=== PATIENT | male | born 1955 | race African-American/Black ===

== ENCOUNTER 2018-01-06 11:35 | Inpatient (IN) ==
[2018-01-06] MEDS ORDERED: LIDOCAINE 1% 20 ML VIAL ONE (11:56)
[2018-01-06] MEDS ORDERED: ASPIRIN 325 MG TABLET PO STA (11:56)
[2018-01-06] MEDS ORDERED: ENOXAPARIN 100 MG/ML SYRINGE SUBCUT STA ×2 (11:56→12:02)
[2018-01-06] MEDS ORDERED: NITROGLYCERIN DRIP 50 MG/250 ML BOTTLE IV ONE ×2 (12:02→18:38)
[2018-01-06] MEDS ORDERED: ENOXAPARIN 30 MG/0.3 ML SYRINGE ONE (12:02)
[2018-01-06] MEDS ORDERED: NITROGLYCERIN DRIP 50 MG/250 ML BOTTLE IV PRN (12:05)
[2018-01-06] MEDS ORDERED: SODIUM CHLORIDE 0.9% 1,000 ML IV STA (12:05)
[2018-01-06] MEDS ORDERED: fentaNYL 100 MCG/2 ML VIAL ONE ×2 (12:06→12:43)
[2018-01-06] MEDS ORDERED: MIDAZOLAM 2 MG/2 ML VIAL ONE ×3 (12:06→17:06)
[2018-01-06] MEDS ORDERED: METOPROLOL TARTRATE 5 MG/5 ML VIAL IV ONE ×2 (12:22→12:28)
[2018-01-06 12:33] LABS: Basophils % 0.2 % (0.0-0.8); Hemoglobin 17.9 GM/DL (14.0-18.0); Immature Granulocytes % 0.9 %; Immature Granulocytes Absolute 0.17 #; Lymphocytes # 1.7 10*3/uL (1.4-4.0); Lymphocytes % 9.3 % (21.2-54.2); Mean Corpuscular HGB Conc 33.8 GM/DL (32-36); Mean Corpuscular Hemoglobin 32 PG (27-34); Mean Corpuscular Volume 93.6 FL (87-102); Mean Platelet Volume 10.8 FL (9.6-12.0); Monocytes # 1.3 10*3/uL (0.11-0.8); Neutrophils # 14.9 10*3/uL (1.4-7.4); Neutrophils % 82.6 % (38.7-73.9); Platelet Count 225 T/CUMM (130-400); Red Blood Count 5.66 MC/CUMM (3.8-5.5); Red Cell Distribution Width 12.6 % (9.3-17.3); White Blood Count 18.1 T/CUMM (4-12)
[2018-01-06] MEDS ORDERED: hydrALAZINE 20 MG/1 ML VIAL ONE (12:34)
[2018-01-06 12:37] LABS: INR 1.1; PT Patient Result 11.4 SECS
[2018-01-06 12:40] LABS: Albumin 3.7 G/DL (3.4-5.0); Bilirubin,Total 1.8 MG/DL (0.2-1.0); Osmolality,Calculated 285.7 MOS/KG (273-304); Total Protein 7.6 G/DL (6.4-8.3)
[2018-01-06] MEDS ORDERED: SODIUM CHLORIDE 0.9% 1,000 ML IV PRN ×3 (13:08→13:37)
[2018-01-06 13:09] LABS: ABG Base Excess -2.2 MMOL/L (-2.5-2.5); ABG HCO3 22.5 MMOL/L (20-26); ABG Oxygen Saturation 95.7 % (95-100); ABG PCO2 25.1 MM HG (35-48); ABG PH 7.488 (7.35-7.45); ABG PO2 76.3 MM HG (80-95); ABG TCO2 15.7 MMOL/L (23-27)
[2018-01-06] MEDS ORDERED: PAPAVERINE 60 MG/2 ML VIAL ONE (13:22)
[2018-01-06] MEDS ORDERED: HEPARIN/NACL 0.9% 2 UNITS/ML 500 ML IV ONE ×2 (13:22→18:37)
[2018-01-06] MEDS ORDERED: VANCOMYCIN 1,000 MG VIAL ONE (13:22)
[2018-01-06] MEDS ORDERED: SUFentanil 250 MCG/5 ML AMP ONE (13:33)
[2018-01-06] MEDS ORDERED: CEFUROXIME 1,500 MG VIAL ONE (14:36)
[2018-01-06 15:01] LABS: ABG Base Excess -4.9 MMOL/L (-2.5-2.5); ABG HCO3 20.5 MMOL/L (20-26); ABG Oxygen Saturation 98.5 % (95-100); ABG PH 7.308 (7.35-7.45); ABG TCO2 18.2 MMOL/L (23-27); Glucose Heart Surgery 311 MG/DL (74-106); Hematocrit Heart Surgery 51.3 PERCENT (42-52); Hemoglobin Heart Surgery 16.8 G/DL (14.0-18.0); Ionized Calcium Arterial 1.08 MMOL/L (1.21-1.46); PH Patient Temp Arterial 7.308; Patient Temperature 37 CELCIUS; Potassium Heart/CVR 4.5 MMOL/L (3.5-5.1); Sodium Heart/CVR 137 MMOL/L (135-145)
[2018-01-06] MEDS ORDERED: NITROPRUSSIDE 50 MG/2 ML VIAL ONE (15:01)
[2018-01-06] MEDS ORDERED: PHENYLEPHRINE DRIP 40 MG/250 ML PREMIX IV ONE (15:02)
[2018-01-06] MEDS ORDERED: POTASSIUM CHLORIDE RIDER 100 ML IV ONE (15:02)
[2018-01-06] MEDS ORDERED: CALCIUM CHLORIDE 1,000 MG/10 ML SYRINGE IV ONE (15:02)
[2018-01-06] MEDS ORDERED: ALBUMIN 5% 12.5 GM/250 ML VIAL IV ONE ×2 (15:03)
[2018-01-06 15:21] LABS: Hematocrit Heart Surgery 36.2 PERCENT (42-52); Hemoglobin Heart Surgery 11.7 G/DL (14.0-18.0); PCO2 Patient Temp Venous 40.9 MM HG; PH Patient Temp Venous 7.362; PO2 Patient Temp Venous 43.6 MM HG; Potassium Heart/CVR 4.5 MMOL/L (3.5-5.1); VBG HCO3 22.2 MEQ/L (24-28); VBG Oxygen Saturation 73.3 %; VBG PCO2 40.9 MMHG (41-51); VBG PH 7.362; VBG PO2 43.6 MMHG (17-40)
[2018-01-06 15:51] LABS: Hematocrit Heart Surgery 38.6 PERCENT (42-52); Hemoglobin Heart Surgery 12.5 G/DL (14.0-18.0); PCO2 Patient Temp Venous 37.5 MM HG; PH Patient Temp Venous 7.387; PO2 Patient Temp Venous 48.4 MM HG; Potassium Heart/CVR 5.6 MMOL/L (3.5-5.1); VBG Base Excess -2.1 MEQ/L (0-4); VBG HCO3 22.4 MEQ/L (24-28); VBG Oxygen Saturation 80.6 %; VBG PCO2 37.5 MMHG (41-51); VBG PH 7.387; VBG PO2 48.4 MMHG (17-40)
[2018-01-06 16:11] LABS: Mucus,Urine Occasional /LPF (Occasional); RBC,Urine 4 /HPF (0-4); Squamous Epithelial Cell,Urine Occasional /HPF (0-10); WBC,Urine 141 /HPF (0-6)
[2018-01-06 16:12] LABS: Apearance,Urine Slightly Hazy (Clear); Urine Color Yellow (Yellow)
[2018-01-06 16:13] LABS: Bilirubin,Urine Negative (Negative); Blood, Urine Negative (Negative); Glucose,Urine (UA) >=500 mg/dL (Negative); Ketones,Urine 20 mg/dL (Negative); Nitrite,Urine Negative (Negative); Protein,Urine Negative; Urine Specific Gravity > 1.060 (1.001-1.035); Urine Urobilinogen < 2.0 EU/DL (0.2-1.0)
[2018-01-06 16:22] LABS: Hematocrit Heart Surgery 34.3 PERCENT (42-52); Hemoglobin Heart Surgery 11.1 G/DL (14.0-18.0); PCO2 Patient Temp Venous 37.7 MM HG; PH Patient Temp Venous 7.363; PO2 Patient Temp Venous 55.8 MM HG; VBG Base Excess -3.5 MEQ/L (0-4); VBG HCO3 21.3 MEQ/L (24-28); VBG Oxygen Saturation 85.4 %; VBG PCO2 37.7 MMHG (41-51); VBG PH 7.363; VBG PO2 55.8 MMHG (17-40)
[2018-01-06 16:28] LABS: Potassium Heart/CVR 6.6 MMOL/L (3.5-5.1)
[2018-01-06] MEDS ORDERED: BACITRACIN 50,000 UNIT VIAL ONE (16:34)
[2018-01-06] MEDS ORDERED: SUFentanil 50 MCG/ML AMP ONE (17:06)
[2018-01-06] MEDS ORDERED: MIDAZOLAM 10 MG/2 ML VIAL ONE ×2 (17:07→18:37)
[2018-01-06 17:39] LABS: ABG Base Excess -8.6 MMOL/L (-2.5-2.5); ABG HCO3 17.5 MMOL/L (20-26); ABG Oxygen Saturation 96.8 % (95-100); ABG PH 7.236 (7.35-7.45); ABG TCO2 17.2 MMOL/L (23-27); Glucose Heart Surgery 328 MG/DL (74-106); PH Patient Temp Arterial 7.236; Patient Temperature 37 CELCIUS; Potassium Heart/CVR 3.6 MMOL/L (3.5-5.1); Sodium Heart/CVR 135 MMOL/L (135-145)
[2018-01-06] MEDS ORDERED: SEVOFLURANE 1 UNIT/15 MINUTE INH ONE (18:37)
[2018-01-06] MEDS ORDERED: CALCIUM CHLORIDE 1,000 MG/10 ML VIAL IV ONE (18:37)
[2018-01-06] MEDS ORDERED: ESMOLOL 100 MG/10 ML VIAL IV ONE (18:38)
[2018-01-06] MEDS ORDERED: SODIUM CHLORIDE 0.9% 250 ML IV ONE (18:38)
[2018-01-06] MEDS ORDERED: VECURONIUM 10 MG VIAL IV ONE (18:38)
[2018-01-06] MEDS ORDERED: LACTATED RINGERS 1,000 ML IV ONE (18:38)
[2018-01-06] MEDS ORDERED: ETOMIDATE 40 MG/20 ML VIAL IV ONE (18:38)
[2018-01-06] MEDS ORDERED: SODIUM CHLORIDE 0.9% 1,000 ML IV ONE (18:38)
[2018-01-06] MEDS ORDERED: DEXTROSE 50% 25 GM/50 ML VIAL IV PRN ×2 (18:40)
[2018-01-06] MEDS ORDERED: MAGNESIUM SULF RIDER 2 GM in PREMIX 1 EACH IV PRN (18:40)
[2018-01-06] MEDS ORDERED: INSULIN REGULAR 100 UNIT/ML IV PRN (18:40)
[2018-01-06] MEDS ORDERED: CALCIUM CHLORIDE 1,000 MG/10 ML SYRINGE IV PRN (18:40)
[2018-01-06] MEDS ORDERED: ONDANSETRON 4 MG/2 ML VIAL IV PRN (18:40)
[2018-01-06] MEDS ORDERED: VECURONIUM 10 MG VIAL IV PRN ×2 (18:40)
[2018-01-06] MEDS ORDERED: ACETAMINOPHEN 650 MG SUPP RECTAL PRN (18:40)
[2018-01-06] MEDS ORDERED: MIDAZOLAM 10 MG/2 ML VIAL IV PRN (18:40)
[2018-01-06] MEDS ORDERED: INSULIN REGULAR 100 UNIT/ML IV ONE (18:40)
[2018-01-06] MEDS ORDERED: NITROPRUSSIDE 100 MG in DEXTROSE 5% 250 ML IV PRN (18:40)
[2018-01-06] MEDS ORDERED: MAGNESIUM SULF RIDER 4 GM in PREMIX 1 EACH IV PRN (18:40)
[2018-01-06] MEDS ORDERED: INSULIN REGULAR DRIP 100 ML IV SCH (18:40)
[2018-01-06] MEDS ORDERED: MORPHINE 10 MG/1 ML VIAL IV PRN (18:40)
[2018-01-06 18:57] LABS: ABG Base Excess -4.7 MMOL/L (-2.5-2.5); ABG HCO3 20.5 MMOL/L (20-26); ABG Oxygen Saturation 95.9 % (95-100); ABG PCO2 45.3 MM HG (35-48); ABG PH 7.294 (7.35-7.45); ABG PO2 95.9 MM HG (80-95); ABG TCO2 19.6 MMOL/L (23-27); Glucose Heart Surgery 276 MG/DL (74-106); Hemoglobin Heart Surgery 12.7 G/DL (14.0-18.0); Potassium Heart/CVR 4.2 MMOL/L (3.5-5.1)
[2018-01-06] MEDS: PHENYLEPHRINE DRIP 40 MG/250 ML PREMIX IV PRN (19:00)
[2018-01-06] MEDS: SODIUM CHLORIDE 0.45% 1,000 ML IV SCH ×2 (19:00)
[2018-01-06 19:07] LABS: Basophils % 0.1 % (0.0-0.8); Hemoglobin 11.6 GM/DL (14.0-18.0); Immature Granulocytes % 0.5 %; Immature Granulocytes Absolute 0.09 #; Lymphocytes % 11.9 % (21.2-54.2); Mean Corpuscular HGB Conc 33.1 GM/DL (32-36); Mean Corpuscular Hemoglobin 33 PG (27-34); Mean Platelet Volume 10.7 FL (9.6-12.0); Monocytes # 1.9 10*3/uL (0.11-0.8); Monocytes % 10.8 % (1.7-12.7); Neutrophils # 13.1 10*3/uL (1.4-7.4); Neutrophils % 76.7 % (38.7-73.9); Platelet Count 126 T/CUMM (130-400); Red Blood Count 3.57 MC/CUMM (3.8-5.5); Red Cell Distribution Width 12.8 % (9.3-17.3); White Blood Count 17.1 T/CUMM (4-12)
[2018-01-06] MEDS: LACTATED RINGERS 250 ML IV PRN ×2 (19:15→21:07)
[2018-01-06 19:16] LABS: INR 1.3; PT Patient Result 13.7 SECS; Partial Thromboplastin Time 29.3 SECS (0-40)
[2018-01-06 19:40] LABS: Albumin 2.6 G/DL (3.4-5.0); Calcium 8.2 MG/DL (8.5-10.1); Osmolality,Calculated 292.1 MOS/KG (273-304); Potassium 4.5 MMOL/L (3.5-5.1); Total Protein 5.2 G/DL (6.4-8.3)
[2018-01-06 20:33] LABS: CKMB % 4.6 %
[2018-01-06 20:37] LABS: Troponin I > 200.000 NG/ML (0.00-0.045)
[2018-01-06] MEDS: KETOROLAC 30 MG/1 ML VIAL IV SCH (20:42)
[2018-01-06] MEDS: CHLORHEXIDINE 0.12% ORAL RINSE 60 ML BOTTLE SWISH/SPIT SCH (20:42)
[2018-01-06] MEDS ORDERED: FUROSEMIDE 40 MG/4 ML VIAL IV ONE (21:00)
[2018-01-06] MEDS: ALBUMIN 5% 12.5 GM in PREMIX 1 EACH IV PRN (21:31)
[2018-01-06 21:59] LABS: ABG Oxygen Saturation 99.1 % (95-100); ABG PCO2 35.2 MM HG (35-48); ABG PH 7.392 (7.35-7.45); ABG TCO2 19.4 MMOL/L (23-27); Glucose Heart Surgery 211 MG/DL (74-106); Hematocrit Heart Surgery 32.1 PERCENT (42-52); Hemoglobin Heart Surgery 10.4 G/DL (14.0-18.0); Potassium Heart/CVR 3.9 MMOL/L (3.5-5.1)
[2018-01-06] MEDS: POTASSIUM CHLORIDE RIDER 20 MEQ in PREMIX 1 EACH IV PRN (22:13)
[2018-01-07] MEDS: KETOROLAC 30 MG/1 ML VIAL IV SCH ×2 (00:37→06:19)
[2018-01-07] MEDS ORDERED: FUROSEMIDE 40 MG/4 ML VIAL IV ONE ×2 (01:00→06:03)
[2018-01-07] MEDS: MIDAZOLAM 2 MG/2 ML VIAL IV PRN ×4 (01:42→14:48)
[2018-01-07 02:59] LABS: ABG Base Excess -0.4 MMOL/L (-2.5-2.5); ABG PCO2 33.9 MM HG (35-48); ABG PH 7.442 (7.35-7.45); ABG PO2 88.4 MM HG (80-95); ABG TCO2 20.8 MMOL/L (23-27); Glucose Heart Surgery 120 MG/DL (74-106); Hematocrit Heart Surgery 33.3 PERCENT (42-52); Hemoglobin Heart Surgery 10.8 G/DL (14.0-18.0); Potassium Heart/CVR 3.8 MMOL/L (3.5-5.1)
[2018-01-07] MEDS: CEFUROXIME INJ 1,500 MG in SYRINGE 1 EACH IV SCH ×2 (03:03→14:47)
[2018-01-07] MEDS: PHENYLEPHRINE DRIP 40 MG/250 ML PREMIX IV PRN (03:06)
[2018-01-07] MEDS: PROPOFOL 1,000 MG/100 ML BOTTLE IV SCH ×2 (03:22→15:18)
[2018-01-07 04:28] LABS: Basophils % 0.2 % (0.0-0.8); Hematocrit 29.7 VOL% (42.0-52.0); Hemoglobin 10.1 GM/DL (14.0-18.0); Immature Granulocytes % 0.5 %; Immature Granulocytes Absolute 0.06 #; Lymphocytes # 1.5 10*3/uL (1.4-4.0); Lymphocytes % 12.6 % (21.2-54.2); Mean Corpuscular Hemoglobin 33 PG (27-34); Mean Corpuscular Volume 96.4 FL (87-102); Mean Platelet Volume 10.8 FL (9.6-12.0); Monocytes # 0.7 10*3/uL (0.11-0.8); Neutrophils # 9.7 10*3/uL (1.4-7.4); Neutrophils % 80.7 % (38.7-73.9); Platelet Count 101 T/CUMM (130-400); Red Blood Count 3.08 MC/CUMM (3.8-5.5); Red Cell Distribution Width 12.9 % (9.3-17.3); White Blood Count 12.1 T/CUMM (4-12)
[2018-01-07] MEDS: ALBUMIN 5% 12.5 GM in PREMIX 1 EACH IV PRN ×4 (04:28→17:13)
[2018-01-07 04:35] LABS: VBG Base Excess 2.2 MEQ/L (0-4); VBG HCO3 25.8 MEQ/L (24-28); VBG Oxygen Saturation 67.1 %; VBG PCO2 35.7 MMHG (41-51); VBG PH 7.466; VBG PO2 36.1 MMHG (17-40)
[2018-01-07 04:42] LABS: CKMB % 3.2 %
[2018-01-07 04:45] LABS: Troponin I > 200.000 NG/ML (0.00-0.045)
[2018-01-07 04:48] LABS: Bilirubin,Direct 1.21 MG/DL (0.0-0.20); Bilirubin,Total 2.3 MG/DL (0.2-1.0); Calcium 8.2 MG/DL (8.5-10.1); Osmolality,Calculated 291.6 MOS/KG (273-304); Potassium 3.9 MMOL/L (3.5-5.1)
[2018-01-07] MEDS: POTASSIUM CHLORIDE RIDER 20 MEQ in PREMIX 1 EACH IV PRN ×3 (05:31→20:48)
[2018-01-07] MEDS: POTASSIUM CHLORIDE RIDER 10 MEQ in PREMIX 1 EACH IV PRN (06:25)
[2018-01-07] MEDS: INSULIN REGULAR 100 UNIT/ML SUBCUT SCH ×4 (07:50→20:50)
[2018-01-07] MEDS: CHLORHEXIDINE 0.12% ORAL RINSE 60 ML BOTTLE SWISH/SPIT SCH ×2 (08:29→20:51)
[2018-01-07 11:07] LABS: ABG Base Excess 0.1 MMOL/L (-2.5-2.5); ABG HCO3 22.3 MMOL/L (20-26); ABG Oxygen Saturation 97.5 % (95-100); ABG PCO2 28.6 MM HG (35-48); ABG PH 7.509 (7.35-7.45); ABG PO2 103.6 MM HG (80-95); ABG TCO2 23.1 MMOL/L (23-27); Glucose Heart Surgery 139 MG/DL (74-106); Hemoglobin Heart Surgery 11.4 G/DL (14.0-18.0)
[2018-01-07] MEDS: LACTATED RINGERS 250 ML IV PRN ×2 (13:32→15:41)
[2018-01-07 13:45] LABS: CKMB % 2.5 %
[2018-01-07] MEDS: PANTOPRAZOLE 40 MG VIAL IV SCH (14:47)
[2018-01-07] MEDS: MORPHINE 4 MG/1 ML VIAL IV PRN (19:44)
[2018-01-07 20:07] LABS: CKMB % 2.1 %
[2018-01-07] MEDS: SODIUM CHLORIDE 0.45% 1,000 ML IV SCH ×2 (20:54)
[2018-01-08] MEDS: INSULIN REGULAR 100 UNIT/ML SUBCUT SCH ×6 (00:04→21:23)
[2018-01-08] MEDS: PROPOFOL 1,000 MG/100 ML BOTTLE IV SCH ×3 (00:12→08:56)
[2018-01-08] MEDS: MORPHINE 4 MG/1 ML VIAL IV PRN ×4 (00:26→23:06)
[2018-01-08] MEDS: CEFUROXIME INJ 1,500 MG in SYRINGE 1 EACH IV SCH (02:49)
[2018-01-08 03:36] LABS: ABG Base Excess -0.1 MMOL/L (-2.5-2.5); ABG HCO3 24.3 MMOL/L (20-26); ABG Oxygen Saturation 98.3 % (95-100); ABG PCO2 30.2 MM HG (35-48); ABG PH 7.476 (7.35-7.45); ABG TCO2 18.9 MMOL/L (23-27)
[2018-01-08 03:44] LABS: Hemoglobin 9.4 GM/DL (14.0-18.0); Immature Granulocytes % 0.4 %; Immature Granulocytes Absolute 0.03 #; Lymphocytes % 11.7 % (21.2-54.2); Mean Corpuscular HGB Conc 33.6 GM/DL (32-36); Mean Corpuscular Hemoglobin 32 PG (27-34); Mean Corpuscular Volume 95.2 FL (87-102); Mean Platelet Volume 11.8 FL (9.6-12.0); Monocytes # 0.5 10*3/uL (0.11-0.8); Monocytes % 6.6 % (1.7-12.7); Neutrophils # 6.7 10*3/uL (1.4-7.4); Neutrophils % 81.3 % (38.7-73.9); Red Blood Count 2.94 MC/CUMM (3.8-5.5); Red Cell Distribution Width 15.7 % (9.3-17.3); White Blood Count 8.2 T/CUMM (4-12)
[2018-01-08 03:45] LABS: Platelet Count 71 T/CUMM (130-400)
[2018-01-08 03:59] LABS: Albumin 2.9 G/DL (3.4-5.0); Bilirubin,Direct 0.86 MG/DL (0.0-0.20); Bilirubin,Total 1.3 MG/DL (0.2-1.0); Calcium 7.7 MG/DL (8.5-10.1); Osmolality,Calculated 303.7 MOS/KG (273-304); Potassium 4.3 MMOL/L (3.5-5.1); Total Protein 5.7 G/DL (6.4-8.3)
[2018-01-08] MEDS: DOBUTamine 500 MG/250 ML PREMIX IV SCH (04:30)
[2018-01-08 05:03] LABS: Hypochromasia 1+; Platelet Estimate Decreased
[2018-01-08] MEDS: POTASSIUM CHLORIDE RIDER 20 MEQ in PREMIX 1 EACH IV PRN ×2 (05:18→09:26)
[2018-01-08] MEDS: CHLORHEXIDINE 0.12% ORAL RINSE 60 ML BOTTLE SWISH/SPIT SCH ×2 (08:02→21:23)
[2018-01-08] MEDS: PANTOPRAZOLE 40 MG VIAL IV SCH (08:35)
[2018-01-08 09:20] LABS: ABG Base Excess 0.4 MMOL/L (-2.5-2.5); ABG HCO3 22.7 MMOL/L (20-26); ABG Oxygen Saturation 97.7 % (95-100); ABG PCO2 29.5 MM HG (35-48); ABG PH 7.504 (7.35-7.45); ABG PO2 109.8 MM HG (80-95); ABG TCO2 23.6 MMOL/L (23-27); Glucose Heart Surgery 163 MG/DL (74-106); Hemoglobin Heart Surgery 11.6 G/DL (14.0-18.0); Potassium Heart/CVR 4.1 MMOL/L (3.5-5.1)
[2018-01-08] MEDS: SODIUM CHLORIDE 0.45% 1,000 ML IV SCH ×3 (15:25→18:32)
[2018-01-08 15:55] LABS: ABG Base Excess -1.5 MMOL/L (-2.5-2.5); ABG HCO3 23.1 MMOL/L (20-26); ABG Oxygen Saturation 97.4 % (95-100); ABG PCO2 31.1 MM HG (35-48); ABG TCO2 19.2 MMOL/L (23-27); Glucose Heart Surgery 145 MG/DL (74-106); Hematocrit Heart Surgery 35.6 PERCENT (42-52); Hemoglobin Heart Surgery 11.5 G/DL (14.0-18.0); Potassium Heart/CVR 3.9 MMOL/L (3.5-5.1)
[2018-01-08 16:46] LABS: ABG Base Excess -2.2 MMOL/L (-2.5-2.5); ABG HCO3 20.6 MMOL/L (20-26); ABG Oxygen Saturation 94.5 % (95-100); ABG PCO2 29.5 MM HG (35-48); ABG PH 7.462 (7.35-7.45); ABG PO2 79.2 MM HG (80-95); ABG TCO2 21.5 MMOL/L (23-27)
[2018-01-08] MEDS ORDERED: FUROSEMIDE 40 MG/4 ML VIAL IV ONE ×2 (18:26)
[2018-01-09] MEDS ORDERED: FUROSEMIDE 40 MG/4 ML VIAL IV ONE
[2018-01-09] MEDS: INSULIN REGULAR 100 UNIT/ML SUBCUT SCH ×6 (00:18→20:32)
[2018-01-09 03:30] LABS: Hematocrit 35.1 VOL% (42.0-52.0); Hemoglobin 11.5 GM/DL (14.0-18.0); Immature Granulocytes % 0.4 %; Immature Granulocytes Absolute 0.05 #; Lymphocytes # 1.2 10*3/uL (1.4-4.0); Lymphocytes % 10.2 % (21.2-54.2); Mean Corpuscular HGB Conc 32.8 GM/DL (32-36); Mean Corpuscular Hemoglobin 31 PG (27-34); Mean Corpuscular Volume 95.4 FL (87-102); Mean Platelet Volume 11.8 FL (9.6-12.0); Monocytes # 0.8 10*3/uL (0.11-0.8); Monocytes % 6.8 % (1.7-12.7); NRBC # 0.09 10*3/uL; Neutrophils # 9.3 10*3/uL (1.4-7.4); Neutrophils % 82.6 % (38.7-73.9); Platelet Count 93 T/CUMM (130-400); Red Blood Count 3.68 MC/CUMM (3.8-5.5); Red Cell Distribution Width 15.9 % (9.3-17.3); White Blood Count 11.2 T/CUMM (4-12)
[2018-01-09 04:00] LABS: Albumin 2.9 G/DL (3.4-5.0); Bilirubin,Direct 0.59 MG/DL (0.0-0.20); Bilirubin,Total 1.1 MG/DL (0.2-1.0); Calcium 7.4 MG/DL (8.5-10.1); Potassium 3.9 MMOL/L (3.5-5.1); Total Protein 6.3 G/DL (6.4-8.3)
[2018-01-09] MEDS: PROPOFOL 1,000 MG/100 ML BOTTLE IV SCH (04:13)
[2018-01-09 04:41] LABS: ABG Base Excess -0.8 MMOL/L (-2.5-2.5); ABG HCO3 23.7 MMOL/L (20-26); ABG Oxygen Saturation 95.1 % (95-100); ABG PCO2 31.5 MM HG (35-48); ABG PH 7.457 (7.35-7.45); ABG PO2 79.4 MM HG (80-95); ABG TCO2 19.7 MMOL/L (23-27); Allen Test Positive
[2018-01-09] MEDS: DOBUTamine 500 MG/250 ML PREMIX IV SCH (04:58)
[2018-01-09] MEDS: MORPHINE 4 MG/1 ML VIAL IV PRN ×3 (06:28→21:15)
[2018-01-09] MEDS: PANTOPRAZOLE 40 MG VIAL IV SCH (09:00)
[2018-01-09] MEDS: CHLORHEXIDINE 0.12% ORAL RINSE 60 ML BOTTLE SWISH/SPIT SCH ×2 (09:00→20:32)
[2018-01-09] MEDS: SODIUM CHLORIDE 0.45% 1,000 ML IV SCH ×2 (16:59→18:40)
[2018-01-09] MEDS ORDERED: METOPROLOL TARTRATE 25 MG TABLET PO SCH (21:00)
[2018-01-10] MEDS: INSULIN REGULAR 100 UNIT/ML SUBCUT SCH ×4 (00:53→11:50)
[2018-01-10 03:42] LABS: Basophils % 0.1 % (0.0-0.8); Hematocrit 35.9 VOL% (42.0-52.0); Immature Granulocytes % 0.6 %; Immature Granulocytes Absolute 0.07 #; Lymphocytes # 1.9 10*3/uL (1.4-4.0); Lymphocytes % 17.2 % (21.2-54.2); Mean Corpuscular HGB Conc 33.4 GM/DL (32-36); Mean Corpuscular Hemoglobin 32 PG (27-34); Mean Platelet Volume 11.6 FL (9.6-12.0); Monocytes # 1.2 10*3/uL (0.11-0.8); Monocytes % 10.3 % (1.7-12.7); NRBC # 0.14 10*3/uL; Neutrophils # 8.1 10*3/uL (1.4-7.4); Neutrophils % 71.8 % (38.7-73.9); Platelet Count 102 T/CUMM (130-400); Red Blood Count 3.78 MC/CUMM (3.8-5.5); Red Cell Distribution Width 14.7 % (9.3-17.3); White Blood Count 11.2 T/CUMM (4-12)
[2018-01-10 04:08] LABS: Calcium 7.7 MG/DL (8.5-10.1); Potassium 3.7 MMOL/L (3.5-5.1)
[2018-01-10] MEDS: MORPHINE 4 MG/1 ML VIAL IV PRN ×3 (04:27→09:05)
[2018-01-10] MEDS: DOBUTamine 500 MG/250 ML PREMIX IV SCH (04:39)
[2018-01-10] MEDS: POTASSIUM CHLORIDE RIDER 20 MEQ in PREMIX 1 EACH IV PRN (05:20)
[2018-01-10 07:10] LABS: Platelet Estimate Decreased; Polychromasia Few
[2018-01-10] MEDS: POTASSIUM CHLORIDE RIDER 10 MEQ in PREMIX 1 EACH IV PRN (08:00)
[2018-01-10] MEDS: METOPROLOL TARTRATE 50 MG TABLET PO SCH ×2 (09:05→21:56)
[2018-01-10] MEDS: LOSARTAN 25 MG TABLET PO SCH ×2 (09:05→21:55)
[2018-01-10] MEDS: CHLORHEXIDINE 0.12% ORAL RINSE 60 ML BOTTLE SWISH/SPIT SCH ×2 (09:05→21:56)
[2018-01-10] MEDS: PANTOPRAZOLE 40 MG VIAL IV SCH (09:10)
[2018-01-10] MEDS ORDERED: DEXTROSE 50% 25 GM/50 ML SYRINGE IV PRN (12:25)
[2018-01-10] MEDS ORDERED: SODIUM CHLOR 0.45% KCL 20 MEQ 20 MEQ/1,000 ML BAG IV SCH (12:25)
[2018-01-10] MEDS ORDERED: GLUCAGON 1 MG VIAL IM PRN ×2 (12:25)
[2018-01-10] MEDS ORDERED: MAGNESIUM SULF RIDER 2 GM in PREMIX 1 EACH IV PRN (12:25)
[2018-01-10] MEDS ORDERED: MAGNESIUM SULF RIDER 4 GM in PREMIX 1 EACH IV PRN (12:25)
[2018-01-10] MEDS ORDERED: MAGNESIUM HYDROXIDE SUSP 30 ML UDCUP PO PRN (12:25)
[2018-01-10] MEDS ORDERED: DEXTROSE 50% 25 GM/50 ML VIAL IV PRN (12:25)
[2018-01-10] MEDS ORDERED: MORPHINE 4 MG/1 ML VIAL IV PRN (12:25)
[2018-01-10] MEDS ORDERED: ONDANSETRON 4 MG/2 ML VIAL IV PRN (12:25)
[2018-01-10] MEDS ORDERED: ALUMINUM/MAGNES/SIMETH MAX STR 30 ML UDCUP PO PRN (12:25)
[2018-01-10] MEDS ORDERED: ACETAMINOPHEN 325 MG TABLET PO PRN (12:25)
[2018-01-10] MEDS ORDERED: ZALEPLON 5 MG CAPSULE PO PRN (12:25)
[2018-01-10] MEDS: KETOROLAC 30 MG/1 ML VIAL IV PRN ×2 (13:07→21:59)
[2018-01-10] MEDS: oxyCODONE/ACETAMINOPHEN 5-325 MG TABLET PO PRN (16:28)
[2018-01-10] MEDS: METOPROLOL TARTRATE 100 MG TABLET PO SCH (21:55)
[2018-01-10] MEDS: glipiZIDE 10 MG TABLET PO SCH (21:55)
[2018-01-10] MEDS: SULINDAC 150 MG TABLET PO SCH (21:56)
[2018-01-11 05:09] LABS: Basophils % 0.1 % (0.0-0.8); Eosinophils % 0.3 % (0.00-10.9); Hematocrit 38.9 VOL% (42.0-52.0); Hemoglobin 13.1 GM/DL (14.0-18.0); Immature Granulocytes % 1.2 %; Immature Granulocytes Absolute 0.13 #; Lymphocytes # 2.1 10*3/uL (1.4-4.0); Lymphocytes % 18.9 % (21.2-54.2); Mean Corpuscular HGB Conc 33.7 GM/DL (32-36); Mean Corpuscular Hemoglobin 32 PG (27-34); Mean Platelet Volume 11.7 FL (9.6-12.0); Monocytes # 1.2 10*3/uL (0.11-0.8); NRBC # 0.05 10*3/uL; Neutrophils # 7.5 10*3/uL (1.4-7.4); Neutrophils % 68.5 % (38.7-73.9); Platelet Count 121 T/CUMM (130-400); Red Blood Count 4.14 MC/CUMM (3.8-5.5); Red Cell Distribution Width 14.1 % (9.3-17.3); White Blood Count 10.9 T/CUMM (4-12)
[2018-01-11] MEDS ORDERED: FUROSEMIDE 40 MG/4 ML VIAL IV ONE (06:00)
[2018-01-11 07:12] LABS: Alanine Aminotransferase 152 U/L (16-61); Albumin 2.6 G/DL (3.4-5.0); Alkaline Phosphatase 93 U/L (45-117); Aspartate Amino Transferase 93 U/L (0-37); Bilirubin,Indirect 0.7 MG/DL (0.0-1.0); Blood Urea Nitrogen 28 MG/DL (7-18); Calcium 7.7 MG/DL (8.5-10.1); Glucose 186 MG/DL (74-106); Osmolality,Calculated 289.4 MOS/KG (273-304); Potassium 3.8 MMOL/L (3.5-5.1); Sodium 140 MMOL/L (136-145); Total Protein 6.1 G/DL (6.4-8.3)
[2018-01-11] MEDS: KETOROLAC 30 MG/1 ML VIAL IV PRN ×2 (09:39→17:30)
[2018-01-11] MEDS: METOPROLOL TARTRATE 100 MG TABLET PO SCH ×2 (09:56→20:35)
[2018-01-11] MEDS: PANTOPRAZOLE 40 MG TABLET PO SCH (09:58)
[2018-01-11] MEDS: glipiZIDE 10 MG TABLET PO SCH ×2 (09:59→20:35)
[2018-01-11] MEDS: FERROUS SULFATE 325 MG TABLET PO SCH (09:59)
[2018-01-11] MEDS: amLODIPine 5 MG TABLET PO SCH (09:59)
[2018-01-11] MEDS: DOCUSATE SODIUM 100 MG CAPSULE PO SCH (09:59)
[2018-01-11] MEDS: SULINDAC 150 MG TABLET PO SCH (09:59)
[2018-01-11] MEDS: CHLORTHALIDONE 25 MG TABLET PO SCH (10:00)
[2018-01-11] MEDS: ASPIRIN EC 325 MG TABLET PO SCH (10:00)
[2018-01-11] MEDS: LOSARTAN 25 MG TABLET PO SCH ×2 (10:01→20:35)
[2018-01-11] MEDS: CHLORHEXIDINE 0.12% ORAL RINSE 60 ML BOTTLE SWISH/SPIT SCH ×2 (13:20→20:36)
[2018-01-11] MEDS: ATORVASTATIN 20 MG TABLET PO SCH (20:34)
[2018-01-12 05:02] LABS: Basophils % 0.1 % (0.0-0.8); Eosinophils # 0.1 10*3/uL (0.0-0.87); Eosinophils % 0.6 % (0.00-10.9); Hematocrit 37.2 VOL% (42.0-52.0); Hemoglobin 12.5 GM/DL (14.0-18.0); Immature Granulocytes Absolute 0.12 #; Lymphocytes # 1.8 10*3/uL (1.4-4.0); Mean Corpuscular HGB Conc 33.6 GM/DL (32-36); Mean Corpuscular Hemoglobin 31 PG (27-34); Mean Corpuscular Volume 93.5 FL (87-102); Mean Platelet Volume 11.4 FL (9.6-12.0); Monocytes # 1.4 10*3/uL (0.11-0.8); Monocytes % 11.4 % (1.7-12.7); Neutrophils # 9.2 10*3/uL (1.4-7.4); Neutrophils % 72.9 % (38.7-73.9); Platelet Count 144 T/CUMM (130-400); Red Blood Count 3.98 MC/CUMM (3.8-5.5); Red Cell Distribution Width 14.4 % (9.3-17.3); White Blood Count 12.6 T/CUMM (4-12)
[2018-01-12 05:18] LABS: Alanine Aminotransferase 102 U/L (16-61); Albumin 2.6 G/DL (3.4-5.0); Alkaline Phosphatase 81 U/L (45-117); Aspartate Amino Transferase 66 U/L (0-37); Bilirubin,Indirect 1.2 MG/DL (0.0-1.0); Blood Urea Nitrogen 21 MG/DL (7-18); Calcium 7.9 MG/DL (8.5-10.1); Glucose 165 MG/DL (74-106); Osmolality,Calculated 292.8 MOS/KG (273-304); Potassium 3.5 MMOL/L (3.5-5.1); Risk Ratio 3.58; Sodium 144 MMOL/L (136-145); Total Protein 5.8 G/DL (6.4-8.3); VLDL CHOLESTEROL 29.6 MG/DL
[2018-01-12] MEDS ORDERED: FUROSEMIDE 40 MG/4 ML VIAL IV ONE (07:08)
[2018-01-12] MEDS: CHLORHEXIDINE 0.12% ORAL RINSE 60 ML BOTTLE SWISH/SPIT SCH ×2 (09:51→21:10)
[2018-01-12] MEDS: LOSARTAN 25 MG TABLET PO SCH ×2 (09:52→21:10)
[2018-01-12] MEDS: PANTOPRAZOLE 40 MG TABLET PO SCH (09:52)
[2018-01-12] MEDS: METOPROLOL TARTRATE 100 MG TABLET PO SCH ×2 (09:52→21:10)
[2018-01-12] MEDS: DOCUSATE SODIUM 100 MG CAPSULE PO SCH (09:52)
[2018-01-12] MEDS: CHLORTHALIDONE 25 MG TABLET PO SCH (09:52)
[2018-01-12] MEDS: amLODIPine 5 MG TABLET PO SCH (09:52)
[2018-01-12] MEDS: FERROUS SULFATE 325 MG TABLET PO SCH (09:53)
[2018-01-12] MEDS: glipiZIDE 10 MG TABLET PO SCH ×2 (09:53→21:10)
[2018-01-12] MEDS: ASPIRIN EC 325 MG TABLET PO SCH (09:53)
[2018-01-12] MEDS: FUROSEMIDE 40 MG TABLET PO SCH (09:54)
[2018-01-12] MEDS: DILTIAZEM 30 MG TABLET PO SCH ×3 (11:26→21:09)
[2018-01-12] MEDS: oxyCODONE/ACETAMINOPHEN 5-325 MG TABLET PO PRN (14:55)
[2018-01-12] MEDS: ATORVASTATIN 20 MG TABLET PO SCH (21:09)
[2018-01-13 03:28] LABS: Basophils % 0.1 % (0.0-0.8); Eosinophils # 0.1 10*3/uL (0.0-0.87); Eosinophils % 1.3 % (0.00-10.9); Hematocrit 34.6 VOL% (42.0-52.0); Hemoglobin 11.7 GM/DL (14.0-18.0); Immature Granulocytes % 1.1 %; Immature Granulocytes Absolute 0.12 #; Lymphocytes # 2.1 10*3/uL (1.4-4.0); Lymphocytes % 18.6 % (21.2-54.2); Mean Corpuscular HGB Conc 33.8 GM/DL (32-36); Mean Corpuscular Hemoglobin 32 PG (27-34); Mean Corpuscular Volume 93.3 FL (87-102); Monocytes # 1.2 10*3/uL (0.11-0.8); Monocytes % 10.4 % (1.7-12.7); Neutrophils # 7.7 10*3/uL (1.4-7.4); Neutrophils % 68.5 % (38.7-73.9); Platelet Count 153 T/CUMM (130-400); Red Blood Count 3.71 MC/CUMM (3.8-5.5); Red Cell Distribution Width 14.5 % (9.3-17.3); White Blood Count 11.2 T/CUMM (4-12)
[2018-01-13 03:52] LABS: Calcium 8.4 MG/DL (8.5-10.1); Osmolality,Calculated 289.1 MOS/KG (273-304); Potassium 3.4 MMOL/L (3.5-5.1)
[2018-01-13] MEDS: POTASSIUM CHLORIDE 20 MEQ TABLET PO PRN ×2 (06:17→14:55)
[2018-01-13] MEDS: oxyCODONE/ACETAMINOPHEN 5-325 MG TABLET PO PRN ×2 (08:54→14:22)
[2018-01-13] MEDS: FUROSEMIDE 40 MG TABLET PO SCH (08:55)
[2018-01-13] MEDS: DOCUSATE SODIUM 100 MG CAPSULE PO SCH (08:55)
[2018-01-13] MEDS: CHLORTHALIDONE 25 MG TABLET PO SCH (08:55)
[2018-01-13] MEDS: ASPIRIN EC 325 MG TABLET PO SCH (08:55)
[2018-01-13] MEDS: glipiZIDE 10 MG TABLET PO SCH ×2 (08:55→21:24)
[2018-01-13] MEDS: PANTOPRAZOLE 40 MG TABLET PO SCH (08:55)
[2018-01-13] MEDS: DILTIAZEM CD 120 MG CAPSULE PO SCH (08:56)
[2018-01-13] MEDS: LOSARTAN 25 MG TABLET PO SCH ×2 (08:56→21:24)
[2018-01-13] MEDS: POTASSIUM CHLORIDE 20 MEQ TABLET PO SCH (08:56)
[2018-01-13] MEDS: METOPROLOL TARTRATE 100 MG TABLET PO SCH ×2 (09:42→21:24)
[2018-01-13] MEDS: FERROUS SULFATE 325 MG TABLET PO SCH (09:42)
[2018-01-13] MEDS: CHLORHEXIDINE 0.12% ORAL RINSE 60 ML BOTTLE SWISH/SPIT SCH ×2 (11:08→21:24)
[2018-01-13] MEDS: ATORVASTATIN 20 MG TABLET PO SCH (21:24)
[2018-01-14 03:39] LABS: Basophils % 0.2 % (0.0-0.8); Eosinophils # 0.1 10*3/uL (0.0-0.87); Eosinophils % 1.1 % (0.00-10.9); Hemoglobin 11.6 GM/DL (14.0-18.0); Immature Granulocytes % 0.7 %; Immature Granulocytes Absolute 0.08 #; Lymphocytes # 2.2 10*3/uL (1.4-4.0); Lymphocytes % 19.3 % (21.2-54.2); Mean Corpuscular HGB Conc 32.2 GM/DL (32-36); Mean Corpuscular Hemoglobin 31 PG (27-34); Mean Platelet Volume 11.5 FL (9.6-12.0); Monocytes # 1.1 10*3/uL (0.11-0.8); Monocytes % 9.5 % (1.7-12.7); Neutrophils % 69.2 % (38.7-73.9); Platelet Count 200 T/CUMM (130-400); Red Blood Count 3.79 MC/CUMM (3.8-5.5); Red Cell Distribution Width 14.6 % (9.3-17.3); White Blood Count 11.5 T/CUMM (4-12)
[2018-01-14 04:13] LABS: Alanine Aminotransferase 65 U/L (16-61); Albumin 2.8 G/DL (3.4-5.0); Alkaline Phosphatase 69 U/L (45-117); Aspartate Amino Transferase 35 U/L (0-37); Bilirubin,Indirect 0.8 MG/DL (0.0-1.0); Blood Urea Nitrogen 22 MG/DL (7-18); Calcium 8.4 MG/DL (8.5-10.1); Glucose 136 MG/DL (74-106); Osmolality,Calculated 285.3 MOS/KG (273-304); Potassium 3.7 MMOL/L (3.5-5.1); Sodium 141 MMOL/L (136-145); Total Protein 6.4 G/DL (6.4-8.3)
[2018-01-14 04:45] LABS: Eosinophils 3 % (0-10); Lymphocytes 14 % (20-55); Platelet Estimate Normal; Polychromasia Few; Segmented Neutrophils 77 % (50-85); Total Cells Counted 100
[2018-01-14] MEDS: FERROUS SULFATE 325 MG TABLET PO SCH (09:10)
[2018-01-14] MEDS: oxyCODONE/ACETAMINOPHEN 5-325 MG TABLET PO PRN ×2 (09:10→16:36)
[2018-01-14] MEDS: FUROSEMIDE 40 MG TABLET PO SCH (09:11)
[2018-01-14] MEDS: POTASSIUM CHLORIDE 20 MEQ TABLET PO SCH (09:11)
[2018-01-14] MEDS: METOPROLOL TARTRATE 100 MG TABLET PO SCH ×2 (09:12→21:43)
[2018-01-14] MEDS: DOCUSATE SODIUM 100 MG CAPSULE PO SCH (09:12)
[2018-01-14] MEDS: glipiZIDE 10 MG TABLET PO SCH ×2 (09:12→21:43)
[2018-01-14] MEDS: DILTIAZEM CD 120 MG CAPSULE PO SCH (09:12)
[2018-01-14] MEDS: LOSARTAN 25 MG TABLET PO SCH ×2 (09:12→21:43)
[2018-01-14] MEDS: PANTOPRAZOLE 40 MG TABLET PO SCH (09:12)
[2018-01-14] MEDS: ASPIRIN EC 325 MG TABLET PO SCH (09:12)
[2018-01-14] MEDS: CHLORTHALIDONE 25 MG TABLET PO SCH (09:13)
[2018-01-14] MEDS: CHLORHEXIDINE 0.12% ORAL RINSE 60 ML BOTTLE SWISH/SPIT SCH ×2 (14:00→21:43)
[2018-01-14] MEDS: ATORVASTATIN 20 MG TABLET PO SCH (21:42)
[2018-01-15] MEDS: oxyCODONE/ACETAMINOPHEN 5-325 MG TABLET PO PRN (02:19)
[2018-01-15 03:42] LABS: Basophils % 0.1 % (0.0-0.8); Eosinophils # 0.1 10*3/uL (0.0-0.87); Eosinophils % 0.5 % (0.00-10.9); Hematocrit 35.1 VOL% (42.0-52.0); Hemoglobin 11.5 GM/DL (14.0-18.0); Immature Granulocytes % 0.4 %; Immature Granulocytes Absolute 0.06 #; Lymphocytes # 2.1 10*3/uL (1.4-4.0); Lymphocytes % 15.6 % (21.2-54.2); Mean Corpuscular HGB Conc 32.8 GM/DL (32-36); Mean Corpuscular Hemoglobin 31 PG (27-34); Mean Corpuscular Volume 94.6 FL (87-102); Mean Platelet Volume 11.7 FL (9.6-12.0); Monocytes # 1.2 10*3/uL (0.11-0.8); Monocytes % 8.9 % (1.7-12.7); Neutrophils # 10.2 10*3/uL (1.4-7.4); Neutrophils % 74.5 % (38.7-73.9); Platelet Count 213 T/CUMM (130-400); Red Blood Count 3.71 MC/CUMM (3.8-5.5); Red Cell Distribution Width 14.3 % (9.3-17.3); White Blood Count 13.6 T/CUMM (4-12)
[2018-01-15 04:01] LABS: Alanine Aminotransferase 53 U/L (16-61); Albumin 2.6 G/DL (3.4-5.0); Alkaline Phosphatase 69 U/L (45-117); Aspartate Amino Transferase 34 U/L (0-37); Bilirubin,Indirect 0.9 MG/DL (0.0-1.0); Blood Urea Nitrogen 19 MG/DL (7-18); Calcium 8.6 MG/DL (8.5-10.1); Glucose 101 MG/DL (74-106); Osmolality,Calculated 280.4 MOS/KG (273-304); Potassium 3.9 MMOL/L (3.5-5.1); Sodium 140 MMOL/L (136-145); Total Protein 6.7 G/DL (6.4-8.3)
[2018-01-15] MEDS: FUROSEMIDE 40 MG TABLET PO SCH (10:29)
[2018-01-15] MEDS: glipiZIDE 10 MG TABLET PO SCH ×2 (10:29→21:45)
[2018-01-15] MEDS: DOCUSATE SODIUM 100 MG CAPSULE PO SCH (10:29)
[2018-01-15] MEDS: ASPIRIN EC 325 MG TABLET PO SCH (10:29)
[2018-01-15] MEDS: DILTIAZEM CD 120 MG CAPSULE PO SCH (10:30)
[2018-01-15] MEDS: FERROUS SULFATE 325 MG TABLET PO SCH (10:30)
[2018-01-15] MEDS: METOPROLOL TARTRATE 100 MG TABLET PO SCH ×2 (10:31→21:44)
[2018-01-15] MEDS: PANTOPRAZOLE 40 MG TABLET PO SCH (10:31)
[2018-01-15] MEDS: CHLORTHALIDONE 25 MG TABLET PO SCH (10:31)
[2018-01-15] MEDS: POTASSIUM CHLORIDE 20 MEQ TABLET PO SCH (10:31)
[2018-01-15] MEDS: LOSARTAN 25 MG TABLET PO SCH ×2 (10:32→21:44)
[2018-01-15] MEDS: CHLORHEXIDINE 0.12% ORAL RINSE 60 ML BOTTLE SWISH/SPIT SCH ×2 (13:00→21:44)
[2018-01-15] MEDS: ATORVASTATIN 20 MG TABLET PO SCH (21:44)
[2018-01-16] MEDS: ASPIRIN EC 325 MG TABLET PO SCH (08:37)
[2018-01-16] MEDS: glipiZIDE 10 MG TABLET PO SCH ×2 (08:37→21:14)
[2018-01-16] MEDS: LOSARTAN 25 MG TABLET PO SCH ×2 (08:37→21:11)
[2018-01-16] MEDS: FERROUS SULFATE 325 MG TABLET PO SCH (08:37)
[2018-01-16] MEDS: METOPROLOL TARTRATE 100 MG TABLET PO SCH ×2 (08:37→21:12)
[2018-01-16] MEDS: DOCUSATE SODIUM 100 MG CAPSULE PO SCH (08:37)
[2018-01-16] MEDS: DILTIAZEM CD 120 MG CAPSULE PO SCH (08:37)
[2018-01-16] MEDS: POTASSIUM CHLORIDE 20 MEQ TABLET PO SCH (08:37)
[2018-01-16] MEDS: FUROSEMIDE 40 MG TABLET PO SCH (08:38)
[2018-01-16] MEDS: PANTOPRAZOLE 40 MG TABLET PO SCH (08:38)
[2018-01-16] MEDS: CHLORTHALIDONE 25 MG TABLET PO SCH (08:38)
[2018-01-16] MEDS: CHLORHEXIDINE 0.12% ORAL RINSE 60 ML BOTTLE SWISH/SPIT SCH ×2 (08:50→21:15)
[2018-01-16] MEDS: ATORVASTATIN 20 MG TABLET PO SCH (21:11)
[2018-01-17 05:18] LABS: Basophils % 0.1 % (0.0-0.8); Eosinophils # 0.1 10*3/uL (0.0-0.87); Eosinophils % 0.7 % (0.00-10.9); Hematocrit 34.5 VOL% (42.0-52.0); Hemoglobin 11.6 GM/DL (14.0-18.0); Immature Granulocytes % 0.3 %; Immature Granulocytes Absolute 0.03 #; Lymphocytes % 16.6 % (21.2-54.2); Mean Corpuscular HGB Conc 33.6 GM/DL (32-36); Mean Corpuscular Hemoglobin 31 PG (27-34); Mean Platelet Volume 11.4 FL (9.6-12.0); Monocytes % 8.6 % (1.7-12.7); Neutrophils # 8.8 10*3/uL (1.4-7.4); Neutrophils % 73.7 % (38.7-73.9); Platelet Count 259 T/CUMM (130-400); Red Blood Count 3.71 MC/CUMM (3.8-5.5); Red Cell Distribution Width 14.1 % (9.3-17.3); White Blood Count 11.9 T/CUMM (4-12)
[2018-01-17 05:33] LABS: Calcium 8.8 MG/DL (8.5-10.1); Osmolality,Calculated 281.4 MOS/KG (273-304); Potassium 3.6 MMOL/L (3.5-5.1)
[2018-01-17 08:15] VITALS: BP 99/72
[2018-01-17] MEDS: FUROSEMIDE 40 MG TABLET PO SCH (08:18)
[2018-01-17] MEDS: POTASSIUM CHLORIDE 20 MEQ TABLET PO SCH (08:19)
[2018-01-17] MEDS: DOCUSATE SODIUM 100 MG CAPSULE PO SCH (08:19)
[2018-01-17] MEDS: glipiZIDE 10 MG TABLET PO SCH (08:19)
[2018-01-17] MEDS: FERROUS SULFATE 325 MG TABLET PO SCH (08:19)
[2018-01-17] MEDS: DILTIAZEM CD 120 MG CAPSULE PO SCH (08:19)
[2018-01-17] MEDS: METOPROLOL TARTRATE 100 MG TABLET PO SCH (08:19)
[2018-01-17] MEDS: LOSARTAN 25 MG TABLET PO SCH (08:19)
[2018-01-17] MEDS: PANTOPRAZOLE 40 MG TABLET PO SCH (08:20)
[2018-01-17] MEDS: CHLORHEXIDINE 0.12% ORAL RINSE 60 ML BOTTLE SWISH/SPIT SCH (08:20)
[2018-01-17] MEDS: CHLORTHALIDONE 25 MG TABLET PO SCH (08:20)
[2018-01-17] MEDS: ASPIRIN EC 325 MG TABLET PO SCH (08:23)
== END 2018-01-17 10:03 | disposition home health service (06) | DRG 233 ==
LOC: N.ED 11:35 → N.CVR 12:09 → N.CL 12:09 → N.CVR 15:06 → N.ICU 01-08 18:18 → N.TELES 01-10 12:05
PROVIDERS: ADMIT Internal Medicine Cardiovascular Disease; ATTEND Internal Medicine Cardiovascular Disease

== ENCOUNTER 2018-02-01 05:20 | Inpatient (IN) ==
[2018-02-01] MEDS ORDERED: VANCOMYCIN INJ 1,000 MG in SODIUM CHLORIDE 0.9% 250 ML IV STA (06:12)
[2018-02-01] MEDS ORDERED: CEFEPIME 2,000 MG in SODIUM CHLORIDE 0.9% 100 ML IV STA (06:12)
[2018-02-01] MEDS ORDERED: SODIUM CHLORIDE 0.9% 100 ML IV ONE (06:45)
[2018-02-01] MEDS ORDERED: CEFEPIME 2,000 MG VIAL ONE (06:45)
[2018-02-01 06:52] LABS: Basophils % 0.3 % (0.0-0.8); Eosinophils # 0.1 10*3/uL (0.0-0.87); Eosinophils % 0.5 % (0.00-10.9); Hematocrit 33.9 VOL% (42.0-52.0); Hemoglobin 10.8 GM/DL (14.0-18.0); Immature Granulocytes % 0.5 %; Immature Granulocytes Absolute 0.06 #; Lymphocytes # 2.3 10*3/uL (1.4-4.0); Lymphocytes % 19.1 % (21.2-54.2); Mean Corpuscular HGB Conc 31.9 GM/DL (32-36); Mean Corpuscular Hemoglobin 31 PG (27-34); Mean Corpuscular Volume 95.8 FL (87-102); Mean Platelet Volume 10.2 FL (9.6-12.0); Monocytes # 0.9 10*3/uL (0.11-0.8); Monocytes % 6.9 % (1.7-12.7); Neutrophils # 8.9 10*3/uL (1.4-7.4); Neutrophils % 72.7 % (38.7-73.9); Platelet Count 358 T/CUMM (130-400); Red Blood Count 3.54 MC/CUMM (3.8-5.5); Red Cell Distribution Width 13.8 % (9.3-17.3); White Blood Count 12.2 T/CUMM (4-12)
[2018-02-01 06:56] LABS: VBG Base Excess -10.7 MEQ/L (0-4); VBG HCO3 15.8 MEQ/L (24-28); VBG Oxygen Saturation 84.8 %; VBG PCO2 35.6 MMHG (41-51); VBG PH 7.254; VBG PO2 59.1 MMHG (17-40)
[2018-02-01 07:10] LABS: Bilirubin,Total 0.5 MG/DL (0.2-1.0); Calcium 8.7 MG/DL (8.5-10.1); Osmolality,Calculated 283.1 MOS/KG (273-304); Total Protein 7.1 G/DL (6.4-8.3)
[2018-02-01 07:14] LABS: Anisocytosis 1+; Platelet Estimate Normal
[2018-02-01 07:15] LABS: Giant Platelets Few; Polychromasia Slight
[2018-02-01] MEDS: DEXTROSE 5% NACL 0.9% 1,000 ML IV SCH ×2 (07:16→20:45)
[2018-02-01 07:23] LABS: INR 1.2; PT Patient Result 12.7 SECS; Partial Thromboplastin Time 25.2 SECS (0-40)
[2018-02-01] MEDS ORDERED: FUROSEMIDE 40 MG/4 ML VIAL ONE (08:25)
[2018-02-01] MEDS ORDERED: FUROSEMIDE 40 MG/4 ML VIAL IV ONE ×2 (08:28→09:35)
[2018-02-01] MEDS ORDERED: LOSARTAN 25 MG TABLET PO SCH (09:00)
[2018-02-01] MEDS ORDERED: DILTIAZEM CD 120 MG CAPSULE PO SCH (09:00)
[2018-02-01] MEDS ORDERED: METOPROLOL TARTRATE 100 MG TABLET PO SCH (09:00)
[2018-02-01] MEDS ORDERED: SUCCINYLCHOLINE 200 MG/10 ML VIAL ONE (10:12)
[2018-02-01] MEDS ORDERED: PROPOFOL 1,000 MG/100 ML BOTTLE IV ONE (10:12)
[2018-02-01] MEDS ORDERED: ETOMIDATE 20 MG/10 ML VIAL IV ONE (10:12)
[2018-02-01] MEDS: PROPOFOL 1,000 MG/100 ML BOTTLE IV SCH ×3 (10:22→18:54)
[2018-02-01] MEDS ORDERED: MAGNESIUM SULF RIDER 4 GM in PREMIX 1 EACH IV PRN (10:42)
[2018-02-01] MEDS ORDERED: MAGNESIUM SULF RIDER 2 GM in PREMIX 1 EACH IV PRN (10:42)
[2018-02-01 11:01] LABS: Pt O2 Delivery Device Ventilator
[2018-02-01 11:02] LABS: ABG Base Excess -8.1 MMOL/L (-2.5-2.5); ABG HCO3 17.9 MMOL/L (20-26); ABG Oxygen Saturation 99.6 % (95-100); ABG PH 7.307 (7.35-7.45)
[2018-02-01] MEDS ORDERED: ALBUMIN 25% 25 GM in PREMIX 1 EACH IV ONE (11:04)
[2018-02-01] MEDS ORDERED: ALBUMIN 5% 12.5 GM/250 ML VIAL IV ONE (11:06)
[2018-02-01] MEDS ORDERED: PHENYLEPHRINE DRIP 40 MG/250 ML PREMIX IV ONE (11:07)
[2018-02-01] MEDS ORDERED: ALBUMIN 5% 25 GM in PREMIX 1 EACH IV ONE ×2 (11:14→20:17)
[2018-02-01] MEDS: PHENYLEPHRINE DRIP 40 MG/250 ML PREMIX IV PRN ×3 (11:27→21:37)
[2018-02-01] MEDS ORDERED: MIDAZOLAM 10 MG/2 ML VIAL IV ONE (12:25)
[2018-02-01] MEDS: PANTOPRAZOLE 40 MG TABLET PO SCH (13:15)
[2018-02-01] MEDS: ASPIRIN EC 325 MG TABLET PO SCH (13:15)
[2018-02-01] MEDS: NITROGLYCERIN 2% OINT 1 INCH/GM PACK TOP SCH ×2 (13:15→18:06)
[2018-02-01] MEDS ORDERED: DOBUTamine 500 MG/250 ML PREMIX IV ONE (13:17)
[2018-02-01] MEDS ORDERED: SODIUM BICARBONATE 50 MEQ/50 ML SYRINGE IV ONE ×2 (13:34→13:35)
[2018-02-01] MEDS: DOBUTamine 500 MG/250 ML PREMIX IV SCH (13:38)
[2018-02-01] MEDS: ENOXAPARIN 40 MG/0.4 ML SYRINGE SUBCUT SCH (14:37)
[2018-02-01] MEDS: LINEZOLID INJ 600 MG in PREMIX 1 EACH IV SCH (14:37)
[2018-02-01] MEDS: fentaNYL INJ 1,250 MCG in SODIUM CHLORIDE 0.9% 225 ML IV PRN (15:35)
[2018-02-01] MEDS: CEFEPIME 2,000 MG in SYRINGE 1 EACH IV SCH ×2 (16:46→23:42)
[2018-02-01] MEDS ORDERED: DEXTROSE 50% 25 GM/50 ML SYRINGE IV ONE (17:07)
[2018-02-01 17:13] LABS: ABG HCO3 24.5 MMOL/L (20-26); ABG PCO2 21.8 MM HG (35-48); ABG PH 7.586 (7.35-7.45); ABG TCO2 18.8 MMOL/L (23-27)
[2018-02-01] MEDS: DEXTROSE 50% 25 GM/50 ML SYRINGE IV PRN (17:13)
[2018-02-01] MEDS ORDERED: FUROSEMIDE 40 MG/4 ML VIAL IV PRN (20:39)
[2018-02-01] MEDS ORDERED: glipiZIDE 10 MG TABLET PO SCH (21:00)
[2018-02-01] MEDS: FUROSEMIDE 40 MG/4 ML VIAL IV SCH (22:24)
[2018-02-01] MEDS: ATORVASTATIN 20 MG TABLET PO SCH (22:30)
[2018-02-02] MEDS: NITROGLYCERIN 2% OINT 1 INCH/GM PACK TOP SCH ×4 (01:12→17:44)
[2018-02-02] MEDS: LINEZOLID INJ 600 MG in PREMIX 1 EACH IV SCH ×2 (01:53→13:44)
[2018-02-02 03:45] LABS: Allen Test Positive; Pt O2 Delivery Device Ventilator
[2018-02-02 03:46] LABS: ABG Base Excess -0.5 MMOL/L (-2.5-2.5); ABG Oxygen Saturation 97.8 % (95-100); ABG PCO2 28.6 MM HG (35-48); ABG PH 7.494 (7.35-7.45); ABG PO2 98.7 MM HG (80-95)
[2018-02-02 05:26] LABS: Basophils % 0.4 % (0.0-0.8); Eosinophils # 0.1 10*3/uL (0.0-0.87); Eosinophils % 0.6 % (0.00-10.9); Hematocrit 26.9 VOL% (42.0-52.0); Hemoglobin 8.8 GM/DL (14.0-18.0); Immature Granulocytes % 0.5 %; Immature Granulocytes Absolute 0.05 #; Lymphocytes # 2.2 10*3/uL (1.4-4.0); Lymphocytes % 19.7 % (21.2-54.2); Mean Corpuscular HGB Conc 32.7 GM/DL (32-36); Mean Corpuscular Hemoglobin 30 PG (27-34); Mean Corpuscular Volume 93.1 FL (87-102); Mean Platelet Volume 10.8 FL (9.6-12.0); Monocytes # 0.9 10*3/uL (0.11-0.8); Monocytes % 8.6 % (1.7-12.7); NRBC # 0.03 10*3/uL; Neutrophils # 7.7 10*3/uL (1.4-7.4); Neutrophils % 70.2 % (38.7-73.9); Platelet Count 241 T/CUMM (130-400); Red Blood Count 2.89 MC/CUMM (3.8-5.5); Red Cell Distribution Width 14.2 % (9.3-17.3)
[2018-02-02 05:46] LABS: Alanine Aminotransferase 71 U/L (16-61); Albumin 3.1 G/DL (3.4-5.0); Alkaline Phosphatase 100 U/L (45-117); Aspartate Amino Transferase 57 U/L (0-37); Blood Urea Nitrogen 23 MG/DL (7-18); Calcium 8.4 MG/DL (8.5-10.1); Glucose 45 MG/DL (74-106); Osmolality,Calculated 286.8 MOS/KG (273-304); Potassium 3.2 MMOL/L (3.5-5.1); Sodium 144 MMOL/L (136-145)
[2018-02-02] MEDS: PROPOFOL 1,000 MG/100 ML BOTTLE IV SCH ×3 (05:46→14:34)
[2018-02-02 05:47] LABS: Troponin I 0.275 NG/ML (0.00-0.045)
[2018-02-02] MEDS: POTASSIUM CHLORIDE RIDER 10 MEQ in PREMIX 1 EACH IV PRN ×3 (05:57→08:39)
[2018-02-02] MEDS: fentaNYL INJ 1,250 MCG in SODIUM CHLORIDE 0.9% 225 ML IV PRN (06:41)
[2018-02-02] MEDS: DEXTROSE 50% 25 GM/50 ML SYRINGE IV PRN ×3 (06:41→11:30)
[2018-02-02] MEDS: CEFEPIME 2,000 MG in SYRINGE 1 EACH IV SCH ×2 (08:03→15:51)
[2018-02-02] MEDS: FUROSEMIDE 40 MG/4 ML VIAL IV SCH ×2 (08:05→22:27)
[2018-02-02] MEDS: POTASSIUM CHLORIDE 20 MEQ TABLET PO SCH (08:05)
[2018-02-02] MEDS: PANTOPRAZOLE 40 MG TABLET PO SCH (08:06)
[2018-02-02] MEDS: ASPIRIN EC 325 MG TABLET PO SCH (08:06)
[2018-02-02] MEDS ORDERED: FUROSEMIDE 40 MG/4 ML VIAL IV SCH (09:00)
[2018-02-02 09:12] LABS: Eosinophils 1 % (0-10); Lymphocytes 14 % (20-55); Polychromasia Few; Segmented Neutrophils 84 % (50-85); Total Cells Counted 100
[2018-02-02 09:13] LABS: Hypochromasia 1+; Microcytosis 1+; Ovalocytes Few; Pappenheimer Bodies Few; Platelet Estimate Normal; Stomatocytes Slight; Tear Drop Cells Few
[2018-02-02] MEDS ORDERED: NITROGLYCERIN DRIP 50 MG/250 ML BOTTLE IV PRN (11:10)
[2018-02-02] MEDS ORDERED: GLUCAGON 1 MG VIAL IM PRN (11:14)
[2018-02-02] MEDS ORDERED: DEXTROSE 50% 25 GM/50 ML SYRINGE IV PRN (11:14)
[2018-02-02] MEDS: ENOXAPARIN 40 MG/0.4 ML SYRINGE SUBCUT SCH (11:53)
[2018-02-02] MEDS: DOBUTamine 500 MG/250 ML PREMIX IV SCH (13:43)
[2018-02-02 14:12] LABS: VBG Base Excess -0.6 MEQ/L (0-4); VBG HCO3 23.8 MEQ/L (24-28); VBG Oxygen Saturation 90.5 %; VBG PCO2 32.8 MMHG (41-51); VBG PH 7.452; VBG PO2 63.7 MMHG (17-40)
[2018-02-02] MEDS ORDERED: ALBUMIN 25% 50 GM in PREMIX 1 EACH IV ONE (18:34)
[2018-02-02] MEDS ORDERED: ALBUMIN 5% 25 GM in PREMIX 1 EACH IV ONE (18:44)
[2018-02-02] MEDS: DEXTROSE 5% NACL 0.9% 1,000 ML IV SCH (19:52)
[2018-02-02] MEDS: ATORVASTATIN 20 MG TABLET PO SCH (22:50)
[2018-02-03] MEDS: PROPOFOL 1,000 MG/100 ML BOTTLE IV SCH ×4 (00:34→21:51)
[2018-02-03] MEDS: NITROGLYCERIN 2% OINT 1 INCH/GM PACK TOP SCH ×4 (02:00→18:04)
[2018-02-03] MEDS: CEFEPIME 2,000 MG in SYRINGE 1 EACH IV SCH ×4 (02:04→23:46)
[2018-02-03] MEDS: fentaNYL INJ 1,250 MCG in SODIUM CHLORIDE 0.9% 225 ML IV PRN ×2 (02:25→13:53)
[2018-02-03] MEDS: LINEZOLID INJ 600 MG in PREMIX 1 EACH IV SCH ×2 (02:27→15:46)
[2018-02-03 04:52] LABS: ABG HCO3 24.5 MMOL/L (20-26); ABG Oxygen Saturation 99.4 % (95-100); ABG PCO2 32.8 MM HG (35-48); ABG PH 7.461 (7.35-7.45); ABG TCO2 21.5 MMOL/L (23-27); Allen Test Positive; Pt O2 Delivery Device Ventilator
[2018-02-03 05:23] LABS: Basophils % 0.3 % (0.0-0.8); Eosinophils # 0.2 10*3/uL (0.0-0.87); Eosinophils % 2.1 % (0.00-10.9); Hemoglobin 8.6 GM/DL (14.0-18.0); Immature Granulocytes % 0.7 %; Immature Granulocytes Absolute 0.07 #; Lymphocytes # 1.8 10*3/uL (1.4-4.0); Lymphocytes % 17.3 % (21.2-54.2); Mean Corpuscular HGB Conc 31.9 GM/DL (32-36); Mean Corpuscular Hemoglobin 30 PG (27-34); Mean Corpuscular Volume 94.4 FL (87-102); Mean Platelet Volume 10.2 FL (9.6-12.0); Monocytes # 0.9 10*3/uL (0.11-0.8); Monocytes % 8.4 % (1.7-12.7); NRBC # 0.02 10*3/uL; Neutrophils # 7.3 10*3/uL (1.4-7.4); Neutrophils % 71.2 % (38.7-73.9); Platelet Count 210 T/CUMM (130-400); Red Blood Count 2.86 MC/CUMM (3.8-5.5); Red Cell Distribution Width 14.4 % (9.3-17.3); White Blood Count 10.2 T/CUMM (4-12)
[2018-02-03 05:55] LABS: Calcium 8.3 MG/DL (8.5-10.1); Osmolality,Calculated 284.3 MOS/KG (273-304); Potassium 3.3 MMOL/L (3.5-5.1)
[2018-02-03 05:56] LABS: Eosinophils 1 % (0-10); Lymphocytes 18 % (20-55); Platelet Estimate Adequate; Polychromasia Few; Segmented Neutrophils 76 % (50-85); Total Cells Counted 100
[2018-02-03] MEDS: POTASSIUM CHLORIDE RIDER 10 MEQ in PREMIX 1 EACH IV PRN ×3 (06:30→10:10)
[2018-02-03] MEDS: DEXTROSE 5% NACL 0.9% 1,000 ML IV SCH ×2 (07:33→15:45)
[2018-02-03] MEDS: ENOXAPARIN 40 MG/0.4 ML SYRINGE SUBCUT SCH (12:04)
[2018-02-03] MEDS: PANTOPRAZOLE 40 MG VIAL IV SCH (12:05)
[2018-02-03] MEDS: POTASSIUM CHLORIDE 20 MEQ/15 ML UDCUP PER TUBE SCH (12:05)
[2018-02-03] MEDS: ASPIRIN CHEW 81 MG TABLET PO SCH (12:05)
[2018-02-03] MEDS: DOBUTamine 500 MG/250 ML PREMIX IV SCH (15:47)
[2018-02-03] MEDS: FUROSEMIDE 40 MG/4 ML VIAL IV SCH ×3 (16:38→21:41)
[2018-02-03] MEDS: PANTOPRAZOLE 40 MG TABLET PO SCH (16:38)
[2018-02-03] MEDS: ASPIRIN EC 325 MG TABLET PO SCH (16:39)
[2018-02-03] MEDS: POTASSIUM CHLORIDE 20 MEQ TABLET PO SCH (18:06)
[2018-02-03] MEDS ORDERED: ALBUMIN 5% 25 GM in PREMIX 1 EACH IV ONE (20:53)
[2018-02-03] MEDS: ATORVASTATIN 20 MG TABLET PO SCH (21:40)
[2018-02-04] MEDS: NITROGLYCERIN 2% OINT 1 INCH/GM PACK TOP SCH ×4 (00:07→18:30)
[2018-02-04] MEDS: LINEZOLID INJ 600 MG in PREMIX 1 EACH IV SCH ×2 (01:39→13:31)
[2018-02-04 03:20] LABS: ABG Base Excess 2.4 MMOL/L (-2.5-2.5); ABG HCO3 26.6 MMOL/L (20-26); ABG Oxygen Saturation 99.4 % (95-100); ABG PCO2 31.7 MM HG (35-48); ABG PH 7.509 (7.35-7.45); ABG TCO2 23.3 MMOL/L (23-27); Allen Test Positive; Pt O2 Delivery Device Ventilator
[2018-02-04] MEDS: fentaNYL INJ 1,250 MCG in SODIUM CHLORIDE 0.9% 225 ML IV PRN ×2 (03:21→17:43)
[2018-02-04 05:21] LABS: Basophils % 0.2 % (0.0-0.8); Eosinophils # 0.2 10*3/uL (0.0-0.87); Eosinophils % 1.9 % (0.00-10.9); Hematocrit 25.3 VOL% (42.0-52.0); Hemoglobin 8.2 GM/DL (14.0-18.0); Immature Granulocytes % 0.8 %; Immature Granulocytes Absolute 0.07 #; Lymphocytes # 1.7 10*3/uL (1.4-4.0); Lymphocytes % 18.7 % (21.2-54.2); Mean Corpuscular HGB Conc 32.4 GM/DL (32-36); Mean Corpuscular Hemoglobin 30 PG (27-34); Mean Corpuscular Volume 93.4 FL (87-102); Mean Platelet Volume 10.2 FL (9.6-12.0); Monocytes # 0.7 10*3/uL (0.11-0.8); Monocytes % 7.7 % (1.7-12.7); Neutrophils # 6.4 10*3/uL (1.4-7.4); Neutrophils % 70.7 % (38.7-73.9); Platelet Count 192 T/CUMM (130-400); Red Blood Count 2.71 MC/CUMM (3.8-5.5); Red Cell Distribution Width 14.5 % (9.3-17.3)
[2018-02-04] MEDS: PROPOFOL 1,000 MG/100 ML BOTTLE IV SCH ×3 (05:25→14:08)
[2018-02-04 05:51] LABS: Calcium 8.7 MG/DL (8.5-10.1); Osmolality,Calculated 281.4 MOS/KG (273-304); Potassium 3.3 MMOL/L (3.5-5.1)
[2018-02-04 05:57] LABS: Prealbumin 12.3 MG/DL (20-40)
[2018-02-04 05:58] LABS: Anisocytosis 1+; Hypochromasia Slight
[2018-02-04 05:59] LABS: Platelet Estimate Adequate
[2018-02-04] MEDS: POTASSIUM CHLORIDE RIDER 10 MEQ in PREMIX 1 EACH IV PRN ×2 (06:03→06:33)
[2018-02-04] MEDS: CEFEPIME 2,000 MG in SYRINGE 1 EACH IV SCH ×3 (07:10→23:16)
[2018-02-04] MEDS: DOBUTamine 500 MG/250 ML PREMIX IV SCH (08:46)
[2018-02-04] MEDS: FUROSEMIDE 40 MG/4 ML VIAL IV SCH ×2 (09:49→20:36)
[2018-02-04] MEDS: POTASSIUM CHLORIDE 20 MEQ/15 ML UDCUP PER TUBE SCH (09:49)
[2018-02-04] MEDS: PANTOPRAZOLE 40 MG VIAL IV SCH (09:49)
[2018-02-04] MEDS: ASPIRIN CHEW 81 MG TABLET PO SCH (09:50)
[2018-02-04] MEDS: ENOXAPARIN 40 MG/0.4 ML SYRINGE SUBCUT SCH (10:07)
[2018-02-04] MEDS: DEXTROSE 5% NACL 0.9% 1,000 ML IV SCH (17:06)
[2018-02-04] MEDS ORDERED: ALBUMIN 5% 25 GM in PREMIX 1 EACH IV ONE (20:24)
[2018-02-04] MEDS: ATORVASTATIN 20 MG TABLET PO SCH (20:36)
[2018-02-04] MEDS: ACETAMINOPHEN 325 MG TABLET PO PRN (20:36)
[2018-02-05] MEDS: PROPOFOL 1,000 MG/100 ML BOTTLE IV SCH ×2 (00:50→11:00)
[2018-02-05] MEDS: LINEZOLID INJ 600 MG in PREMIX 1 EACH IV SCH ×2 (01:12→13:14)
[2018-02-05] MEDS: DEXTROSE 5% NACL 0.9% 1,000 ML IV SCH ×2 (04:30→16:58)
[2018-02-05 05:26] LABS: ABG Base Excess 2.6 MMOL/L (-2.5-2.5); ABG HCO3 26.8 MMOL/L (20-26); ABG Oxygen Saturation 99.8 % (95-100); ABG PCO2 32.8 MM HG (35-48); ABG PH 7.499 (7.35-7.45); ABG TCO2 23.2 MMOL/L (23-27); Allen Test Positive; Pt O2 Delivery Device Ventilator
[2018-02-05 05:33] LABS: Basophils % 0.3 % (0.0-0.8); Eosinophils # 0.2 10*3/uL (0.0-0.87); Eosinophils % 2.8 % (0.00-10.9); Hematocrit 25.2 VOL% (42.0-52.0); Immature Granulocytes % 0.9 %; Immature Granulocytes Absolute 0.07 #; Lymphocytes # 1.4 10*3/uL (1.4-4.0); Lymphocytes % 18.1 % (21.2-54.2); Mean Corpuscular HGB Conc 31.7 GM/DL (32-36); Mean Corpuscular Hemoglobin 30 PG (27-34); Mean Corpuscular Volume 94.7 FL (87-102); Mean Platelet Volume 10.8 FL (9.6-12.0); Monocytes # 0.6 10*3/uL (0.11-0.8); Monocytes % 7.6 % (1.7-12.7); Neutrophils # 5.5 10*3/uL (1.4-7.4); Neutrophils % 70.3 % (38.7-73.9); Platelet Count 169 T/CUMM (130-400); Red Blood Count 2.66 MC/CUMM (3.8-5.5); Red Cell Distribution Width 14.2 % (9.3-17.3); White Blood Count 7.9 T/CUMM (4-12)
[2018-02-05 05:38] LABS: Calcium 8.8 MG/DL (8.5-10.1); Osmolality,Calculated 281.7 MOS/KG (273-304); Potassium 3.6 MMOL/L (3.5-5.1)
[2018-02-05] MEDS: CEFEPIME 2,000 MG in SYRINGE 1 EACH IV SCH ×3 (06:17→23:40)
[2018-02-05] MEDS: fentaNYL INJ 1,250 MCG in SODIUM CHLORIDE 0.9% 225 ML IV PRN ×2 (06:18→21:52)
[2018-02-05 06:32] LABS: Eosinophils 4 % (0-10); Lymphocytes 18 % (20-55); Platelet Estimate Normal; Segmented Neutrophils 65 % (50-85); Total Cells Counted 100
[2018-02-05 06:33] LABS: Atypical Lymphocytes Few
[2018-02-05] MEDS: POTASSIUM CHLORIDE RIDER 10 MEQ in PREMIX 1 EACH IV PRN ×2 (06:35→07:36)
[2018-02-05] MEDS: ASPIRIN CHEW 81 MG TABLET PO SCH (09:53)
[2018-02-05] MEDS: FUROSEMIDE 40 MG/4 ML VIAL IV SCH ×2 (09:54→20:27)
[2018-02-05] MEDS: PANTOPRAZOLE 40 MG VIAL IV SCH (09:54)
[2018-02-05] MEDS: POTASSIUM CHLORIDE 20 MEQ/15 ML UDCUP PER TUBE SCH (09:54)
[2018-02-05] MEDS: ENOXAPARIN 40 MG/0.4 ML SYRINGE SUBCUT SCH (12:02)
[2018-02-05] MEDS: DOBUTamine 500 MG/250 ML PREMIX IV SCH (16:59)
[2018-02-05] MEDS: ATORVASTATIN 20 MG TABLET PO SCH (20:27)
[2018-02-06] MEDS: LINEZOLID INJ 600 MG in PREMIX 1 EACH IV SCH ×2 (01:58→12:49)
[2018-02-06 04:18] LABS: Basophils % 0.3 % (0.0-0.8); Eosinophils # 0.3 10*3/uL (0.0-0.87); Eosinophils % 3.5 % (0.00-10.9); Hematocrit 28.6 VOL% (42.0-52.0); Hemoglobin 9.4 GM/DL (14.0-18.0); Immature Granulocytes % 0.4 %; Immature Granulocytes Absolute 0.04 #; Lymphocytes # 1.3 10*3/uL (1.4-4.0); Lymphocytes % 14.7 % (21.2-54.2); Mean Corpuscular HGB Conc 32.9 GM/DL (32-36); Mean Corpuscular Hemoglobin 31 PG (27-34); Mean Corpuscular Volume 94.1 FL (87-102); Mean Platelet Volume 10.3 FL (9.6-12.0); Monocytes # 0.6 10*3/uL (0.11-0.8); Monocytes % 6.8 % (1.7-12.7); Neutrophils # 6.7 10*3/uL (1.4-7.4); Neutrophils % 74.3 % (38.7-73.9); Platelet Count 168 T/CUMM (130-400); Red Blood Count 3.04 MC/CUMM (3.8-5.5)
[2018-02-06] MEDS: PROPOFOL 1,000 MG/100 ML BOTTLE IV SCH ×3 (04:25→15:03)
[2018-02-06 04:36] LABS: Calcium 8.8 MG/DL (8.5-10.1); Osmolality,Calculated 287.5 MOS/KG (273-304); Potassium 4.1 MMOL/L (3.5-5.1)
[2018-02-06 04:39] LABS: ABG Base Excess 2.2 MMOL/L (-2.5-2.5); ABG HCO3 26.4 MMOL/L (20-26); ABG Oxygen Saturation 99.7 % (95-100); ABG PCO2 30.4 MM HG (35-48); ABG PH 7.518 (7.35-7.45); ABG TCO2 22.6 MMOL/L (23-27); Allen Test Positive; Pt O2 Delivery Device Ventilator
[2018-02-06 04:41] LABS: Platelet Estimate Adequate
[2018-02-06] MEDS: CEFEPIME 2,000 MG in SYRINGE 1 EACH IV SCH ×3 (06:44→22:55)
[2018-02-06] MEDS: ASPIRIN CHEW 81 MG TABLET PO SCH (09:27)
[2018-02-06] MEDS: POTASSIUM CHLORIDE 20 MEQ/15 ML UDCUP PER TUBE SCH (09:31)
[2018-02-06] MEDS: PANTOPRAZOLE 40 MG VIAL IV SCH (09:36)
[2018-02-06] MEDS: FUROSEMIDE 40 MG/4 ML VIAL IV SCH ×2 (09:39→20:13)
[2018-02-06] MEDS: ENOXAPARIN 40 MG/0.4 ML SYRINGE SUBCUT SCH (12:48)
[2018-02-06] MEDS: fentaNYL INJ 1,250 MCG in SODIUM CHLORIDE 0.9% 225 ML IV PRN (13:55)
[2018-02-06] MEDS: DEXTROSE 5% NACL 0.9% 1,000 ML IV SCH (18:24)
[2018-02-06] MEDS: ATORVASTATIN 20 MG TABLET PO SCH (20:13)
[2018-02-07] MEDS: LINEZOLID INJ 600 MG in PREMIX 1 EACH IV SCH ×2 (01:05→12:29)
[2018-02-07 02:30] LABS: Basophils % 0.4 % (0.0-0.8); Eosinophils # 0.2 10*3/uL (0.0-0.87); Eosinophils % 2.9 % (0.00-10.9); Hematocrit 27.7 VOL% (42.0-52.0); Hemoglobin 8.7 GM/DL (14.0-18.0); Immature Granulocytes % 0.4 %; Immature Granulocytes Absolute 0.03 #; Lymphocytes # 1.4 10*3/uL (1.4-4.0); Lymphocytes % 17.5 % (21.2-54.2); Mean Corpuscular HGB Conc 31.4 GM/DL (32-36); Mean Corpuscular Hemoglobin 30 PG (27-34); Mean Corpuscular Volume 94.5 FL (87-102); Mean Platelet Volume 10.8 FL (9.6-12.0); Monocytes # 0.5 10*3/uL (0.11-0.8); Monocytes % 6.6 % (1.7-12.7); Neutrophils # 5.7 10*3/uL (1.4-7.4); Neutrophils % 72.2 % (38.7-73.9); Platelet Count 121 T/CUMM (130-400); Red Blood Count 2.93 MC/CUMM (3.8-5.5); Red Cell Distribution Width 14.2 % (9.3-17.3); White Blood Count 7.9 T/CUMM (4-12)
[2018-02-07 02:46] LABS: Calcium 8.7 MG/DL (8.5-10.1); Osmolality,Calculated 286.7 MOS/KG (273-304); Potassium 4.1 MMOL/L (3.5-5.1)
[2018-02-07 03:45] LABS: Allen Test Positive; Pt O2 Delivery Device Ventilator
[2018-02-07 03:47] LABS: ABG Base Excess 2.6 MMOL/L (-2.5-2.5); ABG HCO3 26.8 MMOL/L (20-26); ABG Oxygen Saturation 99.6 % (95-100); ABG PCO2 28.7 MM HG (35-48); ABG PH 7.542 (7.35-7.45); ABG TCO2 22.7 MMOL/L (23-27)
[2018-02-07] MEDS: CEFEPIME 2,000 MG in SYRINGE 1 EACH IV SCH ×2 (06:27→16:07)
[2018-02-07] MEDS: fentaNYL INJ 1,250 MCG in SODIUM CHLORIDE 0.9% 225 ML IV PRN ×2 (06:31→22:00)
[2018-02-07] MEDS: POTASSIUM CHLORIDE 20 MEQ/15 ML UDCUP PER TUBE SCH (08:40)
[2018-02-07] MEDS: ASPIRIN CHEW 81 MG TABLET PO SCH (08:40)
[2018-02-07] MEDS: FUROSEMIDE 40 MG/4 ML VIAL IV SCH ×3 (08:45→21:55)
[2018-02-07] MEDS: PANTOPRAZOLE 40 MG VIAL IV SCH (08:49)
[2018-02-07] MEDS: PROPOFOL 1,000 MG/100 ML BOTTLE IV SCH ×4 (08:53→17:12)
[2018-02-07] MEDS: ENOXAPARIN 40 MG/0.4 ML SYRINGE SUBCUT SCH (12:02)
[2018-02-07] MEDS: INSULIN REGULAR 100 UNIT/ML SUBCUT SCH ×2 (12:26→17:47)
[2018-02-07] MEDS: DEXTROSE 5% NACL 0.9% 1,000 ML IV SCH (17:50)
[2018-02-07] MEDS: ATORVASTATIN 20 MG TABLET PO SCH (21:56)
[2018-02-08] MEDS: CEFEPIME 2,000 MG in SYRINGE 1 EACH IV SCH ×3 (00:21→14:57)
[2018-02-08] MEDS: INSULIN REGULAR 100 UNIT/ML SUBCUT SCH ×4 (01:00→18:04)
[2018-02-08] MEDS: LINEZOLID INJ 600 MG in PREMIX 1 EACH IV SCH ×2 (01:00→14:42)
[2018-02-08 03:37] LABS: ABG Base Excess 3.7 MMOL/L (-2.5-2.5); ABG HCO3 27.7 MMOL/L (20-26); ABG Oxygen Saturation 99.3 % (95-100); ABG PCO2 38.8 MM HG (35-48); ABG TCO2 25.3 MMOL/L (23-27); Allen Test Positive; Pt O2 Delivery Device Ventilator
[2018-02-08 04:00] LABS: Basophils % 0.3 % (0.0-0.8); Eosinophils # 0.3 10*3/uL (0.0-0.87); Eosinophils % 3.1 % (0.00-10.9); Hemoglobin 8.8 GM/DL (14.0-18.0); Immature Granulocytes % 0.3 %; Immature Granulocytes Absolute 0.03 #; Lymphocytes # 1.4 10*3/uL (1.4-4.0); Lymphocytes % 14.2 % (21.2-54.2); Mean Corpuscular HGB Conc 31.4 GM/DL (32-36); Mean Corpuscular Hemoglobin 30 PG (27-34); Mean Corpuscular Volume 94.3 FL (87-102); Mean Platelet Volume 10.9 FL (9.6-12.0); Monocytes # 0.6 10*3/uL (0.11-0.8); Neutrophils # 7.3 10*3/uL (1.4-7.4); Neutrophils % 76.1 % (38.7-73.9); Platelet Count 148 T/CUMM (130-400); Red Blood Count 2.97 MC/CUMM (3.8-5.5); Red Cell Distribution Width 14.1 % (9.3-17.3); White Blood Count 9.6 T/CUMM (4-12)
[2018-02-08 04:18] LABS: Calcium 8.9 MG/DL (8.5-10.1); Osmolality,Calculated 284.8 MOS/KG (273-304); Potassium 4.1 MMOL/L (3.5-5.1)
[2018-02-08 06:46] LABS: Amorphous Crystals,Urine Occasional /HPF (Few); Apearance,Urine Slightly Hazy (Clear); Bacteria,Urine Occasional /HPF (Few); Bilirubin,Urine Negative (Negative); Blood, Urine Small mg/dL (Negative); Glucose,Urine (UA) Negative (Negative); Hyaline Casts,Urine 7 /LPF (0-3); Ketones,Urine 5 mg/dL (Negative); Mucus,Urine Occasional /LPF (Occasional); Nitrite,Urine Negative (Negative); Protein,Urine 100 MG/DL; RBC,Urine 53 /HPF (0-4); Squamous Epithelial Cell,Urine Occasional /HPF (0-10); Urine Color Yellow (Yellow); Urine Specific Gravity 1.023 (1.001-1.035); Urine Urobilinogen < 2.0 EU/DL (0.2-1.0); WBC,Urine 6 /HPF (0-6)
[2018-02-08] MEDS ORDERED: DEXMEDETOMIDINE 200 MCG in SODIUM CHLORIDE 0.9% 48 ML IV PRN (07:03)
[2018-02-08] MEDS ORDERED: MORPHINE 4 MG/1 ML VIAL IV PRN (07:03)
[2018-02-08] MEDS: PROPOFOL 1,000 MG/100 ML BOTTLE IV SCH ×4 (07:13→21:33)
[2018-02-08] MEDS ORDERED: FUROSEMIDE 20 MG/2 ML VIAL ONE (08:30)
[2018-02-08] MEDS: FUROSEMIDE 40 MG/4 ML VIAL IV SCH ×2 (08:39→21:32)
[2018-02-08] MEDS: metOLazone 2.5 MG TABLET PO SCH (08:40)
[2018-02-08] MEDS: ASPIRIN CHEW 81 MG TABLET PO SCH (08:40)
[2018-02-08] MEDS: POTASSIUM CHLORIDE 20 MEQ/15 ML UDCUP PER TUBE SCH (08:40)
[2018-02-08] MEDS: PANTOPRAZOLE 40 MG VIAL IV SCH (08:40)
[2018-02-08] MEDS: ENOXAPARIN 40 MG/0.4 ML SYRINGE SUBCUT SCH (11:20)
[2018-02-08] MEDS: MORPHINE 4 MG/1 ML VIAL IV PRN (21:01)
[2018-02-08] MEDS: ATORVASTATIN 20 MG TABLET PO SCH (21:33)
[2018-02-09] MEDS: CEFEPIME 2,000 MG in SYRINGE 1 EACH IV SCH ×3 (00:44→14:42)
[2018-02-09] MEDS: INSULIN REGULAR 100 UNIT/ML SUBCUT SCH ×4 (00:45→18:02)
[2018-02-09] MEDS: LINEZOLID INJ 600 MG in PREMIX 1 EACH IV SCH ×2 (02:47→12:52)
[2018-02-09] MEDS: PROPOFOL 1,000 MG/100 ML BOTTLE IV SCH ×5 (02:48→20:02)
[2018-02-09] MEDS: MORPHINE 4 MG/1 ML VIAL IV PRN (02:56)
[2018-02-09 03:36] LABS: ABG Base Excess 6.9 MMOL/L (-2.5-2.5); ABG HCO3 30.7 MMOL/L (20-26); ABG Oxygen Saturation 98.8 % (95-100); ABG PCO2 47.4 MM HG (35-48); ABG PH 7.437 (7.35-7.45); ABG TCO2 29.7 MMOL/L (23-27); Allen Test Positive; Pt O2 Delivery Device Ventilator
[2018-02-09 04:14] LABS: Basophils % 0.3 % (0.0-0.8); Eosinophils # 0.2 10*3/uL (0.0-0.87); Eosinophils % 1.9 % (0.00-10.9); Hematocrit 31.4 VOL% (42.0-52.0); Hemoglobin 10.1 GM/DL (14.0-18.0); Immature Granulocytes % 0.3 %; Immature Granulocytes Absolute 0.03 #; Lymphocytes # 1.2 10*3/uL (1.4-4.0); Mean Corpuscular HGB Conc 32.2 GM/DL (32-36); Mean Corpuscular Hemoglobin 30 PG (27-34); Mean Platelet Volume 11.1 FL (9.6-12.0); Monocytes # 0.6 10*3/uL (0.11-0.8); Monocytes % 6.1 % (1.7-12.7); Neutrophils # 7.2 10*3/uL (1.4-7.4); Neutrophils % 78.4 % (38.7-73.9); Red Blood Count 3.34 MC/CUMM (3.8-5.5); Red Cell Distribution Width 13.9 % (9.3-17.3); White Blood Count 9.2 T/CUMM (4-12)
[2018-02-09 04:17] LABS: Platelet Count 95 T/CUMM (130-400)
[2018-02-09 04:40] LABS: Bilirubin,Total 0.9 MG/DL (0.2-1.0); Calcium 9.2 MG/DL (8.5-10.1); Osmolality,Calculated 289.8 MOS/KG (273-304); Potassium 3.9 MMOL/L (3.5-5.1); Total Protein 8.3 G/DL (6.4-8.3)
[2018-02-09 05:11] LABS: Hypochromasia 1+; Microcytosis 1+; Platelet Estimate Decreased; Polychromasia Few
[2018-02-09] MEDS: POTASSIUM CHLORIDE 20 MEQ/15 ML UDCUP PER TUBE SCH (08:16)
[2018-02-09] MEDS: FUROSEMIDE 40 MG/4 ML VIAL IV SCH ×2 (08:16→20:36)
[2018-02-09] MEDS: metOLazone 2.5 MG TABLET PO SCH (08:16)
[2018-02-09] MEDS: ASPIRIN CHEW 81 MG TABLET PO SCH (08:16)
[2018-02-09] MEDS: PANTOPRAZOLE 40 MG VIAL IV SCH (08:16)
[2018-02-09] MEDS: ENOXAPARIN 40 MG/0.4 ML SYRINGE SUBCUT SCH (11:43)
[2018-02-09] MEDS: ATORVASTATIN 20 MG TABLET PO SCH (20:32)
[2018-02-10] MEDS: CEFEPIME 2,000 MG in SYRINGE 1 EACH IV SCH ×4 (00:32→23:30)
[2018-02-10] MEDS: INSULIN REGULAR 100 UNIT/ML SUBCUT SCH ×4 (00:32→18:26)
[2018-02-10] MEDS: LINEZOLID INJ 600 MG in PREMIX 1 EACH IV SCH ×2 (01:22→13:42)
[2018-02-10] MEDS: PROPOFOL 1,000 MG/100 ML BOTTLE IV SCH ×6 (02:19→23:02)
[2018-02-10 04:12] LABS: ABG Base Excess 11.2 MMOL/L (-2.5-2.5); ABG HCO3 34.7 MMOL/L (20-26); ABG Oxygen Saturation 98.9 % (95-100); ABG PCO2 41.1 MM HG (35-48); ABG PH 7.544 (7.35-7.45); ABG PO2 188.8 MM HG (80-95); ABG TCO2 35.9 MMOL/L (23-27); Allen Test Positive; Pt O2 Delivery Device Ventilator
[2018-02-10] MEDS ORDERED: ETOMIDATE 20 MG/10 ML VIAL IV ONE ×2 (04:32→04:36)
[2018-02-10] MEDS ORDERED: VECURONIUM 10 MG VIAL IV ONE (04:32)
[2018-02-10] MEDS: POTASSIUM CHLORIDE 20 MEQ/15 ML UDCUP PER TUBE SCH (08:45)
[2018-02-10] MEDS: metOLazone 2.5 MG TABLET PO SCH (08:45)
[2018-02-10] MEDS: ASPIRIN CHEW 81 MG TABLET PO SCH (08:45)
[2018-02-10] MEDS: PANTOPRAZOLE 40 MG VIAL IV SCH (08:46)
[2018-02-10] MEDS: FUROSEMIDE 40 MG/4 ML VIAL IV SCH ×2 (08:47→20:38)
[2018-02-10] MEDS: ENOXAPARIN 40 MG/0.4 ML SYRINGE SUBCUT SCH (12:20)
[2018-02-10] MEDS: ATORVASTATIN 20 MG TABLET PO SCH (20:38)
[2018-02-11] MEDS: INSULIN REGULAR 100 UNIT/ML SUBCUT SCH ×4 (00:48→17:48)
[2018-02-11] MEDS: LINEZOLID INJ 600 MG in PREMIX 1 EACH IV SCH ×2 (02:44→12:38)
[2018-02-11] MEDS: PROPOFOL 1,000 MG/100 ML BOTTLE IV SCH ×4 (02:45→21:42)
[2018-02-11 04:33] LABS: Basophils % 0.5 % (0.0-0.8); Eosinophils # 0.1 10*3/uL (0.0-0.87); Eosinophils % 1.7 % (0.00-10.9); Hematocrit 30.7 VOL% (42.0-52.0); Immature Granulocytes % 0.4 %; Immature Granulocytes Absolute 0.03 #; Lymphocytes # 1.5 10*3/uL (1.4-4.0); Lymphocytes % 17.4 % (21.2-54.2); Mean Corpuscular HGB Conc 32.6 GM/DL (32-36); Mean Corpuscular Hemoglobin 30 PG (27-34); Mean Corpuscular Volume 92.2 FL (87-102); Mean Platelet Volume 11.6 FL (9.6-12.0); Monocytes # 0.8 10*3/uL (0.11-0.8); Monocytes % 9.1 % (1.7-12.7); Neutrophils # 5.9 10*3/uL (1.4-7.4); Neutrophils % 70.9 % (38.7-73.9); Platelet Count 185 T/CUMM (130-400); Red Blood Count 3.33 MC/CUMM (3.8-5.5); Red Cell Distribution Width 13.9 % (9.3-17.3); White Blood Count 8.4 T/CUMM (4-12)
[2018-02-11 04:46] LABS: Albumin 3.2 G/DL (3.4-5.0); Calcium 9.6 MG/DL (8.5-10.1); Osmolality,Calculated 303.8 MOS/KG (273-304); Potassium 3.7 MMOL/L (3.5-5.1)
[2018-02-11] MEDS: POTASSIUM CHLORIDE RIDER 10 MEQ in PREMIX 1 EACH IV PRN ×3 (05:17→07:56)
[2018-02-11] MEDS: CEFEPIME 2,000 MG in SYRINGE 1 EACH IV SCH ×3 (06:45→22:26)
[2018-02-11] MEDS: ASPIRIN CHEW 81 MG TABLET PO SCH (08:04)
[2018-02-11] MEDS: FUROSEMIDE 40 MG/4 ML VIAL IV SCH ×2 (08:04→10:31)
[2018-02-11] MEDS: metOLazone 2.5 MG TABLET PO SCH (08:04)
[2018-02-11] MEDS: PANTOPRAZOLE 40 MG VIAL IV SCH (08:05)
[2018-02-11] MEDS: POTASSIUM CHLORIDE 20 MEQ/15 ML UDCUP PER TUBE SCH (08:05)
[2018-02-11] MEDS ORDERED: LIDOCAINE 4% TOP SOLN 50 ML BOTTLE RESP TX ONE (09:19)
[2018-02-11] MEDS: MORPHINE 4 MG/1 ML VIAL IV PRN ×2 (10:05→13:45)
[2018-02-11] MEDS: ENOXAPARIN 40 MG/0.4 ML SYRINGE SUBCUT SCH (11:16)
[2018-02-11] MEDS: CARVEDILOL 3.125 MG TABLET PO SCH ×2 (11:16→20:23)
[2018-02-11] MEDS: ATORVASTATIN 20 MG TABLET PO SCH (20:23)
[2018-02-12] MEDS: INSULIN REGULAR 100 UNIT/ML SUBCUT SCH ×4 (00:02→17:52)
[2018-02-12] MEDS: LINEZOLID INJ 600 MG in PREMIX 1 EACH IV SCH ×2 (01:22→13:39)
[2018-02-12 04:01] LABS: Osmolality,Calculated 305.8 MOS/KG (273-304); Potassium 3.1 MMOL/L (3.5-5.1)
[2018-02-12 04:04] LABS: Prealbumin 25.6 MG/DL (20-40)
[2018-02-12] MEDS: PROPOFOL 1,000 MG/100 ML BOTTLE IV SCH ×3 (04:19→13:53)
[2018-02-12 04:21] LABS: ABG Base Excess 10.5 MMOL/L (-2.5-2.5); ABG HCO3 34.3 MMOL/L (20-26); ABG Oxygen Saturation 99.5 % (95-100); ABG PCO2 40.8 MM HG (35-48); ABG PH 7.532 (7.35-7.45); ABG TCO2 30.9 MMOL/L (23-27); Allen Test Positive; Pt O2 Delivery Device Ventilator
[2018-02-12 04:22] LABS: Albumin 3.2 G/DL (3.4-5.0); Calcium 9.8 MG/DL (8.5-10.1); Osmolality,Calculated 306.7 MOS/KG (273-304); Potassium 3.3 MMOL/L (3.5-5.1)
[2018-02-12 05:12] LABS: Albumin 3.1 G/DL (3.4-5.0); Bilirubin,Direct 0.22 MG/DL (0.0-0.20); Bilirubin,Indirect 0.2 MG/DL (0.0-1.0); Bilirubin,Total 0.4 MG/DL (0.2-1.0); Total Protein 8.1 G/DL (6.4-8.3)
[2018-02-12] MEDS: POTASSIUM CHLORIDE RIDER 10 MEQ in PREMIX 1 EACH IV PRN ×4 (05:33→10:51)
[2018-02-12] MEDS: CEFEPIME 2,000 MG in SYRINGE 1 EACH IV SCH ×2 (06:06→14:59)
[2018-02-12] MEDS: PANTOPRAZOLE 40 MG VIAL IV SCH (08:49)
[2018-02-12] MEDS: CARVEDILOL 3.125 MG TABLET PO SCH ×2 (08:50→22:45)
[2018-02-12] MEDS: ASPIRIN CHEW 81 MG TABLET PO SCH (08:50)
[2018-02-12] MEDS: POTASSIUM CHLORIDE 20 MEQ/15 ML UDCUP PER TUBE SCH (08:50)
[2018-02-12] MEDS: ENOXAPARIN 40 MG/0.4 ML SYRINGE SUBCUT SCH (10:15)
[2018-02-12] MEDS: BENZONATATE 100 MG CAPSULE PO SCH ×3 (11:34→22:45)
[2018-02-12] MEDS: ATORVASTATIN 20 MG TABLET PO SCH (22:45)
[2018-02-12] MEDS: FUROSEMIDE 40 MG/4 ML VIAL IV SCH (22:45)
[2018-02-13] MEDS: CEFEPIME 2,000 MG in SYRINGE 1 EACH IV SCH ×4 (00:39→23:30)
[2018-02-13] MEDS: INSULIN REGULAR 100 UNIT/ML SUBCUT SCH ×4 (00:39→18:35)
[2018-02-13] MEDS: PROPOFOL 1,000 MG/100 ML BOTTLE IV SCH ×3 (01:45→18:31)
[2018-02-13] MEDS: LINEZOLID INJ 600 MG in PREMIX 1 EACH IV SCH ×2 (03:20→13:09)
[2018-02-13 03:58] LABS: ABG Base Excess 9.9 MMOL/L (-2.5-2.5); ABG HCO3 33.6 MMOL/L (20-26); ABG Oxygen Saturation 99.6 % (95-100); ABG PCO2 41.6 MM HG (35-48); ABG PH 7.518 (7.35-7.45); ABG TCO2 30.4 MMOL/L (23-27); Allen Test Positive; Pt O2 Delivery Device Ventilator
[2018-02-13 06:26] LABS: Calcium 9.6 MG/DL (8.5-10.1); Osmolality,Calculated 304.7 MOS/KG (273-304); Potassium 3.4 MMOL/L (3.5-5.1)
[2018-02-13 06:27] LABS: Albumin 3.2 G/DL (3.4-5.0); Calcium 9.4 MG/DL (8.5-10.1); Osmolality,Calculated 304.7 MOS/KG (273-304); Potassium 3.6 MMOL/L (3.5-5.1)
[2018-02-13] MEDS: BENZONATATE 100 MG CAPSULE PO SCH ×3 (06:48→21:50)
[2018-02-13] MEDS: FUROSEMIDE 40 MG/4 ML VIAL IV SCH (08:18)
[2018-02-13] MEDS: PANTOPRAZOLE 40 MG VIAL IV SCH (08:18)
[2018-02-13] MEDS: POTASSIUM CHLORIDE 20 MEQ/15 ML UDCUP PER TUBE SCH (08:19)
[2018-02-13] MEDS: ASPIRIN CHEW 81 MG TABLET PO SCH (08:19)
[2018-02-13] MEDS: CARVEDILOL 3.125 MG TABLET PO SCH ×2 (08:19→21:49)
[2018-02-13] MEDS: POTASSIUM CHLORIDE RIDER 10 MEQ in PREMIX 1 EACH IV PRN ×2 (08:20→09:21)
[2018-02-13] MEDS: ENOXAPARIN 40 MG/0.4 ML SYRINGE SUBCUT SCH (10:05)
[2018-02-13] MEDS: ATORVASTATIN 20 MG TABLET PO SCH (21:50)
[2018-02-14] MEDS: INSULIN REGULAR 100 UNIT/ML SUBCUT SCH ×5 (01:33→22:11)
[2018-02-14] MEDS: LINEZOLID INJ 600 MG in PREMIX 1 EACH IV SCH ×2 (01:56→13:41)
[2018-02-14] MEDS: PROPOFOL 1,000 MG/100 ML BOTTLE IV SCH (02:25)
[2018-02-14 05:33] LABS: ABG Base Excess 9.1 MMOL/L (-2.5-2.5); ABG HCO3 32.9 MMOL/L (20-26); ABG Oxygen Saturation 99.8 % (95-100); ABG PCO2 43.4 MM HG (35-48); ABG PH 7.495 (7.35-7.45); ABG TCO2 30.1 MMOL/L (23-27); Allen Test Positive; Pt O2 Delivery Device Ventilator
[2018-02-14 05:58] LABS: Albumin 3.2 G/DL (3.4-5.0); Calcium 9.4 MG/DL (8.5-10.1); Osmolality,Calculated 303.7 MOS/KG (273-304); Potassium 3.6 MMOL/L (3.5-5.1)
[2018-02-14 05:59] LABS: Calcium 10.1 MG/DL (8.5-10.1); Osmolality,Calculated 301.8 MOS/KG (273-304); Potassium 3.4 MMOL/L (3.5-5.1)
[2018-02-14] MEDS: CEFEPIME 2,000 MG in SYRINGE 1 EACH IV SCH ×2 (06:55→15:10)
[2018-02-14] MEDS: BENZONATATE 100 MG CAPSULE PO SCH ×3 (06:59→22:10)
[2018-02-14] MEDS: PANTOPRAZOLE 40 MG VIAL IV SCH (08:49)
[2018-02-14] MEDS: POTASSIUM CHLORIDE RIDER 10 MEQ in PREMIX 1 EACH IV PRN ×2 (08:49→09:50)
[2018-02-14] MEDS: ASPIRIN CHEW 81 MG TABLET PO SCH (08:49)
[2018-02-14] MEDS: POTASSIUM CHLORIDE 20 MEQ/15 ML UDCUP PER TUBE SCH (08:49)
[2018-02-14] MEDS: CARVEDILOL 3.125 MG TABLET PO SCH ×2 (08:50→22:10)
[2018-02-14] MEDS: ENOXAPARIN 40 MG/0.4 ML SYRINGE SUBCUT SCH (10:10)
[2018-02-14] MEDS: glipiZIDE 10 MG TABLET PO SCH (16:21)
[2018-02-14] MEDS: ATORVASTATIN 20 MG TABLET PO SCH (22:10)
[2018-02-15] MEDS: CEFEPIME 2,000 MG in SYRINGE 1 EACH IV SCH ×2 (00:35→07:05)
[2018-02-15] MEDS: LINEZOLID INJ 600 MG in PREMIX 1 EACH IV SCH (01:35)
[2018-02-15 04:49] LABS: Allen Test Positive
[2018-02-15 04:50] LABS: ABG Base Excess 9.1 MMOL/L (-2.5-2.5); ABG HCO3 32.7 MMOL/L (20-26); ABG Oxygen Saturation 90.2 % (95-100); ABG PCO2 44.6 MM HG (35-48); ABG PH 7.486 (7.35-7.45); ABG TCO2 30.3 MMOL/L (23-27)
[2018-02-15] MEDS: BENZONATATE 100 MG CAPSULE PO SCH ×3 (06:45→21:08)
[2018-02-15 07:59] LABS: Basophils # 0.1 10*3/uL (0.0-0.2); Basophils % 0.6 % (0.0-0.8); Eosinophils # 0.3 10*3/uL (0.0-0.87); Eosinophils % 3.4 % (0.00-10.9); Hemoglobin 11.1 GM/DL (14.0-18.0); Immature Granulocytes % 0.3 %; Immature Granulocytes Absolute 0.03 #; Lymphocytes # 2.2 10*3/uL (1.4-4.0); Lymphocytes % 24.7 % (21.2-54.2); Mean Corpuscular HGB Conc 31.7 GM/DL (32-36); Mean Corpuscular Hemoglobin 29 PG (27-34); Mean Corpuscular Volume 92.6 FL (87-102); Mean Platelet Volume 10.6 FL (9.6-12.0); Monocytes % 11.9 % (1.7-12.7); Neutrophils # 5.2 10*3/uL (1.4-7.4); Neutrophils % 59.1 % (38.7-73.9); Platelet Count 224 T/CUMM (130-400); Red Blood Count 3.78 MC/CUMM (3.8-5.5); White Blood Count 8.7 T/CUMM (4-12)
[2018-02-15] MEDS: INSULIN REGULAR 100 UNIT/ML SUBCUT SCH ×4 (08:18→21:08)
[2018-02-15 08:25] LABS: Calcium 9.3 MG/DL (8.5-10.1); Potassium 3.6 MMOL/L (3.5-5.1)
[2018-02-15] MEDS: POTASSIUM CHLORIDE 20 MEQ/15 ML UDCUP PER TUBE SCH (08:54)
[2018-02-15] MEDS: glipiZIDE 10 MG TABLET PO SCH ×2 (08:54→16:30)
[2018-02-15] MEDS: PANTOPRAZOLE 40 MG VIAL IV SCH (08:54)
[2018-02-15] MEDS: ASPIRIN CHEW 81 MG TABLET PO SCH (08:54)
[2018-02-15] MEDS: CARVEDILOL 3.125 MG TABLET PO SCH ×2 (08:55→21:08)
[2018-02-15] MEDS: FUROSEMIDE 40 MG/4 ML VIAL IV SCH (10:09)
[2018-02-15] MEDS: ENOXAPARIN 40 MG/0.4 ML SYRINGE SUBCUT SCH (10:09)
[2018-02-15] MEDS: FUROSEMIDE 40 MG TABLET PO SCH (16:30)
[2018-02-15] MEDS: ATORVASTATIN 20 MG TABLET PO SCH (21:08)
[2018-02-16 04:26] LABS: ABG Base Excess 7.7 MMOL/L (-2.5-2.5); ABG HCO3 31.5 MMOL/L (20-26); ABG Oxygen Saturation 96.9 % (95-100); ABG PH 7.496 (7.35-7.45); ABG PO2 84.9 MM HG (80-95); ABG TCO2 28.2 MMOL/L (23-27); Allen Test Positive
[2018-02-16 06:07] LABS: Prealbumin 32.5 MG/DL (20-40)
[2018-02-16] MEDS: BENZONATATE 100 MG CAPSULE PO SCH ×3 (06:42→21:07)
[2018-02-16] MEDS: POTASSIUM CHLORIDE RIDER 10 MEQ in PREMIX 1 EACH IV PRN ×3 (06:43→09:51)
[2018-02-16] MEDS: INSULIN REGULAR 100 UNIT/ML SUBCUT SCH ×4 (07:55→21:06)
[2018-02-16] MEDS: FUROSEMIDE 40 MG TABLET PO SCH ×2 (08:49→17:02)
[2018-02-16] MEDS: POTASSIUM CHLORIDE 20 MEQ/15 ML UDCUP PER TUBE SCH (08:49)
[2018-02-16] MEDS: glipiZIDE 10 MG TABLET PO SCH ×2 (08:50→17:03)
[2018-02-16] MEDS: CARVEDILOL 3.125 MG TABLET PO SCH ×3 (08:50→21:06)
[2018-02-16] MEDS: ASPIRIN CHEW 81 MG TABLET PO SCH (08:50)
[2018-02-16] MEDS: PANTOPRAZOLE 40 MG VIAL IV SCH (08:51)
[2018-02-16 09:49] LABS: Calcium 9.4 MG/DL (8.5-10.1); Osmolality,Calculated 277.1 MOS/KG (273-304); Potassium 3.7 MMOL/L (3.5-5.1)
[2018-02-16 10:55] LABS: Apearance,Urine Slightly Hazy (Clear); Bilirubin,Urine Negative (Negative); Blood, Urine Small mg/dL (Negative); Glucose,Urine (UA) Negative (Negative); Hyaline Casts,Urine 3 /LPF (0-3); Ketones,Urine Negative (Negative); Mucus,Urine Occasional /LPF (Occasional); Nitrite,Urine Negative (Negative); Protein,Urine 30 MG/DL; RBC,Urine 4 /HPF (0-4); Urine Color Yellow (Yellow); Urine Specific Gravity 1.013 (1.001-1.035); WBC,Urine 9 /HPF (0-6)
[2018-02-16] MEDS: ENOXAPARIN 40 MG/0.4 ML SYRINGE SUBCUT SCH (11:14)
[2018-02-16] MEDS: ATORVASTATIN 20 MG TABLET PO SCH (21:06)
[2018-02-17 06:03] LABS: Calcium 9.3 MG/DL (8.5-10.1); Osmolality,Calculated 272.2 MOS/KG (273-304); Potassium 3.4 MMOL/L (3.5-5.1)
[2018-02-17] MEDS: BENZONATATE 100 MG CAPSULE PO SCH ×3 (06:15→21:46)
[2018-02-17] MEDS: DEXTROSE 50% 25 GM/50 ML SYRINGE IV PRN (06:22)
[2018-02-17] MEDS: POTASSIUM CHLORIDE RIDER 10 MEQ in PREMIX 1 EACH IV PRN ×3 (06:22→08:25)
[2018-02-17] MEDS: INSULIN REGULAR 100 UNIT/ML SUBCUT SCH ×4 (07:09→21:47)
[2018-02-17] MEDS: glipiZIDE 10 MG TABLET PO SCH (08:13)
[2018-02-17] MEDS ORDERED: POTASSIUM CHLORIDE 20 MEQ TABLET PO SCH (09:00)
[2018-02-17] MEDS: FUROSEMIDE 40 MG TABLET PO SCH ×2 (09:58→17:00)
[2018-02-17] MEDS: POTASSIUM CHLORIDE 20 MEQ TABLET PO SCH (09:59)
[2018-02-17] MEDS: ASPIRIN CHEW 81 MG TABLET PO SCH (09:59)
[2018-02-17] MEDS: CARVEDILOL 3.125 MG TABLET PO SCH ×2 (10:01→21:46)
[2018-02-17] MEDS: PANTOPRAZOLE 40 MG VIAL IV SCH (10:01)
[2018-02-17] MEDS: ENOXAPARIN 40 MG/0.4 ML SYRINGE SUBCUT SCH (11:27)
[2018-02-17] MEDS: glipiZIDE 5 MG TABLET PO SCH (17:00)
[2018-02-17] MEDS: ATORVASTATIN 20 MG TABLET PO SCH (21:46)
[2018-02-18 05:09] LABS: Osmolality,Calculated 282.8 MOS/KG (273-304); Potassium 3.8 MMOL/L (3.5-5.1)
[2018-02-18] MEDS: BENZONATATE 100 MG CAPSULE PO SCH ×3 (06:26→22:11)
[2018-02-18] MEDS: FUROSEMIDE 40 MG TABLET PO SCH ×2 (09:24→16:55)
[2018-02-18] MEDS: CARVEDILOL 3.125 MG TABLET PO SCH ×2 (09:24→22:11)
[2018-02-18] MEDS: ASPIRIN CHEW 81 MG TABLET PO SCH (09:25)
[2018-02-18] MEDS: INSULIN REGULAR 100 UNIT/ML SUBCUT SCH ×4 (09:25→22:11)
[2018-02-18] MEDS: glipiZIDE 5 MG TABLET PO SCH ×2 (09:25→17:23)
[2018-02-18] MEDS: POTASSIUM CHLORIDE 20 MEQ TABLET PO SCH (09:25)
[2018-02-18] MEDS: PANTOPRAZOLE 40 MG VIAL IV SCH (09:26)
[2018-02-18] MEDS: ENOXAPARIN 40 MG/0.4 ML SYRINGE SUBCUT SCH (11:20)
[2018-02-18] MEDS: ATORVASTATIN 20 MG TABLET PO SCH (22:11)
[2018-02-19 04:35] LABS: Basophils % 0.6 % (0.0-0.8); Eosinophils # 0.3 10*3/uL (0.0-0.87); Eosinophils % 3.6 % (0.00-10.9); Hematocrit 29.4 VOL% (42.0-52.0); Hemoglobin 9.5 GM/DL (14.0-18.0); Immature Granulocytes % 0.4 %; Immature Granulocytes Absolute 0.03 #; Lymphocytes # 2.5 10*3/uL (1.4-4.0); Lymphocytes % 36.2 % (21.2-54.2); Mean Corpuscular HGB Conc 32.3 GM/DL (32-36); Mean Corpuscular Hemoglobin 30 PG (27-34); Mean Corpuscular Volume 91.9 FL (87-102); Mean Platelet Volume 10.8 FL (9.6-12.0); Monocytes # 0.9 10*3/uL (0.11-0.8); Monocytes % 12.5 % (1.7-12.7); Neutrophils # 3.2 10*3/uL (1.4-7.4); Neutrophils % 46.7 % (38.7-73.9); Platelet Count 239 T/CUMM (130-400); White Blood Count 6.9 T/CUMM (4-12)
[2018-02-19 04:51] LABS: Calcium 8.9 MG/DL (8.5-10.1); Osmolality,Calculated 285.4 MOS/KG (273-304); Potassium 3.6 MMOL/L (3.5-5.1)
[2018-02-19] MEDS: POTASSIUM CHLORIDE RIDER 10 MEQ in PREMIX 1 EACH IV PRN (06:42)
[2018-02-19] MEDS: BENZONATATE 100 MG CAPSULE PO SCH ×3 (06:42→21:54)
[2018-02-19] MEDS: FUROSEMIDE 40 MG TABLET PO SCH ×2 (08:36→16:39)
[2018-02-19] MEDS: INSULIN REGULAR 100 UNIT/ML SUBCUT SCH ×4 (08:36→20:36)
[2018-02-19] MEDS: glipiZIDE 5 MG TABLET PO SCH ×2 (08:37→16:39)
[2018-02-19] MEDS: ASPIRIN CHEW 81 MG TABLET PO SCH (08:37)
[2018-02-19] MEDS: CARVEDILOL 12.5 MG TABLET PO SCH ×2 (08:40→21:53)
[2018-02-19] MEDS: ASCORBIC ACID 500 MG TABLET PO SCH ×2 (08:40→21:54)
[2018-02-19] MEDS: PANTOPRAZOLE 40 MG VIAL IV SCH (08:41)
[2018-02-19] MEDS ORDERED: BUPIVACAINE 0.5% 50 ML VIAL ONE (08:49)
[2018-02-19] MEDS ORDERED: LIDOCAINE 1%/EPI INJ 20 ML VIAL ONE (08:49)
[2018-02-19] MEDS ORDERED: POTASSIUM CHLORIDE 20 MEQ TABLET PO ONE (09:04)
[2018-02-19] MEDS: ENOXAPARIN 40 MG/0.4 ML SYRINGE SUBCUT SCH (12:06)
[2018-02-19] MEDS: ATORVASTATIN 20 MG TABLET PO SCH (21:54)
[2018-02-19] MEDS: POTASSIUM CHLORIDE 20 MEQ TABLET PO SCH (21:54)
[2018-02-20] MEDS: BENZONATATE 100 MG CAPSULE PO SCH ×3 (06:35→21:08)
[2018-02-20] MEDS: INSULIN REGULAR 100 UNIT/ML SUBCUT SCH ×4 (08:41→21:10)
[2018-02-20] MEDS: PANTOPRAZOLE 40 MG VIAL IV SCH (08:41)
[2018-02-20] MEDS: ASCORBIC ACID 500 MG TABLET PO SCH ×2 (08:42→21:08)
[2018-02-20] MEDS: ASPIRIN CHEW 81 MG TABLET PO SCH (08:42)
[2018-02-20] MEDS: CARVEDILOL 12.5 MG TABLET PO SCH ×2 (08:42→21:09)
[2018-02-20] MEDS: POTASSIUM CHLORIDE 20 MEQ TABLET PO SCH ×2 (08:43→21:09)
[2018-02-20] MEDS: glipiZIDE 5 MG TABLET PO SCH ×2 (08:43→16:41)
[2018-02-20] MEDS: FUROSEMIDE 40 MG TABLET PO SCH ×2 (08:43→16:41)
[2018-02-20] MEDS: ENOXAPARIN 40 MG/0.4 ML SYRINGE SUBCUT SCH (12:31)
[2018-02-20] MEDS: ATORVASTATIN 20 MG TABLET PO SCH (21:09)
[2018-02-20] MEDS: ACETAMINOPHEN 325 MG TABLET PO PRN (21:13)
[2018-02-21] MEDS: BENZONATATE 100 MG CAPSULE PO SCH ×3 (06:18→21:39)
[2018-02-21] MEDS: CARVEDILOL 12.5 MG TABLET PO SCH ×2 (09:04→21:39)
[2018-02-21] MEDS: ASCORBIC ACID 500 MG TABLET PO SCH ×2 (09:04→21:39)
[2018-02-21] MEDS: ASPIRIN CHEW 81 MG TABLET PO SCH (09:04)
[2018-02-21] MEDS: POTASSIUM CHLORIDE 20 MEQ TABLET PO SCH ×2 (09:05→21:39)
[2018-02-21] MEDS: FUROSEMIDE 40 MG TABLET PO SCH ×2 (09:05→17:00)
[2018-02-21] MEDS: PANTOPRAZOLE 40 MG VIAL IV SCH (09:05)
[2018-02-21] MEDS: glipiZIDE 5 MG TABLET PO SCH ×2 (09:08→17:01)
[2018-02-21] MEDS: INSULIN REGULAR 100 UNIT/ML SUBCUT SCH ×4 (09:08→21:40)
[2018-02-21] MEDS: ENOXAPARIN 40 MG/0.4 ML SYRINGE SUBCUT SCH (10:59)
[2018-02-21] MEDS: LOSARTAN 25 MG TABLET PO SCH (21:39)
[2018-02-21] MEDS: ATORVASTATIN 40 MG TABLET PO SCH (21:40)
[2018-02-21] MEDS: ACETAMINOPHEN 325 MG TABLET PO PRN (21:41)
[2018-02-22] MEDS: BENZONATATE 100 MG CAPSULE PO SCH ×3 (06:40→23:09)
[2018-02-22] MEDS: ASPIRIN CHEW 81 MG TABLET PO SCH (08:53)
[2018-02-22] MEDS: ASCORBIC ACID 500 MG TABLET PO SCH ×2 (08:53→20:52)
[2018-02-22] MEDS: INSULIN REGULAR 100 UNIT/ML SUBCUT SCH ×4 (08:54→20:54)
[2018-02-22] MEDS: glipiZIDE 5 MG TABLET PO SCH ×2 (08:54→16:50)
[2018-02-22] MEDS: POTASSIUM CHLORIDE 20 MEQ TABLET PO SCH ×2 (08:54→20:52)
[2018-02-22] MEDS: CARVEDILOL 12.5 MG TABLET PO SCH ×2 (08:54→20:54)
[2018-02-22] MEDS: LOSARTAN 25 MG TABLET PO SCH ×2 (08:54→20:57)
[2018-02-22] MEDS: PANTOPRAZOLE 40 MG VIAL IV SCH (08:54)
[2018-02-22] MEDS: FUROSEMIDE 40 MG TABLET PO SCH ×2 (08:54→16:46)
[2018-02-22] MEDS: ENOXAPARIN 40 MG/0.4 ML SYRINGE SUBCUT SCH (12:08)
[2018-02-22] MEDS: ACETAMINOPHEN 325 MG TABLET PO PRN (20:53)
[2018-02-22] MEDS: ATORVASTATIN 40 MG TABLET PO SCH (20:54)
[2018-02-23] MEDS: BENZONATATE 100 MG CAPSULE PO SCH ×3 (06:46→21:05)
[2018-02-23] MEDS: INSULIN REGULAR 100 UNIT/ML SUBCUT SCH ×4 (08:36→22:08)
[2018-02-23] MEDS: ASPIRIN CHEW 81 MG TABLET PO SCH (08:53)
[2018-02-23] MEDS: LOSARTAN 25 MG TABLET PO SCH ×2 (08:53→20:49)
[2018-02-23] MEDS: ASCORBIC ACID 500 MG TABLET PO SCH ×2 (08:53→20:47)
[2018-02-23] MEDS: POTASSIUM CHLORIDE 20 MEQ TABLET PO SCH ×2 (08:53→20:49)
[2018-02-23] MEDS: glipiZIDE 5 MG TABLET PO SCH ×2 (08:53→16:17)
[2018-02-23] MEDS: FUROSEMIDE 40 MG TABLET PO SCH ×2 (08:53→16:16)
[2018-02-23] MEDS: CARVEDILOL 12.5 MG TABLET PO SCH ×2 (08:54→20:48)
[2018-02-23] MEDS: PANTOPRAZOLE 40 MG VIAL IV SCH (08:54)
[2018-02-23] MEDS: ENOXAPARIN 40 MG/0.4 ML SYRINGE SUBCUT SCH (10:52)
[2018-02-23] MEDS ORDERED: TUBERCULIN SKIN TEST 0.1 ML SYRINGE INTRADERM ONE (13:28)
[2018-02-23] MEDS: ATORVASTATIN 40 MG TABLET PO SCH (20:48)
[2018-02-24 04:28] LABS: Basophils % 0.6 % (0.0-0.8); Eosinophils # 0.2 10*3/uL (0.0-0.87); Eosinophils % 2.9 % (0.00-10.9); Hematocrit 30.8 VOL% (42.0-52.0); Immature Granulocytes % 0.4 %; Immature Granulocytes Absolute 0.03 #; Lymphocytes # 2.9 10*3/uL (1.4-4.0); Lymphocytes % 39.8 % (21.2-54.2); Mean Corpuscular HGB Conc 32.5 GM/DL (32-36); Mean Corpuscular Hemoglobin 30 PG (27-34); Mean Corpuscular Volume 93.1 FL (87-102); Mean Platelet Volume 10.8 FL (9.6-12.0); Monocytes # 0.7 10*3/uL (0.11-0.8); Neutrophils # 3.4 10*3/uL (1.4-7.4); Neutrophils % 47.3 % (38.7-73.9); Platelet Count 263 T/CUMM (130-400); Red Blood Count 3.31 MC/CUMM (3.8-5.5); Red Cell Distribution Width 16.1 % (9.3-17.3); White Blood Count 7.2 T/CUMM (4-12)
[2018-02-24 04:48] LABS: Calcium 8.9 MG/DL (8.5-10.1); Potassium 3.9 MMOL/L (3.5-5.1)
[2018-02-24] MEDS: BENZONATATE 100 MG CAPSULE PO SCH (05:41)
[2018-02-24] MEDS: INSULIN REGULAR 100 UNIT/ML SUBCUT SCH ×2 (08:36→11:40)
[2018-02-24] MEDS: POTASSIUM CHLORIDE 20 MEQ TABLET PO SCH (08:44)
[2018-02-24] MEDS: FUROSEMIDE 40 MG TABLET PO SCH (08:44)
[2018-02-24] MEDS: ASCORBIC ACID 500 MG TABLET PO SCH (08:44)
[2018-02-24] MEDS: PANTOPRAZOLE 40 MG VIAL IV SCH (08:45)
[2018-02-24] MEDS: glipiZIDE 5 MG TABLET PO SCH (08:45)
[2018-02-24] MEDS: LOSARTAN 25 MG TABLET PO SCH (08:45)
[2018-02-24] MEDS: ASPIRIN CHEW 81 MG TABLET PO SCH (08:45)
[2018-02-24] MEDS: CARVEDILOL 12.5 MG TABLET PO SCH (08:45)
[2018-02-24] MEDS: ENOXAPARIN 40 MG/0.4 ML SYRINGE SUBCUT SCH (11:40)
[2018-02-24 12:05] VITALS: BP 92/71
== END 2018-02-24 11:35 | disposition home or self-care (01) | DRG 207 ==
LOC: EDBD 05:20 → EDUNIT# 05:20 → N.EDINP 05:20 → N.ED 05:20 → N.ICU 07:59 → N.CC 02-09 13:46 → N.TELEN 02-17 15:29

== ENCOUNTER 2018-02-27 09:42 | Inpatient (IN) ==
[2018-02-27] MEDS ORDERED: SODIUM CHLORIDE 0.9% 1,000 ML IV STA (10:31)
[2018-02-27 10:47] LABS: Basophils % 0.4 % (0.0-0.8); Eosinophils # 0.3 10*3/uL (0.0-0.87); Eosinophils % 3.1 % (0.00-10.9); Hematocrit 32.4 VOL% (42.0-52.0); Hemoglobin 10.3 GM/DL (14.0-18.0); Immature Granulocytes % 0.3 %; Immature Granulocytes Absolute 0.03 #; Lymphocytes # 2.6 10*3/uL (1.4-4.0); Lymphocytes % 25.9 % (21.2-54.2); Mean Corpuscular HGB Conc 31.8 GM/DL (32-36); Mean Corpuscular Hemoglobin 30 PG (27-34); Mean Corpuscular Volume 94.7 FL (87-102); Mean Platelet Volume 11.3 FL (9.6-12.0); Monocytes # 0.7 10*3/uL (0.11-0.8); Monocytes % 6.7 % (1.7-12.7); Neutrophils # 6.4 10*3/uL (1.4-7.4); Neutrophils % 63.6 % (38.7-73.9); Platelet Count 263 T/CUMM (130-400); Red Blood Count 3.42 MC/CUMM (3.8-5.5); Red Cell Distribution Width 16.6 % (9.3-17.3); White Blood Count 10.1 T/CUMM (4-12)
[2018-02-27 10:55] LABS: Albumin 3.3 G/DL (3.4-5.0); Bilirubin,Total 0.5 MG/DL (0.2-1.0); Calcium 9.3 MG/DL (8.5-10.1); Osmolality,Calculated 286.8 MOS/KG (273-304); Potassium 5.3 MMOL/L (3.5-5.1)
[2018-02-27 11:00] LABS: PT Patient Result 11.2 SECS
[2018-02-27] MEDS ORDERED: DOBUTamine 500 MG/250 ML PREMIX IV SCH (13:00)
[2018-02-27] MEDS ORDERED: DOCUSATE SODIUM 100 MG CAPSULE PO PRN (13:10)
[2018-02-27] MEDS ORDERED: MAGNESIUM SULF RIDER 4 GM in PREMIX 1 EACH IV PRN (13:10)
[2018-02-27] MEDS ORDERED: BISACODYL 5 MG TABLET PO PRN (13:10)
[2018-02-27] MEDS ORDERED: guaiFENesin/DM ER 600-30 MG TABLET PO PRN (13:10)
[2018-02-27] MEDS ORDERED: ONDANSETRON 4 MG/2 ML VIAL IV PRN (13:10)
[2018-02-27] MEDS ORDERED: POTASSIUM CHLORIDE 20 MEQ TABLET PO PRN (13:10)
[2018-02-27] MEDS ORDERED: MAGNESIUM SULF RIDER 2 GM in PREMIX 1 EACH IV PRN (13:10)
[2018-02-27] MEDS ORDERED: PHENYLEPHRINE DRIP 40 MG/250 ML PREMIX IV PRN (13:14)
[2018-02-27] MEDS ORDERED: SODIUM CHLORIDE 0.9% 1,000 ML IV SCH (13:30)
[2018-02-27] MEDS: DOBUTamine 500 MG/250 ML PREMIX IV SCH (15:12)
[2018-02-27] MEDS: INSULIN REGULAR 100 UNIT/ML SUBCUT SCH ×2 (16:08→21:15)
[2018-02-27 16:53] LABS: Apearance,Urine Slightly Hazy (Clear); Bilirubin,Urine Negative (Negative); Blood, Urine Negative (Negative); Glucose,Urine (UA) Negative (Negative); Hyaline Casts,Urine 16 /LPF (0-3); Ketones,Urine Negative (Negative); Mucus,Urine Occasional /LPF (Occasional); Nitrite,Urine Negative (Negative); Protein,Urine 30 MG/DL; RBC,Urine 1 /HPF (0-4); Squamous Epithelial Cell,Urine Occasional /HPF (0-10); Urine Color Amber (Yellow); Urine Specific Gravity 1.021 (1.001-1.035); WBC,Urine 5 /HPF (0-6)
[2018-02-27] MEDS: ATORVASTATIN 20 MG TABLET PO SCH (20:43)
[2018-02-27] MEDS ORDERED: POTASSIUM CHLORIDE 20 MEQ TABLET PO SCH (21:00)
[2018-02-28 05:26] LABS: Basophils % 0.3 % (0.0-0.8); Eosinophils # 0.1 10*3/uL (0.0-0.87); Eosinophils % 0.6 % (0.00-10.9); Hematocrit 29.8 VOL% (42.0-52.0); Hemoglobin 9.3 GM/DL (14.0-18.0); Immature Granulocytes % 0.4 %; Immature Granulocytes Absolute 0.04 #; Lymphocytes # 1.5 10*3/uL (1.4-4.0); Lymphocytes % 14.6 % (21.2-54.2); Mean Corpuscular HGB Conc 31.2 GM/DL (32-36); Mean Corpuscular Hemoglobin 29 PG (27-34); Mean Platelet Volume 11.2 FL (9.6-12.0); Monocytes # 0.8 10*3/uL (0.11-0.8); Monocytes % 7.4 % (1.7-12.7); Neutrophils # 8.1 10*3/uL (1.4-7.4); Neutrophils % 76.7 % (38.7-73.9); Platelet Count 248 T/CUMM (130-400); Red Blood Count 3.17 MC/CUMM (3.8-5.5); Red Cell Distribution Width 16.8 % (9.3-17.3); White Blood Count 10.6 T/CUMM (4-12)
[2018-02-28 05:54] LABS: Alanine Aminotransferase 32 U/L (16-61); Albumin 2.9 G/DL (3.4-5.0); Alkaline Phosphatase 73 U/L (45-117); Aspartate Amino Transferase 14 U/L (0-37); Blood Urea Nitrogen 17 MG/DL (7-18); Calcium 8.8 MG/DL (8.5-10.1); Glucose 43 MG/DL (74-106); Osmolality,Calculated 281.1 MOS/KG (273-304); Potassium 3.9 MMOL/L (3.5-5.1); Sodium 142 MMOL/L (136-145); Total Protein 6.9 G/DL (6.4-8.3); Troponin I 0.067 NG/ML (0.00-0.045)
[2018-02-28] MEDS: INSULIN REGULAR 100 UNIT/ML SUBCUT SCH ×4 (07:47→20:24)
[2018-02-28] MEDS: ASPIRIN EC 325 MG TABLET PO SCH (07:52)
[2018-02-28] MEDS: DOBUTamine 500 MG/250 ML PREMIX IV SCH (10:31)
[2018-02-28] MEDS: SPIRONOLACTONE 25 MG TABLET PO SCH (12:53)
[2018-02-28] MEDS: CARVEDILOL 3.125 MG TABLET PO SCH (16:57)
[2018-02-28] MEDS: FUROSEMIDE 40 MG TABLET PO SCH (16:57)
[2018-02-28] MEDS ORDERED: DEXTROSE 50% 25 GM/50 ML SYRINGE IV ONE (19:43)
[2018-02-28] MEDS ORDERED: DEXTROSE 50% 25 GM/50 ML SYRINGE IV PRN (20:07)
[2018-02-28] MEDS: ATORVASTATIN 20 MG TABLET PO SCH (22:30)
[2018-03-01 05:46] LABS: Calcium 8.7 MG/DL (8.5-10.1); Osmolality,Calculated 278.1 MOS/KG (273-304); Potassium 3.8 MMOL/L (3.5-5.1)
[2018-03-01] MEDS: INSULIN REGULAR 100 UNIT/ML SUBCUT SCH ×4 (08:52→22:28)
[2018-03-01] MEDS: SPIRONOLACTONE 25 MG TABLET PO SCH (08:53)
[2018-03-01] MEDS: FUROSEMIDE 40 MG TABLET PO SCH ×2 (08:53→17:08)
[2018-03-01] MEDS: CARVEDILOL 3.125 MG TABLET PO SCH (08:53)
[2018-03-01] MEDS: ASPIRIN EC 325 MG TABLET PO SCH (08:53)
[2018-03-01] MEDS ORDERED: CARVEDILOL 3.125 MG TABLET PO ONE (09:49)
[2018-03-01] MEDS: CARVEDILOL 6.25 MG TABLET PO SCH ×2 (17:07→17:08)
[2018-03-01] MEDS: LOSARTAN 25 MG TABLET PO SCH (22:28)
[2018-03-01] MEDS: ATORVASTATIN 20 MG TABLET PO SCH (22:28)
[2018-03-02] MEDS: CARVEDILOL 6.25 MG TABLET PO SCH ×4 (08:50→19:51)
[2018-03-02] MEDS: FUROSEMIDE 40 MG TABLET PO SCH ×2 (08:50→15:49)
[2018-03-02] MEDS: SPIRONOLACTONE 25 MG TABLET PO SCH (08:51)
[2018-03-02] MEDS: LOSARTAN 25 MG TABLET PO SCH ×2 (08:51→23:15)
[2018-03-02] MEDS: ASPIRIN EC 325 MG TABLET PO SCH (08:51)
[2018-03-02] MEDS: INSULIN REGULAR 100 UNIT/ML SUBCUT SCH ×4 (09:00→23:15)
[2018-03-02] MEDS ORDERED: diphenhydrAMINE CAP 25 MG CAPSULE PO PRN (10:56)
[2018-03-02 11:45] LABS: Calcium 8.7 MG/DL (8.5-10.1); Osmolality,Calculated 283.5 MOS/KG (273-304); Potassium 4.7 MMOL/L (3.5-5.1)
[2018-03-02] MEDS: ATORVASTATIN 20 MG TABLET PO SCH (22:32)
[2018-03-03 04:30] LABS: Basophils % 0.5 % (0.0-0.8); Eosinophils # 0.3 10*3/uL (0.0-0.87); Eosinophils % 3.9 % (0.00-10.9); Hematocrit 30.6 VOL% (42.0-52.0); Hemoglobin 9.8 GM/DL (14.0-18.0); Immature Granulocytes % 0.4 %; Immature Granulocytes Absolute 0.03 #; Lymphocytes # 2.9 10*3/uL (1.4-4.0); Lymphocytes % 34.5 % (21.2-54.2); Mean Corpuscular Hemoglobin 30 PG (27-34); Mean Corpuscular Volume 93.6 FL (87-102); Mean Platelet Volume 10.2 FL (9.6-12.0); Monocytes # 0.5 10*3/uL (0.11-0.8); Monocytes % 6.4 % (1.7-12.7); Neutrophils # 4.5 10*3/uL (1.4-7.4); Neutrophils % 54.3 % (38.7-73.9); Platelet Count 214 T/CUMM (130-400); Red Blood Count 3.27 MC/CUMM (3.8-5.5); Red Cell Distribution Width 16.3 % (9.3-17.3); White Blood Count 8.3 T/CUMM (4-12)
[2018-03-03 04:53] LABS: Calcium 9.2 MG/DL (8.5-10.1); Osmolality,Calculated 279.3 MOS/KG (273-304); Potassium 3.8 MMOL/L (3.5-5.1)
[2018-03-03] MEDS ORDERED: MAGNESIUM SULF RIDER 2 GM in PREMIX 1 EACH IV ONE (08:51)
[2018-03-03] MEDS: CARVEDILOL 6.25 MG TABLET PO SCH (09:53)
[2018-03-03] MEDS: SPIRONOLACTONE 25 MG TABLET PO SCH (09:53)
[2018-03-03] MEDS: ASPIRIN EC 325 MG TABLET PO SCH (09:53)
[2018-03-03] MEDS: LOSARTAN 25 MG TABLET PO SCH (09:53)
[2018-03-03] MEDS: FUROSEMIDE 40 MG TABLET PO SCH (09:54)
[2018-03-03] MEDS: INSULIN REGULAR 100 UNIT/ML SUBCUT SCH ×2 (09:57→12:21)
[2018-03-03 11:52] VITALS: BP 91/52
== END 2018-03-03 12:13 | disposition home or self-care (01) | DRG 312 ==
LOC: N.ED 09:42 → N.EDINP 13:10 → N.ICU 14:20 → N.TELEN 02-28 15:12
PROVIDERS: ADMIT Internal Medicine Cardiovascular Disease; ATTEND Internal Medicine Cardiovascular Disease

== ENCOUNTER 2018-06-29 09:13 | Observation (INO) ==
[2018-06-29] MEDS ORDERED: KETOROLAC 30 MG/1 ML VIAL IV STA (09:31)
[2018-06-29] MEDS ORDERED: ASPIRIN 325 MG TABLET PO STA (09:31)
[2018-06-29 09:43] LABS: Basophils % 0.4 % (0.0-0.8); Eosinophils # 0.1 10*3/uL (0.0-0.87); Eosinophils % 1.3 % (0.00-10.9); Hematocrit 38.3 VOL% (42.0-52.0); Hemoglobin 12.3 GM/DL (14.0-18.0); Immature Granulocytes % 0.3 %; Immature Granulocytes Absolute 0.03 #; Lymphocytes # 2.8 10*3/uL (1.4-4.0); Lymphocytes % 29.1 % (21.2-54.2); Mean Corpuscular HGB Conc 32.1 GM/DL (32-36); Mean Corpuscular Volume 94.3 FL (87-102); Mean Platelet Volume 10.7 FL (9.6-12.0); Monocytes % 6.2 % (1.7-12.7); Neutrophils % 62.7 % (38.7-73.9); Platelet Count 213 T/CUMM (130-400); Red Blood Count 4.06 MC/CUMM (3.8-5.5); Red Cell Distribution Width 13.8 % (9.3-17.3); White Blood Count 9.7 T/CUMM (4-12)
[2018-06-29 10:07] LABS: Albumin 4.1 G/DL (3.4-5.0); Bilirubin,Total 1.1 MG/DL (0.2-1.0); Calcium 9.4 MG/DL (8.5-10.1); Total Protein 6.9 G/DL (6.4-8.3)
[2018-06-29] MEDS ORDERED: ONDANSETRON 4 MG/2 ML VIAL IV PRN (13:18)
[2018-06-29] MEDS ORDERED: DEXTROSE 50% 25 GM/50 ML SYRINGE IV PRN (13:18)
[2018-06-29] MEDS ORDERED: DOCUSATE SODIUM 100 MG CAPSULE PO PRN (13:18)
[2018-06-29] MEDS ORDERED: ACETAMINOPHEN 325 MG TABLET PO PRN (13:18)
[2018-06-29] MEDS ORDERED: GLUCAGON 1 MG VIAL IM PRN (13:18)
[2018-06-29 14:30] LABS: Risk Ratio 1.91; Thyroid Stimulating Hormone 3.99 uIU/ml (0.358-3.74); VLDL CHOLESTEROL 17.8 MG/DL
[2018-06-29] MEDS: ENOXAPARIN 40 MG/0.4 ML SYRINGE SUBCUT SCH (14:55)
[2018-06-29] MEDS ORDERED: FUROSEMIDE 40 MG/4 ML VIAL IM SCH (16:00)
[2018-06-29] MEDS: INSULIN LISPRO 100 UNIT/ML SUBCUT SCH ×2 (16:50→20:15)
[2018-06-29] MEDS: CARVEDILOL 6.25 MG TABLET PO SCH (18:49)
[2018-06-29] MEDS: NITROGLYCERIN 2% OINT 1 INCH/GM PACK TOP SCH (18:50)
[2018-06-29] MEDS: LOSARTAN 25 MG TABLET PO SCH (20:58)
[2018-06-29] MEDS: ATORVASTATIN 20 MG TABLET PO SCH (20:58)
[2018-06-30 05:33] LABS: Basophils % 0.2 % (0.0-0.8); Eosinophils # 0.1 10*3/uL (0.0-0.87); Eosinophils % 1.2 % (0.00-10.9); Hematocrit 37.2 VOL% (42.0-52.0); Hemoglobin 11.8 GM/DL (14.0-18.0); Immature Granulocytes % 0.3 %; Immature Granulocytes Absolute 0.03 #; Lymphocytes # 2.8 10*3/uL (1.4-4.0); Lymphocytes % 29.5 % (21.2-54.2); Mean Corpuscular HGB Conc 31.7 GM/DL (32-36); Mean Corpuscular Volume 94.4 FL (87-102); Mean Platelet Volume 11.7 FL (9.6-12.0); Monocytes % 5.8 % (1.7-12.7); Platelet Count 198 T/CUMM (130-400); Red Blood Count 3.94 MC/CUMM (3.8-5.5); Red Cell Distribution Width 13.9 % (9.3-17.3); White Blood Count 9.5 T/CUMM (4-12)
[2018-06-30] MEDS: NITROGLYCERIN 2% OINT 1 INCH/GM PACK TOP SCH ×4 (05:48→17:39)
[2018-06-30 05:54] LABS: Albumin 3.7 G/DL (3.4-5.0); Bilirubin,Total 1.3 MG/DL (0.2-1.0); Calcium 8.6 MG/DL (8.5-10.1); Osmolality,Calculated 292.8 MOS/KG (273-304)
[2018-06-30 07:23] LABS: Free T4 (Free Thyroxine) 1.2 NG/DL (0.76-1.46)
[2018-06-30] MEDS: SPIRONOLACTONE 25 MG TABLET PO SCH (09:10)
[2018-06-30] MEDS: FUROSEMIDE 40 MG/4 ML VIAL IV SCH ×2 (09:10→16:25)
[2018-06-30] MEDS: ASPIRIN EC 325 MG TABLET PO SCH (09:11)
[2018-06-30] MEDS: CARVEDILOL 6.25 MG TABLET PO SCH ×2 (09:11→17:34)
[2018-06-30] MEDS: PANTOPRAZOLE 40 MG TABLET PO SCH (09:11)
[2018-06-30] MEDS: LOSARTAN 25 MG TABLET PO SCH ×2 (09:11→20:39)
[2018-06-30] MEDS: INSULIN LISPRO 100 UNIT/ML SUBCUT SCH ×4 (09:12→20:36)
[2018-06-30] MEDS ORDERED: metOLazone 2.5 MG TABLET PO PRN (12:05)
[2018-06-30] MEDS: ENOXAPARIN 40 MG/0.4 ML SYRINGE SUBCUT SCH (15:33)
[2018-06-30] MEDS: ATORVASTATIN 20 MG TABLET PO SCH (20:39)
[2018-07-01] MEDS: NITROGLYCERIN 2% OINT 1 INCH/GM PACK TOP SCH ×2 (00:30→05:12)
[2018-07-01 05:59] LABS: Basophils % 0.3 % (0.0-0.8); Eosinophils # 0.1 10*3/uL (0.0-0.87); Hematocrit 37.8 VOL% (42.0-52.0); Hemoglobin 12.3 GM/DL (14.0-18.0); Immature Granulocytes % 0.5 %; Immature Granulocytes Absolute 0.05 #; Lymphocytes # 2.8 10*3/uL (1.4-4.0); Lymphocytes % 27.9 % (21.2-54.2); Mean Corpuscular HGB Conc 32.5 GM/DL (32-36); Mean Corpuscular Volume 92.9 FL (87-102); Mean Platelet Volume 11.1 FL (9.6-12.0); Monocytes % 6.4 % (1.7-12.7); Neutrophils % 63.9 % (38.7-73.9); Platelet Count 203 T/CUMM (130-400); Red Blood Count 4.07 MC/CUMM (3.8-5.5); Red Cell Distribution Width 13.8 % (9.3-17.3); White Blood Count 9.9 T/CUMM (4-12)
[2018-07-01 06:05] LABS: Calcium 9.1 MG/DL (8.5-10.1)
[2018-07-01] MEDS: CARVEDILOL 6.25 MG TABLET PO SCH (08:23)
[2018-07-01] MEDS: SPIRONOLACTONE 25 MG TABLET PO SCH (08:23)
[2018-07-01] MEDS: FUROSEMIDE 40 MG/4 ML VIAL IV SCH (08:23)
[2018-07-01] MEDS: ASPIRIN EC 325 MG TABLET PO SCH (08:23)
[2018-07-01] MEDS: PANTOPRAZOLE 40 MG TABLET PO SCH (08:23)
[2018-07-01] MEDS: LOSARTAN 25 MG TABLET PO SCH (08:23)
[2018-07-01] MEDS: INSULIN LISPRO 100 UNIT/ML SUBCUT SCH (08:24)
[2018-07-01 08:32] VITALS: BP 111/92
== END 2018-07-01 09:20 | disposition home or self-care (01) ==
LOC: N.ED 09:13 → N.EDINP 09:13 → N.TELEN 14:25
PROVIDERS: ADMIT Internal Medicine; ATTEND Internal Medicine

== ENCOUNTER 2018-10-08 09:11 | Observation (INO) ==
[2018-10-08] MEDS ORDERED: SODIUM CHLORIDE 0.9% 1,000 ML IV STA (09:45)
[2018-10-08 09:56] LABS: Basophils % 0.3 % (0.0-0.8); Eosinophils # 0.1 10*3/uL (0.0-0.87); Eosinophils % 0.8 % (0.00-10.9); Hematocrit 39.5 VOL% (42.0-52.0); Immature Granulocytes % 0.3 %; Immature Granulocytes Absolute 0.03 #; Lymphocytes # 1.8 10*3/uL (1.4-4.0); Mean Corpuscular HGB Conc 35.4 GM/DL (32-36); Mean Corpuscular Volume 88.6 FL (87-102); Mean Platelet Volume 11.4 FL (9.6-12.0); Monocytes % 6.6 % (1.7-12.7); Platelet Count 197 T/CUMM (130-400); Red Blood Count 4.46 MC/CUMM (3.8-5.5); Red Cell Distribution Width 13.4 % (9.3-17.3); White Blood Count 9.6 T/CUMM (4-12)
[2018-10-08 10:14] LABS: Alanine Aminotransferase 14 U/L (16-61); Albumin 3.9 G/DL (3.4-5.0); Alkaline Phosphatase 100 U/L (45-117); Aspartate Amino Transferase 11 U/L (0-37); Blood Urea Nitrogen 45 MG/DL (7-18); Calcium 9.5 MG/DL (8.5-10.1); Glucose 468 MG/DL (74-106); Osmolality,Calculated 296.5 MOS/KG (273-304); Total Protein 7.8 G/DL (6.4-8.3)
[2018-10-08 10:35] LABS: Apearance,Urine CLEAR (Clear); Bacteria,Urine Occasional /HPF (Few); Bilirubin,Urine Negative (Negative); Blood, Urine Negative (Negative); Glucose,Urine (UA) >=500 mg/dL (Negative); Hyaline Casts,Urine 11 /LPF (0-3); Ketones,Urine Negative (Negative); Mucus,Urine Occasional /LPF (Occasional); Nitrite,Urine Negative (Negative); Protein,Urine Negative; RBC,Urine <1 /HPF (0-4); Squamous Epithelial Cell,Urine Occasional /HPF (0-10); Urine Color Yellow (Yellow); Urine Specific Gravity 1.006 (1.001-1.035); Urine Urobilinogen < 2.0 EU/DL (0.2-1.0); WBC,Urine 5 /HPF (0-6)
[2018-10-08 10:45] LABS: Barbiturates Screen,Urine Negative (Negative); Benzodiazepines Screen,Urine Negative (Negative); Cannabinoid Screen,Urine Positive (Negative); Opiate Screen,Urine Negative (Negative); Phencyclidine Screen,Urine Negative (Negative)
[2018-10-08] MEDS ORDERED: ACETAMINOPHEN 325 MG TABLET PO PRN (13:39)
[2018-10-08] MEDS ORDERED: POTASSIUM CHLORIDE RIDER 10 MEQ in PREMIX 1 EACH IV PRN (13:44)
[2018-10-08] MEDS ORDERED: GLUCAGON 1 MG VIAL IM PRN (13:45)
[2018-10-08] MEDS ORDERED: DEXTROSE 10% 25 GM/250 ML BAG IV PRN (13:45)
[2018-10-08] MEDS: SODIUM CHLORIDE 0.9% 1,000 ML IV SCH ×2 (14:45→21:46)
[2018-10-08 15:42] LABS: Risk Ratio 5.47; Thyroid Stimulating Hormone 3.25 uIU/ml (0.358-3.74); VLDL CHOLESTEROL 71.8 MG/DL
[2018-10-08] MEDS: ENOXAPARIN 30 MG/0.3 ML SYRINGE SUBCUT SCH (16:00)
[2018-10-08] MEDS: INSULIN REGULAR 100 UNIT/ML SUBCUT SCH ×2 (18:50→21:44)
[2018-10-08 21:04] LABS: Troponin I 0.028 NG/ML (0.00-0.045)
[2018-10-09 04:42] LABS: Basophils % 0.3 % (0.0-0.8); Eosinophils # 0.1 10*3/uL (0.0-0.87); Eosinophils % 1.1 % (0.00-10.9); Hematocrit 36.2 VOL% (42.0-52.0); Hemoglobin 12.7 GM/DL (14.0-18.0); Immature Granulocytes % 0.3 %; Immature Granulocytes Absolute 0.03 #; Lymphocytes # 2.4 10*3/uL (1.4-4.0); Lymphocytes % 25.9 % (21.2-54.2); Mean Corpuscular HGB Conc 35.1 GM/DL (32-36); Mean Corpuscular Volume 89.6 FL (87-102); Mean Platelet Volume 11.5 FL (9.6-12.0); Monocytes % 8.1 % (1.7-12.7); Neutrophils % 64.3 % (38.7-73.9); Platelet Count 187 T/CUMM (130-400); Red Blood Count 4.04 MC/CUMM (3.8-5.5); Red Cell Distribution Width 13.7 % (9.3-17.3); White Blood Count 9.1 T/CUMM (4-12)
[2018-10-09 05:20] LABS: Calcium 8.8 MG/DL (8.5-10.1); Osmolality,Calculated 293.4 MOS/KG (273-304)
[2018-10-09] MEDS ORDERED: SODIUM CHLOR 0.9% KCL 20 MEQ 20 MEQ/1,000 ML BAG IV SCH (08:30)
[2018-10-09] MEDS: INSULIN REGULAR 100 UNIT/ML SUBCUT SCH (08:38)
[2018-10-09] MEDS: MULTIVITAMIN (CENTRUM) TABLET PO SCH (08:39)
[2018-10-09] MEDS: PANTOPRAZOLE 40 MG TABLET PO SCH (08:39)
[2018-10-09] MEDS: FENOFIBRATE 145 MG TABLET PO SCH (08:39)
[2018-10-09] MEDS ORDERED: GLUCAGON 1 MG VIAL IM PRN (09:10)
[2018-10-09] MEDS ORDERED: DEXTROSE 50% 25 GM/50 ML VIAL IV PRN (09:10)
[2018-10-09] MEDS: POTASSIUM CHLORIDE 20 MEQ TABLET PO PRN ×3 (09:30→17:34)
[2018-10-09] MEDS: INSULIN LISPRO 100 UNIT/ML SUBCUT SCH ×3 (12:17→20:50)
[2018-10-09] MEDS: ENOXAPARIN 30 MG/0.3 ML SYRINGE SUBCUT SCH (16:12)
[2018-10-09] MEDS: SODIUM CHLORIDE 0.9% 1,000 ML IV SCH (17:35)
[2018-10-10 05:49] LABS: Basophils % 0.4 % (0.0-0.8); Eosinophils # 0.2 10*3/uL (0.0-0.87); Eosinophils % 2.1 % (0.00-10.9); Hematocrit 36.7 VOL% (42.0-52.0); Hemoglobin 12.8 GM/DL (14.0-18.0); Immature Granulocytes % 0.4 %; Immature Granulocytes Absolute 0.03 #; Lymphocytes # 2.8 10*3/uL (1.4-4.0); Mean Corpuscular HGB Conc 34.9 GM/DL (32-36); Mean Corpuscular Volume 89.7 FL (87-102); Mean Platelet Volume 11.2 FL (9.6-12.0); Monocytes % 8.3 % (1.7-12.7); Neutrophils % 52.8 % (38.7-73.9); Platelet Count 181 T/CUMM (130-400); Red Blood Count 4.09 MC/CUMM (3.8-5.5); Red Cell Distribution Width 13.6 % (9.3-17.3); White Blood Count 7.7 T/CUMM (4-12)
[2018-10-10 06:06] LABS: Calcium 9.3 MG/DL (8.5-10.1); Osmolality,Calculated 290.3 MOS/KG (273-304)
[2018-10-10] MEDS ORDERED: POTASSIUM CHLORIDE 20 MEQ TABLET PO ONE ×2 (07:20→11:00)
[2018-10-10] MEDS: MULTIVITAMIN (CENTRUM) TABLET PO SCH (08:28)
[2018-10-10] MEDS: PANTOPRAZOLE 40 MG TABLET PO SCH (08:29)
[2018-10-10] MEDS: FENOFIBRATE 145 MG TABLET PO SCH (08:29)
[2018-10-10] MEDS: INSULIN LISPRO 100 UNIT/ML SUBCUT SCH ×3 (08:29→17:19)
[2018-10-10] MEDS ORDERED: SODIUM CHLORIDE 0.9% 500 ML IV ONE (13:42)
[2018-10-10 16:42] VITALS: BP 105/87
[2018-10-10] MEDS: ENOXAPARIN 30 MG/0.3 ML SYRINGE SUBCUT SCH (16:51)
[2018-10-10 19:46] LABS: Cyclic Citrull Peptide Ab Mayo < 15.6 U
== END 2018-10-10 18:16 | disposition home or self-care (01) ==
LOC: N.ED 09:11 → N.EDINP 09:11 → SUATTDRO 13:39 → N.5E 14:47
PROVIDERS: ADMIT Internal Medicine; ATTEND Internal Medicine

== ENCOUNTER 2018-11-28 08:13 | Observation (INO) ==
[2018-11-28] MEDS ORDERED: KETOROLAC 30 MG/1 ML VIAL IM STA (10:44)
[2018-11-28 11:11] LABS: Basophils % 0.2 % (0.0-0.8); Eosinophils # 0.1 10*3/uL (0.0-0.87); Eosinophils % 0.7 % (0.00-10.9); Hematocrit 35.5 VOL% (42.0-52.0); Hemoglobin 11.7 GM/DL (14.0-18.0); Immature Granulocytes % 0.3 %; Immature Granulocytes Absolute 0.04 #; Lymphocytes # 1.6 10*3/uL (1.4-4.0); Lymphocytes % 12.8 % (21.2-54.2); Mean Platelet Volume 10.9 FL (9.6-12.0); Monocytes % 10.4 % (1.7-12.7); Neutrophils % 75.6 % (38.7-73.9); Platelet Count 315 T/CUMM (130-400); Red Blood Count 3.86 MC/CUMM (3.8-5.5); Red Cell Distribution Width 12.5 % (9.3-17.3); White Blood Count 12.1 T/CUMM (4-12)
[2018-11-28 11:42] LABS: Alanine Aminotransferase < 9 U/L (16-61); Albumin 2.5 G/DL (3.4-5.0); Alkaline Phosphatase 71 U/L (45-117); Aspartate Amino Transferase 10 U/L (0-37); Blood Urea Nitrogen 9 MG/DL (7-18); Estimated Glom Filtration Rate 111 ML/MIN; Glucose 277 MG/DL (74-106); Total Protein 7.1 G/DL (6.4-8.3)
[2018-11-28 11:49] LABS: Apearance,Urine Slightly Hazy (Clear); Bacteria,Urine Occasional /HPF (Few); Bilirubin,Urine Negative (Negative); Blood, Urine Negative (Negative); Glucose,Urine (UA) >=500 mg/dL (Negative); Ketones,Urine 20 mg/dL (Negative); Mucus,Urine Occasional /LPF (Occasional); Nitrite,Urine Negative (Negative); Protein,Urine Negative; RBC,Urine 2 /HPF (0-4); Squamous Epithelial Cell,Urine Occasional /HPF (0-10); Urine Color Yellow (Yellow); Urine Specific Gravity 1.033 (1.001-1.035); WBC,Urine 3 /HPF (0-6)
[2018-11-28 12:16] LABS: Barbiturates Screen,Urine Negative (Negative); Benzodiazepines Screen,Urine Negative (Negative); Cannabinoid Screen,Urine Negative (Negative); Opiate Screen,Urine Negative (Negative); Phencyclidine Screen,Urine Negative (Negative)
[2018-11-28] MEDS ORDERED: GLUCAGON 1 MG VIAL IM PRN (14:56)
[2018-11-28] MEDS ORDERED: DEXTROSE 50% 25 GM/50 ML VIAL IV PRN (14:56)
[2018-11-28] MEDS ORDERED: cefTRIAXone 1,000 MG in SODIUM CHLORIDE 0.9% 100 ML IV STA (14:56)
[2018-11-28] MEDS ORDERED: ONDANSETRON 4 MG/2 ML VIAL IV PRN (14:56)
[2018-11-28] MEDS ORDERED: DOCUSATE SODIUM 100 MG CAPSULE PO PRN (14:56)
[2018-11-28] MEDS ORDERED: GENTAMICIN INJ 240 MG in SODIUM CHLORIDE 0.9% 100 ML IV STA (14:56)
[2018-11-28] MEDS ORDERED: ENOXAPARIN 40 MG/0.4 ML SYRINGE SUBCUT SCH (15:00)
[2018-11-28] MEDS ORDERED: SODIUM CHLORIDE 0.9% 100 ML IV ONE (15:18)
[2018-11-28] MEDS ORDERED: cefTRIAXone 1,000 MG VIAL ONE (15:18)
[2018-11-28 15:43] LABS: Risk Ratio 3.27; Thyroid Stimulating Hormone 1.33 uIU/ml (0.358-3.74); VLDL CHOLESTEROL 24.4 MG/DL
[2018-11-28] MEDS ORDERED: GENTAMICIN INJ 120 MG in PREMIX 1 EACH IV ONE (17:00)
[2018-11-28] MEDS: INSULIN LISPRO 100 UNIT/ML SUBCUT SCH ×2 (17:16→21:34)
[2018-11-28] MEDS: DOXYCYCLINE HYCLATE 100 MG CAPSULE PO SCH (21:33)
[2018-11-29 06:21] LABS: Basophils % 0.3 % (0.0-0.8); Eosinophils # 0.1 10*3/uL (0.0-0.87); Eosinophils % 0.5 % (0.00-10.9); Hematocrit 32.5 VOL% (42.0-52.0); Hemoglobin 10.9 GM/DL (14.0-18.0); Immature Granulocytes % 0.4 %; Immature Granulocytes Absolute 0.05 #; Lymphocytes # 1.3 10*3/uL (1.4-4.0); Lymphocytes % 10.9 % (21.2-54.2); Mean Corpuscular HGB Conc 33.5 GM/DL (32-36); Mean Platelet Volume 11.3 FL (9.6-12.0); Monocytes % 10.8 % (1.7-12.7); Neutrophils % 77.1 % (38.7-73.9); Platelet Count 320 T/CUMM (130-400); Red Blood Count 3.61 MC/CUMM (3.8-5.5); Red Cell Distribution Width 12.3 % (9.3-17.3); White Blood Count 11.7 T/CUMM (4-12)
[2018-11-29 07:01] LABS: Band Neutrophils 8 % (0-10); Lymphocytes 9 % (20-55); Platelet Estimate Normal; Segmented Neutrophils 72 % (50-85); Total Cells Counted 100
[2018-11-29] MEDS ORDERED: MAGNESIUM SULF RIDER 2 GM in PREMIX 1 EACH IV ONE (07:42)
[2018-11-29] MEDS: INSULIN LISPRO 100 UNIT/ML SUBCUT SCH ×2 (08:11→12:24)
[2018-11-29] MEDS: POTASSIUM CHLORIDE 20 MEQ TABLET PO PRN ×4 (08:11→14:13)
[2018-11-29] MEDS: DOXYCYCLINE HYCLATE 100 MG CAPSULE PO SCH (08:12)
[2018-11-29] MEDS ORDERED: FUROSEMIDE 40 MG TABLET PO SCH (09:00)
[2018-11-29] MEDS ORDERED: cefTRIAXone 1,000 MG in SYRINGE 1 EACH IV SCH (09:00)
[2018-11-29] MEDS ORDERED: PANTOPRAZOLE 40 MG TABLET PO SCH (09:00)
[2018-11-29] MEDS ORDERED: carvediloL 6.25 MG TABLET PO SCH (09:00)
[2018-11-29 13:02] VITALS: BP 103/68
[2018-11-29] MEDS ORDERED: GENTAMICIN INJ 360 MG in SODIUM CHLORIDE 0.9% 100 ML IV SCH (18:00)
[2018-12-02 12:05] LABS: Mumps Index Value 0.47 (0.00-0.79)
== END 2018-11-29 14:30 | disposition home or self-care (01) ==
LOC: N.3E 08:13 → N.ED 08:13 → N.3E 16:27
PROVIDERS: ADMIT Internal Medicine; ATTEND Internal Medicine

== ENCOUNTER 2018-12-09 00:36 | Inpatient (IN) ==
[2018-12-09] MEDS ORDERED: FUROSEMIDE 40 MG/4 ML VIAL IV STA (01:11)
[2018-12-09] MEDS ORDERED: ALBUTEROL/IPRATROPIUM 3 ML NEB RESP TX STA (01:11)
[2018-12-09] MEDS ORDERED: ONDANSETRON 4 MG/2 ML VIAL IV STA (01:11)
[2018-12-09 01:17] LABS: Basophils % 0.3 % (0.0-0.8); Eosinophils % 0.3 % (0.00-10.9); Hemoglobin 10.7 GM/DL (14.0-18.0); Immature Granulocytes % 0.5 %; Immature Granulocytes Absolute 0.06 #; Lymphocytes # 2.2 10*3/uL (1.4-4.0); Lymphocytes % 18.9 % (21.2-54.2); Mean Corpuscular HGB Conc 32.4 GM/DL (32-36); Mean Corpuscular Volume 92.7 FL (87-102); Mean Platelet Volume 11.3 FL (9.6-12.0); Monocytes % 6.6 % (1.7-12.7); NRBC # 0.09 10*3/uL; Neutrophils % 73.4 % (38.7-73.9); Platelet Count 243 T/CUMM (130-400); Red Blood Count 3.56 MC/CUMM (3.8-5.5); Red Cell Distribution Width 14.8 % (9.3-17.3); White Blood Count 11.5 T/CUMM (4-12)
[2018-12-09 01:25] LABS: INR 1.5; PT Patient Result 16.1 SECS (9.6-12.2)
[2018-12-09 01:48] LABS: Albumin 2.5 G/DL (3.4-5.0); Bilirubin,Total 1.4 MG/DL (0.2-1.0); Calcium 8.9 MG/DL (8.5-10.1); Osmolality,Calculated 292.1 MOS/KG (273-304); Total Protein 6.3 G/DL (6.4-8.3)
[2018-12-09] MEDS ORDERED: FUROSEMIDE 20 MG/2 ML VIAL IV STA (01:57)
[2018-12-09] MEDS ORDERED: ENOXAPARIN 100 MG/ML SYRINGE SUBCUT STA (01:58)
[2018-12-09] MEDS ORDERED: MAGNESIUM SULF RIDER 2 GM in PREMIX 1 EACH IV STA (01:58)
[2018-12-09] MEDS ORDERED: SODIUM CHLORIDE 0.9% 500 ML IV STA (01:58)
[2018-12-09] MEDS ORDERED: GLUCAGON 1 MG VIAL IM PRN (03:29)
[2018-12-09] MEDS ORDERED: BISACODYL 5 MG TABLET PO PRN (03:29)
[2018-12-09] MEDS ORDERED: DEXTROSE 50% 25 GM/50 ML VIAL IV PRN (03:29)
[2018-12-09] MEDS ORDERED: ONDANSETRON 4 MG/2 ML VIAL IV PRN (03:29)
[2018-12-09] MEDS ORDERED: MORPHINE 4 MG/1 ML VIAL IV PRN (03:29)
[2018-12-09] MEDS ORDERED: NICOTINE 21 MG/24 HR PATCH TRANSDERM PRN (03:29)
[2018-12-09] MEDS ORDERED: SODIUM CHLORIDE 0.9% 1,000 ML IV SCH (03:30)
[2018-12-09] MEDS ORDERED: FUROSEMIDE 40 MG TABLET PO SCH (09:00)
[2018-12-09] MEDS: MULTIVITAMIN (CENTRUM) TABLET PO SCH (09:51)
[2018-12-09] MEDS: carvediloL 6.25 MG TABLET PO SCH ×2 (09:52→17:03)
[2018-12-09] MEDS: AMOXICILLIN/CLAV 875 MG TABLET PO SCH ×2 (09:52→21:56)
[2018-12-09] MEDS: TAMSULOSIN 0.4 MG CAPSULE PO SCH (09:52)
[2018-12-09] MEDS: INSULIN REGULAR 100 UNIT/ML SUBCUT SCH ×4 (09:52→21:56)
[2018-12-09] MEDS: CIPROFLOXACIN 500 MG TABLET PO SCH ×2 (09:52→21:53)
[2018-12-09] MEDS: FUROSEMIDE 40 MG/4 ML VIAL IV SCH ×2 (17:36→19:15)
[2018-12-09] MEDS: ENOXAPARIN 80 MG/0.8 ML SYRINGE SUBCUT SCH (17:37)
[2018-12-09 20:51] LABS: Apearance,Urine CLEAR (Clear); Bacteria,Urine Occasional /HPF (Few); Bilirubin,Urine Negative (Negative); Blood, Urine Negative (Negative); Glucose,Urine (UA) Negative (Negative); Hyaline Casts,Urine 5 /LPF (0-3); Ketones,Urine Negative (Negative); Mucus,Urine Occasional /LPF (Occasional); Nitrite,Urine Negative (Negative); Protein,Urine Negative; RBC,Urine 1 /HPF (0-4); Squamous Epithelial Cell,Urine Occasional /HPF (0-10); Urine Color Straw (Yellow); Urine Specific Gravity 1.008 (1.001-1.035); Urine Urobilinogen < 2.0 EU/DL (0.2-1.0); WBC,Urine 3 /HPF (0-6)
[2018-12-10 04:57] LABS: Basophils % 0.3 % (0.0-0.8); Eosinophils # 0.1 10*3/uL (0.0-0.87); Eosinophils % 0.4 % (0.00-10.9); Hematocrit 29.1 VOL% (42.0-52.0); Hemoglobin 9.3 GM/DL (14.0-18.0); Immature Granulocytes % 0.6 %; Immature Granulocytes Absolute 0.07 #; Lymphocytes # 2.5 10*3/uL (1.4-4.0); Lymphocytes % 21.4 % (21.2-54.2); Mean Platelet Volume 11.5 FL (9.6-12.0); Monocytes % 7.6 % (1.7-12.7); NRBC # 0.06 10*3/uL; Neutrophils % 69.7 % (38.7-73.9); Platelet Count 255 T/CUMM (130-400); Red Blood Count 3.13 MC/CUMM (3.8-5.5); Red Cell Distribution Width 15.6 % (9.3-17.3); White Blood Count 11.5 T/CUMM (4-12)
[2018-12-10 05:18] LABS: Calcium 8.8 MG/DL (8.5-10.1); Troponin I 0.024 NG/ML (0.00-0.045)
[2018-12-10 05:37] LABS: Risk Ratio 2.31; VLDL CHOLESTEROL 9.2 MG/DL
[2018-12-10] MEDS: ENOXAPARIN 80 MG/0.8 ML SYRINGE SUBCUT SCH (06:13)
[2018-12-10] MEDS: carvediloL 6.25 MG TABLET PO SCH (08:37)
[2018-12-10] MEDS: INSULIN REGULAR 100 UNIT/ML SUBCUT SCH ×4 (08:37→23:36)
[2018-12-10] MEDS ORDERED: carvediloL 3.125 MG TABLET PO SCH (08:47)
[2018-12-10] MEDS ORDERED: APIXABAN 5 MG TABLET PO SCH (09:00)
[2018-12-10] MEDS: FENOFIBRATE 145 MG TABLET PO SCH (09:52)
[2018-12-10] MEDS: TAMSULOSIN 0.4 MG CAPSULE PO SCH (09:53)
[2018-12-10] MEDS: CIPROFLOXACIN 500 MG TABLET PO SCH ×2 (09:53→20:56)
[2018-12-10] MEDS: ASPIRIN EC 81 MG TABLET PO SCH (09:53)
[2018-12-10] MEDS: AMOXICILLIN/CLAV 875 MG TABLET PO SCH ×2 (09:53→20:56)
[2018-12-10] MEDS: FUROSEMIDE 40 MG/4 ML VIAL IV SCH ×2 (09:53→16:10)
[2018-12-10] MEDS: MULTIVITAMIN (CENTRUM) TABLET PO SCH (09:53)
[2018-12-10] MEDS ORDERED: DEXTROSE 50% 25 GM/50 ML VIAL IV PRN (09:55)
[2018-12-10] MEDS ORDERED: GLUCAGON 1 MG VIAL IM PRN (09:55)
[2018-12-10] MEDS: metFORMIN 500 MG TABLET PO SCH ×2 (16:17→20:56)
[2018-12-10] MEDS: APIXABAN 5 MG TABLET PO SCH (20:56)
[2018-12-11 05:44] LABS: Basophils % 0.3 % (0.0-0.8); Eosinophils % 0.3 % (0.00-10.9); Hematocrit 28.7 VOL% (42.0-52.0); Hemoglobin 9.1 GM/DL (14.0-18.0); Immature Granulocytes % 0.5 %; Immature Granulocytes Absolute 0.06 #; Lymphocytes # 1.9 10*3/uL (1.4-4.0); Lymphocytes % 16.1 % (21.2-54.2); Mean Corpuscular HGB Conc 31.7 GM/DL (32-36); Mean Corpuscular Volume 93.5 FL (87-102); Mean Platelet Volume 11.3 FL (9.6-12.0); Monocytes % 8.7 % (1.7-12.7); Neutrophils % 74.1 % (38.7-73.9); Platelet Count 247 T/CUMM (130-400); Red Blood Count 3.07 MC/CUMM (3.8-5.5); Red Cell Distribution Width 15.9 % (9.3-17.3); White Blood Count 11.5 T/CUMM (4-12)
[2018-12-11 06:04] LABS: Osmolality,Calculated 281.4 MOS/KG (273-304)
[2018-12-11] MEDS ORDERED: MAGNESIUM SULF RIDER 4 GM in PREMIX 1 EACH IV PRN (08:19)
[2018-12-11] MEDS: FENOFIBRATE 145 MG TABLET PO SCH (09:39)
[2018-12-11] MEDS: INSULIN REGULAR 100 UNIT/ML SUBCUT SCH ×4 (09:39→20:37)
[2018-12-11] MEDS: MULTIVITAMIN (CENTRUM) TABLET PO SCH (09:39)
[2018-12-11] MEDS: FUROSEMIDE 40 MG/4 ML VIAL IV SCH (09:40)
[2018-12-11] MEDS: metFORMIN 500 MG TABLET PO SCH ×2 (09:41→21:06)
[2018-12-11] MEDS: ASPIRIN EC 81 MG TABLET PO SCH (09:41)
[2018-12-11] MEDS: APIXABAN 5 MG TABLET PO SCH ×2 (09:42→21:06)
[2018-12-11] MEDS: carvediloL 6.25 MG TABLET PO SCH ×2 (09:42→21:06)
[2018-12-11] MEDS: CIPROFLOXACIN 500 MG TABLET PO SCH ×2 (09:42→21:06)
[2018-12-11] MEDS: TAMSULOSIN 0.4 MG CAPSULE PO SCH (09:43)
[2018-12-11] MEDS: MAGNESIUM SULF RIDER 2 GM in PREMIX 1 EACH IV PRN (09:43)
[2018-12-11] MEDS: AMOXICILLIN/CLAV 875 MG TABLET PO SCH ×2 (09:57→21:06)
[2018-12-11 12:04] LABS: Apearance,Urine CLEAR (Clear); Bacteria,Urine Occasional /HPF (Few); Bilirubin,Urine Negative (Negative); Blood, Urine Negative (Negative); Glucose,Urine (UA) 50 mg/dL (Negative); Hyaline Casts,Urine 1 /LPF (0-3); Ketones,Urine Negative (Negative); Mucus,Urine Occasional /LPF (Occasional); Nitrite,Urine Negative (Negative); Protein,Urine Negative; RBC,Urine 3 /HPF (0-4); Squamous Epithelial Cell,Urine Occasional /HPF (0-10); Urine Color Straw (Yellow); Urine Specific Gravity 1.005 (1.001-1.035); Urine Urobilinogen < 2.0 EU/DL (0.2-1.0); WBC,Urine 2 /HPF (0-6)
[2018-12-11] MEDS: FUROSEMIDE 40 MG TABLET PO SCH (16:48)
[2018-12-11] MEDS ORDERED: ALUMINUM/MAGNES/SIMETH MAX STR 30 ML UDCUP PO PRN (17:42)
[2018-12-12] MEDS: INSULIN REGULAR 100 UNIT/ML SUBCUT SCH ×4 (08:12→20:35)
[2018-12-12] MEDS: FUROSEMIDE 40 MG TABLET PO SCH ×2 (08:13→15:43)
[2018-12-12] MEDS: carvediloL 6.25 MG TABLET PO SCH ×2 (08:15→20:35)
[2018-12-12] MEDS: AMOXICILLIN/CLAV 875 MG TABLET PO SCH ×2 (08:23→20:35)
[2018-12-12] MEDS: ASPIRIN EC 81 MG TABLET PO SCH (08:23)
[2018-12-12] MEDS: APIXABAN 5 MG TABLET PO SCH ×2 (08:23→20:35)
[2018-12-12] MEDS: TAMSULOSIN 0.4 MG CAPSULE PO SCH (08:23)
[2018-12-12] MEDS: CIPROFLOXACIN 500 MG TABLET PO SCH ×2 (08:23→20:35)
[2018-12-12] MEDS: MULTIVITAMIN (CENTRUM) TABLET PO SCH (08:23)
[2018-12-12] MEDS: FENOFIBRATE 145 MG TABLET PO SCH (08:24)
[2018-12-12] MEDS: metFORMIN 500 MG TABLET PO SCH ×2 (08:24→20:35)
[2018-12-13] MEDS: INSULIN REGULAR 100 UNIT/ML SUBCUT SCH ×4 (08:55→20:47)
[2018-12-13] MEDS: AMOXICILLIN/CLAV 875 MG TABLET PO SCH ×2 (08:56→20:44)
[2018-12-13] MEDS: metFORMIN 500 MG TABLET PO SCH ×2 (08:56→20:44)
[2018-12-13] MEDS: FUROSEMIDE 40 MG TABLET PO SCH ×2 (08:56→17:53)
[2018-12-13] MEDS: APIXABAN 5 MG TABLET PO SCH ×2 (08:56→20:44)
[2018-12-13] MEDS: MULTIVITAMIN (CENTRUM) TABLET PO SCH (08:57)
[2018-12-13] MEDS: TAMSULOSIN 0.4 MG CAPSULE PO SCH (08:57)
[2018-12-13] MEDS: carvediloL 6.25 MG TABLET PO SCH ×2 (08:57→21:12)
[2018-12-13] MEDS: CIPROFLOXACIN 500 MG TABLET PO SCH ×2 (08:57→20:44)
[2018-12-13] MEDS: FENOFIBRATE 145 MG TABLET PO SCH (08:57)
[2018-12-13] MEDS: ASPIRIN EC 81 MG TABLET PO SCH (08:57)
[2018-12-14 05:47] LABS: Basophils % 0.3 % (0.0-0.8); Eosinophils # 0.1 10*3/uL (0.0-0.87); Eosinophils % 0.7 % (0.00-10.9); Hematocrit 31.2 VOL% (42.0-52.0); Hemoglobin 9.9 GM/DL (14.0-18.0); Immature Granulocytes % 0.3 %; Immature Granulocytes Absolute 0.03 #; Lymphocytes # 1.2 10*3/uL (1.4-4.0); Lymphocytes % 12.7 % (21.2-54.2); Mean Corpuscular HGB Conc 31.7 GM/DL (32-36); Mean Platelet Volume 10.6 FL (9.6-12.0); Monocytes % 8.5 % (1.7-12.7); Neutrophils % 77.5 % (38.7-73.9); Platelet Count 263 T/CUMM (130-400); Red Blood Count 3.32 MC/CUMM (3.8-5.5); Red Cell Distribution Width 16.2 % (9.3-17.3); White Blood Count 9.7 T/CUMM (4-12)
[2018-12-14 06:09] LABS: Calcium 8.7 MG/DL (8.5-10.1); Osmolality,Calculated 275.7 MOS/KG (273-304)
[2018-12-14] MEDS: FUROSEMIDE 40 MG TABLET PO SCH ×2 (09:07→17:13)
[2018-12-14] MEDS: AMOXICILLIN/CLAV 875 MG TABLET PO SCH ×2 (09:08→21:29)
[2018-12-14] MEDS: ASPIRIN EC 81 MG TABLET PO SCH (09:08)
[2018-12-14] MEDS: MULTIVITAMIN (CENTRUM) TABLET PO SCH (09:09)
[2018-12-14] MEDS: CIPROFLOXACIN 500 MG TABLET PO SCH ×2 (09:09→21:29)
[2018-12-14] MEDS: carvediloL 12.5 MG TABLET PO SCH ×2 (09:10→21:29)
[2018-12-14] MEDS: APIXABAN 5 MG TABLET PO SCH ×2 (09:12→21:29)
[2018-12-14] MEDS: TAMSULOSIN 0.4 MG CAPSULE PO SCH (09:13)
[2018-12-14] MEDS: FENOFIBRATE 145 MG TABLET PO SCH (09:13)
[2018-12-14] MEDS: metFORMIN 500 MG TABLET PO SCH ×2 (09:13→21:28)
[2018-12-14] MEDS: MAGNESIUM CHLORIDE 64 MG TABLET PO SCH (09:22)
[2018-12-14] MEDS: POTASSIUM CHLORIDE 20 MEQ TABLET PO SCH (09:23)
[2018-12-14] MEDS: MAGNESIUM SULF RIDER 2 GM in PREMIX 1 EACH IV PRN (09:26)
[2018-12-14] MEDS: INSULIN REGULAR 100 UNIT/ML SUBCUT SCH ×4 (09:54→21:29)
[2018-12-15 05:08] LABS: Basophils % 0.4 % (0.0-0.8); Eosinophils # 0.1 10*3/uL (0.0-0.87); Eosinophils % 0.9 % (0.00-10.9); Hematocrit 27.8 VOL% (42.0-52.0); Hemoglobin 8.8 GM/DL (14.0-18.0); Immature Granulocytes % 0.4 %; Immature Granulocytes Absolute 0.03 #; Lymphocytes # 1.1 10*3/uL (1.4-4.0); Lymphocytes % 16.6 % (21.2-54.2); Mean Corpuscular HGB Conc 31.7 GM/DL (32-36); Mean Corpuscular Volume 94.2 FL (87-102); Mean Platelet Volume 10.8 FL (9.6-12.0); Monocytes % 11.6 % (1.7-12.7); Neutrophils % 70.1 % (38.7-73.9); Platelet Count 224 T/CUMM (130-400); Red Blood Count 2.95 MC/CUMM (3.8-5.5); Red Cell Distribution Width 15.9 % (9.3-17.3); White Blood Count 6.8 T/CUMM (4-12)
[2018-12-15 05:25] LABS: Calcium 8.6 MG/DL (8.5-10.1); Osmolality,Calculated 281.1 MOS/KG (273-304)
[2018-12-15] MEDS: MULTIVITAMIN (CENTRUM) TABLET PO SCH (08:38)
[2018-12-15] MEDS: POTASSIUM CHLORIDE 20 MEQ TABLET PO SCH (08:39)
[2018-12-15] MEDS: ASPIRIN EC 81 MG TABLET PO SCH (08:39)
[2018-12-15] MEDS: CIPROFLOXACIN 500 MG TABLET PO SCH (08:39)
[2018-12-15] MEDS: APIXABAN 5 MG TABLET PO SCH (08:40)
[2018-12-15] MEDS: FENOFIBRATE 145 MG TABLET PO SCH (08:41)
[2018-12-15] MEDS: MAGNESIUM CHLORIDE 64 MG TABLET PO SCH (08:41)
[2018-12-15] MEDS: metFORMIN 500 MG TABLET PO SCH (08:41)
[2018-12-15] MEDS: TAMSULOSIN 0.4 MG CAPSULE PO SCH (08:41)
[2018-12-15] MEDS: AMOXICILLIN/CLAV 875 MG TABLET PO SCH (08:52)
[2018-12-15] MEDS: INSULIN REGULAR 100 UNIT/ML SUBCUT SCH ×2 (09:49→12:14)
[2018-12-15] MEDS ORDERED: carvediloL 6.25 MG TABLET PO SCH (10:00)
[2018-12-15] MEDS: FUROSEMIDE 40 MG TABLET PO SCH (10:00)
[2018-12-15] MEDS: carvediloL 12.5 MG TABLET PO SCH (10:01)
[2018-12-15 10:05] LABS: Basophils % 0.3 % (0.0-0.8); Eosinophils # 0.1 10*3/uL (0.0-0.87); Hematocrit 29.5 VOL% (42.0-52.0); Hemoglobin 9.4 GM/DL (14.0-18.0); Immature Granulocytes % 0.3 %; Immature Granulocytes Absolute 0.02 #; Lymphocytes % 16.3 % (21.2-54.2); Mean Corpuscular HGB Conc 31.9 GM/DL (32-36); Mean Corpuscular Volume 94.6 FL (87-102); Mean Platelet Volume 11.1 FL (9.6-12.0); Monocytes % 11.1 % (1.7-12.7); Platelet Count 239 T/CUMM (130-400); Red Blood Count 3.12 MC/CUMM (3.8-5.5); Red Cell Distribution Width 16.1 % (9.3-17.3); White Blood Count 6.3 T/CUMM (4-12)
[2018-12-15 12:09] VITALS: BP 81/57
[2018-12-16] MEDS ORDERED: FUROSEMIDE 40 MG TABLET PO SCH (09:00)
[2018-12-17] MEDS ORDERED: APIXABAN 5 MG TABLET PO SCH (21:00)
== END 2018-12-15 14:19 | disposition home or self-care (01) | DRG 175 ==
LOC: EDBD → EDUNIT# → N.ED 00:36 → SUATTDRO 03:08 → N.EDINP 03:08 → N.CC 03:47 → N.TELES 12-10 15:37
PROVIDERS: ADMIT Internal Medicine; ATTEND Family Medicine

== ENCOUNTER 2019-01-22 20:44 | Inpatient (IN) ==
[2019-01-22] MEDS ORDERED: methylPREDNISolone SOD SUC 125 MG/2 ML VIAL IV STA (21:02)
[2019-01-22] MEDS ORDERED: ONDANSETRON 4 MG/2 ML VIAL IV STA (21:02)
[2019-01-22] MEDS ORDERED: AZITHROMYCIN INJ 500 MG in SODIUM CHLORIDE 0.9% 250 ML IV STA (21:02)
[2019-01-22] MEDS ORDERED: ALBUTEROL/IPRATROPIUM 3 ML NEB RESP TX STA (21:02)
[2019-01-22] MEDS ORDERED: ENOXAPARIN 80 MG/0.8 ML SYRINGE SUBCUT STA (21:09)
[2019-01-22 22:26] LABS: Basophils % 0.5 % (0.0-0.8); Eosinophils # 0.1 10*3/uL (0.0-0.87); Eosinophils % 0.9 % (0.00-10.9); Lymphocytes % 24.1 % (21.2-54.2)
[2019-01-22 22:31] LABS: Hematocrit 43.3 VOL% (42.0-52.0); Hemoglobin 13.2 GM/DL (14.0-18.0); Immature Granulocytes % 0.2 %; Immature Granulocytes Absolute 0.02 #; Mean Corpuscular HGB Conc 30.5 GM/DL (32-36); Mean Corpuscular Volume 98.4 FL (87-102); Mean Platelet Volume 11.4 FL (9.6-12.0); Monocytes % 8.1 % (1.7-12.7); Neutrophils % 66.2 % (38.7-73.9); Platelet Count 234 T/CUMM (130-400); Red Cell Distribution Width 19.2 % (9.3-17.3); White Blood Count 8.2 T/CUMM (4-12)
[2019-01-22 22:48] LABS: INR 1.9; PT Patient Result 20.6 SECS (9.6-12.2)
[2019-01-22 22:55] LABS: Partial Thromboplastin Time 39.8 SECS (20.8-36.0)
[2019-01-22 23:15] LABS: Alanine Aminotransferase 14 U/L (16-61); Albumin 3.6 G/DL (3.4-5.0); Alkaline Phosphatase 66 U/L (45-117); Aspartate Amino Transferase 22 U/L (0-37); Blood Urea Nitrogen 16 MG/DL (7-18); Calcium 8.9 MG/DL (8.5-10.1); Estimated Glom Filtration Rate 69 ML/MIN; Glucose 93 MG/DL (74-106); Osmolality,Calculated 288.7 MOS/KG (273-304); Total Protein 7.4 G/DL (6.4-8.3); Troponin I 0.023 NG/ML (0.00-0.045)
[2019-01-23] MEDS ORDERED: NOREPINEPHRINE 8 MG in SODIUM CHLORIDE 0.9% 242 ML IV PRN (00:08)
[2019-01-23] MEDS ORDERED: PROMETHAZINE 25 MG TABLET PO PRN (00:11)
[2019-01-23] MEDS ORDERED: ONDANSETRON 4 MG/2 ML VIAL IV PRN (00:11)
[2019-01-23] MEDS ORDERED: ACETAMINOPHEN 325 MG TABLET PO PRN (00:11)
[2019-01-23] MEDS ORDERED: guaiFENesin/DM ER 600-30 MG TABLET PO PRN (00:11)
[2019-01-23 00:13] LABS: Apearance,Urine Slightly Hazy (Clear); Bacteria,Urine Occasional /HPF (Few); Bilirubin,Urine Negative (Negative); Blood, Urine Negative (Negative); Glucose,Urine (UA) Negative (Negative); Hyaline Casts,Urine 117 /LPF (0-3); Ketones,Urine Negative (Negative); Mucus,Urine Occasional /LPF (Occasional); Nitrite,Urine Negative (Negative); Protein,Urine 30 MG/DL; RBC,Urine 2 /HPF (0-4); Squamous Epithelial Cell,Urine Occasional /HPF (0-10); Urine Color Amber (Yellow); Urine Specific Gravity 1.013 (1.001-1.035); Urine Urobilinogen < 2.0 EU/DL (0.2-1.0); WBC,Urine 26 /HPF (0-6)
[2019-01-23] MEDS ORDERED: DEXTROSE 10% 250 ML BAG IV PRN (00:14)
[2019-01-23] MEDS ORDERED: GLUCAGON 1 MG VIAL IM PRN ×2 (00:14→14:02)
[2019-01-23 00:22] LABS: Barbiturates Screen,Urine Negative (Negative); Benzodiazepines Screen,Urine Negative (Negative); Cannabinoid Screen,Urine Positive (Negative); Opiate Screen,Urine Negative (Negative); Phencyclidine Screen,Urine Negative (Negative)
[2019-01-23] MEDS ORDERED: AZITHROMYCIN INJ 500 MG in SODIUM CHLORIDE 0.9% 250 ML IV SCH (00:30)
[2019-01-23] MEDS ORDERED: LORazepam 2 MG/1 ML VIAL IV STA (01:04)
[2019-01-23] MEDS ORDERED: LORazepam 2 MG/1 ML VIAL ONE (01:05)
[2019-01-23] MEDS ORDERED: MIDAZOLAM 2 MG/2 ML VIAL ONE (01:17)
[2019-01-23] MEDS ORDERED: ETOMIDATE 20 MG/10 ML VIAL IV ONE (01:27)
[2019-01-23] MEDS ORDERED: MIDAZOLAM 2 MG/2 ML VIAL IV ONE (01:27)
[2019-01-23] MEDS ORDERED: NOREPINEPHRINE 4 MG/4 ML VIAL IV ONE (01:32)
[2019-01-23] MEDS: SODIUM CHLORIDE 0.9% 1,000 ML IV SCH ×3 (02:01→18:15)
[2019-01-23] MEDS: fentaNYL INJ 1,250 MCG in SODIUM CHLORIDE 0.9% 225 ML IV PRN ×2 (02:02→20:24)
[2019-01-23] MEDS ORDERED: LORazepam 2 MG/1 ML VIAL IV PRN ×2 (02:04)
[2019-01-23] MEDS ORDERED: LORazepam 2 MG/1 ML VIAL IV ONE (02:04)
[2019-01-23] MEDS: MEROPENEM 500 MG in SODIUM CHLORIDE 0.9% 100 ML IV SCH ×4 (02:30→19:58)
[2019-01-23] MEDS ORDERED: SODIUM CHLORIDE 0.9% 500 ML IV ONE (02:51)
[2019-01-23 03:10] LABS: ABG Base Excess -11.1 MMOL/L (-2.5-2.5); ABG HCO3 15.1 MMOL/L (20-26); ABG Oxygen Saturation 97.9 % (95-100); ABG PCO2 34.7 MM HG (35-48); ABG PO2 122.6 MM HG (80-95); ABG TCO2 16.1 MMOL/L (23-27)
[2019-01-23 03:14] LABS: ABG PH 7.256 (7.35-7.45)
[2019-01-23 03:44] LABS: Monocytes % 1.8 % (1.7-12.7)
[2019-01-23] MEDS: VANCOMYCIN INJ 1,000 MG in SODIUM CHLORIDE 0.9% 250 ML IV SCH ×2 (03:59→16:18)
[2019-01-23 04:10] LABS: Albumin 2.9 G/DL (3.4-5.0); Bilirubin,Total 1.1 MG/DL (0.2-1.0); Calcium 8.3 MG/DL (8.5-10.1); Total Protein 6.2 G/DL (6.4-8.3)
[2019-01-23 04:20] LABS: Basophils % 0.1 % (0.0-0.8); Immature Granulocytes % 0.6 %; Immature Granulocytes Absolute 0.04 #; Lymphocytes # 0.4 10*3/uL (1.4-4.0); Lymphocytes % 5.8 % (21.2-54.2); Mean Corpuscular HGB Conc 29.7 GM/DL (32-36); Mean Corpuscular Volume 99.2 FL (87-102); Mean Platelet Volume 12.2 FL (9.6-12.0); Neutrophils % 91.7 % (38.7-73.9); Platelet Count 222 T/CUMM (130-400); Red Blood Count 3.93 MC/CUMM (3.8-5.5); Red Cell Distribution Width 18.9 % (9.3-17.3); White Blood Count 7.2 T/CUMM (4-12)
[2019-01-23 04:21] LABS: Hemoglobin 11.6 GM/DL (14.0-18.0)
[2019-01-23] MEDS ORDERED: SODIUM CHLORIDE 0.9% 1,000 ML IV ONE ×2 (04:33→05:46)
[2019-01-23] MEDS ORDERED: SODIUM BICARBONATE 50 MEQ/50 ML VIAL IV ONE (04:33)
[2019-01-23 04:58] LABS: Eosinophils 1 % (0-10); Lymphocytes 3 % (20-55); Segmented Neutrophils 95 % (50-85); Total Cells Counted 100
[2019-01-23 04:59] LABS: Hypochromasia Slight; Platelet Estimate Normal
[2019-01-23] MEDS ORDERED: SODIUM CHLORIDE 0.9% 2,000 ML IV ONE (05:14)
[2019-01-23 06:23] LABS: ABG Base Excess -9.9 MMOL/L (-2.5-2.5); ABG HCO3 16.7 MMOL/L (20-26); ABG Oxygen Saturation 98.6 % (95-100); ABG PCO2 35.2 MM HG (35-48); ABG PH 7.273 (7.35-7.45); ABG TCO2 14.7 MMOL/L (23-27)
[2019-01-23] MEDS: INSULIN LISPRO 100 UNIT/ML SUBCUT SCH ×3 (07:42→18:19)
[2019-01-23] MEDS ORDERED: PANTOPRAZOLE 40 MG TABLET PO SCH (09:00)
[2019-01-23] MEDS: PANTOPRAZOLE 40 MG VIAL IV SCH (12:30)
[2019-01-23] MEDS ORDERED: DEXTROSE 50% 25 GM/50 ML VIAL IV PRN (14:02)
[2019-01-23] MEDS: RIVAROXABAN 20 MG TABLET PO SCH (14:18)
[2019-01-23] MEDS ORDERED: SODIUM CHLORIDE 0.9% 250 ML IV ONE (22:05)
[2019-01-23] MEDS ORDERED: DOBUTamine 500 MG/250 ML PREMIX IV ONE (23:41)
[2019-01-23] MEDS ORDERED: FUROSEMIDE 40 MG/4 ML VIAL ONE (23:42)
[2019-01-23] MEDS: DOBUTamine 500 MG/250 ML PREMIX IV PRN (23:43)
[2019-01-23] MEDS ORDERED: FUROSEMIDE 40 MG/4 ML VIAL IV ONE (23:54)
[2019-01-24] MEDS ORDERED: NOREPINEPHRINE 16 MG in SODIUM CHLORIDE 0.9% 234 ML IV PRN (00:06)
[2019-01-24] MEDS: INSULIN LISPRO 100 UNIT/ML SUBCUT SCH ×5 (00:45→21:02)
[2019-01-24] MEDS: MEROPENEM 500 MG in SODIUM CHLORIDE 0.9% 100 ML IV SCH ×4 (02:30→20:50)
[2019-01-24] MEDS: SODIUM CHLORIDE 0.9% 1,000 ML IV SCH ×4 (02:31→23:03)
[2019-01-24 04:22] LABS: ABG Base Excess -8.5 MMOL/L (-2.5-2.5); ABG HCO3 17.6 MMOL/L (20-26); ABG Oxygen Saturation 98.2 % (95-100); ABG PCO2 33.8 MM HG (35-48); ABG PH 7.308 (7.35-7.45); ABG TCO2 15.2 MMOL/L (23-27)
[2019-01-24 04:29] LABS: Basophils % 0.1 % (0.0-0.8); Hematocrit 39.2 VOL% (42.0-52.0); Immature Granulocytes % 0.3 %; Immature Granulocytes Absolute 0.03 #; Lymphocytes # 1.3 10*3/uL (1.4-4.0); Lymphocytes % 12.6 % (21.2-54.2); Mean Corpuscular HGB Conc 30.6 GM/DL (32-36); Mean Corpuscular Volume 97.5 FL (87-102); Mean Platelet Volume 10.8 FL (9.6-12.0); Platelet Count 206 T/CUMM (130-400); Red Blood Count 4.02 MC/CUMM (3.8-5.5); Red Cell Distribution Width 18.7 % (9.3-17.3); White Blood Count 10.5 T/CUMM (4-12)
[2019-01-24 04:42] LABS: Calcium 7.7 MG/DL (8.5-10.1); Osmolality,Calculated 296.3 MOS/KG (273-304)
[2019-01-24] MEDS: VANCOMYCIN INJ 1,000 MG in SODIUM CHLORIDE 0.9% 250 ML IV SCH (04:59)
[2019-01-24] MEDS ORDERED: LEVOFLOXACIN INJ 500 MG in PREMIX 1 EACH IV SCH (09:00)
[2019-01-24] MEDS: FUROSEMIDE 40 MG/4 ML VIAL IV SCH (09:07)
[2019-01-24] MEDS: RIVAROXABAN 20 MG TABLET PO SCH (09:07)
[2019-01-24] MEDS: PANTOPRAZOLE 40 MG VIAL IV SCH (09:10)
[2019-01-24] MEDS: fentaNYL INJ 1,250 MCG in SODIUM CHLORIDE 0.9% 225 ML IV PRN (09:34)
[2019-01-25] MEDS: MEROPENEM 500 MG in SODIUM CHLORIDE 0.9% 100 ML IV SCH ×3 (02:52→15:24)
[2019-01-25 03:51] LABS: ABG Base Excess -4.6 MMOL/L (-2.5-2.5); ABG HCO3 20.6 MMOL/L (20-26); ABG PCO2 32.4 MM HG (35-48); ABG TCO2 17.8 MMOL/L (23-27)
[2019-01-25 03:54] LABS: Basophils % 0.1 % (0.0-0.8); Eosinophils % 0.2 % (0.00-10.9); Hematocrit 34.2 VOL% (42.0-52.0); Hemoglobin 10.4 GM/DL (14.0-18.0); Immature Granulocytes % 0.2 %; Immature Granulocytes Absolute 0.02 #; Lymphocytes # 2.2 10*3/uL (1.4-4.0); Lymphocytes % 22.7 % (21.2-54.2); Mean Corpuscular HGB Conc 30.4 GM/DL (32-36); Mean Corpuscular Volume 96.3 FL (87-102); Mean Platelet Volume 11.4 FL (9.6-12.0); Monocytes % 6.5 % (1.7-12.7); Neutrophils % 70.3 % (38.7-73.9); Platelet Count 162 T/CUMM (130-400); Red Blood Count 3.55 MC/CUMM (3.8-5.5); Red Cell Distribution Width 18.5 % (9.3-17.3); White Blood Count 9.6 T/CUMM (4-12)
[2019-01-25 04:12] LABS: Calcium 8.2 MG/DL (8.5-10.1); Osmolality,Calculated 287.7 MOS/KG (273-304)
[2019-01-25] MEDS: DOBUTamine 500 MG/250 ML PREMIX IV PRN (07:04)
[2019-01-25] MEDS ORDERED: MAGNESIUM SULF RIDER 4 GM in PREMIX 1 EACH IV PRN (07:28)
[2019-01-25] MEDS ORDERED: PHENTOLAMINE 5 MG VIAL INFILTRAT ONE (07:47)
[2019-01-25] MEDS: INSULIN LISPRO 100 UNIT/ML SUBCUT SCH ×3 (07:55→18:31)
[2019-01-25] MEDS: PANTOPRAZOLE 40 MG VIAL IV SCH (09:04)
[2019-01-25] MEDS: FUROSEMIDE 40 MG/4 ML VIAL IV SCH (09:05)
[2019-01-25] MEDS: POTASSIUM CHLORIDE 20 MEQ TABLET PO PRN (09:19)
[2019-01-25] MEDS: RIVAROXABAN 20 MG TABLET PO SCH (09:19)
[2019-01-25] MEDS: SODIUM CHLORIDE 0.9% 1,000 ML IV SCH (10:07)
[2019-01-25] MEDS: MAGNESIUM SULF RIDER 2 GM in PREMIX 1 EACH IV PRN (10:44)
[2019-01-25] MEDS: MIDODRINE 5 MG TABLET PO SCH ×2 (15:24→20:51)
[2019-01-25] MEDS ORDERED: INFLUENZA VIRUS VACCINE 0.5 ML SYRINGE IM ONE (15:44)
[2019-01-25] MEDS: ATORVASTATIN 40 MG TABLET PO SCH (20:51)
[2019-01-26] MEDS: MEROPENEM 500 MG in SODIUM CHLORIDE 0.9% 100 ML IV SCH ×5 (00:20→21:37)
[2019-01-26 04:41] LABS: Basophils % 0.4 % (0.0-0.8); Eosinophils % 0.5 % (0.00-10.9); Hematocrit 35.3 VOL% (42.0-52.0); Hemoglobin 11.2 GM/DL (14.0-18.0); Immature Granulocytes % 0.2 %; Immature Granulocytes Absolute 0.02 #; Lymphocytes # 2.1 10*3/uL (1.4-4.0); Lymphocytes % 25.7 % (21.2-54.2); Mean Corpuscular HGB Conc 31.7 GM/DL (32-36); Mean Corpuscular Volume 94.4 FL (87-102); Mean Platelet Volume 11.4 FL (9.6-12.0); Monocytes % 7.7 % (1.7-12.7); Neutrophils % 65.5 % (38.7-73.9); Platelet Count 183 T/CUMM (130-400); Red Blood Count 3.74 MC/CUMM (3.8-5.5); Red Cell Distribution Width 18.6 % (9.3-17.3)
[2019-01-26 05:02] LABS: Calcium 8.7 MG/DL (8.5-10.1); Osmolality,Calculated 282.1 MOS/KG (273-304)
[2019-01-26] MEDS: INSULIN LISPRO 100 UNIT/ML SUBCUT SCH ×5 (06:43→21:32)
[2019-01-26] MEDS: PANTOPRAZOLE 40 MG VIAL IV SCH (10:14)
[2019-01-26] MEDS: FUROSEMIDE 40 MG/4 ML VIAL IV SCH (10:17)
[2019-01-26] MEDS: RIVAROXABAN 20 MG TABLET PO SCH (10:19)
[2019-01-26] MEDS: MIDODRINE 5 MG TABLET PO SCH ×3 (10:20→21:37)
[2019-01-26] MEDS: ASPIRIN EC 81 MG TABLET PO SCH (13:05)
[2019-01-26] MEDS ORDERED: FUROSEMIDE 40 MG/4 ML VIAL IV ONE (14:02)
[2019-01-26] MEDS: METOPROLOL TARTRATE 25 MG TABLET PO SCH (21:35)
[2019-01-26] MEDS: SACUBITRIL/VALSARTAN 49-51 MG TABLET PO SCH (21:36)
[2019-01-26] MEDS: ATORVASTATIN 40 MG TABLET PO SCH (21:37)
[2019-01-27] MEDS: MAGNESIUM SULF RIDER 2 GM in PREMIX 1 EACH IV PRN (00:04)
[2019-01-27] MEDS: MEROPENEM 500 MG in SODIUM CHLORIDE 0.9% 100 ML IV SCH ×4 (02:56→21:34)
[2019-01-27 05:36] LABS: Basophils # 0.1 10*3/uL (0.0-0.2); Basophils % 0.7 % (0.0-0.8); Eosinophils # 0.1 10*3/uL (0.0-0.87); Eosinophils % 1.2 % (0.00-10.9); Hematocrit 37.7 VOL% (42.0-52.0); Immature Granulocytes % 0.3 %; Immature Granulocytes Absolute 0.02 #; Lymphocytes # 2.4 10*3/uL (1.4-4.0); Lymphocytes % 30.9 % (21.2-54.2); Mean Corpuscular HGB Conc 31.8 GM/DL (32-36); Mean Corpuscular Volume 93.3 FL (87-102); Mean Platelet Volume 11.5 FL (9.6-12.0); Monocytes % 8.1 % (1.7-12.7); Neutrophils % 58.8 % (38.7-73.9); Platelet Count 183 T/CUMM (130-400); Red Blood Count 4.04 MC/CUMM (3.8-5.5); Red Cell Distribution Width 18.2 % (9.3-17.3); White Blood Count 7.7 T/CUMM (4-12)
[2019-01-27 05:58] LABS: Calcium 8.8 MG/DL (8.5-10.1)
[2019-01-27] MEDS: METOPROLOL TARTRATE 25 MG TABLET PO SCH ×2 (09:53→16:59)
[2019-01-27] MEDS: INSULIN LISPRO 100 UNIT/ML SUBCUT SCH ×4 (09:53→21:33)
[2019-01-27] MEDS: MIDODRINE 5 MG TABLET PO SCH ×3 (09:53→21:34)
[2019-01-27] MEDS: ASPIRIN EC 81 MG TABLET PO SCH (09:53)
[2019-01-27] MEDS: metOLazone 5 MG TABLET PO SCH (09:53)
[2019-01-27] MEDS: FUROSEMIDE 40 MG/4 ML VIAL IV SCH (09:54)
[2019-01-27] MEDS: PANTOPRAZOLE 40 MG VIAL IV SCH (09:54)
[2019-01-27] MEDS: RIVAROXABAN 20 MG TABLET PO SCH (09:54)
[2019-01-27] MEDS: ATORVASTATIN 40 MG TABLET PO SCH (21:34)
[2019-01-28] MEDS: MEROPENEM 500 MG in SODIUM CHLORIDE 0.9% 100 ML IV SCH ×4 (04:21→20:55)
[2019-01-28 05:40] LABS: Calcium 8.6 MG/DL (8.5-10.1)
[2019-01-28] MEDS: INSULIN LISPRO 100 UNIT/ML SUBCUT SCH ×4 (07:45→21:49)
[2019-01-28] MEDS: RIVAROXABAN 20 MG TABLET PO SCH (09:08)
[2019-01-28] MEDS: PANTOPRAZOLE 40 MG VIAL IV SCH (09:08)
[2019-01-28] MEDS: FUROSEMIDE 40 MG/4 ML VIAL IV SCH (09:08)
[2019-01-28] MEDS: ASPIRIN EC 81 MG TABLET PO SCH (09:08)
[2019-01-28] MEDS: POTASSIUM CHLORIDE 20 MEQ TABLET PO PRN (09:09)
[2019-01-28] MEDS: METOPROLOL TARTRATE 25 MG TABLET PO SCH ×2 (09:09→17:27)
[2019-01-28] MEDS: MIDODRINE 5 MG TABLET PO SCH ×3 (09:09→20:55)
[2019-01-28] MEDS: metOLazone 5 MG TABLET PO SCH (09:09)
[2019-01-28] MEDS: POTASSIUM CHLORIDE 20 MEQ TABLET PO SCH (15:19)
[2019-01-28] MEDS: MAGNESIUM SULF RIDER 2 GM in PREMIX 1 EACH IV PRN (16:10)
[2019-01-28] MEDS: ATORVASTATIN 40 MG TABLET PO SCH (20:55)
[2019-01-29] MEDS: MEROPENEM 500 MG in SODIUM CHLORIDE 0.9% 100 ML IV SCH ×4 (03:53→21:55)
[2019-01-29 05:50] LABS: Calcium 8.8 MG/DL (8.5-10.1); Osmolality,Calculated 284.4 MOS/KG (273-304)
[2019-01-29] MEDS: METOPROLOL TARTRATE 25 MG TABLET PO SCH ×2 (08:35→18:19)
[2019-01-29] MEDS: ASPIRIN EC 81 MG TABLET PO SCH (08:36)
[2019-01-29] MEDS: MIDODRINE 5 MG TABLET PO SCH ×3 (08:36→21:52)
[2019-01-29] MEDS: POTASSIUM CHLORIDE 20 MEQ TABLET PO SCH (08:36)
[2019-01-29] MEDS: metOLazone 5 MG TABLET PO SCH (08:36)
[2019-01-29] MEDS: RIVAROXABAN 20 MG TABLET PO SCH (08:36)
[2019-01-29] MEDS: FUROSEMIDE 80 MG TABLET PO SCH (08:36)
[2019-01-29] MEDS: PANTOPRAZOLE 40 MG VIAL IV SCH (08:38)
[2019-01-29] MEDS: INSULIN LISPRO 100 UNIT/ML SUBCUT SCH ×4 (08:43→21:54)
[2019-01-29] MEDS: ATORVASTATIN 40 MG TABLET PO SCH (21:52)
[2019-01-30] MEDS: MEROPENEM 500 MG in SODIUM CHLORIDE 0.9% 100 ML IV SCH ×2 (03:40→09:37)
[2019-01-30 06:41] LABS: Calcium 8.7 MG/DL (8.5-10.1); Osmolality,Calculated 276.5 MOS/KG (273-304)
[2019-01-30] MEDS: POTASSIUM CHLORIDE 20 MEQ TABLET PO SCH (09:28)
[2019-01-30] MEDS: SACUBITRIL/VALSARTAN 49-51 MG TABLET PO SCH ×2 (09:28→21:31)
[2019-01-30] MEDS: ASPIRIN EC 81 MG TABLET PO SCH (09:29)
[2019-01-30] MEDS: RIVAROXABAN 20 MG TABLET PO SCH (09:29)
[2019-01-30] MEDS: MIDODRINE 5 MG TABLET PO SCH ×3 (09:29→21:31)
[2019-01-30] MEDS: metOLazone 5 MG TABLET PO SCH (09:29)
[2019-01-30] MEDS: FUROSEMIDE 80 MG TABLET PO SCH (09:29)
[2019-01-30] MEDS: METOPROLOL TARTRATE 25 MG TABLET PO SCH ×2 (09:30→16:24)
[2019-01-30] MEDS: INSULIN LISPRO 100 UNIT/ML SUBCUT SCH ×4 (09:32→21:29)
[2019-01-30] MEDS: PANTOPRAZOLE 40 MG VIAL IV SCH (09:34)
[2019-01-30] MEDS: POTASSIUM CHLORIDE 20 MEQ TABLET PO PRN (16:26)
[2019-01-30] MEDS: ATORVASTATIN 40 MG TABLET PO SCH (21:31)
[2019-01-31] MEDS: ASPIRIN EC 81 MG TABLET PO SCH (09:25)
[2019-01-31] MEDS: PANTOPRAZOLE 40 MG VIAL IV SCH (09:26)
[2019-01-31] MEDS: METOPROLOL TARTRATE 25 MG TABLET PO SCH ×2 (09:26→18:04)
[2019-01-31] MEDS: metOLazone 5 MG TABLET PO SCH (09:26)
[2019-01-31] MEDS: FUROSEMIDE 80 MG TABLET PO SCH (09:26)
[2019-01-31] MEDS: MIDODRINE 5 MG TABLET PO SCH ×3 (09:26→20:45)
[2019-01-31] MEDS: RIVAROXABAN 20 MG TABLET PO SCH (09:26)
[2019-01-31] MEDS: SACUBITRIL/VALSARTAN 49-51 MG TABLET PO SCH ×2 (09:26→20:45)
[2019-01-31] MEDS: POTASSIUM CHLORIDE 20 MEQ TABLET PO SCH (09:26)
[2019-01-31] MEDS: INSULIN LISPRO 100 UNIT/ML SUBCUT SCH ×4 (09:40→20:45)
[2019-01-31] MEDS: ATORVASTATIN 40 MG TABLET PO SCH (20:45)
[2019-02-01 07:26] LABS: Calcium 8.5 MG/DL (8.5-10.1); Osmolality,Calculated 279.4 MOS/KG (273-304)
[2019-02-01] MEDS: MIDODRINE 5 MG TABLET PO SCH ×2 (08:23→15:31)
[2019-02-01] MEDS: metOLazone 5 MG TABLET PO SCH (08:23)
[2019-02-01] MEDS: PANTOPRAZOLE 40 MG VIAL IV SCH (08:23)
[2019-02-01] MEDS: SACUBITRIL/VALSARTAN 49-51 MG TABLET PO SCH (08:24)
[2019-02-01] MEDS: METOPROLOL TARTRATE 25 MG TABLET PO SCH (08:24)
[2019-02-01] MEDS: INSULIN LISPRO 100 UNIT/ML SUBCUT SCH ×2 (08:25→11:39)
[2019-02-01] MEDS: ASPIRIN EC 81 MG TABLET PO SCH (08:25)
[2019-02-01] MEDS: POTASSIUM CHLORIDE 20 MEQ TABLET PO SCH (08:25)
[2019-02-01] MEDS: RIVAROXABAN 20 MG TABLET PO SCH (08:25)
[2019-02-01] MEDS: FUROSEMIDE 80 MG TABLET PO SCH (08:25)
[2019-02-01] MEDS: POTASSIUM CHLORIDE 20 MEQ TABLET PO PRN (13:13)
[2019-02-01 15:46] VITALS: BP 112/72
== END 2019-02-01 17:15 | disposition home health service (06) | DRG 871 ==
LOC: EDUNIT# → EDBD → N.ED 20:44 → SUATTDRO 01-23 00:11 → N.EDINP 01-23 00:11 → N.ICU 01-23 00:38 → N.4E 01-25 16:33
PROVIDERS: ADMIT Internal Medicine; ATTEND Internal Medicine Nephrology

== ENCOUNTER 2019-03-08 10:34 | Inpatient (IN) ==
[2019-03-08] MEDS ORDERED: SODIUM CHLORIDE 0.9% 1,000 ML IV STA ×3 (11:18→14:20)
[2019-03-08] MEDS ORDERED: cefTRIAXone 1,000 MG in SODIUM CHLORIDE 0.9% 100 ML IV STA (13:46)
[2019-03-08 14:39] LABS: Barbiturates Screen,Urine Negative (Negative); Benzodiazepines Screen,Urine Negative (Negative); Cannabinoid Screen,Urine Positive (Negative); Opiate Screen,Urine Negative (Negative); Phencyclidine Screen,Urine Negative (Negative)
[2019-03-08 14:50] LABS: Apearance,Urine Slightly Hazy (Clear); Bacteria,Urine Occasional /HPF (Few); Bilirubin,Urine Negative (Negative); Blood, Urine Small mg/dL (Negative); Glucose,Urine (UA) Negative (Negative); Hyaline Casts,Urine 264 /LPF (0-3); Ketones,Urine Negative (Negative); Mucus,Urine Moderate /LPF (Occasional); Nitrite,Urine Negative (Negative); Protein,Urine 30 MG/DL; Squamous Epithelial Cell,Urine Occasional /HPF (0-10); Urine Color Yellow (Yellow); Urine Urobilinogen < 2.0 EU/DL (0.2-1.0); WBC,Urine 3 /HPF (0-6)
[2019-03-08 15:06] LABS: Albumin 3.2 G/DL (3.4-5.0); Bilirubin,Total 0.6 MG/DL (0.2-1.0); Calcium 8.2 MG/DL (8.5-10.1); Osmolality,Calculated 277.4 MOS/KG (273-304); Total Protein 6.8 G/DL (6.4-8.3)
[2019-03-08] MEDS ORDERED: DOCUSATE SODIUM 100 MG CAPSULE PO PRN (15:39)
[2019-03-08] MEDS ORDERED: MORPHINE 4 MG/1 ML VIAL IV PRN (15:39)
[2019-03-08] MEDS ORDERED: ALBUTEROL 2.5 MG/3 ML NEB RESP TX PRN (15:39)
[2019-03-08] MEDS ORDERED: ACETAMINOPHEN 325 MG TABLET PO PRN (15:39)
[2019-03-08] MEDS ORDERED: ONDANSETRON 4 MG/2 ML VIAL IV PRN (15:39)
[2019-03-08] MEDS ORDERED: POTASSIUM CHLORIDE 20 MEQ TABLET PO ONE (15:46)
[2019-03-08 16:25] LABS: INR 1.2; PT Patient Result 13.1 SECS (9.6-12.2); Partial Thromboplastin Time 34.8 SECS (20.8-36.0)
[2019-03-08] MEDS: NOREPINEPHRINE 8 MG in SODIUM CHLORIDE 0.9% 242 ML IV PRN (16:42)
[2019-03-08] MEDS ORDERED: MAGNESIUM SULF RIDER 4 GM in PREMIX 1 EACH IV PRN (17:17)
[2019-03-08 17:39] LABS: Basophils % 0.2 % (0.0-0.8); Hematocrit 43.3 VOL% (42.0-52.0); Immature Granulocytes % 0.2 %; Immature Granulocytes Absolute 0.01 #; Lymphocytes % 21.8 % (21.2-54.2); Mean Corpuscular HGB Conc 32.3 GM/DL (32-36); Mean Corpuscular Volume 88.5 FL (87-102); Mean Platelet Volume 12.2 FL (9.6-12.0); Monocytes % 9.9 % (1.7-12.7); Neutrophils % 67.9 % (38.7-73.9); Platelet Count 110 T/CUMM (130-400); Red Blood Count 4.89 MC/CUMM (3.8-5.5); Red Cell Distribution Width 16.9 % (9.3-17.3); White Blood Count 4.5 T/CUMM (4-12)
[2019-03-08] MEDS: MAGNESIUM SULF RIDER 2 GM in PREMIX 1 EACH IV PRN ×2 (17:42→21:35)
[2019-03-08] MEDS: SODIUM CHLORIDE 0.9% 1,000 ML IV SCH (17:58)
[2019-03-08] MEDS ORDERED: INFLUENZA VIRUS VACCINE 0.5 ML SYRINGE IM ONE (18:18)
[2019-03-08] MEDS: ATORVASTATIN 40 MG TABLET PO SCH (21:35)
[2019-03-09] MEDS: SODIUM CHLORIDE 0.9% 1,000 ML IV SCH ×4 (05:08→23:57)
[2019-03-09 06:05] LABS: Basophils % 0.2 % (0.0-0.8); Eosinophils % 0.4 % (0.00-10.9); Hematocrit 43.7 VOL% (42.0-52.0); Hemoglobin 14.2 GM/DL (14.0-18.0); Immature Granulocytes % 0.2 %; Immature Granulocytes Absolute 0.01 #; Lymphocytes # 1.6 10*3/uL (1.4-4.0); Lymphocytes % 29.5 % (21.2-54.2); Mean Corpuscular HGB Conc 32.5 GM/DL (32-36); Mean Corpuscular Volume 88.1 FL (87-102); Mean Platelet Volume 12.3 FL (9.6-12.0); Monocytes % 9.1 % (1.7-12.7); Neutrophils % 60.6 % (38.7-73.9); Platelet Count 126 T/CUMM (130-400); Red Blood Count 4.96 MC/CUMM (3.8-5.5); Red Cell Distribution Width 16.6 % (9.3-17.3); White Blood Count 5.4 T/CUMM (4-12)
[2019-03-09 06:14] LABS: Albumin 3.2 G/DL (3.4-5.0); Bilirubin,Total 1.3 MG/DL (0.2-1.0); Calcium 8.7 MG/DL (8.5-10.1); Osmolality,Calculated 282.8 MOS/KG (273-304); Total Protein 7.4 G/DL (6.4-8.3)
[2019-03-09] MEDS: MULTIVITAMIN (CENTRUM) TABLET PO SCH (08:02)
[2019-03-09] MEDS: POTASSIUM CHLORIDE 20 MEQ TABLET PO PRN ×2 (08:02→10:09)
[2019-03-09] MEDS: RIVAROXABAN 20 MG TABLET PO SCH (08:02)
[2019-03-09] MEDS: PANTOPRAZOLE 40 MG TABLET PO SCH (08:02)
[2019-03-09] MEDS: MIDODRINE 5 MG TABLET PO SCH ×2 (16:26→21:31)
[2019-03-09] MEDS: ATORVASTATIN 40 MG TABLET PO SCH (21:31)
[2019-03-10] MEDS: NOREPINEPHRINE 8 MG in SODIUM CHLORIDE 0.9% 242 ML IV PRN (02:04)
[2019-03-10 04:26] LABS: Basophils % 0.2 % (0.0-0.8); Eosinophils # 0.1 10*3/uL (0.0-0.87); Eosinophils % 1.2 % (0.00-10.9); Hematocrit 39.2 VOL% (42.0-52.0); Hemoglobin 12.6 GM/DL (14.0-18.0); Immature Granulocytes % 0.2 %; Immature Granulocytes Absolute 0.01 #; Mean Corpuscular HGB Conc 32.1 GM/DL (32-36); Mean Corpuscular Volume 88.5 FL (87-102); Mean Platelet Volume 12.4 FL (9.6-12.0); Monocytes % 9.9 % (1.7-12.7); Neutrophils % 48.5 % (38.7-73.9); Platelet Count 105 T/CUMM (130-400); Red Blood Count 4.43 MC/CUMM (3.8-5.5); Red Cell Distribution Width 16.4 % (9.3-17.3); White Blood Count 5.1 T/CUMM (4-12)
[2019-03-10 04:47] LABS: Band Neutrophils 1 % (0-10); Eosinophils 1 % (0-10); Lymphocytes 39 % (20-55); Ovalocytes Slight; Platelet Estimate Decreased; Segmented Neutrophils 56 % (50-85); Total Cells Counted 100
[2019-03-10 04:53] LABS: Calcium 8.2 MG/DL (8.5-10.1); Osmolality,Calculated 276.7 MOS/KG (273-304)
[2019-03-10] MEDS: POTASSIUM CHLORIDE 20 MEQ TABLET PO PRN (06:01)
[2019-03-10] MEDS: ASPIRIN EC 81 MG TABLET PO SCH (08:41)
[2019-03-10] MEDS: PANTOPRAZOLE 40 MG TABLET PO SCH (08:41)
[2019-03-10] MEDS: POTASSIUM CHLORIDE 20 MEQ TABLET PO SCH (08:42)
[2019-03-10] MEDS: MIDODRINE 5 MG TABLET PO SCH ×3 (08:42→20:09)
[2019-03-10] MEDS: RIVAROXABAN 20 MG TABLET PO SCH (08:42)
[2019-03-10] MEDS: MULTIVITAMIN (CENTRUM) TABLET PO SCH (08:42)
[2019-03-10] MEDS: SODIUM CHLORIDE 0.9% 1,000 ML IV SCH (09:35)
[2019-03-10] MEDS: MAGNESIUM SULF RIDER 2 GM in PREMIX 1 EACH IV PRN (20:09)
[2019-03-10] MEDS: ATORVASTATIN 40 MG TABLET PO SCH (20:09)
[2019-03-11] MEDS: POTASSIUM CHLORIDE 20 MEQ TABLET PO SCH (08:18)
[2019-03-11] MEDS: RIVAROXABAN 20 MG TABLET PO SCH (08:18)
[2019-03-11] MEDS: MIDODRINE 5 MG TABLET PO SCH ×3 (08:18→20:06)
[2019-03-11] MEDS: MULTIVITAMIN (CENTRUM) TABLET PO SCH (08:19)
[2019-03-11] MEDS: ASPIRIN EC 81 MG TABLET PO SCH (08:19)
[2019-03-11] MEDS: PANTOPRAZOLE 40 MG TABLET PO SCH (08:19)
[2019-03-11] MEDS: ATORVASTATIN 40 MG TABLET PO SCH (20:06)
[2019-03-12 05:52] LABS: Calcium 8.6 MG/DL (8.5-10.1); Osmolality,Calculated 279.3 MOS/KG (273-304)
[2019-03-12] MEDS: ASPIRIN EC 81 MG TABLET PO SCH (08:35)
[2019-03-12] MEDS: PANTOPRAZOLE 40 MG TABLET PO SCH (08:35)
[2019-03-12] MEDS: RIVAROXABAN 20 MG TABLET PO SCH (08:35)
[2019-03-12] MEDS: MULTIVITAMIN (CENTRUM) TABLET PO SCH (08:35)
[2019-03-12] MEDS: POTASSIUM CHLORIDE 20 MEQ TABLET PO SCH (08:35)
[2019-03-12] MEDS: MIDODRINE 5 MG TABLET PO SCH ×3 (08:35→20:40)
[2019-03-12] MEDS ORDERED: MAGNESIUM SULF RIDER 2 GM in PREMIX 1 EACH IV PRN (09:25)
[2019-03-12] MEDS: MAGNESIUM SULF RIDER 2 GM in PREMIX 1 EACH IV PRN (10:24)
[2019-03-12] MEDS: ATORVASTATIN 40 MG TABLET PO SCH (20:40)
[2019-03-13 05:06] LABS: Basophils % 0.3 % (0.0-0.8); Eosinophils # 0.1 10*3/uL (0.0-0.87); Eosinophils % 1.6 % (0.00-10.9); Hematocrit 36.1 VOL% (42.0-52.0); Hemoglobin 11.5 GM/DL (14.0-18.0); Immature Granulocytes % 0.8 %; Immature Granulocytes Absolute 0.05 #; Lymphocytes # 2.5 10*3/uL (1.4-4.0); Lymphocytes % 38.3 % (21.2-54.2); Mean Corpuscular HGB Conc 31.9 GM/DL (32-36); Mean Corpuscular Volume 88.9 FL (87-102); Mean Platelet Volume 11.4 FL (9.6-12.0); Monocytes % 9.2 % (1.7-12.7); Neutrophils % 49.8 % (38.7-73.9); Platelet Count 122 T/CUMM (130-400); Red Blood Count 4.06 MC/CUMM (3.8-5.5); Red Cell Distribution Width 16.4 % (9.3-17.3); White Blood Count 6.4 T/CUMM (4-12)
[2019-03-13 05:49] LABS: Calcium 8.4 MG/DL (8.5-10.1); Osmolality,Calculated 282.1 MOS/KG (273-304)
[2019-03-13 06:09] LABS: Anisocytosis 1+; Ovalocytes 1+; Platelet Estimate Normal
[2019-03-13] MEDS: MULTIVITAMIN (CENTRUM) TABLET PO SCH (09:23)
[2019-03-13] MEDS: POTASSIUM CHLORIDE 20 MEQ TABLET PO SCH (09:24)
[2019-03-13] MEDS: ASPIRIN EC 81 MG TABLET PO SCH (09:24)
[2019-03-13] MEDS: MIDODRINE 5 MG TABLET PO SCH ×3 (09:24→20:42)
[2019-03-13] MEDS: PANTOPRAZOLE 40 MG TABLET PO SCH (09:24)
[2019-03-13] MEDS: RIVAROXABAN 20 MG TABLET PO SCH (09:24)
[2019-03-13] MEDS: ATORVASTATIN 40 MG TABLET PO SCH (20:42)
[2019-03-14 04:53] LABS: Basophils % 0.3 % (0.0-0.8); Eosinophils # 0.1 10*3/uL (0.0-0.87); Eosinophils % 1.3 % (0.00-10.9); Hematocrit 35.3 VOL% (42.0-52.0); Hemoglobin 11.3 GM/DL (14.0-18.0); Immature Granulocytes % 0.3 %; Immature Granulocytes Absolute 0.02 #; Lymphocytes # 2.7 10*3/uL (1.4-4.0); Mean Corpuscular Volume 89.1 FL (87-102); Mean Platelet Volume 11.9 FL (9.6-12.0); Monocytes % 8.4 % (1.7-12.7); Neutrophils % 54.7 % (38.7-73.9); Platelet Count 155 T/CUMM (130-400); Red Blood Count 3.96 MC/CUMM (3.8-5.5); Red Cell Distribution Width 16.5 % (9.3-17.3); White Blood Count 7.6 T/CUMM (4-12)
[2019-03-14 05:10] LABS: Calcium 8.7 MG/DL (8.5-10.1); Osmolality,Calculated 277.3 MOS/KG (273-304)
[2019-03-14 07:48] VITALS: BP 97/79
[2019-03-14] MEDS: ASPIRIN EC 81 MG TABLET PO SCH (08:15)
[2019-03-14] MEDS: PANTOPRAZOLE 40 MG TABLET PO SCH (08:15)
[2019-03-14] MEDS: MULTIVITAMIN (CENTRUM) TABLET PO SCH (08:15)
[2019-03-14] MEDS: MIDODRINE 5 MG TABLET PO SCH (08:15)
[2019-03-14] MEDS: RIVAROXABAN 20 MG TABLET PO SCH (08:15)
[2019-03-14] MEDS: POTASSIUM CHLORIDE 20 MEQ TABLET PO SCH (08:15)
== END 2019-03-14 12:59 | disposition home or self-care (01) | DRG 682 ==
LOC: EDUNIT# → N.ED 10:34 → N.ICU 14:39 → SUATTDRO 15:39 → N.EDINP 15:39 → N.ICU 17:01 → N.TELES 03-12 16:28
PROVIDERS: ADMIT Internal Medicine; ATTEND Internal Medicine

== ENCOUNTER 2019-03-29 09:27 | Observation (INO) ==
[2019-03-29] MEDS ORDERED: ALBUTEROL 2.5 MG/3 ML NEB RESP TX STA (09:56)
[2019-03-29 09:58] LABS: Basophils % 0.3 % (0.0-0.8); Eosinophils # 0.1 10*3/uL (0.0-0.87); Eosinophils % 0.9 % (0.00-10.9); Hematocrit 34.9 VOL% (42.0-52.0); Hemoglobin 11.4 GM/DL (14.0-18.0); Immature Granulocytes % 0.1 %; Immature Granulocytes Absolute 0.01 #; Lymphocytes # 2.5 10*3/uL (1.4-4.0); Lymphocytes % 31.5 % (21.2-54.2); Mean Corpuscular HGB Conc 32.7 GM/DL (32-36); Mean Corpuscular Volume 89.5 FL (87-102); Mean Platelet Volume 11.5 FL (9.6-12.0); Monocytes % 7.7 % (1.7-12.7); Neutrophils % 59.5 % (38.7-73.9); Platelet Count 214 T/CUMM (130-400); Red Cell Distribution Width 17.7 % (9.3-17.3); White Blood Count 7.9 T/CUMM (4-12)
[2019-03-29] MEDS ORDERED: FUROSEMIDE 40 MG/4 ML VIAL IV STA (09:59)
[2019-03-29 10:07] LABS: INR 1.9; PT Patient Result 20.9 SECS (9.6-12.2); Partial Thromboplastin Time 38.4 SECS (20.8-36.0)
[2019-03-29 10:24] LABS: Albumin 3.4 G/DL (3.4-5.0); Calcium 9.1 MG/DL (8.5-10.1); Osmolality,Calculated 285.3 MOS/KG (273-304); Total Protein 7.5 G/DL (6.4-8.3)
[2019-03-29] MEDS ORDERED: ACETAMINOPHEN 325 MG TABLET PO PRN (11:49)
[2019-03-29] MEDS ORDERED: DEXTROSE 50% 25 GM/50 ML VIAL IV PRN (11:49)
[2019-03-29] MEDS ORDERED: ONDANSETRON 4 MG/2 ML VIAL IV PRN (11:49)
[2019-03-29] MEDS ORDERED: GLUCAGON 1 MG VIAL IM PRN (11:49)
[2019-03-29] MEDS ORDERED: FUROSEMIDE 40 MG/4 ML VIAL IV SCH (16:00)
[2019-03-29] MEDS: FUROSEMIDE 40 MG/4 ML VIAL IV SCH (16:05)
[2019-03-29] MEDS: INSULIN REGULAR 100 UNIT/ML SUBCUT SCH ×2 (16:10→21:19)
[2019-03-29] MEDS ORDERED: POTASSIUM CHLORIDE 20 MEQ TABLET PO PRN (16:15)
[2019-03-29] MEDS ORDERED: ATORVASTATIN 40 MG TABLET PO SCH (21:00)
[2019-03-30 07:02] LABS: Basophils % 0.5 % (0.0-0.8); Eosinophils # 0.1 10*3/uL (0.0-0.87); Eosinophils % 1.2 % (0.00-10.9); Hematocrit 33.6 VOL% (42.0-52.0); Hemoglobin 10.9 GM/DL (14.0-18.0); Immature Granulocytes % 0.3 %; Immature Granulocytes Absolute 0.02 #; Lymphocytes # 2.8 10*3/uL (1.4-4.0); Lymphocytes % 36.7 % (21.2-54.2); Mean Corpuscular HGB Conc 32.4 GM/DL (32-36); Mean Corpuscular Volume 88.9 FL (87-102); Mean Platelet Volume 10.5 FL (9.6-12.0); Neutrophils % 53.3 % (38.7-73.9); Platelet Count 193 T/CUMM (130-400); Red Blood Count 3.78 MC/CUMM (3.8-5.5); Red Cell Distribution Width 17.6 % (9.3-17.3); White Blood Count 7.6 T/CUMM (4-12)
[2019-03-30 07:29] LABS: Osmolality,Calculated 281.3 MOS/KG (273-304)
[2019-03-30 08:12] VITALS: BP 111/90
[2019-03-30] MEDS ORDERED: RIVAROXABAN 20 MG TABLET PO SCH (09:00)
[2019-03-30] MEDS ORDERED: PANTOPRAZOLE 40 MG TABLET PO SCH (09:00)
[2019-03-30] MEDS: INSULIN REGULAR 100 UNIT/ML SUBCUT SCH (09:00)
[2019-03-30] MEDS: FUROSEMIDE 40 MG/4 ML VIAL IV SCH (09:04)
[2019-03-30] MEDS ORDERED: POTASSIUM CHLORIDE 20 MEQ TABLET PO ONE ×2 (09:08→11:00)
== END 2019-03-30 11:18 | disposition home or self-care (01) ==
LOC: N.ED 09:27 → N.EDINP 09:27 → N.2W 12:49
PROVIDERS: ADMIT Internal Medicine; ATTEND Internal Medicine

== ENCOUNTER 2019-04-27 15:08 | Observation (INO) ==
[2019-04-27] MEDS ORDERED: FUROSEMIDE 100 MG/10 ML VIAL IV STA (16:07)
[2019-04-27] MEDS ORDERED: ONDANSETRON 4 MG/2 ML VIAL IV STA (16:07)
[2019-04-27] MEDS ORDERED: ALBUTEROL/IPRATROPIUM 3 ML NEB RESP TX STA (16:07)
[2019-04-27 17:11] LABS: Basophils % 0.5 % (0.0-0.8); Eosinophils % 0.4 % (0.00-10.9); Hematocrit 45.8 VOL% (42.0-52.0); Hemoglobin 14.2 GM/DL (14.0-18.0); Immature Granulocytes % 0.2 %; Immature Granulocytes Absolute 0.02 #; Lymphocytes # 2.3 10*3/uL (1.4-4.0); Mean Corpuscular Volume 98.9 FL (87-102); Mean Platelet Volume 11.4 FL (9.6-12.0); Monocytes % 5.1 % (1.7-12.7); Neutrophils % 64.8 % (38.7-73.9); Platelet Count 211 T/CUMM (130-400); Red Blood Count 4.63 MC/CUMM (3.8-5.5); Red Cell Distribution Width 22.5 % (9.3-17.3)
[2019-04-27 17:32] LABS: Macrocytosis Slight; Platelet Estimate Adequate
[2019-04-27 17:33] LABS: Anisocytosis 1+; Ovalocytes Slight; Tear Drop Cells Slight
[2019-04-27 17:37] LABS: Alanine Aminotransferase 45 U/L (16-61); Albumin 3.8 G/DL (3.4-5.0); Alkaline Phosphatase 173 U/L (45-117); Aspartate Amino Transferase 37 U/L (0-37); Blood Urea Nitrogen 28 MG/DL (7-18); Calcium 9.1 MG/DL (8.5-10.1); Estimated Glom Filtration Rate 50 ML/MIN; Glucose 104 MG/DL (74-106); Osmolality,Calculated 280.7 MOS/KG (273-304); Total Protein 7.7 G/DL (6.4-8.3); Troponin I < 0.015 NG/ML (0.00-0.045)
[2019-04-27 18:10] LABS: PT Patient Result 32.1 SECS (9.6-12.2)
[2019-04-27] MEDS ORDERED: ACETAMINOPHEN 500 MG TABLET PO PRN (19:05)
[2019-04-27] MEDS ORDERED: DEXTROSE 50% 25 GM/50 ML VIAL IV PRN (19:05)
[2019-04-27] MEDS ORDERED: GLUCAGON 1 MG VIAL IM PRN (19:05)
[2019-04-27] MEDS ORDERED: ONDANSETRON 4 MG/2 ML VIAL IV PRN (19:05)
[2019-04-27] MEDS ORDERED: POTASSIUM CHLORIDE 20 MEQ TABLET PO STA (19:05)
[2019-04-27] MEDS: INSULIN REGULAR 100 UNIT/ML SUBCUT SCH (21:12)
[2019-04-27] MEDS: MIDODRINE 5 MG TABLET PO SCH (21:36)
[2019-04-27] MEDS ORDERED: POTASSIUM CHLORIDE RIDER 10 MEQ in PREMIX 1 EACH IV PRN (21:50)
[2019-04-27] MEDS ORDERED: MAGNESIUM SULF RIDER 2 GM in PREMIX 1 EACH IV PRN (21:50)
[2019-04-27] MEDS ORDERED: MAGNESIUM SULF RIDER 4 GM in PREMIX 1 EACH IV PRN (21:50)
[2019-04-28 05:12] LABS: Apearance,Urine Slightly Hazy (Clear); Bilirubin,Urine Negative (Negative); Blood, Urine Negative (Negative); Glucose,Urine (UA) >=500 mg/dL (Negative); Hyaline Casts,Urine 14 /LPF (0-3); Ketones,Urine Negative (Negative); Mucus,Urine Occasional /LPF (Occasional); Nitrite,Urine Negative (Negative); Protein,Urine Negative; RBC,Urine 14 /HPF (0-4); Squamous Epithelial Cell,Urine Occasional /HPF (0-10); Urine Color Yellow (Yellow); WBC,Urine 4 /HPF (0-6)
[2019-04-28 05:15] LABS: Barbiturates Screen,Urine Negative (Negative); Benzodiazepines Screen,Urine Negative (Negative); Cannabinoid Screen,Urine Positive (Negative); Opiate Screen,Urine Negative (Negative); Phencyclidine Screen,Urine Negative (Negative)
[2019-04-28 05:21] LABS: Calcium 9.3 MG/DL (8.5-10.1); Osmolality,Calculated 282.8 MOS/KG (273-304)
[2019-04-28] MEDS: cefTRIAXone 1,000 MG in SYRINGE 1 EACH IV SCH (06:17)
[2019-04-28] MEDS: MIDODRINE 5 MG TABLET PO SCH ×3 (08:59→21:11)
[2019-04-28] MEDS: RIVAROXABAN 20 MG TABLET PO SCH (08:59)
[2019-04-28] MEDS: FUROSEMIDE 40 MG/4 ML VIAL IV SCH ×2 (08:59→15:43)
[2019-04-28] MEDS ORDERED: Dapagliflozin [Farxiga] 5 MG PO SCH (09:00)
[2019-04-28] MEDS: INSULIN REGULAR 100 UNIT/ML SUBCUT SCH ×4 (10:15→20:18)
[2019-04-29 04:24] LABS: Basophils % 0.2 % (0.0-0.8); Eosinophils % 0.5 % (0.00-10.9); Hematocrit 38.6 VOL% (42.0-52.0); Hemoglobin 12.1 GM/DL (14.0-18.0); Immature Granulocytes % 0.2 %; Immature Granulocytes Absolute 0.02 #; Lymphocytes # 2.2 10*3/uL (1.4-4.0); Lymphocytes % 26.2 % (21.2-54.2); Mean Corpuscular HGB Conc 31.3 GM/DL (32-36); Mean Corpuscular Volume 97.7 FL (87-102); Mean Platelet Volume 11.7 FL (9.6-12.0); Monocytes % 7.7 % (1.7-12.7); Neutrophils % 65.2 % (38.7-73.9); Platelet Count 182 T/CUMM (130-400); Red Blood Count 3.95 MC/CUMM (3.8-5.5); Red Cell Distribution Width 21.3 % (9.3-17.3); White Blood Count 8.5 T/CUMM (4-12)
[2019-04-29 04:43] LABS: Calcium 9.2 MG/DL (8.5-10.1); Osmolality,Calculated 282.5 MOS/KG (273-304)
[2019-04-29] MEDS: cefTRIAXone 1,000 MG in SYRINGE 1 EACH IV SCH (05:30)
[2019-04-29] MEDS: MIDODRINE 5 MG TABLET PO SCH ×3 (08:12→21:49)
[2019-04-29] MEDS: RIVAROXABAN 20 MG TABLET PO SCH (08:12)
[2019-04-29] MEDS: FUROSEMIDE 40 MG/4 ML VIAL IV SCH (08:12)
[2019-04-29] MEDS: INSULIN REGULAR 100 UNIT/ML SUBCUT SCH ×4 (08:43→21:51)
[2019-04-29] MEDS ORDERED: metOLazone 5 MG TABLET PO ONE (09:06)
[2019-04-29] MEDS: FUROSEMIDE 80 MG TABLET PO SCH (15:22)
[2019-04-30 04:31] LABS: Basophils % 0.2 % (0.0-0.8); Eosinophils # 0.1 10*3/uL (0.0-0.87); Eosinophils % 0.7 % (0.00-10.9); Hematocrit 36.8 VOL% (42.0-52.0); Hemoglobin 11.8 GM/DL (14.0-18.0); Immature Granulocytes % 0.2 %; Immature Granulocytes Absolute 0.02 #; Lymphocytes # 2.2 10*3/uL (1.4-4.0); Lymphocytes % 26.2 % (21.2-54.2); Mean Corpuscular HGB Conc 32.1 GM/DL (32-36); Mean Corpuscular Volume 96.1 FL (87-102); Monocytes % 7.3 % (1.7-12.7); Neutrophils % 65.4 % (38.7-73.9); Platelet Count 184 T/CUMM (130-400); Red Blood Count 3.83 MC/CUMM (3.8-5.5); Red Cell Distribution Width 21.2 % (9.3-17.3); White Blood Count 8.3 T/CUMM (4-12)
[2019-04-30 04:57] LABS: Osmolality,Calculated 279.8 MOS/KG (273-304)
[2019-04-30 04:59] LABS: Albumin 3.4 G/DL (3.4-5.0); Bilirubin,Direct 1.15 MG/DL (0.0-0.20); Bilirubin,Indirect 1.4 MG/DL (0.0-1.0); Bilirubin,Total 2.5 MG/DL (0.2-1.0); Total Protein 6.8 G/DL (6.4-8.3)
[2019-04-30] MEDS: cefTRIAXone 1,000 MG in SYRINGE 1 EACH IV SCH (05:48)
[2019-04-30 08:13] VITALS: BP 98/78
[2019-04-30] MEDS ORDERED: ASPIRIN EC 81 MG TABLET PO SCH (09:00)
[2019-04-30] MEDS: MIDODRINE 5 MG TABLET PO SCH (09:01)
[2019-04-30] MEDS: FUROSEMIDE 80 MG TABLET PO SCH (09:03)
[2019-04-30] MEDS: RIVAROXABAN 20 MG TABLET PO SCH (09:03)
[2019-04-30] MEDS: INSULIN REGULAR 100 UNIT/ML SUBCUT SCH ×2 (09:04→12:24)
[2019-04-30] MEDS ORDERED: metOLazone 5 MG TABLET PO PRN (09:53)
[2019-04-30] MEDS ORDERED: PNEUMOCOCCAL VACCINE (13 VALENT) 0.5 ML SYRINGE IM ONE (10:30)
== END 2019-04-30 14:06 | disposition home or self-care (01) ==
LOC: N.ED 15:08 → N.EDINP 15:08 → N.TELEN 20:41 → N.TELES 04-29 19:57
PROVIDERS: ADMIT Family Medicine; ATTEND Family Medicine

== ENCOUNTER 2019-10-21 16:35 | Observation (INO) ==
[2019-10-21 17:34] LABS: Basophils % 0.3 % (0.0-0.8); Eosinophils % 0.6 % (0.00-10.9); Hematocrit 44.9 VOL% (42.0-52.0); Hemoglobin 15.2 GM/DL (14.0-18.0); Immature Granulocytes % 0.3 %; Immature Granulocytes Absolute 0.02 #; Lymphocytes # 1.4 10*3/uL (1.4-4.0); Lymphocytes % 20.1 % (21.2-54.2); Mean Corpuscular HGB Conc 33.9 GM/DL (32-36); Mean Corpuscular Volume 90.3 FL (87-102); Mean Platelet Volume 11.1 FL (9.6-12.0); Monocytes % 7.4 % (1.7-12.7); Neutrophils % 71.3 % (38.7-73.9); Platelet Count 171 T/CUMM (130-400); Red Blood Count 4.97 MC/CUMM (3.8-5.5); Red Cell Distribution Width 15.4 % (9.3-17.3); White Blood Count 7.2 T/CUMM (4-12)
[2019-10-21 18:11] LABS: Albumin 3.1 G/DL (3.4-5.0); Bilirubin,Total 1.5 MG/DL (0.2-1.0); Calcium 10.2 MG/DL (8.5-10.1); Osmolality,Calculated 283.5 MOS/KG (273-304); Total Protein 7.2 G/DL (6.4-8.3)
[2019-10-21] MEDS ORDERED: POTASSIUM CHLORIDE RIDER 20 MEQ in PREMIX 1 EACH IV STA (18:16)
[2019-10-21] MEDS ORDERED: POTASSIUM CHLORIDE RIDER 100 ML IV ONE (18:39)
[2019-10-21] MEDS: POTASSIUM CHLORIDE RIDER 10 MEQ in PREMIX 1 EACH IV SCH ×2 (18:59→21:26)
[2019-10-21] MEDS ORDERED: DEXTROSE 50% 25 GM/50 ML VIAL IV PRN (20:46)
[2019-10-21] MEDS ORDERED: ACETAMINOPHEN 325 MG TABLET PO PRN (20:46)
[2019-10-21] MEDS ORDERED: GLUCAGON 1 MG VIAL IM PRN (20:46)
[2019-10-21 21:20] LABS: Thyroid Stimulating Hormone 2.44 uIU/ml (0.358-3.74)
[2019-10-21] MEDS: OFLOXACIN 0.3% IV SCH (22:08)
[2019-10-21] MEDS: PREDNISOLONE ACETATE 1% RIGHT EYE SCH (22:08)
[2019-10-21] MEDS: KETOROLAC 0.5% RIGHT EYE SCH (22:08)
[2019-10-22] MEDS: INSULIN REGULAR 100 UNIT/ML SUBCUT SCH ×5 (02:42→20:35)
[2019-10-22 05:10] LABS: Bacteria,Urine Occasional /HPF (Few); Bilirubin,Urine Negative (Negative); Blood, Urine Small mg/dL (Negative); Glucose,Urine (UA) >=500 mg/dL (Negative); Hyaline Casts,Urine 4 /LPF (0-3); Ketones,Urine Negative (Negative); Nitrite,Urine Negative (Negative); Protein,Urine 30 MG/DL; RBC,Urine 3 /HPF (0-4); Squamous Epithelial Cell,Urine Occasional /HPF (0-10); Urine Appearance Slightly Hazy (Clear); Urine Color Yellow (Yellow); Urine Specific Gravity 1.014 (1.001-1.035); WBC,Urine 14 /HPF (0-6)
[2019-10-22 05:55] LABS: Basophils # 0.1 10*3/uL (0.0-0.2); Basophils % 0.7 % (0.0-0.8); Eosinophils % 0.6 % (0.00-10.9); Hematocrit 48.4 VOL% (42.0-52.0); Hemoglobin 15.9 GM/DL (14.0-18.0); Immature Granulocytes % 0.3 %; Immature Granulocytes Absolute 0.02 #; Lymphocytes # 2.2 10*3/uL (1.4-4.0); Lymphocytes % 30.7 % (21.2-54.2); Mean Corpuscular HGB Conc 32.9 GM/DL (32-36); Mean Corpuscular Volume 92.5 FL (87-102); Mean Platelet Volume 11.6 FL (9.6-12.0); Monocytes % 7.3 % (1.7-12.7); Neutrophils % 60.4 % (38.7-73.9); Platelet Count 178 T/CUMM (130-400); Red Blood Count 5.23 MC/CUMM (3.8-5.5); Red Cell Distribution Width 15.8 % (9.3-17.3); White Blood Count 7.2 T/CUMM (4-12)
[2019-10-22 09:18] LABS: Albumin 3.5 G/DL (3.4-5.0); Bilirubin,Total 1.5 MG/DL (0.2-1.0); Calcium 9.5 MG/DL (8.5-10.1); Osmolality,Calculated 283.8 MOS/KG (273-304); Risk Ratio 3.29; Total Protein 7.5 G/DL (6.4-8.3); VLDL CHOLESTEROL 20.2 MG/DL
[2019-10-22] MEDS: OFLOXACIN 0.3% IV SCH ×4 (09:19→20:33)
[2019-10-22] MEDS: ASPIRIN EC 81 MG TABLET PO SCH (09:19)
[2019-10-22] MEDS: RIVAROXABAN 20 MG TABLET PO SCH (09:19)
[2019-10-22] MEDS: PREDNISOLONE ACETATE 1% RIGHT EYE SCH ×4 (09:19→20:34)
[2019-10-22] MEDS: KETOROLAC 0.5% RIGHT EYE SCH ×4 (09:19→20:34)
[2019-10-22] MEDS: POTASSIUM CHLORIDE 20 MEQ TABLET PO SCH (09:20)
[2019-10-22] MEDS ORDERED: POTASSIUM CHLORIDE 20 MEQ TABLET PO ONE (09:42)
[2019-10-22 12:11] LABS: Barbiturates Screen,Urine Negative (Negative); Benzodiazepines Screen,Urine Negative (Negative); Cannabinoid Screen,Urine Negative (Negative); Opiate Screen,Urine Negative (Negative); Phencyclidine Screen,Urine Negative (Negative)
[2019-10-22] MEDS ORDERED: POTASSIUM CHLORIDE 20 MEQ/15 ML UDCUP PO ONE (13:48)
[2019-10-23 04:26] LABS: Basophils % 0.6 % (0.0-0.8); Eosinophils # 0.1 10*3/uL (0.0-0.87); Eosinophils % 1.4 % (0.00-10.9); Hemoglobin 14.9 GM/DL (14.0-18.0); Immature Granulocytes % 0.2 %; Immature Granulocytes Absolute 0.01 #; Lymphocytes % 32.6 % (21.2-54.2); Mean Corpuscular HGB Conc 33.9 GM/DL (32-36); Mean Corpuscular Volume 89.8 FL (87-102); Monocytes % 7.2 % (1.7-12.7); Platelet Count 157 T/CUMM (130-400); Red Cell Distribution Width 15.7 % (9.3-17.3); White Blood Count 6.3 T/CUMM (4-12)
[2019-10-23 06:53] LABS: Calcium 9.2 MG/DL (8.5-10.1); Osmolality,Calculated 280.7 MOS/KG (273-304)
[2019-10-23] MEDS ORDERED: POTASSIUM CHLORIDE 20 MEQ TABLET PO ONE ×2 (08:37)
[2019-10-23] MEDS: INSULIN REGULAR 100 UNIT/ML SUBCUT SCH (09:14)
[2019-10-23] MEDS: ASPIRIN EC 81 MG TABLET PO SCH (09:15)
[2019-10-23] MEDS: RIVAROXABAN 20 MG TABLET PO SCH (09:15)
[2019-10-23] MEDS: POTASSIUM CHLORIDE 20 MEQ TABLET PO SCH (09:15)
[2019-10-23] MEDS: PREDNISOLONE ACETATE 1% RIGHT EYE SCH (09:17)
[2019-10-23] MEDS: OFLOXACIN 0.3% IV SCH (09:17)
[2019-10-23] MEDS: KETOROLAC 0.5% RIGHT EYE SCH (09:18)
[2019-10-23 12:10] VITALS: BP 93/77
== END 2019-10-23 13:52 | disposition home or self-care (01) ==
LOC: N.EDINP 16:35 → N.ED 16:35 → N.TELES 21:39
PROVIDERS: ADMIT Internal Medicine; ATTEND Internal Medicine

== ENCOUNTER 2020-05-19 02:13 | Observation (INO) ==
[2020-05-19] MEDS ORDERED: methylPREDNISolone SOD SUC 125 MG/2 ML VIAL IV STA (02:41)
[2020-05-19] MEDS ORDERED: ONDANSETRON 4 MG/2 ML VIAL IV STA (02:41)
[2020-05-19] MEDS ORDERED: ALBUTEROL NEB SOLN 5 MG/ML 20 ML/BOTTLE ONE (02:50)
[2020-05-19 02:55] LABS: Basophils % 0.4 % (0.0-0.8); Eosinophils % 0.3 % (0.00-10.9); Hematocrit 42.4 VOL% (42.0-52.0); Hemoglobin 14.4 GM/DL (14.0-18.0); Immature Granulocytes % 0.1 %; Immature Granulocytes Absolute 0.01 #; Lymphocytes # 1.6 10*3/uL (1.4-4.0); Lymphocytes % 22.6 % (21.2-54.2); Mean Corpuscular Volume 91.8 FL (87-102); Mean Platelet Volume 11.7 FL (9.6-12.0); Monocytes % 9.5 % (1.7-12.7); Neutrophils % 67.1 % (38.7-73.9); Platelet Count 166 T/CUMM (130-400); Red Blood Count 4.62 MC/CUMM (3.8-5.5); Red Cell Distribution Width 16.4 % (9.3-17.3); White Blood Count 6.9 T/CUMM (4-12)
[2020-05-19] MEDS ORDERED: ALBUTEROL NEB SOLN 5 MG/ML 20 ML/BOTTLE CONT NEB SCH (03:00)
[2020-05-19 03:23] LABS: Albumin 3.6 G/DL (3.4-5.0); Osmolality,Calculated 280.5 MOS/KG (273-304); Potassium 3.2 MMOL/L (3.5-5.1); Total Protein 7.2 G/DL (6.4-8.2)
[2020-05-19] MEDS ORDERED: FUROSEMIDE 20 MG/2 ML VIAL IV STA (03:38)
[2020-05-19 03:52] LABS: INR 2.2
[2020-05-19 03:57] LABS: Ferritin 68.8 ng/ml (26-388)
[2020-05-19] MEDS ORDERED: FUROSEMIDE 40 MG/4 ML VIAL ONE (03:58)
[2020-05-19] MEDS ORDERED: SODIUM CHLORIDE 0.9% 1,000 ML IV SCH (04:32)
[2020-05-19] MEDS ORDERED: DEXTROSE 50% 25 GM/50 ML VIAL IV PRN (04:32)
[2020-05-19] MEDS ORDERED: ACETAMINOPHEN 325 MG TABLET PO PRN ×2 (04:32→09:14)
[2020-05-19] MEDS ORDERED: MORPHINE 4 MG/1 ML VIAL IV PRN (04:32)
[2020-05-19] MEDS ORDERED: ONDANSETRON 4 MG/2 ML VIAL IV PRN (04:32)
[2020-05-19] MEDS ORDERED: GLUCAGON 1 MG VIAL IM PRN (04:32)
[2020-05-19] MEDS: INSULIN REGULAR 100 UNIT/ML SUBCUT SCH ×3 (06:34→17:52)
[2020-05-19 07:14] LABS: Troponin I < 0.015 NG/ML (0.00-0.045)
[2020-05-19] MEDS: ALBUTEROL/IPRATROPIUM 3 ML NEB RESP TX SCH ×5 (07:35→23:50)
[2020-05-19] MEDS ORDERED: FUROSEMIDE 20 MG/2 ML VIAL IV SCH (08:00)
[2020-05-19] MEDS: DOCUSATE SODIUM 100 MG CAPSULE PO SCH ×2 (09:05→22:05)
[2020-05-19] MEDS: PANTOPRAZOLE 40 MG TABLET PO SCH (09:05)
[2020-05-19] MEDS: methylPREDNISolone SOD SUC 40 MG/1 ML VIAL IV SCH ×2 (10:31→22:06)
[2020-05-19] MEDS: cefTRIAXone 1,000 MG in SYRINGE 1 EACH IV SCH (10:33)
[2020-05-19] MEDS ORDERED: methylPREDNISolone SOD SUC 40 MG/1 ML VIAL IV SCH (11:00)
[2020-05-19] MEDS ORDERED: FUROSEMIDE 40 MG/4 ML VIAL IV SCH (12:14)
[2020-05-19] MEDS ORDERED: prednisoLONE ACETATE 1% OPH SUSP 5 ML BOTTLE RIGHT EYE SCH (13:00)
[2020-05-19] MEDS ORDERED: OFLOXACIN 0.3% OPH SOLN 5 ML BOTTLE RIGHT EYE SCH (13:00)
[2020-05-19] MEDS: FUROSEMIDE 40 MG/4 ML VIAL IV SCH (15:59)
[2020-05-20] MEDS: INSULIN REGULAR 100 UNIT/ML SUBCUT SCH ×4 (01:12→18:03)
[2020-05-20] MEDS: ALBUTEROL/IPRATROPIUM 3 ML NEB RESP TX SCH ×6 (02:40→23:55)
[2020-05-20 06:16] LABS: Basophils % 0.1 % (0.0-0.8); Hematocrit 39.9 VOL% (42.0-52.0); Hemoglobin 13.8 GM/DL (14.0-18.0); Immature Granulocytes % 0.4 %; Immature Granulocytes Absolute 0.04 #; Lymphocytes # 0.4 10*3/uL (1.4-4.0); Lymphocytes % 4.6 % (21.2-54.2); Mean Corpuscular HGB Conc 34.6 GM/DL (32-36); Mean Corpuscular Volume 91.3 FL (87-102); Mean Platelet Volume 12.7 FL (9.6-12.0); Monocytes % 3.3 % (1.7-12.7); Neutrophils % 91.6 % (38.7-73.9); Platelet Count 141 T/CUMM (130-400); Red Blood Count 4.37 MC/CUMM (3.8-5.5); Red Cell Distribution Width 15.8 % (9.3-17.3); White Blood Count 9.6 T/CUMM (4-12)
[2020-05-20 07:25] LABS: Albumin 3.4 G/DL (3.4-5.0); Bilirubin,Total 3.4 MG/DL (0.2-1.0); Calcium 9.6 MG/DL (8.5-10.1); Osmolality,Calculated 283.5 MOS/KG (273-304); Risk Ratio 2.94; Total Protein 7.2 G/DL (6.4-8.2); VLDL CHOLESTEROL 11.2 MG/DL
[2020-05-20 07:27] LABS: Potassium 2.4 MMOL/L (3.5-5.1)
[2020-05-20 07:44] LABS: Band Neutrophils 9 % (0-10); Lymphocytes 5 % (20-55); Platelet Estimate Adequate; Segmented Neutrophils 84 % (50-85); Total Cells Counted 100
[2020-05-20 07:45] LABS: Anisocytosis Slight; Burr Cells Few; Macrocytosis 1+
[2020-05-20] MEDS ORDERED: POTASSIUM CHLORIDE 20 MEQ TABLET PO ONE (07:56)
[2020-05-20] MEDS ORDERED: POTASSIUM CHLORIDE 20 MEQ TABLET PO SCH (09:00)
[2020-05-20] MEDS ORDERED: ASPIRIN EC 81 MG TABLET PO SCH (09:00)
[2020-05-20] MEDS ORDERED: FUROSEMIDE 80 MG TABLET PO SCH (09:00)
[2020-05-20] MEDS ORDERED: MIDODRINE 5 MG TABLET PO SCH (09:00)
[2020-05-20] MEDS: RIVAROXABAN 20 MG TABLET PO SCH (09:21)
[2020-05-20] MEDS: FUROSEMIDE 40 MG/4 ML VIAL IV SCH ×2 (09:21→16:29)
[2020-05-20] MEDS: PANTOPRAZOLE 40 MG TABLET PO SCH (09:22)
[2020-05-20] MEDS: metOLazone 5 MG TABLET PO SCH (09:22)
[2020-05-20] MEDS: DOCUSATE SODIUM 100 MG CAPSULE PO SCH ×2 (09:22→20:57)
[2020-05-20] MEDS: methylPREDNISolone SOD SUC 40 MG/1 ML VIAL IV SCH ×2 (09:49→20:57)
[2020-05-20] MEDS: cefTRIAXone 1,000 MG in SYRINGE 1 EACH IV SCH (09:49)
[2020-05-20] MEDS: POTASSIUM CHLORIDE 20 MEQ TABLET PO PRN ×4 (12:05→16:29)
[2020-05-21] MEDS: INSULIN REGULAR 100 UNIT/ML SUBCUT SCH ×4 (00:27→18:09)
[2020-05-21] MEDS: ALBUTEROL/IPRATROPIUM 3 ML NEB RESP TX SCH ×5 (03:26→19:12)
[2020-05-21 05:34] LABS: Basophils % 0.1 % (0.0-0.8); Hemoglobin 14.1 GM/DL (14.0-18.0); Immature Granulocytes % 0.3 %; Immature Granulocytes Absolute 0.03 #; Lymphocytes # 0.4 10*3/uL (1.4-4.0); Lymphocytes % 4.1 % (21.2-54.2); Mean Corpuscular HGB Conc 34.4 GM/DL (32-36); Mean Corpuscular Volume 91.3 FL (87-102); Mean Platelet Volume 12.1 FL (9.6-12.0); Monocytes % 4.2 % (1.7-12.7); Neutrophils % 91.3 % (38.7-73.9); Platelet Count 147 T/CUMM (130-400); Red Blood Count 4.49 MC/CUMM (3.8-5.5); White Blood Count 10.8 T/CUMM (4-12)
[2020-05-21 05:53] LABS: Albumin 3.4 G/DL (3.4-5.0); Bilirubin,Total 2.7 MG/DL (0.2-1.0); Calcium 9.1 MG/DL (8.5-10.1); Osmolality,Calculated 278.9 MOS/KG (273-304); Potassium 3.2 MMOL/L (3.5-5.1)
[2020-05-21 06:09] LABS: Anisocytosis 1+; Band Neutrophils 6 % (0-10); Lymphocytes 5 % (20-55); Macrocytosis 2+; Platelet Estimate Adequate; Segmented Neutrophils 84 % (50-85); Total Cells Counted 100
[2020-05-21 06:10] LABS: Target Cells 1+
[2020-05-21] MEDS: POTASSIUM CHLORIDE 20 MEQ TABLET PO PRN ×4 (06:14→16:16)
[2020-05-21] MEDS: DOCUSATE SODIUM 100 MG CAPSULE PO SCH ×2 (08:25→20:09)
[2020-05-21] MEDS: metOLazone 5 MG TABLET PO SCH (08:25)
[2020-05-21] MEDS: RIVAROXABAN 20 MG TABLET PO SCH (08:25)
[2020-05-21] MEDS: FUROSEMIDE 40 MG/4 ML VIAL IV SCH ×2 (08:26→17:22)
[2020-05-21] MEDS: methylPREDNISolone SOD SUC 40 MG/1 ML VIAL IV SCH ×2 (08:30→20:33)
[2020-05-21] MEDS: PANTOPRAZOLE 40 MG TABLET PO SCH (08:30)
[2020-05-21] MEDS: cefTRIAXone 1,000 MG in SYRINGE 1 EACH IV SCH (08:30)
[2020-05-22] MEDS: INSULIN REGULAR 100 UNIT/ML SUBCUT SCH ×3 (00:24→12:25)
[2020-05-22] MEDS: ALBUTEROL/IPRATROPIUM 3 ML NEB RESP TX SCH ×5 (00:43→15:15)
[2020-05-22 05:20] LABS: Basophils % 0.1 % (0.0-0.8); Hematocrit 42.5 VOL% (42.0-52.0); Hemoglobin 14.7 GM/DL (14.0-18.0); Immature Granulocytes % 0.5 %; Immature Granulocytes Absolute 0.05 #; Lymphocytes # 0.9 10*3/uL (1.4-4.0); Lymphocytes % 8.2 % (21.2-54.2); Mean Corpuscular HGB Conc 34.6 GM/DL (32-36); Mean Corpuscular Volume 90.4 FL (87-102); Mean Platelet Volume 11.6 FL (9.6-12.0); Monocytes % 5.5 % (1.7-12.7); Neutrophils % 85.7 % (38.7-73.9); Platelet Count 145 T/CUMM (130-400); Red Cell Distribution Width 15.8 % (9.3-17.3); White Blood Count 10.6 T/CUMM (4-12)
[2020-05-22 05:39] LABS: Calcium 9.3 MG/DL (8.5-10.1); Osmolality,Calculated 284.2 MOS/KG (273-304); Potassium 3.1 MMOL/L (3.5-5.1)
[2020-05-22] MEDS: POTASSIUM CHLORIDE 20 MEQ TABLET PO PRN ×2 (05:48→09:53)
[2020-05-22] MEDS ORDERED: RIVAROXABAN 15 MG TABLET PO SCH (08:00)
[2020-05-22] MEDS: DOCUSATE SODIUM 100 MG CAPSULE PO SCH (09:53)
[2020-05-22] MEDS: metOLazone 5 MG TABLET PO SCH (09:53)
[2020-05-22] MEDS: FUROSEMIDE 40 MG/4 ML VIAL IV SCH (09:58)
[2020-05-22] MEDS: methylPREDNISolone SOD SUC 40 MG/1 ML VIAL IV SCH (10:00)
[2020-05-22] MEDS: cefTRIAXone 1,000 MG in SYRINGE 1 EACH IV SCH (10:01)
[2020-05-22] MEDS: PANTOPRAZOLE 40 MG TABLET PO SCH (10:44)
[2020-05-22] MEDS ORDERED: POTASSIUM CHLORIDE 20 MEQ TABLET PO ONE (11:09)
[2020-05-22] MEDS ORDERED: DIGOXIN 0.5 MG/2 ML AMP IV ONE (11:14)
[2020-05-22 11:33] VITALS: BP 93/67
[2020-05-22] MEDS ORDERED: EZETIMIBE 10 MG TABLET PO SCH (21:00)
[2020-05-23] MEDS ORDERED: FUROSEMIDE 40 MG TABLET PO SCH (09:00)
== END 2020-05-22 15:40 | disposition home or self-care (01) ==
LOC: N.ED 02:13 → N.3E 02:13
PROVIDERS: ADMIT Family Medicine; ATTEND Family Medicine

== ENCOUNTER 2020-06-18 17:47 | Observation (INO) ==
[2020-06-18 19:01] LABS: Basophils % 0.3 % (0.0-0.8); Eosinophils % 0.6 % (0.00-10.9); Hematocrit 42.3 VOL% (42.0-52.0); Immature Granulocytes % 0.2 %; Immature Granulocytes Absolute 0.01 #; Lymphocytes # 1.5 10*3/uL (1.4-4.0); Lymphocytes % 23.2 % (21.2-54.2); Mean Corpuscular HGB Conc 33.1 GM/DL (32-36); Mean Corpuscular Volume 91.2 FL (87-102); Mean Platelet Volume 12.2 FL (9.6-12.0); Monocytes % 11.2 % (1.7-12.7); Neutrophils % 64.5 % (38.7-73.9); Platelet Count 147 T/CUMM (130-400); Red Blood Count 4.64 MC/CUMM (3.8-5.5); Red Cell Distribution Width 15.4 % (9.3-17.3); White Blood Count 6.4 T/CUMM (4-12)
[2020-06-18] MEDS ORDERED: ALBUTEROL/IPRATROPIUM 3 ML NEB RESP TX STA ×2 (19:11→21:12)
[2020-06-18 19:17] LABS: Alanine Aminotransferase 32 U/L (16-61); Alkaline Phosphatase 132 U/L (45-117); Aspartate Amino Transferase 45 U/L (0-37); Blood Urea Nitrogen 54 MG/DL (7-18); Calcium 8.8 MG/DL (8.5-10.1); Carbon Dioxide 27 MMOL/L (21-32); Estimated Glom Filtration Rate 38 ML/MIN; Glucose 119 MG/DL (74-106); Osmolality,Calculated 296.3 MOS/KG (273-304); Potassium 2.6 MMOL/L (3.5-5.1); Sodium 141 MMOL/L (136-145); Total Protein 6.4 G/DL (6.4-8.2)
[2020-06-18] MEDS ORDERED: GLUCAGON 1 MG VIAL IM PRN (21:07)
[2020-06-18] MEDS ORDERED: DEXTROSE 50% 25 GM/50 ML VIAL IV PRN (21:07)
[2020-06-18] MEDS ORDERED: ONDANSETRON 4 MG/2 ML VIAL IV PRN (21:07)
[2020-06-18] MEDS ORDERED: ACETAMINOPHEN 325 MG TABLET PO PRN (21:07)
[2020-06-18] MEDS ORDERED: FUROSEMIDE 40 MG/4 ML VIAL IV STA (21:12)
[2020-06-18] MEDS: POTASSIUM CHLORIDE RIDER 10 MEQ in PREMIX 1 EACH IV SCH (22:08)
[2020-06-18] MEDS: ENOXAPARIN 30 MG/0.3 ML SYRINGE SUBCUT SCH (22:08)
[2020-06-19] MEDS: ALBUTEROL/IPRATROPIUM 3 ML NEB RESP TX SCH ×4 (00:45→20:31)
[2020-06-19] MEDS ORDERED: POTASSIUM CHLORIDE RIDER 100 ML IV ONE (02:37)
[2020-06-19] MEDS: POTASSIUM CHLORIDE RIDER 10 MEQ in PREMIX 1 EACH IV SCH (02:47)
[2020-06-19 05:03] LABS: Calcium 9.1 MG/DL (8.5-10.1); Osmolality,Calculated 293.3 MOS/KG (273-304); Potassium 2.8 MMOL/L (3.5-5.1)
[2020-06-19] MEDS: PANTOPRAZOLE 40 MG TABLET PO SCH (12:46)
[2020-06-19] MEDS: DOCUSATE SODIUM 100 MG CAPSULE PO SCH ×2 (12:46→21:20)
[2020-06-19] MEDS ORDERED: POTASSIUM CHLORIDE RIDER 10 MEQ in PREMIX 1 EACH IV PRN (13:00)
[2020-06-19] MEDS ORDERED: POTASSIUM CHLORIDE 20 MEQ TABLET PO PRN (13:00)
[2020-06-19] MEDS: POTASSIUM CHLORIDE 20 MEQ TABLET PO SCH ×2 (15:05→21:18)
[2020-06-19] MEDS: metOLazone 5 MG TABLET PO SCH (15:05)
[2020-06-19] MEDS: FUROSEMIDE 40 MG/4 ML VIAL IV SCH ×2 (15:05→21:15)
[2020-06-19] MEDS: cefTRIAXone 1,000 MG in SODIUM CHLORIDE 0.9% 100 ML IV SCH (15:05)
[2020-06-19] MEDS: METOPROLOL SUCCINATE XL 50 MG TABLET PO SCH (15:05)
[2020-06-19] MEDS: INSULIN REGULAR 100 UNIT/ML SUBCUT SCH (17:40)
[2020-06-19] MEDS: MIDODRINE 5 MG TABLET PO SCH ×2 (17:40→21:16)
[2020-06-19] MEDS ORDERED: EZETIMIBE 10 MG TABLET PO SCH (21:00)
[2020-06-19] MEDS: BENZONATATE 100 MG CAPSULE PO SCH (21:21)
[2020-06-19] MEDS: ENOXAPARIN 30 MG/0.3 ML SYRINGE SUBCUT SCH (21:30)
[2020-06-20] MEDS: INSULIN REGULAR 100 UNIT/ML SUBCUT SCH ×4 (00:02→17:17)
[2020-06-20] MEDS: ALBUTEROL/IPRATROPIUM 3 ML NEB RESP TX SCH ×3 (04:35→13:40)
[2020-06-20 05:28] LABS: Basophils % 0.6 % (0.0-0.8); Eosinophils # 0.1 10*3/uL (0.0-0.87); Eosinophils % 0.9 % (0.00-10.9); Hemoglobin 14.4 GM/DL (14.0-18.0); Immature Granulocytes % 0.4 %; Immature Granulocytes Absolute 0.03 #; Lymphocytes # 1.8 10*3/uL (1.4-4.0); Lymphocytes % 25.5 % (21.2-54.2); Mean Corpuscular HGB Conc 34.3 GM/DL (32-36); Mean Corpuscular Volume 88.6 FL (87-102); Mean Platelet Volume 12.1 FL (9.6-12.0); Monocytes % 11.7 % (1.7-12.7); Neutrophils % 60.9 % (38.7-73.9); Platelet Count 150 T/CUMM (130-400); Red Blood Count 4.74 MC/CUMM (3.8-5.5); Red Cell Distribution Width 15.2 % (9.3-17.3); White Blood Count 6.9 T/CUMM (4-12)
[2020-06-20 06:00] LABS: Albumin 3.1 G/DL (3.4-5.0); Bilirubin,Total 1.7 MG/DL (0.2-1.0); Calcium 8.8 MG/DL (8.5-10.1); Hypochromasia 1+; Microcytosis Slight; Osmolality,Calculated 292.4 MOS/KG (273-304); Potassium 2.6 MMOL/L (3.5-5.1); Target Cells Slight; Total Protein 6.5 G/DL (6.4-8.2)
[2020-06-20 06:01] LABS: Ovalocytes Slight; Platelet Estimate Adequate
[2020-06-20] MEDS ORDERED: POTASSIUM CHLORIDE 20 MEQ TABLET PO ONE ×2 (07:14→14:01)
[2020-06-20] MEDS ORDERED: RIVAROXABAN 20 MG TABLET PO SCH (08:00)
[2020-06-20] MEDS ORDERED: MAGNESIUM SULF RIDER 2 GM/50 ML PREMIX IV ONE (08:10)
[2020-06-20] MEDS ORDERED: SPIRONOLACTONE 25 MG TABLET PO SCH (09:00)
[2020-06-20] MEDS ORDERED: ASPIRIN EC 81 MG TABLET PO SCH (09:00)
[2020-06-20] MEDS: METOPROLOL SUCCINATE XL 50 MG TABLET PO SCH (10:19)
[2020-06-20] MEDS: MIDODRINE 5 MG TABLET PO SCH ×2 (10:19→15:29)
[2020-06-20] MEDS: DOCUSATE SODIUM 100 MG CAPSULE PO SCH (10:19)
[2020-06-20] MEDS: BENZONATATE 100 MG CAPSULE PO SCH ×2 (10:19→15:29)
[2020-06-20] MEDS: PANTOPRAZOLE 40 MG TABLET PO SCH (10:19)
[2020-06-20] MEDS: POTASSIUM CHLORIDE 20 MEQ TABLET PO SCH (10:19)
[2020-06-20] MEDS: metOLazone 5 MG TABLET PO SCH (10:20)
[2020-06-20] MEDS: FUROSEMIDE 40 MG/4 ML VIAL IV SCH (10:20)
[2020-06-20 12:06] VITALS: BP 111/75
[2020-06-20] MEDS: cefTRIAXone 1,000 MG in SODIUM CHLORIDE 0.9% 100 ML IV SCH (15:36)
== END 2020-06-20 18:05 | disposition home health service (06) ==
LOC: N.EDINP 17:47 → N.ED 17:47 → N.EDINP 06-19 09:27 → N.TELEN 06-19 09:45
PROVIDERS: ADMIT Family Medicine; ATTEND Family Medicine

== ENCOUNTER 2021-10-16 10:07 | Inpatient (IN) ==
[2021-10-16 12:29] LABS: Basophils # 0.1 10*3/uL (0.0-0.2); Basophils % 0.7 % (0.0-0.8); Eosinophils # 0.1 10*3/uL (0.0-0.87); Eosinophils % 0.7 % (0.00-10.9); Hematocrit 45.4 VOL% (42.0-52.0); Hemoglobin 14.8 GM/DL (14.0-18.0); Immature Granulocytes % 0.3 %; Immature Granulocytes Absolute 0.02 #; Lymphocytes # 1.3 10*3/uL (1.4-4.0); Lymphocytes % 18.1 % (21.2-54.2); Mean Corpuscular HGB Conc 32.6 GM/DL (32-36); Mean Corpuscular Volume 96.6 FL (87-102); Mean Platelet Volume 12.4 FL (9.6-12.0); Monocytes # 0.6 10*3/uL (0.11-0.8); Monocytes % 8.7 % (1.7-12.7); Neutrophils % 71.5 % (38.7-73.9); Platelet Count 182 T/CUMM (130-400); Red Cell Distribution Width 20.3 % (9.3-17.3); White Blood Count 6.9 T/CUMM (4-12)
[2021-10-16 12:52] LABS: Albumin 3.3 G/DL (3.4-5.0); Bilirubin,Total 3.1 MG/DL (0.20-1.00); Calcium 9.7 MG/DL (8.5-10.1); Potassium 4.7 MMOL/L (3.5-5.1); Total Protein 7.2 G/DL (6.4-8.2)
[2021-10-16] MEDS ORDERED: AZITHROMYCIN INJ 500 MG in SODIUM CHLORIDE 0.9% 250 ML IV STA (14:07)
[2021-10-16] MEDS ORDERED: POTASSIUM CHLORIDE RIDER 10 MEQ/100 ML PREMIX IV PRN (14:35)
[2021-10-16] MEDS ORDERED: MAGNESIUM SULF RIDER 4 GM/100 ML PREMIX IV PRN (14:35)
[2021-10-16] MEDS ORDERED: ACETAMINOPHEN 325 MG TABLET PO PRN (14:35)
[2021-10-16] MEDS ORDERED: ONDANSETRON 4 MG/2 ML VIAL IV PRN (14:35)
[2021-10-16] MEDS ORDERED: MAGNESIUM SULF RIDER 2 GM/50 ML PREMIX IV PRN (14:35)
[2021-10-16] MEDS ORDERED: hydrALAZINE 20 MG/1 ML VIAL IV PRN (14:38)
[2021-10-16] MEDS: ALBUTEROL/IPRATROPIUM 3 ML NEB RESP TX SCH (15:15)
[2021-10-16] MEDS: FUROSEMIDE 40 MG/4 ML VIAL IV SCH (16:20)
[2021-10-16] MEDS: ENOXAPARIN 40 MG/0.4 ML SYRINGE SUBCUT SCH (16:20)
[2021-10-16] MEDS: methylPREDNISolone SOD SUC 40 MG/1 ML VIAL IV SCH (16:20)
[2021-10-16] MEDS: PANTOPRAZOLE 40 MG TABLET PO SCH (16:20)
[2021-10-16 16:41] LABS: Hyaline Casts,Urine 3 /LPF (0-3); RBC,Urine 1 /HPF (0-4); Squamous Epithelial Cell,Urine Occasional /HPF (0-10)
[2021-10-16 16:42] LABS: Bilirubin,Urine Negative (Negative); Blood, Urine Negative (Negative); Glucose,Urine (UA) Negative (Negative); Ketones,Urine Negative (Negative); Nitrite,Urine Negative (Negative); Protein,Urine Negative (Negative); Urine Appearance Clear (Clear); Urine Color Yellow (Yellow); Urine Specific Gravity 1.015 (1.001-1.035); Urine pH 5.5 (4.5-8.0)
[2021-10-16] MEDS: cefTRIAXone 1,000 MG in SODIUM CHLORIDE 0.9% 100 ML IV SCH (17:16)
[2021-10-16] MEDS: DOCUSATE SODIUM 100 MG CAPSULE PO SCH (20:07)
[2021-10-17] MEDS: methylPREDNISolone SOD SUC 40 MG/1 ML VIAL IV SCH ×2 (04:15→16:11)
[2021-10-17 05:28] LABS: Basophils % 0.3 % (0.0-0.8); Hematocrit 43.8 VOL% (42.0-52.0); Hemoglobin 14.6 GM/DL (14.0-18.0); Immature Granulocytes % 0.3 %; Immature Granulocytes Absolute 0.01 #; Lymphocytes # 0.6 10*3/uL (1.4-4.0); Lymphocytes % 15.6 % (21.2-54.2); Mean Corpuscular HGB Conc 33.3 GM/DL (32-36); Mean Corpuscular Volume 95.6 FL (87-102); Mean Platelet Volume 12.3 FL (9.6-12.0); Monocytes # 0.1 10*3/uL (0.11-0.8); Monocytes % 2.8 % (1.7-12.7); Platelet Count 151 T/CUMM (130-400); Red Blood Count 4.58 MC/CUMM (3.8-5.5); Red Cell Distribution Width 20.1 % (9.3-17.3); White Blood Count 3.6 T/CUMM (4-12)
[2021-10-17 05:48] LABS: Albumin 3.1 G/DL (3.4-5.0); Bilirubin,Direct 1.39 MG/DL (0.0-0.20); Bilirubin,Indirect 0.7 MG/DL (0.0-1.0); Bilirubin,Total 2.1 MG/DL (0.20-1.00); Calcium 9.1 MG/DL (8.5-10.1); Osmolality,Calculated 292.7 MOS/KG (273-304); Potassium 4.2 MMOL/L (3.5-5.1); Total Protein 6.9 G/DL (6.4-8.2)
[2021-10-17] MEDS: ALBUTEROL/IPRATROPIUM 3 ML NEB RESP TX SCH ×3 (08:30→19:05)
[2021-10-17] MEDS: SPIRONOLACTONE 25 MG TABLET PO SCH (09:38)
[2021-10-17] MEDS: METOPROLOL SUCCINATE XL 25 MG TABLET PO SCH (09:38)
[2021-10-17] MEDS: FUROSEMIDE 40 MG/4 ML VIAL IV SCH (09:38)
[2021-10-17] MEDS: PANTOPRAZOLE 40 MG TABLET PO SCH (09:38)
[2021-10-17] MEDS: DOCUSATE SODIUM 100 MG CAPSULE PO SCH ×2 (09:38→20:10)
[2021-10-17] MEDS ORDERED: DOBUTamine 500 MG/250 ML PREMIX IV SCH (11:30)
[2021-10-17] MEDS: cefTRIAXone 1,000 MG in SODIUM CHLORIDE 0.9% 100 ML IV SCH (16:11)
[2021-10-17] MEDS: ENOXAPARIN 40 MG/0.4 ML SYRINGE SUBCUT SCH (16:11)
[2021-10-18] MEDS: ALBUTEROL/IPRATROPIUM 3 ML NEB RESP TX SCH ×8 (00:32→23:30)
[2021-10-18 04:21] LABS: Basophils % 0.1 % (0.0-0.8); Hematocrit 41.1 VOL% (42.0-52.0); Hemoglobin 13.5 GM/DL (14.0-18.0); Immature Granulocytes % 0.2 %; Immature Granulocytes Absolute 0.02 #; Lymphocytes # 0.5 10*3/uL (1.4-4.0); Lymphocytes % 4.8 % (21.2-54.2); Mean Corpuscular HGB Conc 32.8 GM/DL (32-36); Mean Corpuscular Volume 95.1 FL (87-102); Mean Platelet Volume 11.9 FL (9.6-12.0); Monocytes # 0.2 10*3/uL (0.11-0.8); Monocytes % 2.3 % (1.7-12.7); Neutrophils % 92.6 % (38.7-73.9); Platelet Count 131 T/CUMM (130-400); Red Blood Count 4.32 MC/CUMM (3.8-5.5); Red Cell Distribution Width 19.9 % (9.3-17.3); White Blood Count 9.5 T/CUMM (4-12)
[2021-10-18 04:45] LABS: Lymphocytes 5 % (20-55); Platelet Estimate Normal; Total Cells Counted 100
[2021-10-18 04:47] LABS: Calcium 8.9 MG/DL (8.5-10.1); Osmolality,Calculated 289.5 MOS/KG (273-304); Potassium 3.8 MMOL/L (3.5-5.1)
[2021-10-18 04:49] LABS: Albumin 2.7 G/DL (3.4-5.0); Bilirubin,Total 1.4 MG/DL (0.20-1.00); Calcium 8.9 MG/DL (8.5-10.1); Osmolality,Calculated 288.7 MOS/KG (273-304); Potassium 3.7 MMOL/L (3.5-5.1); Total Protein 6.2 G/DL (6.4-8.2)
[2021-10-18] MEDS: methylPREDNISolone SOD SUC 40 MG/1 ML VIAL IV SCH ×2 (05:03→15:47)
[2021-10-18] MEDS ORDERED: MAGNESIUM SULF RIDER 2 GM/50 ML PREMIX IV ONE (07:33)
[2021-10-18] MEDS ORDERED: POTASSIUM CHLORIDE 20 MEQ TABLET PO ONE (07:33)
[2021-10-18] MEDS: PANTOPRAZOLE 40 MG TABLET PO SCH (08:48)
[2021-10-18] MEDS: EZETIMIBE 10 MG TABLET PO SCH (08:48)
[2021-10-18] MEDS: ASPIRIN EC 81 MG TABLET PO SCH (08:48)
[2021-10-18] MEDS: SPIRONOLACTONE 25 MG TABLET PO SCH (08:48)
[2021-10-18] MEDS: DOCUSATE SODIUM 100 MG CAPSULE PO SCH ×2 (08:48→21:39)
[2021-10-18] MEDS: FUROSEMIDE 40 MG/4 ML VIAL IV SCH (08:49)
[2021-10-18] MEDS: METOPROLOL SUCCINATE XL 25 MG TABLET PO SCH (08:49)
[2021-10-18] MEDS: DOBUTamine 500 MG/250 ML PREMIX IV SCH ×2 (10:38→20:10)
[2021-10-18 13:22] LABS: Barbiturates Screen,Urine Negative (Negative); Benzodiazepines Screen,Urine Negative (Negative); Cannabinoid Screen,Urine Negative (Negative); Opiate Screen,Urine Negative (Negative); Phencyclidine Screen,Urine Negative (Negative)
[2021-10-18] MEDS ORDERED: GLUCAGON 1 MG VIAL IM PRN (14:02)
[2021-10-18] MEDS ORDERED: DEXTROSE 10% 250 ML BAG IV PRN (14:02)
[2021-10-18] MEDS: cefTRIAXone 1,000 MG in SODIUM CHLORIDE 0.9% 100 ML IV SCH (15:46)
[2021-10-18] MEDS: RIVAROXABAN 20 MG TABLET PO SCH (16:04)
[2021-10-18] MEDS: INSULIN LISPRO 100 UNIT/ML SUBCUT SCH ×2 (16:05→19:59)
[2021-10-19] MEDS: methylPREDNISolone SOD SUC 40 MG/1 ML VIAL IV SCH ×2 (03:51→17:22)
[2021-10-19] MEDS: ALBUTEROL/IPRATROPIUM 3 ML NEB RESP TX SCH ×6 (04:00→23:05)
[2021-10-19 05:41] LABS: Hematocrit 41.2 VOL% (42.0-52.0); Hemoglobin 13.7 GM/DL (14.0-18.0); Immature Granulocytes % 0.6 %; Immature Granulocytes Absolute 0.06 #; Lymphocytes # 0.4 10*3/uL (1.4-4.0); Lymphocytes % 3.6 % (21.2-54.2); Mean Corpuscular HGB Conc 33.3 GM/DL (32-36); Mean Corpuscular Volume 95.2 FL (87-102); Mean Platelet Volume 11.5 FL (9.6-12.0); Monocytes # 0.5 10*3/uL (0.11-0.8); Monocytes % 4.8 % (1.7-12.7); Platelet Count 127 T/CUMM (130-400); Red Blood Count 4.33 MC/CUMM (3.8-5.5); Red Cell Distribution Width 20.2 % (9.3-17.3); White Blood Count 10.8 T/CUMM (4-12)
[2021-10-19 06:01] LABS: Albumin 2.9 G/DL (3.4-5.0); Bilirubin,Total 1.5 MG/DL (0.20-1.00); Calcium 8.9 MG/DL (8.5-10.1); Osmolality,Calculated 282.5 MOS/KG (273-304); Potassium 3.9 MMOL/L (3.5-5.1); Total Protein 6.4 G/DL (6.4-8.2)
[2021-10-19 06:07] LABS: Total Cells Counted 100
[2021-10-19] MEDS: INSULIN LISPRO 100 UNIT/ML SUBCUT SCH ×4 (08:08→21:30)
[2021-10-19] MEDS: PANTOPRAZOLE 40 MG TABLET PO SCH (09:19)
[2021-10-19] MEDS: ASPIRIN EC 81 MG TABLET PO SCH (09:19)
[2021-10-19] MEDS: SPIRONOLACTONE 25 MG TABLET PO SCH (09:19)
[2021-10-19] MEDS: FUROSEMIDE 40 MG/4 ML VIAL IV SCH ×2 (09:19→09:40)
[2021-10-19] MEDS: EZETIMIBE 10 MG TABLET PO SCH (09:19)
[2021-10-19] MEDS: DOCUSATE SODIUM 100 MG CAPSULE PO SCH ×2 (09:19→21:30)
[2021-10-19] MEDS: METOPROLOL SUCCINATE XL 25 MG TABLET PO SCH (09:40)
[2021-10-19] MEDS: DOBUTamine 500 MG/250 ML PREMIX IV SCH (11:46)
[2021-10-19] MEDS: FUROSEMIDE 40 MG TABLET PO SCH (17:22)
[2021-10-19] MEDS: RIVAROXABAN 20 MG TABLET PO SCH (17:22)
[2021-10-19] MEDS: cefTRIAXone 1,000 MG in SODIUM CHLORIDE 0.9% 100 ML IV SCH (17:23)
[2021-10-20] MEDS: ALBUTEROL/IPRATROPIUM 3 ML NEB RESP TX SCH ×5 (03:00→19:30)
[2021-10-20] MEDS: methylPREDNISolone SOD SUC 40 MG/1 ML VIAL IV SCH ×2 (04:51→18:17)
[2021-10-20] MEDS: ASPIRIN EC 81 MG TABLET PO SCH (09:09)
[2021-10-20] MEDS: METOPROLOL SUCCINATE XL 25 MG TABLET PO SCH (09:09)
[2021-10-20] MEDS: FUROSEMIDE 40 MG TABLET PO SCH ×2 (09:09→16:40)
[2021-10-20] MEDS: EZETIMIBE 10 MG TABLET PO SCH (09:09)
[2021-10-20] MEDS: DOCUSATE SODIUM 100 MG CAPSULE PO SCH ×2 (09:09→21:21)
[2021-10-20] MEDS: PANTOPRAZOLE 40 MG TABLET PO SCH (09:09)
[2021-10-20] MEDS: SPIRONOLACTONE 25 MG TABLET PO SCH (09:10)
[2021-10-20] MEDS: INSULIN LISPRO 100 UNIT/ML SUBCUT SCH ×4 (09:14→20:56)
[2021-10-20] MEDS: FUROSEMIDE 40 MG/4 ML VIAL IV SCH (14:49)
[2021-10-20] MEDS: cefTRIAXone 1,000 MG in SODIUM CHLORIDE 0.9% 100 ML IV SCH (15:08)
[2021-10-20] MEDS: RIVAROXABAN 20 MG TABLET PO SCH (17:39)
[2021-10-21] MEDS: ALBUTEROL/IPRATROPIUM 3 ML NEB RESP TX SCH ×3 (01:16→07:20)
[2021-10-21] MEDS: methylPREDNISolone SOD SUC 40 MG/1 ML VIAL IV SCH (03:07)
[2021-10-21 06:22] LABS: Hematocrit 49.4 VOL% (42.0-52.0); Immature Granulocytes % 0.5 %; Immature Granulocytes Absolute 0.05 #; Lymphocytes # 0.6 10*3/uL (1.4-4.0); Lymphocytes % 5.9 % (21.2-54.2); Mean Corpuscular HGB Conc 33.4 GM/DL (32-36); Mean Corpuscular Volume 95.4 FL (87-102); Monocytes # 0.7 10*3/uL (0.11-0.8); Neutrophils % 86.6 % (38.7-73.9); Platelet Count 168 T/CUMM (130-400); Red Blood Count 5.18 MC/CUMM (3.8-5.5); White Blood Count 9.8 T/CUMM (4-12)
[2021-10-21 06:33] LABS: Hemoglobin 16.5 GM/DL (14.0-18.0)
[2021-10-21 06:46] LABS: Calcium 8.8 MG/DL (8.5-10.1); Osmolality,Calculated 285.7 MOS/KG (273-304); Potassium 4.3 MMOL/L (3.5-5.1)
[2021-10-21] MEDS: ASPIRIN EC 81 MG TABLET PO SCH (09:14)
[2021-10-21] MEDS: EZETIMIBE 10 MG TABLET PO SCH (09:14)
[2021-10-21] MEDS: DOCUSATE SODIUM 100 MG CAPSULE PO SCH (09:15)
[2021-10-21] MEDS: METOPROLOL SUCCINATE XL 25 MG TABLET PO SCH (09:15)
[2021-10-21] MEDS: INSULIN LISPRO 100 UNIT/ML SUBCUT SCH ×2 (09:15→12:19)
[2021-10-21] MEDS: SPIRONOLACTONE 25 MG TABLET PO SCH (09:15)
[2021-10-21] MEDS: FUROSEMIDE 40 MG TABLET PO SCH (09:15)
[2021-10-21] MEDS: PANTOPRAZOLE 40 MG TABLET PO SCH (09:15)
[2021-10-21 12:46] VITALS: BP 105/73
== END 2021-10-21 15:07 | disposition home health service (06) | DRG 291 ==
LOC: N.TELEN 10:07 → N.ED 10:07 → N.TELEN 17:03
PROVIDERS: ADMIT Family Medicine; ATTEND Family Medicine

== ENCOUNTER 2021-10-30 11:44 | Inpatient (IN) ==
[2021-10-30 12:20] LABS: Basophils % 0.5 % (0.0-0.8); Eosinophils # 0.1 10*3/uL (0.0-0.87); Eosinophils % 0.9 % (0.00-10.9); Hematocrit 48.8 VOL% (42.0-52.0); Hemoglobin 15.8 GM/DL (14.0-18.0); Immature Granulocytes % 0.3 %; Immature Granulocytes Absolute 0.02 #; Lymphocytes # 1.5 10*3/uL (1.4-4.0); Lymphocytes % 18.3 % (21.2-54.2); Mean Corpuscular HGB Conc 32.4 GM/DL (32-36); Mean Corpuscular Volume 98.4 FL (87-102); Mean Platelet Volume 11.5 FL (9.6-12.0); Monocytes # 0.7 10*3/uL (0.11-0.8); Monocytes % 8.5 % (1.7-12.7); Neutrophils % 71.5 % (38.7-73.9); Platelet Count 143 T/CUMM (130-400); Red Blood Count 4.96 MC/CUMM (3.8-5.5)
[2021-10-30 12:46] LABS: Albumin 3.1 G/DL (3.4-5.0); Bilirubin,Total 2.3 MG/DL (0.20-1.00); Calcium 9.6 MG/DL (8.5-10.1); Osmolality,Calculated 281.5 MOS/KG (273-304); Potassium 3.8 MMOL/L (3.5-5.1); Total Protein 7.1 G/DL (6.4-8.2)
[2021-10-30] MEDS ORDERED: ASPIRIN 325 MG TABLET PO STA (12:46)
[2021-10-30] MEDS ORDERED: ONDANSETRON 4 MG/2 ML VIAL IV PRN (14:26)
[2021-10-30] MEDS ORDERED: ACETAMINOPHEN 325 MG TABLET PO PRN (14:26)
[2021-10-30] MEDS ORDERED: GLUCAGON 1 MG VIAL IM PRN (14:44)
[2021-10-30] MEDS ORDERED: DEXTROSE 10% 250 ML BAG IV PRN (14:44)
[2021-10-30] MEDS ORDERED: POTASSIUM CHLORIDE RIDER 10 MEQ/100 ML PREMIX IV PRN (14:46)
[2021-10-30] MEDS ORDERED: MAGNESIUM SULF RIDER 4 GM/100 ML PREMIX IV PRN (14:46)
[2021-10-30] MEDS ORDERED: MAGNESIUM SULF RIDER 2 GM/50 ML PREMIX IV PRN (14:46)
[2021-10-30] MEDS: INSULIN REGULAR 100 UNIT/ML SUBCUT SCH ×2 (16:49→21:20)
[2021-10-30] MEDS: RIVAROXABAN 20 MG TABLET PO SCH (17:41)
[2021-10-30] MEDS ORDERED: DEXTROSE 50% 25 GM/50 ML VIAL IV PRN (19:30)
[2021-10-30] MEDS ORDERED: DOCUSATE SODIUM 100 MG CAPSULE PO SCH ×2 (21:00)
[2021-10-30] MEDS: FUROSEMIDE 40 MG/4 ML VIAL IV SCH (21:13)
[2021-10-31 06:40] LABS: Basophils % 0.2 % (0.0-0.8); Eosinophils # 0.1 10*3/uL (0.0-0.87); Eosinophils % 0.6 % (0.00-10.9); Hematocrit 43.6 VOL% (42.0-52.0); Hemoglobin 14.5 GM/DL (14.0-18.0); Immature Granulocytes % 0.2 %; Immature Granulocytes Absolute 0.02 #; Lymphocytes # 1.2 10*3/uL (1.4-4.0); Mean Corpuscular HGB Conc 33.3 GM/DL (32-36); Mean Corpuscular Volume 96.2 FL (87-102); Mean Platelet Volume 11.7 FL (9.6-12.0); Monocytes # 0.6 10*3/uL (0.11-0.8); Monocytes % 6.7 % (1.7-12.7); Neutrophils % 79.3 % (38.7-73.9); Platelet Count 130 T/CUMM (130-400); Red Blood Count 4.53 MC/CUMM (3.8-5.5); Red Cell Distribution Width 19.9 % (9.3-17.3); White Blood Count 8.9 T/CUMM (4-12)
[2021-10-31 07:11] LABS: Bilirubin,Direct 2.05 MG/DL (0.0-0.20); Bilirubin,Indirect 1.2 MG/DL (0.0-1.0); Bilirubin,Total 3.2 MG/DL (0.20-1.00); Potassium 3.8 MMOL/L (3.5-5.1); Total Protein 6.3 G/DL (6.4-8.2)
[2021-10-31] MEDS ORDERED: MIDODRINE 5 MG TABLET PO SCH (09:00)
[2021-10-31] MEDS ORDERED: SPIRONOLACTONE 25 MG TABLET PO SCH (09:00)
[2021-10-31] MEDS: INSULIN REGULAR 100 UNIT/ML SUBCUT SCH ×4 (10:07→21:15)
[2021-10-31] MEDS: PANTOPRAZOLE 40 MG TABLET PO SCH (10:24)
[2021-10-31] MEDS: ASPIRIN EC 81 MG TABLET PO SCH (10:24)
[2021-10-31] MEDS: FUROSEMIDE 40 MG/4 ML VIAL IV SCH ×2 (10:24→21:15)
[2021-10-31] MEDS: EZETIMIBE 10 MG TABLET PO SCH (10:25)
[2021-10-31] MEDS: METOPROLOL SUCCINATE XL 25 MG TABLET PO SCH (10:36)
[2021-10-31] MEDS: MIDODRINE 5 MG TABLET PO SCH ×2 (12:50→16:28)
[2021-10-31] MEDS ORDERED: ALBUTEROL/IPRATROPIUM 3 ML NEB RESP TX PRN (13:48)
[2021-10-31] MEDS: RIVAROXABAN 20 MG TABLET PO SCH (16:28)
[2021-10-31] MEDS: SPIRONOLACTONE 25 MG TABLET PO SCH (21:13)
[2021-11-01] MEDS: INSULIN REGULAR 100 UNIT/ML SUBCUT SCH ×4 (07:09→23:19)
[2021-11-01] MEDS: EZETIMIBE 10 MG TABLET PO SCH (08:32)
[2021-11-01] MEDS: ASPIRIN EC 81 MG TABLET PO SCH (08:32)
[2021-11-01] MEDS: SPIRONOLACTONE 25 MG TABLET PO SCH ×2 (08:33→20:57)
[2021-11-01] MEDS: PANTOPRAZOLE 40 MG TABLET PO SCH (08:33)
[2021-11-01] MEDS: MIDODRINE 5 MG TABLET PO SCH ×3 (08:33→16:14)
[2021-11-01] MEDS: METOPROLOL SUCCINATE XL 25 MG TABLET PO SCH (08:35)
[2021-11-01] MEDS: FUROSEMIDE 40 MG/4 ML VIAL IV SCH ×2 (08:35→20:53)
[2021-11-01 10:31] LABS: Albumin 3.2 G/DL (3.4-5.0); Bilirubin,Total 2.9 MG/DL (0.20-1.00); Calcium 9.2 MG/DL (8.5-10.1); Osmolality,Calculated 282.5 MOS/KG (273-304); Potassium 3.9 MMOL/L (3.5-5.1); Total Protein 7.1 G/DL (6.4-8.2)
[2021-11-01] MEDS: RIVAROXABAN 20 MG TABLET PO SCH (16:14)
[2021-11-01 18:32] LABS: Barbiturates Screen,Urine Negative (Negative); Benzodiazepines Screen,Urine Negative (Negative); Cannabinoid Screen,Urine Negative (Negative); Opiate Screen,Urine Negative (Negative); Phencyclidine Screen,Urine Negative (Negative)
[2021-11-02 05:02] LABS: Basophils % 0.5 % (0.0-0.8); Eosinophils # 0.1 10*3/uL (0.0-0.87); Eosinophils % 0.8 % (0.00-10.9); Hematocrit 43.3 VOL% (42.0-52.0); Hemoglobin 14.2 GM/DL (14.0-18.0); Immature Granulocytes % 0.2 %; Immature Granulocytes Absolute 0.02 #; Lymphocytes # 1.3 10*3/uL (1.4-4.0); Lymphocytes % 16.1 % (21.2-54.2); Mean Corpuscular HGB Conc 32.8 GM/DL (32-36); Mean Corpuscular Volume 96.4 FL (87-102); Mean Platelet Volume 12.2 FL (9.6-12.0); Monocytes # 0.6 10*3/uL (0.11-0.8); Monocytes % 7.7 % (1.7-12.7); Neutrophils % 74.7 % (38.7-73.9); Platelet Count 122 T/CUMM (130-400); Red Blood Count 4.49 MC/CUMM (3.8-5.5); Red Cell Distribution Width 19.9 % (9.3-17.3); White Blood Count 8.3 T/CUMM (4-12)
[2021-11-02 05:39] LABS: Albumin 3.1 G/DL (3.4-5.0); Bilirubin,Total 2.3 MG/DL (0.20-1.00); Calcium 8.9 MG/DL (8.5-10.1); Potassium 3.6 MMOL/L (3.5-5.1); Total Protein 6.5 G/DL (6.4-8.2)
[2021-11-02] MEDS: INSULIN REGULAR 100 UNIT/ML SUBCUT SCH ×4 (07:11→21:22)
[2021-11-02] MEDS: ASPIRIN EC 81 MG TABLET PO SCH (08:02)
[2021-11-02] MEDS: SPIRONOLACTONE 25 MG TABLET PO SCH ×2 (08:02→21:19)
[2021-11-02] MEDS: EZETIMIBE 10 MG TABLET PO SCH (08:02)
[2021-11-02] MEDS: PANTOPRAZOLE 40 MG TABLET PO SCH (08:03)
[2021-11-02] MEDS: MIDODRINE 5 MG TABLET PO SCH ×3 (08:03→17:36)
[2021-11-02] MEDS: FUROSEMIDE 40 MG/4 ML VIAL IV SCH ×2 (08:04→21:19)
[2021-11-02] MEDS: METOPROLOL SUCCINATE XL 25 MG TABLET PO SCH (08:04)
[2021-11-02] MEDS: RIVAROXABAN 20 MG TABLET PO SCH (17:36)
[2021-11-03 05:44] LABS: Basophils % 0.4 % (0.0-0.8); Eosinophils # 0.1 10*3/uL (0.0-0.87); Hematocrit 44.3 VOL% (42.0-52.0); Hemoglobin 14.7 GM/DL (14.0-18.0); Immature Granulocytes % 0.3 %; Immature Granulocytes Absolute 0.02 #; Lymphocytes # 1.1 10*3/uL (1.4-4.0); Lymphocytes % 13.9 % (21.2-54.2); Mean Corpuscular HGB Conc 33.2 GM/DL (32-36); Mean Corpuscular Volume 96.7 FL (87-102); Mean Platelet Volume 11.7 FL (9.6-12.0); Monocytes # 0.6 10*3/uL (0.11-0.8); Monocytes % 8.2 % (1.7-12.7); Neutrophils % 76.2 % (38.7-73.9); Platelet Count 127 T/CUMM (130-400); Red Blood Count 4.58 MC/CUMM (3.8-5.5); Red Cell Distribution Width 19.9 % (9.3-17.3); White Blood Count 7.7 T/CUMM (4-12)
[2021-11-03 06:09] LABS: Albumin 3.1 G/DL (3.4-5.0); Bilirubin,Direct 1.35 MG/DL (0.0-0.20); Bilirubin,Indirect 0.7 MG/DL (0.0-1.0); Calcium 8.9 MG/DL (8.5-10.1); Osmolality,Calculated 287.1 MOS/KG (273-304); Potassium 3.3 MMOL/L (3.5-5.1); Total Protein 6.7 G/DL (6.4-8.2)
[2021-11-03 07:08] LABS: Platelet Estimate Adequate
[2021-11-03] MEDS: INSULIN REGULAR 100 UNIT/ML SUBCUT SCH ×4 (07:50→20:37)
[2021-11-03] MEDS ORDERED: metOLazone 5 MG TABLET PO ONE (09:12)
[2021-11-03] MEDS: MIDODRINE 5 MG TABLET PO SCH ×3 (09:45→16:05)
[2021-11-03] MEDS: SPIRONOLACTONE 25 MG TABLET PO SCH ×2 (09:45→20:33)
[2021-11-03] MEDS: METOPROLOL SUCCINATE XL 25 MG TABLET PO SCH (09:45)
[2021-11-03] MEDS: PANTOPRAZOLE 40 MG TABLET PO SCH (09:45)
[2021-11-03] MEDS: ASPIRIN EC 81 MG TABLET PO SCH (09:45)
[2021-11-03] MEDS: EZETIMIBE 10 MG TABLET PO SCH (09:48)
[2021-11-03] MEDS ORDERED: POTASSIUM BICARB EFFERVESCENT 20 MEQ TAB.EFF PO ONE ×2 (10:23→14:00)
[2021-11-03] MEDS: FUROSEMIDE 40 MG/4 ML VIAL IV SCH ×2 (13:11→20:33)
[2021-11-03] MEDS: RIVAROXABAN 20 MG TABLET PO SCH (16:05)
[2021-11-04 05:52] LABS: Calcium 9.5 MG/DL (8.5-10.1); Osmolality,Calculated 279.5 MOS/KG (273-304); Potassium 4.1 MMOL/L (3.5-5.1)
[2021-11-04] MEDS: INSULIN REGULAR 100 UNIT/ML SUBCUT SCH ×4 (07:03→20:04)
[2021-11-04] MEDS: METOPROLOL SUCCINATE XL 25 MG TABLET PO SCH (08:01)
[2021-11-04] MEDS: FUROSEMIDE 40 MG/4 ML VIAL IV SCH ×2 (08:03→20:04)
[2021-11-04] MEDS: MIDODRINE 5 MG TABLET PO SCH ×3 (08:03→16:37)
[2021-11-04] MEDS: ASPIRIN EC 81 MG TABLET PO SCH (08:03)
[2021-11-04] MEDS: SPIRONOLACTONE 25 MG TABLET PO SCH (08:03)
[2021-11-04] MEDS: EZETIMIBE 10 MG TABLET PO SCH (08:04)
[2021-11-04] MEDS: PANTOPRAZOLE 40 MG TABLET PO SCH (08:04)
[2021-11-04] MEDS: RIVAROXABAN 20 MG TABLET PO SCH (16:37)
[2021-11-05] MEDS: INSULIN REGULAR 100 UNIT/ML SUBCUT SCH ×4 (10:08→20:40)
[2021-11-05] MEDS: ASPIRIN EC 81 MG TABLET PO SCH (10:44)
[2021-11-05] MEDS: PANTOPRAZOLE 40 MG TABLET PO SCH (10:44)
[2021-11-05] MEDS: MIDODRINE 5 MG TABLET PO SCH ×3 (10:44→18:02)
[2021-11-05] MEDS: EZETIMIBE 10 MG TABLET PO SCH (10:45)
[2021-11-05] MEDS: FUROSEMIDE 40 MG/4 ML VIAL IV SCH ×2 (10:48→20:43)
[2021-11-05] MEDS: SPIRONOLACTONE 25 MG TABLET PO SCH (11:59)
[2021-11-05] MEDS: LOSARTAN 25 MG TABLET PO SCH (12:00)
[2021-11-05] MEDS: METOPROLOL SUCCINATE XL 25 MG TABLET PO SCH (12:00)
[2021-11-05] MEDS: RIVAROXABAN 20 MG TABLET PO SCH (18:03)
[2021-11-05] MEDS: CEFDINIR 300 MG CAPSULE PO SCH ×2 (22:50)
[2021-11-06 06:16] LABS: Basophils % 0.5 % (0.0-0.8); Eosinophils # 0.1 10*3/uL (0.0-0.87); Eosinophils % 1.4 % (0.00-10.9); Hematocrit 44.6 VOL% (42.0-52.0); Hemoglobin 14.7 GM/DL (14.0-18.0); Immature Granulocytes % 0.2 %; Immature Granulocytes Absolute 0.01 #; Lymphocytes # 1.2 10*3/uL (1.4-4.0); Lymphocytes % 20.8 % (21.2-54.2); Mean Corpuscular Volume 97.2 FL (87-102); Mean Platelet Volume 12.1 FL (9.6-12.0); Monocytes # 0.5 10*3/uL (0.11-0.8); Monocytes % 9.5 % (1.7-12.7); Neutrophils % 67.6 % (38.7-73.9); Platelet Count 128 T/CUMM (130-400); Red Blood Count 4.59 MC/CUMM (3.8-5.5); White Blood Count 5.7 T/CUMM (4-12)
[2021-11-06 06:42] LABS: Calcium 9.9 MG/DL (8.5-10.1); Osmolality,Calculated 279.8 MOS/KG (273-304); Potassium 3.7 MMOL/L (3.5-5.1)
[2021-11-06] MEDS: INSULIN REGULAR 100 UNIT/ML SUBCUT SCH ×2 (07:46→12:46)
[2021-11-06] MEDS: MIDODRINE 5 MG TABLET PO SCH ×2 (09:00→12:53)
[2021-11-06] MEDS: ASPIRIN EC 81 MG TABLET PO SCH (09:00)
[2021-11-06] MEDS: PANTOPRAZOLE 40 MG TABLET PO SCH (09:01)
[2021-11-06] MEDS: SPIRONOLACTONE 25 MG TABLET PO SCH (09:01)
[2021-11-06] MEDS: EZETIMIBE 10 MG TABLET PO SCH (09:01)
[2021-11-06] MEDS: FUROSEMIDE 40 MG/4 ML VIAL IV SCH (09:02)
[2021-11-06] MEDS: METOPROLOL SUCCINATE XL 25 MG TABLET PO SCH (09:20)
[2021-11-06] MEDS: LOSARTAN 25 MG TABLET PO SCH (09:20)
[2021-11-06 11:33] VITALS: BP 92/64
[2021-11-06] MEDS ORDERED: FUROSEMIDE 40 MG TABLET PO SCH (16:00)
[2021-11-07] MEDS ORDERED: SPIRONOLACTONE 25 MG TABLET PO SCH (09:00)
== END 2021-11-06 14:48 | disposition home health service (06) | DRG 291 ==
LOC: N.ED 11:44 → N.EDINP 11:44 → N.5E 23:55
PROVIDERS: ADMIT Family Medicine; ATTEND Family Medicine

== ENCOUNTER 2021-12-02 15:45 | Inpatient (IN) ==
[2021-12-02] MEDS ORDERED: FUROSEMIDE 100 MG/10 ML VIAL IV STA (16:32)
[2021-12-02] MEDS ORDERED: FUROSEMIDE 40 MG/4 ML VIAL IV STA (16:34)
[2021-12-02 16:50] LABS: Basophils % 0.5 % (0.0-0.8); Eosinophils # 0.1 10*3/uL (0.0-0.87); Hematocrit 44.3 VOL% (42.0-52.0); Hemoglobin 14.4 GM/DL (14.0-18.0); Immature Granulocytes % 0.2 %; Immature Granulocytes Absolute 0.01 #; Lymphocytes % 17.1 % (21.2-54.2); Mean Corpuscular HGB Conc 32.5 GM/DL (32-36); Mean Platelet Volume 11.7 FL (9.6-12.0); Monocytes # 0.7 10*3/uL (0.11-0.8); Monocytes % 11.8 % (1.7-12.7); Neutrophils % 69.4 % (38.7-73.9); Platelet Count 160 T/CUMM (130-400); Red Blood Count 4.43 MC/CUMM (3.8-5.5); Red Cell Distribution Width 15.7 % (9.3-17.3)
[2021-12-02] MEDS ORDERED: VANCOMYCIN INJ 1,000 MG in SODIUM CHLORIDE 0.9% 250 ML IV STA ×2 (16:54→16:58)
[2021-12-02] MEDS ORDERED: CEFEPIME 1,000 MG in SODIUM CHLORIDE 0.9% 100 ML IV STA (16:54)
[2021-12-02 17:09] LABS: INR 4.2; PT Patient Result 41.5 SECS (10.1-12.1); Partial Thromboplastin Time 52.1 SECS (23.7-32.9)
[2021-12-02 17:11] LABS: Albumin 3.4 G/DL (3.4-5.0); Bilirubin,Total 2.9 MG/DL (0.20-1.00); Potassium 3.9 MMOL/L (3.5-5.1); Total Protein 6.5 G/DL (6.4-8.2)
[2021-12-02] MEDS ORDERED: ONDANSETRON 4 MG/2 ML VIAL IV PRN (21:41)
[2021-12-02] MEDS ORDERED: MORPHINE 2 MG/1 ML SYRINGE IV PRN (21:41)
[2021-12-02] MEDS ORDERED: ACETAMINOPHEN 325 MG TABLET PO PRN (21:41)
[2021-12-02] MEDS: SODIUM CHLORIDE 0.9% 1,000 ML IV SCH (22:32)
[2021-12-02] MEDS: DOCUSATE SODIUM 100 MG CAPSULE PO SCH (22:32)
[2021-12-02] MEDS: PIPERACILLIN/TAZOBACTAM 3,375 MG in SODIUM CHLORIDE 0.9% 100 ML IV SCH (22:32)
[2021-12-03] MEDS: PIPERACILLIN/TAZOBACTAM 3,375 MG in SODIUM CHLORIDE 0.9% 100 ML IV SCH ×3 (06:16→21:16)
[2021-12-03] MEDS: ALBUTEROL/IPRATROPIUM 3 ML NEB RESP TX SCH ×4 (07:22→19:38)
[2021-12-03 08:09] LABS: Basophils % 0.7 % (0.0-0.8); Eosinophils # 0.1 10*3/uL (0.0-0.87); Eosinophils % 0.9 % (0.00-10.9); Hematocrit 44.9 VOL% (42.0-52.0); Immature Granulocytes % 0.4 %; Immature Granulocytes Absolute 0.02 #; Lymphocytes # 1.4 10*3/uL (1.4-4.0); Lymphocytes % 24.6 % (21.2-54.2); Mean Corpuscular HGB Conc 33.4 GM/DL (32-36); Mean Corpuscular Volume 97.6 FL (87-102); Monocytes # 0.6 10*3/uL (0.11-0.8); Monocytes % 10.8 % (1.7-12.7); Neutrophils % 62.6 % (38.7-73.9); Platelet Count 110 T/CUMM (130-400); Red Cell Distribution Width 15.7 % (9.3-17.3); White Blood Count 5.5 T/CUMM (4-12)
[2021-12-03 08:38] LABS: Albumin 3.6 G/DL (3.4-5.0); Bilirubin,Total 2.7 MG/DL (0.20-1.00); Calcium 9.5 MG/DL (8.5-10.1); Risk Ratio 2.55; Total Protein 6.6 G/DL (6.4-8.2); VLDL Cholesterol 14.2 MG/DL
[2021-12-03] MEDS: PANTOPRAZOLE 40 MG TABLET PO SCH (09:44)
[2021-12-03] MEDS: DOCUSATE SODIUM 100 MG CAPSULE PO SCH ×2 (09:44→21:16)
[2021-12-03] MEDS: FUROSEMIDE 40 MG/4 ML VIAL IV SCH ×2 (09:45→18:30)
[2021-12-03] MEDS: RIVAROXABAN 20 MG TABLET PO SCH (18:29)
[2021-12-03] MEDS: MIDODRINE 5 MG TABLET PO SCH (18:29)
[2021-12-03] MEDS: EZETIMIBE 10 MG TABLET PO SCH (18:29)
[2021-12-03] MEDS: BENZONATATE 100 MG CAPSULE PO PRN (18:35)
[2021-12-03] MEDS: SODIUM CHLORIDE 0.9% 1,000 ML IV SCH (21:47)
[2021-12-04] MEDS: ALBUTEROL/IPRATROPIUM 3 ML NEB RESP TX SCH ×7 (00:31→21:20)
[2021-12-04] MEDS: PIPERACILLIN/TAZOBACTAM 3,375 MG in SODIUM CHLORIDE 0.9% 100 ML IV SCH ×3 (06:09→21:27)
[2021-12-04 06:10] LABS: Basophils % 0.6 % (0.0-0.8); Eosinophils # 0.1 10*3/uL (0.0-0.87); Eosinophils % 1.4 % (0.00-10.9); Hematocrit 42.8 VOL% (42.0-52.0); Hemoglobin 14.1 GM/DL (14.0-18.0); Immature Granulocytes % 0.3 %; Immature Granulocytes Absolute 0.02 #; Lymphocytes # 1.2 10*3/uL (1.4-4.0); Lymphocytes % 18.9 % (21.2-54.2); Mean Corpuscular HGB Conc 32.9 GM/DL (32-36); Mean Corpuscular Volume 98.8 FL (87-102); Mean Platelet Volume 11.7 FL (9.6-12.0); Monocytes # 0.7 10*3/uL (0.11-0.8); Monocytes % 11.4 % (1.7-12.7); Neutrophils % 67.4 % (38.7-73.9); Platelet Count 139 T/CUMM (130-400); Red Blood Count 4.33 MC/CUMM (3.8-5.5); Red Cell Distribution Width 15.6 % (9.3-17.3); White Blood Count 6.4 T/CUMM (4-12)
[2021-12-04 06:29] LABS: Albumin 3.2 G/DL (3.4-5.0); Bilirubin,Total 2.1 MG/DL (0.20-1.00); Osmolality,Calculated 288.1 MOS/KG (273-304); Total Protein 6.4 G/DL (6.4-8.2)
[2021-12-04] MEDS ORDERED: MAGNESIUM SULF RIDER 4 GM/100 ML PREMIX IV PRN (07:56)
[2021-12-04] MEDS ORDERED: POTASSIUM CHLORIDE 20 MEQ TABLET PO PRN (07:56)
[2021-12-04] MEDS ORDERED: MAGNESIUM SULF RIDER 2 GM/50 ML PREMIX IV PRN (07:56)
[2021-12-04] MEDS ORDERED: POTASSIUM CHLORIDE RIDER 10 MEQ/100 ML PREMIX IV PRN (07:56)
[2021-12-04] MEDS: EZETIMIBE 10 MG TABLET PO SCH (09:03)
[2021-12-04] MEDS: ASPIRIN EC 81 MG TABLET PO SCH (09:04)
[2021-12-04] MEDS: METOPROLOL SUCCINATE XL 25 MG TABLET PO SCH ×2 (09:04→09:17)
[2021-12-04] MEDS: PANTOPRAZOLE 40 MG TABLET PO SCH (09:04)
[2021-12-04] MEDS: DOCUSATE SODIUM 100 MG CAPSULE PO SCH ×2 (09:04→21:27)
[2021-12-04] MEDS: MIDODRINE 5 MG TABLET PO SCH ×3 (09:04→20:31)
[2021-12-04] MEDS: SPIRONOLACTONE 25 MG TABLET PO SCH (09:04)
[2021-12-04] MEDS: FUROSEMIDE 40 MG/4 ML VIAL IV SCH ×2 (09:06→16:47)
[2021-12-04] MEDS: BENZONATATE 100 MG CAPSULE PO PRN ×2 (09:08→21:43)
[2021-12-04] MEDS ORDERED: POTASSIUM CHLORIDE 20 MEQ TABLET PO ONE (14:27)
[2021-12-04] MEDS: RIVAROXABAN 20 MG TABLET PO SCH (16:50)
[2021-12-04] MEDS: SODIUM CHLORIDE 0.9% 1,000 ML IV SCH (21:28)
[2021-12-05] MEDS: ALBUTEROL/IPRATROPIUM 3 ML NEB RESP TX SCH ×4 (00:32→10:50)
[2021-12-05] MEDS: PIPERACILLIN/TAZOBACTAM 3,375 MG in SODIUM CHLORIDE 0.9% 100 ML IV SCH ×3 (05:22→21:08)
[2021-12-05 05:37] LABS: Basophils % 0.3 % (0.0-0.8); Eosinophils % 0.5 % (0.00-10.9); Hematocrit 42.9 VOL% (42.0-52.0); Hemoglobin 14.1 GM/DL (14.0-18.0); Immature Granulocytes % 0.3 %; Immature Granulocytes Absolute 0.02 #; Lymphocytes # 0.4 10*3/uL (1.4-4.0); Lymphocytes % 6.2 % (21.2-54.2); Mean Corpuscular HGB Conc 32.9 GM/DL (32-36); Mean Corpuscular Volume 98.4 FL (87-102); Mean Platelet Volume 11.3 FL (9.6-12.0); Monocytes # 0.6 10*3/uL (0.11-0.8); Monocytes % 9.8 % (1.7-12.7); Neutrophils % 82.9 % (38.7-73.9); Platelet Count 128 T/CUMM (130-400); Red Blood Count 4.36 MC/CUMM (3.8-5.5); Red Cell Distribution Width 15.4 % (9.3-17.3); White Blood Count 5.9 T/CUMM (4-12)
[2021-12-05 05:59] LABS: Albumin 3.2 G/DL (3.4-5.0); Bilirubin,Total 3.1 MG/DL (0.20-1.00); Calcium 8.5 MG/DL (8.5-10.1); Osmolality,Calculated 287.8 MOS/KG (273-304); Potassium 3.4 MMOL/L (3.5-5.1); Total Protein 6.4 G/DL (6.4-8.2)
[2021-12-05] MEDS: FUROSEMIDE 40 MG/4 ML VIAL IV SCH ×2 (09:44→16:17)
[2021-12-05] MEDS: EZETIMIBE 10 MG TABLET PO SCH (09:44)
[2021-12-05] MEDS: METOPROLOL SUCCINATE XL 25 MG TABLET PO SCH (09:45)
[2021-12-05] MEDS: ASPIRIN EC 81 MG TABLET PO SCH (09:45)
[2021-12-05] MEDS: DOCUSATE SODIUM 100 MG CAPSULE PO SCH ×2 (09:45→21:07)
[2021-12-05] MEDS: PANTOPRAZOLE 40 MG TABLET PO SCH (09:45)
[2021-12-05] MEDS: SPIRONOLACTONE 25 MG TABLET PO SCH (09:45)
[2021-12-05] MEDS: MIDODRINE 5 MG TABLET PO SCH ×3 (09:53→18:41)
[2021-12-05] MEDS ORDERED: POTASSIUM CHLORIDE 20 MEQ TABLET PO ONE (12:43)
[2021-12-05] MEDS: RIVAROXABAN 20 MG TABLET PO SCH (16:18)
[2021-12-05] MEDS: SODIUM CHLORIDE 0.9% 1,000 ML IV SCH (21:09)
[2021-12-06 05:28] LABS: Basophils % 0.2 % (0.0-0.8); Hematocrit 45.1 VOL% (42.0-52.0); Hemoglobin 14.9 GM/DL (14.0-18.0); Immature Granulocytes % 0.3 %; Immature Granulocytes Absolute 0.02 #; Lymphocytes # 0.6 10*3/uL (1.4-4.0); Lymphocytes % 10.8 % (21.2-54.2); Mean Corpuscular Volume 97.8 FL (87-102); Mean Platelet Volume 11.2 FL (9.6-12.0); Monocytes # 0.7 10*3/uL (0.11-0.8); Monocytes % 11.8 % (1.7-12.7); Neutrophils % 76.9 % (38.7-73.9); Platelet Count 117 T/CUMM (130-400); Red Blood Count 4.61 MC/CUMM (3.8-5.5); Red Cell Distribution Width 15.5 % (9.3-17.3); White Blood Count 5.8 T/CUMM (4-12)
[2021-12-06] MEDS: PIPERACILLIN/TAZOBACTAM 3,375 MG in SODIUM CHLORIDE 0.9% 100 ML IV SCH ×3 (05:38→21:02)
[2021-12-06 05:48] LABS: Albumin 3.1 G/DL (3.4-5.0); Bilirubin,Total 2.6 MG/DL (0.20-1.00); Calcium 9.1 MG/DL (8.5-10.1); Osmolality,Calculated 280.4 MOS/KG (273-304); Platelet Estimate Increased; Potassium 4.1 MMOL/L (3.5-5.1); Total Protein 6.6 G/DL (6.4-8.2)
[2021-12-06] MEDS: SPIRONOLACTONE 25 MG TABLET PO SCH (09:24)
[2021-12-06] MEDS: METOPROLOL SUCCINATE XL 25 MG TABLET PO SCH (09:24)
[2021-12-06] MEDS: EZETIMIBE 10 MG TABLET PO SCH (09:24)
[2021-12-06] MEDS: MIDODRINE 5 MG TABLET PO SCH ×3 (09:24→17:03)
[2021-12-06] MEDS: ASPIRIN EC 81 MG TABLET PO SCH (09:24)
[2021-12-06] MEDS: PANTOPRAZOLE 40 MG TABLET PO SCH (09:24)
[2021-12-06] MEDS: FUROSEMIDE 40 MG/4 ML VIAL IV SCH ×2 (09:25→17:03)
[2021-12-06] MEDS: DOCUSATE SODIUM 100 MG CAPSULE PO SCH ×2 (09:25→20:54)
[2021-12-06] MEDS: BENZONATATE 100 MG CAPSULE PO PRN (09:28)
[2021-12-06] MEDS: RIVAROXABAN 20 MG TABLET PO SCH (17:03)
[2021-12-07] MEDS: PIPERACILLIN/TAZOBACTAM 3,375 MG in SODIUM CHLORIDE 0.9% 100 ML IV SCH ×3 (05:51→22:45)
[2021-12-07 07:20] LABS: Basophils % 0.3 % (0.0-0.8); Hematocrit 46.8 VOL% (42.0-52.0); Hemoglobin 15.4 GM/DL (14.0-18.0); Immature Granulocytes % 0.3 %; Immature Granulocytes Absolute 0.02 #; Lymphocytes # 0.7 10*3/uL (1.4-4.0); Lymphocytes % 11.3 % (21.2-54.2); Mean Corpuscular HGB Conc 32.9 GM/DL (32-36); Mean Corpuscular Volume 97.9 FL (87-102); Mean Platelet Volume 11.1 FL (9.6-12.0); Monocytes # 0.7 10*3/uL (0.11-0.8); Monocytes % 11.4 % (1.7-12.7); Neutrophils % 76.7 % (38.7-73.9); Platelet Count 113 T/CUMM (130-400); Red Blood Count 4.78 MC/CUMM (3.8-5.5); Red Cell Distribution Width 15.4 % (9.3-17.3)
[2021-12-07 07:36] LABS: Bilirubin,Total 2.2 MG/DL (0.20-1.00); Calcium 9.2 MG/DL (8.5-10.1); Osmolality,Calculated 277.7 MOS/KG (273-304); Potassium 4.1 MMOL/L (3.5-5.1); Total Protein 6.3 G/DL (6.4-8.2)
[2021-12-07] MEDS ORDERED: DEXTROSE 10% 250 ML BAG IV PRN (08:26)
[2021-12-07] MEDS ORDERED: GLUCAGON 1 MG VIAL IM PRN (08:26)
[2021-12-07] MEDS: MIDODRINE 5 MG TABLET PO SCH ×3 (09:38→16:18)
[2021-12-07] MEDS: ASPIRIN EC 81 MG TABLET PO SCH (09:38)
[2021-12-07] MEDS: EZETIMIBE 10 MG TABLET PO SCH (09:38)
[2021-12-07] MEDS: PANTOPRAZOLE 40 MG TABLET PO SCH (09:38)
[2021-12-07] MEDS: DOCUSATE SODIUM 100 MG CAPSULE PO SCH ×2 (09:39→21:30)
[2021-12-07] MEDS: SPIRONOLACTONE 25 MG TABLET PO SCH (09:39)
[2021-12-07] MEDS: FUROSEMIDE 40 MG/4 ML VIAL IV SCH ×2 (09:42→16:18)
[2021-12-07] MEDS: METOPROLOL SUCCINATE XL 25 MG TABLET PO SCH (10:07)
[2021-12-07] MEDS: RIVAROXABAN 20 MG TABLET PO SCH (16:18)
[2021-12-07] MEDS: SODIUM CHLORIDE 0.9% 1,000 ML IV SCH ×2 (18:15→18:17)
[2021-12-08] MEDS: PIPERACILLIN/TAZOBACTAM 3,375 MG in SODIUM CHLORIDE 0.9% 100 ML IV SCH ×3 (06:15→21:52)
[2021-12-08] MEDS: SPIRONOLACTONE 25 MG TABLET PO SCH (08:42)
[2021-12-08] MEDS: PANTOPRAZOLE 40 MG TABLET PO SCH (08:42)
[2021-12-08] MEDS: EZETIMIBE 10 MG TABLET PO SCH (08:42)
[2021-12-08] MEDS: ASPIRIN EC 81 MG TABLET PO SCH (08:42)
[2021-12-08] MEDS: MIDODRINE 5 MG TABLET PO SCH ×3 (08:42→16:28)
[2021-12-08] MEDS: FUROSEMIDE 40 MG/4 ML VIAL IV SCH ×2 (08:43→15:12)
[2021-12-08] MEDS: DOCUSATE SODIUM 100 MG CAPSULE PO SCH ×2 (08:44→21:51)
[2021-12-08] MEDS: METOPROLOL SUCCINATE XL 25 MG TABLET PO SCH (08:53)
[2021-12-08 10:17] LABS: Basophils % 0.5 % (0.0-0.8); Hematocrit 48.2 VOL% (42.0-52.0); Hemoglobin 16.2 GM/DL (14.0-18.0); Immature Granulocytes % 0.3 %; Immature Granulocytes Absolute 0.02 #; Lymphocytes # 0.8 10*3/uL (1.4-4.0); Lymphocytes % 13.9 % (21.2-54.2); Mean Corpuscular HGB Conc 33.6 GM/DL (32-36); Mean Corpuscular Volume 95.4 FL (87-102); Monocytes # 0.7 10*3/uL (0.11-0.8); Monocytes % 11.1 % (1.7-12.7); Neutrophils % 74.2 % (38.7-73.9); Platelet Count 121 T/CUMM (130-400); Red Blood Count 5.05 MC/CUMM (3.8-5.5); Red Cell Distribution Width 15.2 % (9.3-17.3); White Blood Count 5.9 T/CUMM (4-12)
[2021-12-08 10:39] LABS: Albumin 3.1 G/DL (3.4-5.0); Bilirubin,Total 2.3 MG/DL (0.20-1.00); Calcium 8.6 MG/DL (8.5-10.1); Potassium 3.9 MMOL/L (3.5-5.1); Total Protein 6.9 G/DL (6.4-8.2)
[2021-12-08] MEDS: RIVAROXABAN 20 MG TABLET PO SCH (16:28)
[2021-12-09] MEDS: BENZONATATE 100 MG CAPSULE PO PRN ×2 (00:28→09:02)
[2021-12-09] MEDS: SODIUM CHLORIDE 0.9% 1,000 ML IV SCH (03:41)
[2021-12-09] MEDS ORDERED: SODIUM CHLORIDE 0.9% 100 ML IV ONE (05:41)
[2021-12-09 06:30] LABS: Basophils % 0.6 % (0.0-0.8); Eosinophils % 0.2 % (0.00-10.9); Hematocrit 44.2 VOL% (42.0-52.0); Immature Granulocytes % 0.4 %; Immature Granulocytes Absolute 0.02 #; Lymphocytes # 0.9 10*3/uL (1.4-4.0); Mean Corpuscular HGB Conc 33.9 GM/DL (32-36); Mean Corpuscular Volume 95.7 FL (87-102); Mean Platelet Volume 11.2 FL (9.6-12.0); Monocytes # 0.5 10*3/uL (0.11-0.8); Monocytes % 9.4 % (1.7-12.7); Neutrophils % 72.4 % (38.7-73.9); Platelet Count 106 T/CUMM (130-400); Red Blood Count 4.62 MC/CUMM (3.8-5.5); Red Cell Distribution Width 15.1 % (9.3-17.3)
[2021-12-09 06:51] LABS: Albumin 2.7 G/DL (3.4-5.0); Bilirubin,Total 2.1 MG/DL (0.20-1.00); Calcium 8.3 MG/DL (8.5-10.1); Osmolality,Calculated 282.7 MOS/KG (273-304); Potassium 3.5 MMOL/L (3.5-5.1); Total Protein 6.2 G/DL (6.4-8.2)
[2021-12-09] MEDS: PIPERACILLIN/TAZOBACTAM 3,375 MG in SODIUM CHLORIDE 0.9% 100 ML IV SCH ×3 (08:27→23:21)
[2021-12-09] MEDS: MIDODRINE 5 MG TABLET PO SCH ×3 (08:55→16:28)
[2021-12-09] MEDS: SPIRONOLACTONE 25 MG TABLET PO SCH (08:55)
[2021-12-09] MEDS: DOCUSATE SODIUM 100 MG CAPSULE PO SCH ×2 (08:55→23:20)
[2021-12-09] MEDS: PANTOPRAZOLE 40 MG TABLET PO SCH (08:55)
[2021-12-09] MEDS: ASPIRIN EC 81 MG TABLET PO SCH (08:55)
[2021-12-09] MEDS: EZETIMIBE 10 MG TABLET PO SCH (08:56)
[2021-12-09] MEDS: FUROSEMIDE 40 MG/4 ML VIAL IV SCH (08:59)
[2021-12-09] MEDS: METOPROLOL SUCCINATE XL 25 MG TABLET PO SCH (09:58)
[2021-12-09] MEDS: FUROSEMIDE 40 MG TABLET PO SCH (16:28)
[2021-12-09] MEDS: RIVAROXABAN 20 MG TABLET PO SCH (16:28)
[2021-12-10] MEDS: PIPERACILLIN/TAZOBACTAM 3,375 MG in SODIUM CHLORIDE 0.9% 100 ML IV SCH (08:55)
[2021-12-10] MEDS: MIDODRINE 5 MG TABLET PO SCH ×2 (08:56→14:12)
[2021-12-10] MEDS: EZETIMIBE 10 MG TABLET PO SCH (08:56)
[2021-12-10] MEDS: SPIRONOLACTONE 25 MG TABLET PO SCH (08:56)
[2021-12-10] MEDS: ASPIRIN EC 81 MG TABLET PO SCH (08:56)
[2021-12-10] MEDS: METOPROLOL SUCCINATE XL 25 MG TABLET PO SCH (08:57)
[2021-12-10] MEDS: PANTOPRAZOLE 40 MG TABLET PO SCH (08:57)
[2021-12-10] MEDS: FUROSEMIDE 40 MG TABLET PO SCH (08:57)
[2021-12-10] MEDS: DOCUSATE SODIUM 100 MG CAPSULE PO SCH (08:57)
[2021-12-10 12:34] VITALS: BP 105/71
[2021-12-10] MEDS: SODIUM CHLORIDE 0.9% 1,000 ML IV SCH (14:31)
== END 2021-12-10 15:13 | disposition home health service (06) | DRG 193 ==
LOC: N.ED 15:45 → N.EDINP 18:37 → N.TELEN 21:57
PROVIDERS: ADMIT Family Medicine; ATTEND Family Medicine

== ENCOUNTER 2021-12-17 13:34 | Inpatient (IN) ==
[2021-12-17] MEDS ORDERED: MAGNESIUM SULF RIDER 4 GM/100 ML PREMIX IV PRN (14:41)
[2021-12-17] MEDS ORDERED: MAGNESIUM SULF RIDER 2 GM/50 ML PREMIX IV PRN (14:41)
[2021-12-17] MEDS ORDERED: ACETAMINOPHEN 325 MG TABLET PO PRN (14:41)
[2021-12-17] MEDS ORDERED: ONDANSETRON 4 MG/2 ML VIAL IV PRN (14:41)
[2021-12-17] MEDS ORDERED: ALBUTEROL 2.5 MG/3 ML NEB RESP TX PRN (14:46)
[2021-12-17] MEDS ORDERED: BENZONATATE 100 MG CAPSULE PO PRN (14:46)
[2021-12-17] MEDS: ALBUTEROL/IPRATROPIUM 3 ML NEB RESP TX SCH ×2 (15:00→20:18)
[2021-12-17] MEDS ORDERED: INFLUENZA VIRUS VACCINE 0.5 ML SYRINGE IM ONE (15:12)
[2021-12-17 15:35] LABS: Basophils % 0.3 % (0.0-0.8); Eosinophils % 0.4 % (0.00-10.9); Hematocrit 44.2 VOL% (42.0-52.0); Hemoglobin 14.9 GM/DL (14.0-18.0); Immature Granulocytes % 0.4 %; Immature Granulocytes Absolute 0.03 #; Lymphocytes # 1.6 10*3/uL (1.4-4.0); Lymphocytes % 23.5 % (21.2-54.2); Mean Corpuscular HGB Conc 33.7 GM/DL (32-36); Mean Corpuscular Volume 93.4 FL (87-102); Mean Platelet Volume 11.3 FL (9.6-12.0); Monocytes # 0.8 10*3/uL (0.11-0.8); Monocytes % 11.5 % (1.7-12.7); Neutrophils % 63.9 % (38.7-73.9); Platelet Count 189 T/CUMM (130-400); Red Blood Count 4.73 MC/CUMM (3.8-5.5); Red Cell Distribution Width 15.4 % (9.3-17.3); White Blood Count 6.7 T/CUMM (4-12)
[2021-12-17 15:55] LABS: Albumin 3.2 G/DL (3.4-5.0); Bilirubin,Total 2.4 MG/DL (0.20-1.00); Calcium 9.3 MG/DL (8.5-10.1); Osmolality,Calculated 286.4 MOS/KG (273-304); Potassium 3.6 MMOL/L (3.5-5.1); Total Protein 7.2 G/DL (6.4-8.2)
[2021-12-17] MEDS: PANTOPRAZOLE 40 MG TABLET PO SCH (16:39)
[2021-12-17] MEDS: MIDODRINE 5 MG TABLET PO SCH (17:37)
[2021-12-17] MEDS: RIVAROXABAN 20 MG TABLET PO SCH (17:37)
[2021-12-17] MEDS: DOCUSATE SODIUM 100 MG CAPSULE PO SCH (20:52)
[2021-12-17] MEDS ORDERED: FUROSEMIDE 40 MG TABLET PO ONE (21:30)
[2021-12-18] MEDS: FUROSEMIDE 40 MG/4 ML VIAL IV SCH ×3 (00:53→20:54)
[2021-12-18] MEDS: ALBUTEROL/IPRATROPIUM 3 ML NEB RESP TX SCH ×6 (04:11→23:24)
[2021-12-18 05:00] LABS: Basophils % 0.5 % (0.0-0.8); Eosinophils % 0.5 % (0.00-10.9); Hematocrit 46.3 VOL% (42.0-52.0); Hemoglobin 15.7 GM/DL (14.0-18.0); Immature Granulocytes % 0.2 %; Immature Granulocytes Absolute 0.01 #; Lymphocytes # 1.8 10*3/uL (1.4-4.0); Lymphocytes % 31.8 % (21.2-54.2); Mean Corpuscular HGB Conc 33.9 GM/DL (32-36); Mean Corpuscular Volume 92.6 FL (87-102); Mean Platelet Volume 11.6 FL (9.6-12.0); Monocytes # 0.6 10*3/uL (0.11-0.8); Monocytes % 10.6 % (1.7-12.7); Neutrophils % 56.4 % (38.7-73.9); Platelet Count 165 T/CUMM (130-400); Red Cell Distribution Width 15.3 % (9.3-17.3); White Blood Count 5.8 T/CUMM (4-12)
[2021-12-18 05:42] LABS: Bilirubin,Total 2.9 MG/DL (0.20-1.00); Calcium 9.3 MG/DL (8.5-10.1); Osmolality,Calculated 284.4 MOS/KG (273-304); Potassium 3.7 MMOL/L (3.5-5.1); Total Protein 6.7 G/DL (6.4-8.2)
[2021-12-18] MEDS ORDERED: FUROSEMIDE 40 MG TABLET PO SCH (08:00)
[2021-12-18] MEDS: MIDODRINE 5 MG TABLET PO SCH ×3 (08:15→17:14)
[2021-12-18] MEDS: SPIRONOLACTONE 25 MG TABLET PO SCH (08:15)
[2021-12-18] MEDS: ASPIRIN EC 81 MG TABLET PO SCH (08:15)
[2021-12-18] MEDS: EZETIMIBE 10 MG TABLET PO SCH (08:15)
[2021-12-18] MEDS: DOCUSATE SODIUM 100 MG CAPSULE PO SCH ×2 (08:16→20:55)
[2021-12-18] MEDS: METOPROLOL SUCCINATE XL 25 MG TABLET PO SCH (08:16)
[2021-12-18] MEDS: PANTOPRAZOLE 40 MG TABLET PO SCH (08:16)
[2021-12-18] MEDS: RIVAROXABAN 20 MG TABLET PO SCH (17:30)
[2021-12-18 19:28] LABS: Bilirubin,Urine Negative (Negative); Blood, Urine Negative (Negative); Calcium Oxalate Crystals,Urine Occasional /HPF (Few); Glucose,Urine (UA) Negative (Negative); Hyaline Casts,Urine 28 /LPF (0-3); Ketones,Urine Negative (Negative); Mucus,Urine Moderate /LPF (Occasional); Nitrite,Urine Negative (Negative); Protein,Urine 30 mg/dL (Negative); RBC,Urine 1 /HPF (0-4); Squamous Epithelial Cell,Urine Occasional /HPF (0-10); Urine Appearance Slightly Hazy (Clear); Urine Color Yellow (Yellow); Urine Urobilinogen < 2.0 eU/dL (<2.0)
[2021-12-18 22:41] LABS: Barbiturates Screen,Urine Negative (Negative); Benzodiazepines Screen,Urine Negative (Negative); Cannabinoid Screen,Urine Negative (Negative); Opiate Screen,Urine Negative (Negative); Phencyclidine Screen,Urine Negative (Negative)
[2021-12-19] MEDS: ALBUTEROL/IPRATROPIUM 3 ML NEB RESP TX SCH (03:10)
[2021-12-19] MEDS: FUROSEMIDE 40 MG/4 ML VIAL IV SCH ×2 (08:12→20:00)
[2021-12-19] MEDS: MIDODRINE 5 MG TABLET PO SCH ×3 (08:12→16:23)
[2021-12-19] MEDS: EZETIMIBE 10 MG TABLET PO SCH (08:12)
[2021-12-19] MEDS: METOPROLOL SUCCINATE XL 25 MG TABLET PO SCH (08:12)
[2021-12-19] MEDS: PANTOPRAZOLE 40 MG TABLET PO SCH (08:13)
[2021-12-19] MEDS: SPIRONOLACTONE 25 MG TABLET PO SCH (08:13)
[2021-12-19] MEDS: DOCUSATE SODIUM 100 MG CAPSULE PO SCH ×2 (08:13→20:00)
[2021-12-19] MEDS: ASPIRIN EC 81 MG TABLET PO SCH (08:14)
[2021-12-19 09:03] LABS: Osmolality,Calculated 292.1 MOS/KG (273-304); Potassium 3.8 MMOL/L (3.5-5.1)
[2021-12-19] MEDS: DOBUTamine 500 MG/250 ML PREMIX IV SCH (09:30)
[2021-12-19] MEDS: RIVAROXABAN 20 MG TABLET PO SCH (16:23)
[2021-12-19] MEDS: POTASSIUM CHLORIDE 20 MEQ TABLET PO PRN (16:24)
[2021-12-20 06:23] LABS: Basophils % 0.5 % (0.0-0.8); Eosinophils % 0.6 % (0.00-10.9); Hematocrit 43.5 VOL% (42.0-52.0); Hemoglobin 14.6 GM/DL (14.0-18.0); Immature Granulocytes % 0.3 %; Immature Granulocytes Absolute 0.02 #; Lymphocytes # 1.3 10*3/uL (1.4-4.0); Lymphocytes % 20.8 % (21.2-54.2); Mean Corpuscular HGB Conc 33.6 GM/DL (32-36); Mean Corpuscular Volume 92.8 FL (87-102); Mean Platelet Volume 11.7 FL (9.6-12.0); Monocytes # 0.5 10*3/uL (0.11-0.8); Monocytes % 8.4 % (1.7-12.7); Neutrophils % 69.4 % (38.7-73.9); Platelet Count 155 T/CUMM (130-400); Red Blood Count 4.69 MC/CUMM (3.8-5.5); Red Cell Distribution Width 15.4 % (9.3-17.3); White Blood Count 6.2 T/CUMM (4-12)
[2021-12-20 06:44] LABS: Calcium 9.1 MG/DL (8.5-10.1); Osmolality,Calculated 293.8 MOS/KG (273-304); Potassium 3.4 MMOL/L (3.5-5.1)
[2021-12-20] MEDS: DOBUTamine 500 MG/250 ML PREMIX IV SCH ×2 (07:42→16:05)
[2021-12-20] MEDS: FUROSEMIDE 40 MG/4 ML VIAL IV SCH ×2 (08:24→20:31)
[2021-12-20] MEDS: DOCUSATE SODIUM 100 MG CAPSULE PO SCH ×2 (08:27→20:31)
[2021-12-20] MEDS: SPIRONOLACTONE 25 MG TABLET PO SCH (08:27)
[2021-12-20] MEDS: ASPIRIN EC 81 MG TABLET PO SCH (08:27)
[2021-12-20] MEDS: METOPROLOL SUCCINATE XL 25 MG TABLET PO SCH (08:28)
[2021-12-20] MEDS: EZETIMIBE 10 MG TABLET PO SCH (08:28)
[2021-12-20] MEDS: PANTOPRAZOLE 40 MG TABLET PO SCH (08:28)
[2021-12-20] MEDS: MIDODRINE 5 MG TABLET PO SCH ×3 (08:28→16:02)
[2021-12-20] MEDS: POTASSIUM CHLORIDE 20 MEQ TABLET PO PRN ×3 (13:56→18:16)
[2021-12-20] MEDS: RIVAROXABAN 20 MG TABLET PO SCH (16:02)
[2021-12-21] MEDS: POTASSIUM CHLORIDE 20 MEQ TABLET PO PRN ×2 (01:21→03:29)
[2021-12-21 04:37] LABS: Basophils % 0.3 % (0.0-0.8); Eosinophils # 0.1 10*3/uL (0.0-0.87); Eosinophils % 0.8 % (0.00-10.9); Hematocrit 44.7 VOL% (42.0-52.0); Hemoglobin 14.7 GM/DL (14.0-18.0); Immature Granulocytes % 0.2 %; Immature Granulocytes Absolute 0.01 #; Lymphocytes # 1.3 10*3/uL (1.4-4.0); Lymphocytes % 20.2 % (21.2-54.2); Mean Corpuscular HGB Conc 32.9 GM/DL (32-36); Mean Corpuscular Volume 94.5 FL (87-102); Mean Platelet Volume 12.2 FL (9.6-12.0); Monocytes # 0.5 10*3/uL (0.11-0.8); Monocytes % 7.5 % (1.7-12.7); Platelet Count 133 T/CUMM (130-400); Red Blood Count 4.73 MC/CUMM (3.8-5.5); Red Cell Distribution Width 15.6 % (9.3-17.3); White Blood Count 6.3 T/CUMM (4-12)
[2021-12-21 06:52] LABS: Calcium 9.2 MG/DL (8.5-10.1)
[2021-12-21 07:00] LABS: Osmolality,Calculated 288.1 MOS/KG (273-304)
[2021-12-21] MEDS: DOBUTamine 500 MG/250 ML PREMIX IV SCH ×2 (07:13→16:00)
[2021-12-21] MEDS: ASPIRIN EC 81 MG TABLET PO SCH (08:14)
[2021-12-21] MEDS: PANTOPRAZOLE 40 MG TABLET PO SCH (08:14)
[2021-12-21] MEDS: FUROSEMIDE 40 MG/4 ML VIAL IV SCH ×3 (08:14→22:19)
[2021-12-21] MEDS: DOCUSATE SODIUM 100 MG CAPSULE PO SCH ×2 (08:15→21:38)
[2021-12-21] MEDS: SPIRONOLACTONE 25 MG TABLET PO SCH (08:15)
[2021-12-21] MEDS: METOPROLOL SUCCINATE XL 25 MG TABLET PO SCH (08:15)
[2021-12-21] MEDS: EZETIMIBE 10 MG TABLET PO SCH ×2 (08:15)
[2021-12-21] MEDS: MIDODRINE 5 MG TABLET PO SCH ×3 (08:15→16:01)
[2021-12-21] MEDS ORDERED: METOPROLOL SUCCINATE XL 25 MG TABLET PO ONE (10:30)
[2021-12-21] MEDS: RIVAROXABAN 20 MG TABLET PO SCH (16:01)
[2021-12-21 20:54] LABS: Arterial Base Excess iSTAT -6 MMOL/L (-2.5-2.5); Arterial Bicarbonate iSTAT 19.7 MMOL/L (20-26); Arterial O2 Saturation iSTAT 98 % (95-100); Arterial PCO2 iSTAT 37 MM HG (35-48); Arterial PO2 iSTAT 112 MM HG (80-95); Arterial Total CO2 iSTAT 21 MMO/L (23-27); Arterial pH iSTAT 7.332 (7.35-7.45)
[2021-12-21 21:03] VITALS: BP 100/65
[2021-12-22 03:58] LABS: Basophils % 0.6 % (0.0-0.8); Eosinophils % 0.3 % (0.00-10.9); Hematocrit 43.5 VOL% (42.0-52.0); Hemoglobin 14.5 GM/DL (14.0-18.0); Immature Granulocytes % 0.3 %; Immature Granulocytes Absolute 0.02 #; Lymphocytes # 1.2 10*3/uL (1.4-4.0); Lymphocytes % 17.1 % (21.2-54.2); Mean Corpuscular HGB Conc 33.3 GM/DL (32-36); Mean Corpuscular Volume 94.2 FL (87-102); Mean Platelet Volume 11.9 FL (9.6-12.0); Monocytes # 0.5 10*3/uL (0.11-0.8); Monocytes % 7.7 % (1.7-12.7); Platelet Count 148 T/CUMM (130-400); Red Blood Count 4.62 MC/CUMM (3.8-5.5); Red Cell Distribution Width 15.6 % (9.3-17.3); White Blood Count 6.7 T/CUMM (4-12)
[2021-12-22 04:15] LABS: Calcium 9.2 MG/DL (8.5-10.1); Osmolality,Calculated 290.8 MOS/KG (273-304); Potassium 4.7 MMOL/L (3.5-5.1)
[2021-12-22] MEDS: DOBUTamine 500 MG/250 ML PREMIX IV SCH ×2 (06:28→16:52)
[2021-12-22] MEDS: EZETIMIBE 10 MG TABLET PO SCH (09:19)
[2021-12-22] MEDS: METOPROLOL SUCCINATE XL 50 MG TABLET PO SCH (09:19)
[2021-12-22] MEDS: MIDODRINE 5 MG TABLET PO SCH ×3 (09:19→16:49)
[2021-12-22] MEDS: PANTOPRAZOLE 40 MG TABLET PO SCH (09:19)
[2021-12-22] MEDS: ASPIRIN EC 81 MG TABLET PO SCH (09:19)
[2021-12-22] MEDS: DOCUSATE SODIUM 100 MG CAPSULE PO SCH ×2 (09:19→20:01)
[2021-12-22] MEDS: SPIRONOLACTONE 25 MG TABLET PO SCH (09:20)
[2021-12-22] MEDS: FUROSEMIDE 40 MG/4 ML VIAL IV SCH ×2 (09:28→20:31)
[2021-12-22] MEDS: RIVAROXABAN 20 MG TABLET PO SCH (16:49)
[2021-12-23 03:22] LABS: Basophils % 0.7 % (0.0-0.8); Eosinophils % 0.3 % (0.00-10.9); Hematocrit 41.6 VOL% (42.0-52.0); Immature Granulocytes % 0.5 %; Immature Granulocytes Absolute 0.03 #; Lymphocytes # 1.4 10*3/uL (1.4-4.0); Lymphocytes % 22.9 % (21.2-54.2); Mean Corpuscular HGB Conc 33.7 GM/DL (32-36); Mean Corpuscular Volume 93.1 FL (87-102); Mean Platelet Volume 12.3 FL (9.6-12.0); Monocytes # 0.5 10*3/uL (0.11-0.8); Monocytes % 8.7 % (1.7-12.7); Neutrophils % 66.9 % (38.7-73.9); Platelet Count 154 T/CUMM (130-400); Red Blood Count 4.47 MC/CUMM (3.8-5.5); Red Cell Distribution Width 15.6 % (9.3-17.3)
[2021-12-23 03:38] LABS: Albumin 2.9 G/DL (3.4-5.0); Bilirubin,Total 2.4 MG/DL (0.20-1.00); Calcium 8.9 MG/DL (8.5-10.1); Osmolality,Calculated 293.8 MOS/KG (273-304); Potassium 3.8 MMOL/L (3.5-5.1); Total Protein 6.5 G/DL (6.4-8.2)
[2021-12-23] MEDS: POTASSIUM CHLORIDE RIDER 10 MEQ/100 ML PREMIX IV PRN ×2 (03:46→04:39)
[2021-12-23] MEDS: DOBUTamine 500 MG/250 ML PREMIX IV SCH ×2 (05:57→18:30)
[2021-12-23] MEDS: ASPIRIN EC 81 MG TABLET PO SCH (08:28)
[2021-12-23] MEDS: FUROSEMIDE 40 MG/4 ML VIAL IV SCH ×2 (08:28→20:47)
[2021-12-23] MEDS: PANTOPRAZOLE 40 MG TABLET PO SCH (08:28)
[2021-12-23] MEDS: METOPROLOL SUCCINATE XL 50 MG TABLET PO SCH (08:28)
[2021-12-23] MEDS: EZETIMIBE 10 MG TABLET PO SCH (08:28)
[2021-12-23] MEDS: DOCUSATE SODIUM 100 MG CAPSULE PO SCH ×2 (08:28→20:39)
[2021-12-23] MEDS: MIDODRINE 5 MG TABLET PO SCH ×3 (08:28→16:17)
[2021-12-23] MEDS: SPIRONOLACTONE 25 MG TABLET PO SCH (08:29)
[2021-12-23] MEDS: RIVAROXABAN 20 MG TABLET PO SCH (16:17)
[2021-12-24 04:04] LABS: Basophils % 0.4 % (0.0-0.8); Eosinophils % 0.1 % (0.00-10.9); Hematocrit 46.4 VOL% (42.0-52.0); Hemoglobin 15.4 GM/DL (14.0-18.0); Immature Granulocytes % 0.3 %; Immature Granulocytes Absolute 0.02 #; Lymphocytes # 1.2 10*3/uL (1.4-4.0); Mean Corpuscular HGB Conc 33.2 GM/DL (32-36); Mean Corpuscular Volume 93.9 FL (87-102); Mean Platelet Volume 12.2 FL (9.6-12.0); Monocytes # 0.7 10*3/uL (0.11-0.8); Monocytes % 9.8 % (1.7-12.7); Neutrophils % 71.4 % (38.7-73.9); Platelet Count 158 T/CUMM (130-400); Red Blood Count 4.94 MC/CUMM (3.8-5.5); Red Cell Distribution Width 15.8 % (9.3-17.3); White Blood Count 6.7 T/CUMM (4-12)
[2021-12-24 04:23] LABS: Albumin 3.4 G/DL (3.4-5.0); Bilirubin,Total 3.9 MG/DL (0.20-1.00); Calcium 9.8 MG/DL (8.5-10.1); Osmolality,Calculated 285.4 MOS/KG (273-304); Total Protein 7.3 G/DL (6.4-8.2)
[2021-12-24] MEDS: DOBUTamine 500 MG/250 ML PREMIX IV SCH (07:32)
[2021-12-24] MEDS: EZETIMIBE 10 MG TABLET PO SCH (08:14)
[2021-12-24] MEDS: FUROSEMIDE 40 MG/4 ML VIAL IV SCH (08:14)
[2021-12-24] MEDS: SPIRONOLACTONE 25 MG TABLET PO SCH (08:15)
[2021-12-24] MEDS: DOCUSATE SODIUM 100 MG CAPSULE PO SCH ×2 (08:15→20:19)
[2021-12-24] MEDS: METOPROLOL SUCCINATE XL 50 MG TABLET PO SCH (08:15)
[2021-12-24] MEDS: MIDODRINE 5 MG TABLET PO SCH ×3 (08:15→16:32)
[2021-12-24] MEDS: PANTOPRAZOLE 40 MG TABLET PO SCH (08:15)
[2021-12-24] MEDS: ASPIRIN EC 81 MG TABLET PO SCH (08:15)
[2021-12-24 13:50] LABS: Hepatitis B Core IgM Quant 0.05 Index; Hepatitis B Surface Ag Quant < 0.10 Index; Hepatitis B Surface Ag Result Non-Reactive (NonReactive); Hepatitis C Virus Ab Quant 2.82 Index
[2021-12-24] MEDS ORDERED: FUROSEMIDE 40 MG TABLET PO SCH (16:00)
[2021-12-24] MEDS: RIVAROXABAN 20 MG TABLET PO SCH (17:39)
[2021-12-24] MEDS: traMADol 50 MG TABLET PO PRN (17:39)
[2021-12-25 03:41] LABS: Basophils % 0.6 % (0.0-0.8); Eosinophils % 0.4 % (0.00-10.9); Hematocrit 48.1 VOL% (42.0-52.0); Hemoglobin 15.6 GM/DL (14.0-18.0); Immature Granulocytes % 0.4 %; Immature Granulocytes Absolute 0.03 #; Lymphocytes # 1.8 10*3/uL (1.4-4.0); Lymphocytes % 25.1 % (21.2-54.2); Mean Corpuscular HGB Conc 32.4 GM/DL (32-36); Mean Corpuscular Volume 94.7 FL (87-102); Mean Platelet Volume 12.1 FL (9.6-12.0); Monocytes # 0.8 10*3/uL (0.11-0.8); Monocytes % 11.8 % (1.7-12.7); Neutrophils % 61.7 % (38.7-73.9); Platelet Count 175 T/CUMM (130-400); Red Blood Count 5.08 MC/CUMM (3.8-5.5); Red Cell Distribution Width 15.9 % (9.3-17.3)
[2021-12-25 04:14] LABS: Calcium 9.7 MG/DL (8.5-10.1); Osmolality,Calculated 287.4 MOS/KG (273-304)
[2021-12-25] MEDS ORDERED: ALBUTEROL/IPRATROPIUM 3 ML NEB RESP TX ONE (08:19)
[2021-12-25] MEDS: methylPREDNISolone SOD SUC 40 MG/1 ML VIAL IV SCH ×2 (08:43→20:44)
[2021-12-25] MEDS: MIDODRINE 5 MG TABLET PO SCH ×3 (08:44→17:30)
[2021-12-25] MEDS: ASPIRIN EC 81 MG TABLET PO SCH (08:44)
[2021-12-25] MEDS: EZETIMIBE 10 MG TABLET PO SCH (08:44)
[2021-12-25] MEDS: DOCUSATE SODIUM 100 MG CAPSULE PO SCH ×2 (08:44→20:44)
[2021-12-25] MEDS: PANTOPRAZOLE 40 MG TABLET PO SCH (08:44)
[2021-12-25] MEDS: FUROSEMIDE 40 MG TABLET PO SCH ×2 (08:45→20:44)
[2021-12-25] MEDS: traMADol 50 MG TABLET PO PRN (09:00)
[2021-12-25] MEDS ORDERED: DOBUTamine 500 MG/250 ML PREMIX IV PRN (09:23)
[2021-12-25] MEDS: PIPERACILLIN/TAZOBACTAM 3,375 MG in SODIUM CHLORIDE 0.9% 100 ML IV SCH ×2 (11:00→17:31)
[2021-12-25] MEDS: ALBUTEROL/IPRATROPIUM 3 ML NEB RESP TX SCH ×4 (11:10→23:00)
[2021-12-25 11:29] LABS: Bilirubin,Urine Moderate mg/dL (Negative); Blood, Urine Large mg/dL (Negative); Glucose,Urine (UA) Negative (Negative); Ketones,Urine Negative (Negative); Nitrite,Urine Negative (Negative); Protein,Urine 100 mg/dL (Negative); Urine Appearance Slightly Hazy (Clear); Urine Color Amber (Yellow); Urine Specific Gravity > 1.030 (1.001-1.035); Urine pH 5.5 (4.5-8.0)
[2021-12-25 11:30] LABS: Bacteria,Urine Few /HPF (Few)
[2021-12-25 16:54] LABS: Glucose,Pleural Fluid 161 MG/DL; LDH,Body Fluid 92 U/L; Total Protein,Body Fluid 2.5 G/DL
[2021-12-25 17:09] LABS: Lymphocytes,Pleural Fluid 26 %; Monocytes,Pleural Fluid 7 %; Neutrophils,Pleural Fluid 67 %
[2021-12-25 17:11] LABS: RBC,Pleural Fluid 202 T/CUMM
[2021-12-25] MEDS: RIVAROXABAN 20 MG TABLET PO SCH (17:30)
[2021-12-26] MEDS: PIPERACILLIN/TAZOBACTAM 3,375 MG in SODIUM CHLORIDE 0.9% 100 ML IV SCH ×2 (03:22→09:33)
[2021-12-26] MEDS: ALBUTEROL/IPRATROPIUM 3 ML NEB RESP TX SCH ×3 (04:00→11:17)
[2021-12-26 05:00] LABS: Basophils % 0.2 % (0.0-0.8); Hematocrit 43.5 VOL% (42.0-52.0); Hemoglobin 14.5 GM/DL (14.0-18.0); Immature Granulocytes % 0.4 %; Immature Granulocytes Absolute 0.02 #; Lymphocytes # 0.4 10*3/uL (1.4-4.0); Lymphocytes % 7.2 % (21.2-54.2); Mean Corpuscular HGB Conc 33.3 GM/DL (32-36); Mean Corpuscular Volume 94.4 FL (87-102); Mean Platelet Volume 12.4 FL (9.6-12.0); Monocytes # 0.2 10*3/uL (0.11-0.8); Monocytes % 3.9 % (1.7-12.7); Neutrophils % 88.3 % (38.7-73.9); Platelet Count 131 T/CUMM (130-400); Red Blood Count 4.61 MC/CUMM (3.8-5.5); Red Cell Distribution Width 16.2 % (9.3-17.3); White Blood Count 5.6 T/CUMM (4-12)
[2021-12-26 05:15] LABS: Calcium 9.1 MG/DL (8.5-10.1); Osmolality,Calculated 287.8 MOS/KG (273-304); Potassium 4.9 MMOL/L (3.5-5.1)
[2021-12-26] MEDS: methylPREDNISolone SOD SUC 40 MG/1 ML VIAL IV SCH (07:24)
[2021-12-26] MEDS ORDERED: FUROSEMIDE 40 MG/4 ML VIAL IV ONE (08:54)
[2021-12-26] MEDS: MIDODRINE 5 MG TABLET PO SCH ×2 (09:13→13:58)
[2021-12-26] MEDS: ASPIRIN EC 81 MG TABLET PO SCH (09:13)
[2021-12-26] MEDS: FUROSEMIDE 40 MG TABLET PO SCH (09:13)
[2021-12-26] MEDS: EZETIMIBE 10 MG TABLET PO SCH (09:13)
[2021-12-26] MEDS: DOCUSATE SODIUM 100 MG CAPSULE PO SCH (09:13)
[2021-12-26] MEDS: PANTOPRAZOLE 40 MG TABLET PO SCH (09:13)
== END 2021-12-26 16:38 | DRG 291 ==
LOC: N.2W → N.CC 12-19 09:17
PROVIDERS: ADMIT Family Medicine; ATTEND Family Medicine

== ENCOUNTER 2022-03-11 10:15 | Inpatient (IN) ==
[2022-03-11] MEDS ORDERED: FUROSEMIDE 100 MG/10 ML VIAL IV STA (10:22)
[2022-03-11 11:54] LABS: Alanine Aminotransferase < 9 U/L (16-61); Albumin 3.6 G/DL (3.4-5.0); Alkaline Phosphatase 134 U/L (45-117); Aspartate Amino Transferase 14 U/L (0-37); Blood Urea Nitrogen 78 MG/DL (7-18); Calcium 9.9 MG/DL (8.5-10.1); Carbon Dioxide 17 MMOL/L (21-32); Chloride 104 MMOL/L (98-107); Glucose 150 MG/DL (74-106); Potassium 4.6 MMOL/L (3.5-5.1); Sodium 136 MMOL/L (136-145); Total Protein 7.9 G/DL (6.4-8.2)
[2022-03-11 12:25] LABS: Basophils % 0.1 % (0.0-0.8); Eosinophils % 0.2 % (0.00-10.9); Hematocrit 44.8 VOL% (42.0-52.0); Immature Granulocytes % 0.4 %; Immature Granulocytes Absolute 0.04 #; Lymphocytes # 0.7 10*3/uL (1.4-4.0); Lymphocytes % 8.1 % (21.2-54.2); Mean Corpuscular HGB Conc 33.5 GM/DL (32-36); Mean Corpuscular Volume 88.9 FL (87-102); Mean Platelet Volume 11.6 FL (9.6-12.0); Monocytes # 0.8 10*3/uL (0.11-0.8); Monocytes % 9.2 % (1.7-12.7); NRBC # 0.02 10*3/uL; Platelet Count 95 T/CUMM (130-400); Red Blood Count 5.04 MC/CUMM (3.8-5.5); Red Cell Distribution Width 19.9 % (9.3-17.3); White Blood Count 8.9 T/CUMM (4-12)
[2022-03-11 12:43] LABS: INR 1.8
[2022-03-11 12:49] LABS: Anisocytosis 1+; Burr Cells Few; Macrocytosis 1+; Platelet Estimate Decreased
[2022-03-11] MEDS ORDERED: ASPIRIN EC 81 MG TABLET PO STA (14:46)
[2022-03-11] MEDS: DOBUTamine 500 MG/250 ML PREMIX IV SCH (15:39)
[2022-03-11] MEDS: FUROSEMIDE 40 MG/4 ML VIAL IV SCH (15:40)
[2022-03-11] MEDS ORDERED: DIGOXIN 0.125 MG TABLET PO SCH (15:47)
[2022-03-11] MEDS ORDERED: DIGOXIN 0.5 MG/2 ML AMP IV STA (15:47)
[2022-03-11] MEDS ORDERED: ACETAMINOPHEN 325 MG TABLET PO PRN (15:47)
[2022-03-11] MEDS ORDERED: SODIUM CHLORIDE 0.9% 1,000 ML IV SCH (15:47)
[2022-03-11] MEDS ORDERED: ONDANSETRON 4 MG/2 ML VIAL IV PRN (15:47)
[2022-03-11] MEDS ORDERED: APIXABAN 5 MG TABLET PO ONE (16:23)
[2022-03-11] MEDS ORDERED: DEXTROSE 10% 250 ML BAG IV PRN (16:49)
[2022-03-11] MEDS ORDERED: GLUCAGON 1 MG VIAL IM PRN (16:49)
[2022-03-11] MEDS: MIDODRINE 5 MG TABLET PO SCH (16:54)
[2022-03-11] MEDS: PIPERACILLIN/TAZOBACTAM 3,375 MG in SODIUM CHLORIDE 0.9% 100 ML IV SCH (17:49)
[2022-03-11 17:59] LABS: Bacteria,Urine Occasional /HPF (Few); Hyaline Casts,Urine 14 /LPF (0-3); Mucus,Urine Occasional /LPF (Occasional); RBC,Urine 34 /HPF (0-4); Squamous Epithelial Cell,Urine Occasional /HPF (0-10); Urine Appearance Clear (Clear); Urine Color Yellow (Yellow)
[2022-03-11 18:00] LABS: Bilirubin,Urine Negative (Negative); Blood, Urine Large mg/dL (Negative); Glucose,Urine (UA) Negative (Negative); Ketones,Urine Negative (Negative); Nitrite,Urine Negative (Negative); Protein,Urine Negative (Negative); Urine Urobilinogen 0.2 eU/dL (<2.0)
[2022-03-11 18:33] LABS: Barbiturates Screen,Urine Negative (Negative); Benzodiazepines Screen,Urine Negative (Negative); Cannabinoid Screen,Urine Negative (Negative); Opiate Screen,Urine Negative (Negative); Phencyclidine Screen,Urine Negative (Negative)
[2022-03-11] MEDS: INSULIN LISPRO 100 UNIT/ML SUBCUT SCH (20:33)
[2022-03-11] MEDS: DOCUSATE SODIUM 100 MG CAPSULE PO SCH (20:33)
[2022-03-11] MEDS: OSELTAMIVIR 30 MG CAPSULE PO SCH (20:33)
[2022-03-11] MEDS ORDERED: APIXABAN 5 MG TABLET PO SCH (21:00)
[2022-03-11] MEDS ORDERED: OSELTAMIVIR 30 MG CAPSULE PO SCH (21:00)
[2022-03-12 01:09] LABS: Basophils % 0.1 % (0.0-0.8); Eosinophils % 0.1 % (0.00-10.9); Hemoglobin 13.8 GM/DL (14.0-18.0); Immature Granulocytes % 0.4 %; Immature Granulocytes Absolute 0.03 #; Lymphocytes # 0.4 10*3/uL (1.4-4.0); Lymphocytes % 5.6 % (21.2-54.2); Mean Corpuscular HGB Conc 32.1 GM/DL (32-36); Mean Corpuscular Volume 93.3 FL (87-102); Mean Platelet Volume 10.8 FL (9.6-12.0); Monocytes # 0.8 10*3/uL (0.11-0.8); Neutrophils % 83.8 % (38.7-73.9); Platelet Count 64 T/CUMM (130-400); Red Blood Count 4.61 MC/CUMM (3.8-5.5); White Blood Count 7.8 T/CUMM (4-12)
[2022-03-12 01:13] LABS: Potassium 4.2 MMOL/L (3.5-5.1)
[2022-03-12] MEDS: PIPERACILLIN/TAZOBACTAM 3,375 MG in SODIUM CHLORIDE 0.9% 100 ML IV SCH (02:05)
[2022-03-12] MEDS ORDERED: SODIUM BICARBONATE 50 MEQ/50 ML VIAL IV ONE (08:41)
[2022-03-12] MEDS: INSULIN LISPRO 100 UNIT/ML SUBCUT SCH ×3 (09:56→21:42)
[2022-03-12] MEDS: FUROSEMIDE 40 MG/4 ML VIAL IV SCH ×3 (09:57→21:50)
[2022-03-12] MEDS: ASPIRIN CHEW 81 MG TABLET PO SCH (09:58)
[2022-03-12] MEDS: SODIUM BICARBONATE 650 MG TABLET PO SCH ×2 (09:58→21:37)
[2022-03-12] MEDS: MIDODRINE 5 MG TABLET PO SCH ×3 (09:59→18:30)
[2022-03-12] MEDS: APIXABAN 5 MG TABLET PO SCH ×2 (10:00→21:35)
[2022-03-12] MEDS: DOCUSATE SODIUM 100 MG CAPSULE PO SCH ×2 (10:00→21:34)
[2022-03-12] MEDS: PANTOPRAZOLE 40 MG TABLET PO SCH (10:00)
[2022-03-12] MEDS: EZETIMIBE 10 MG TABLET PO SCH (10:00)
[2022-03-12] MEDS: OSELTAMIVIR 30 MG CAPSULE PO SCH ×2 (10:01→21:35)
[2022-03-12] MEDS: DOBUTamine 500 MG/250 ML PREMIX IV SCH (15:10)
[2022-03-13 05:07] LABS: Eosinophils # 0.1 10*3/uL (0.0-0.87); Eosinophils % 1.1 % (0.00-10.9); Hematocrit 40.1 VOL% (42.0-52.0); Hemoglobin 13.6 GM/DL (14.0-18.0); Immature Granulocytes % 0.5 %; Immature Granulocytes Absolute 0.04 #; Lymphocytes # 0.3 10*3/uL (1.4-4.0); Lymphocytes % 3.5 % (21.2-54.2); Mean Corpuscular HGB Conc 33.9 GM/DL (32-36); Mean Corpuscular Volume 86.2 FL (87-102); Mean Platelet Volume 10.2 FL (9.6-12.0); Monocytes # 0.6 10*3/uL (0.11-0.8); Monocytes % 7.2 % (1.7-12.7); Neutrophils % 87.7 % (38.7-73.9); Platelet Count 76 T/CUMM (130-400); Red Blood Count 4.65 MC/CUMM (3.8-5.5); Red Cell Distribution Width 19.8 % (9.3-17.3); White Blood Count 7.9 T/CUMM (4-12)
[2022-03-13 05:26] LABS: Calcium 8.3 MG/DL (8.5-10.1); Osmolality,Calculated 297.4 MOS/KG (273-304); Potassium 3.8 MMOL/L (3.5-5.1)
[2022-03-13 05:30] LABS: Band Neutrophils 2 % (0-10); Eosinophils 1 % (0-10); Lymphocytes 3 % (20-55); Total Cells Counted 100
[2022-03-13 05:31] LABS: Anisocytosis 1+; Hypochromia Slight; Microcytosis 1+; Polychromasia Slight; Target Cells Slight
[2022-03-13 05:32] LABS: Burr Cells Slight; Ovalocytes Slight; Platelet Estimate Decreased
[2022-03-13] MEDS ORDERED: DIGOXIN 0.5 MG/2 ML AMP IV SCH (09:00)
[2022-03-13] MEDS: INSULIN LISPRO 100 UNIT/ML SUBCUT SCH ×4 (09:49→21:04)
[2022-03-13] MEDS: METOPROLOL TARTRATE 25 MG TABLET PO SCH ×2 (10:03→21:35)
[2022-03-13] MEDS: DOCUSATE SODIUM 100 MG CAPSULE PO SCH ×2 (10:04→21:03)
[2022-03-13] MEDS: OSELTAMIVIR 30 MG CAPSULE PO SCH ×2 (10:05→21:04)
[2022-03-13] MEDS: SODIUM BICARBONATE 650 MG TABLET PO SCH ×2 (10:06→21:04)
[2022-03-13] MEDS: EZETIMIBE 10 MG TABLET PO SCH (10:06)
[2022-03-13] MEDS: MIDODRINE 5 MG TABLET PO SCH ×3 (10:06→16:50)
[2022-03-13] MEDS: PANTOPRAZOLE 40 MG TABLET PO SCH (10:07)
[2022-03-13] MEDS: DAPAGLIFLOZIN 10 MG TABLET PO SCH (10:07)
[2022-03-13] MEDS: ASPIRIN CHEW 81 MG TABLET PO SCH (10:07)
[2022-03-13] MEDS: FUROSEMIDE 40 MG/4 ML VIAL IV SCH ×2 (11:02→21:05)
[2022-03-13] MEDS: APIXABAN 5 MG TABLET PO SCH ×2 (11:02→21:04)
[2022-03-13] MEDS ORDERED: DIGOXIN 0.125 MG TABLET PO SCH (13:00)
[2022-03-13] MEDS: DOBUTamine 500 MG/250 ML PREMIX IV SCH (14:41)
[2022-03-14] MEDS: DOBUTamine 500 MG/250 ML PREMIX IV SCH ×2 (01:15→14:00)
[2022-03-14 05:47] LABS: Basophils % 0.1 % (0.0-0.8); Eosinophils % 0.2 % (0.00-10.9); Hematocrit 41.3 VOL% (42.0-52.0); Hemoglobin 14.2 GM/DL (14.0-18.0); Immature Granulocytes % 0.5 %; Immature Granulocytes Absolute 0.04 #; Lymphocytes # 0.4 10*3/uL (1.4-4.0); Lymphocytes % 4.3 % (21.2-54.2); Mean Corpuscular HGB Conc 34.4 GM/DL (32-36); Mean Corpuscular Volume 85.9 FL (87-102); Mean Platelet Volume 11.2 FL (9.6-12.0); Monocytes # 0.5 10*3/uL (0.11-0.8); Monocytes % 6.3 % (1.7-12.7); Neutrophils % 88.6 % (38.7-73.9); Platelet Count 76 T/CUMM (130-400); Red Blood Count 4.81 MC/CUMM (3.8-5.5); Red Cell Distribution Width 19.7 % (9.3-17.3); White Blood Count 8.2 T/CUMM (4-12)
[2022-03-14 06:16] LABS: Anisocytosis 1+; Band Neutrophils 7 % (0-10); Burr Cells 1+; Lymphocytes 3 % (20-55); Macrocytosis Slight; Platelet Estimate Decreased; Total Cells Counted 100
[2022-03-14 06:17] LABS: Target Cells Few
[2022-03-14 07:02] LABS: Calcium 8.4 MG/DL (8.5-10.1); Osmolality,Calculated 290.5 MOS/KG (273-304)
[2022-03-14] MEDS: INSULIN LISPRO 100 UNIT/ML SUBCUT SCH ×4 (07:17→20:52)
[2022-03-14] MEDS: OSELTAMIVIR 30 MG CAPSULE PO SCH ×2 (08:17→20:54)
[2022-03-14] MEDS: APIXABAN 5 MG TABLET PO SCH ×2 (08:17→20:54)
[2022-03-14] MEDS: ASPIRIN CHEW 81 MG TABLET PO SCH (08:17)
[2022-03-14] MEDS: DAPAGLIFLOZIN 10 MG TABLET PO SCH (08:17)
[2022-03-14] MEDS: DOCUSATE SODIUM 100 MG CAPSULE PO SCH ×2 (08:18→21:06)
[2022-03-14] MEDS: SODIUM BICARBONATE 650 MG TABLET PO SCH ×2 (08:18→20:52)
[2022-03-14] MEDS: MIDODRINE 5 MG TABLET PO SCH ×3 (08:18→17:09)
[2022-03-14] MEDS: FUROSEMIDE 40 MG/4 ML VIAL IV SCH ×2 (08:18→15:44)
[2022-03-14] MEDS: METOPROLOL TARTRATE 25 MG TABLET PO SCH ×2 (08:18→20:53)
[2022-03-14] MEDS: EZETIMIBE 10 MG TABLET PO SCH (08:18)
[2022-03-14] MEDS: PANTOPRAZOLE 40 MG TABLET PO SCH (08:18)
[2022-03-14] MEDS ORDERED: MAGNESIUM SULF RIDER 2 GM/50 ML PREMIX IV PRN (09:55)
[2022-03-14] MEDS: POTASSIUM CHLORIDE 20 MEQ TABLET PO PRN ×4 (10:07→15:38)
[2022-03-14] MEDS: DIGOXIN 0.125 MG TABLET PO SCH (12:28)
[2022-03-15 05:04] LABS: Basophils % 0.2 % (0.0-0.8); Eosinophils % 0.2 % (0.00-10.9); Hemoglobin 14.4 GM/DL (14.0-18.0); Immature Granulocytes % 0.5 %; Immature Granulocytes Absolute 0.05 #; Lymphocytes # 0.4 10*3/uL (1.4-4.0); Lymphocytes % 3.6 % (21.2-54.2); Mean Corpuscular HGB Conc 33.5 GM/DL (32-36); Mean Corpuscular Volume 87.9 FL (87-102); Mean Platelet Volume 11.4 FL (9.6-12.0); Monocytes # 0.8 10*3/uL (0.11-0.8); Monocytes % 7.1 % (1.7-12.7); Neutrophils % 88.4 % (38.7-73.9); Platelet Count 73 T/CUMM (130-400); Red Blood Count 4.89 MC/CUMM (3.8-5.5); Red Cell Distribution Width 19.8 % (9.3-17.3)
[2022-03-15 05:29] LABS: Calcium 8.4 MG/DL (8.5-10.1); Osmolality,Calculated 278.8 MOS/KG (273-304); Potassium 3.4 MMOL/L (3.5-5.1)
[2022-03-15 05:44] LABS: Alanine Aminotransferase < 9 U/L (16-61); Albumin 1.9 G/DL (3.4-5.0); Alkaline Phosphatase 115 U/L (45-117); Aspartate Amino Transferase 20 U/L (0-37); Bilirubin,Indirect 1.4 MG/DL (0.0-1.0); Total Protein 5.9 G/DL (6.4-8.2)
[2022-03-15 05:50] LABS: Anisocytosis 2+; Band Neutrophils 13 % (0-10); Burr Cells 2+; Lymphocytes 8 % (20-55); Macrocytosis 1+; Platelet Estimate Decreased; Target Cells Few; Total Cells Counted 100
[2022-03-15] MEDS: INSULIN LISPRO 100 UNIT/ML SUBCUT SCH ×4 (08:44→20:30)
[2022-03-15] MEDS: EZETIMIBE 10 MG TABLET PO SCH (10:06)
[2022-03-15] MEDS: OSELTAMIVIR 30 MG CAPSULE PO SCH ×2 (10:06→20:04)
[2022-03-15] MEDS: SODIUM BICARBONATE 650 MG TABLET PO SCH ×2 (10:07→20:05)
[2022-03-15] MEDS: DAPAGLIFLOZIN 10 MG TABLET PO SCH (10:08)
[2022-03-15] MEDS: ASPIRIN CHEW 81 MG TABLET PO SCH (10:08)
[2022-03-15] MEDS: DOCUSATE SODIUM 100 MG CAPSULE PO SCH ×2 (10:09→20:05)
[2022-03-15] MEDS: METOPROLOL TARTRATE 25 MG TABLET PO SCH ×2 (10:09→20:05)
[2022-03-15] MEDS: MIDODRINE 5 MG TABLET PO SCH ×3 (10:11→17:04)
[2022-03-15] MEDS: APIXABAN 5 MG TABLET PO SCH ×2 (10:11→20:04)
[2022-03-15] MEDS: PANTOPRAZOLE 40 MG TABLET PO SCH (10:11)
[2022-03-15] MEDS: FUROSEMIDE 40 MG/4 ML VIAL IV SCH ×2 (10:15→20:38)
[2022-03-15] MEDS: DIGOXIN 0.125 MG TABLET PO SCH (16:09)
[2022-03-15] MEDS: DOBUTamine 500 MG/250 ML PREMIX IV SCH (20:03)
[2022-03-16 04:48] LABS: Basophils % 0.2 % (0.0-0.8); Eosinophils # 0.1 10*3/uL (0.0-0.87); Eosinophils % 1.2 % (0.00-10.9); Hematocrit 39.1 VOL% (42.0-52.0); Hemoglobin 13.3 GM/DL (14.0-18.0); Immature Granulocytes % 0.4 %; Immature Granulocytes Absolute 0.04 #; Lymphocytes # 0.5 10*3/uL (1.4-4.0); Lymphocytes % 5.6 % (21.2-54.2); Mean Corpuscular Volume 86.1 FL (87-102); Mean Platelet Volume 11.8 FL (9.6-12.0); Monocytes # 0.6 10*3/uL (0.11-0.8); Monocytes % 6.6 % (1.7-12.7); Red Blood Count 4.54 MC/CUMM (3.8-5.5); Red Cell Distribution Width 19.4 % (9.3-17.3); White Blood Count 9.4 T/CUMM (4-12)
[2022-03-16 04:56] LABS: Platelet Count 83 T/CUMM (130-400)
[2022-03-16 05:02] LABS: Calcium 8.2 MG/DL (8.5-10.1); Osmolality,Calculated 284.5 MOS/KG (273-304); Potassium 2.9 MMOL/L (3.5-5.1)
[2022-03-16 05:16] LABS: Platelet Estimate Decreased
[2022-03-16] MEDS: POTASSIUM CHLORIDE 20 MEQ TABLET PO PRN ×4 (06:58→17:26)
[2022-03-16] MEDS: FUROSEMIDE 40 MG/4 ML VIAL IV SCH ×2 (09:32→16:30)
[2022-03-16] MEDS: ASPIRIN CHEW 81 MG TABLET PO SCH (09:32)
[2022-03-16] MEDS: APIXABAN 5 MG TABLET PO SCH ×2 (09:32→20:10)
[2022-03-16] MEDS: DOCUSATE SODIUM 100 MG CAPSULE PO SCH ×2 (09:32→20:10)
[2022-03-16] MEDS: METOPROLOL TARTRATE 25 MG TABLET PO SCH ×2 (09:33→20:10)
[2022-03-16] MEDS: PANTOPRAZOLE 40 MG TABLET PO SCH (09:33)
[2022-03-16] MEDS: MIDODRINE 5 MG TABLET PO SCH ×3 (09:33→17:25)
[2022-03-16] MEDS: SODIUM BICARBONATE 650 MG TABLET PO SCH ×2 (09:33→20:10)
[2022-03-16] MEDS: DAPAGLIFLOZIN 10 MG TABLET PO SCH (09:33)
[2022-03-16] MEDS: EZETIMIBE 10 MG TABLET PO SCH (09:34)
[2022-03-16] MEDS: OSELTAMIVIR 30 MG CAPSULE PO SCH ×2 (09:34→20:10)
[2022-03-16] MEDS ORDERED: MAGNESIUM SULF RIDER 4 GM/100 ML PREMIX IV ONE (13:00)
[2022-03-16] MEDS: SPIRONOLACTONE 25 MG TABLET PO SCH (13:25)
[2022-03-16] MEDS: DIGOXIN 0.125 MG TABLET PO SCH (13:25)
[2022-03-16] MEDS: INSULIN LISPRO 100 UNIT/ML SUBCUT SCH ×3 (13:31→20:10)
[2022-03-17 04:42] LABS: Basophils % 0.2 % (0.0-0.8); Eosinophils # 0.1 10*3/uL (0.0-0.87); Eosinophils % 0.5 % (0.00-10.9); Hematocrit 33.4 VOL% (42.0-52.0); Hemoglobin 11.1 GM/DL (14.0-18.0); Immature Granulocytes % 0.8 %; Immature Granulocytes Absolute 0.09 #; Lymphocytes # 0.7 10*3/uL (1.4-4.0); Mean Corpuscular HGB Conc 33.2 GM/DL (32-36); Mean Corpuscular Volume 87.9 FL (87-102); Mean Platelet Volume 11.7 FL (9.6-12.0); Monocytes # 0.9 10*3/uL (0.11-0.8); Monocytes % 7.3 % (1.7-12.7); Neutrophils % 85.2 % (38.7-73.9); Red Cell Distribution Width 19.4 % (9.3-17.3); White Blood Count 11.78 T/CUMM (4-12)
[2022-03-17 04:43] LABS: Platelet Count 121 T/CUMM (130-400)
[2022-03-17 05:06] LABS: Calcium 8.6 MG/DL (8.5-10.1); Osmolality,Calculated 289.1 MOS/KG (273-304); Potassium 3.9 MMOL/L (3.5-5.1)
[2022-03-17] MEDS: INSULIN LISPRO 100 UNIT/ML SUBCUT SCH ×3 (08:47→17:58)
[2022-03-17] MEDS: DAPAGLIFLOZIN 10 MG TABLET PO SCH (08:49)
[2022-03-17] MEDS: SODIUM BICARBONATE 650 MG TABLET PO SCH ×2 (08:49→22:28)
[2022-03-17] MEDS: MIDODRINE 5 MG TABLET PO SCH ×3 (08:49→22:28)
[2022-03-17] MEDS: ASPIRIN CHEW 81 MG TABLET PO SCH (08:49)
[2022-03-17] MEDS: DOCUSATE SODIUM 100 MG CAPSULE PO SCH ×2 (08:49→22:28)
[2022-03-17] MEDS: EZETIMIBE 10 MG TABLET PO SCH (08:49)
[2022-03-17] MEDS: FUROSEMIDE 40 MG/4 ML VIAL IV SCH ×2 (08:49→17:57)
[2022-03-17] MEDS: APIXABAN 5 MG TABLET PO SCH ×2 (08:49→22:28)
[2022-03-17] MEDS: SPIRONOLACTONE 25 MG TABLET PO SCH (08:50)
[2022-03-17] MEDS: PANTOPRAZOLE 40 MG TABLET PO SCH (08:50)
[2022-03-17] MEDS: METOPROLOL TARTRATE 25 MG TABLET PO SCH (08:50)
[2022-03-17] MEDS ORDERED: POTASSIUM CHLORIDE 20 MEQ TABLET PO ONE (10:25)
[2022-03-17] MEDS: DIGOXIN 0.125 MG TABLET PO SCH (13:39)
[2022-03-18] MEDS: DOCUSATE SODIUM 100 MG CAPSULE PO SCH ×3 (01:15→20:03)
[2022-03-18] MEDS: APIXABAN 5 MG TABLET PO SCH ×3 (01:15→08:37)
[2022-03-18] MEDS: MIDODRINE 5 MG TABLET PO SCH ×5 (01:16→20:03)
[2022-03-18] MEDS: METOPROLOL TARTRATE 25 MG TABLET PO SCH (01:16)
[2022-03-18] MEDS: INSULIN LISPRO 100 UNIT/ML SUBCUT SCH ×5 (01:16→20:02)
[2022-03-18] MEDS: SODIUM BICARBONATE 650 MG TABLET PO SCH ×3 (01:16→20:03)
[2022-03-18 01:56] LABS: Basophils % 0.1 % (0.0-0.8); Eosinophils % 0.1 % (0.00-10.9); Hematocrit 27.7 VOL% (42.0-52.0); Hemoglobin 8.9 GM/DL (14.0-18.0); Immature Granulocytes % 0.7 %; Lymphocytes % 7.8 % (21.2-54.2); Mean Corpuscular HGB Conc 32.1 GM/DL (32-36); Mean Corpuscular Volume 88.5 FL (87-102); Mean Platelet Volume 11.5 FL (9.6-12.0); Monocytes # 1.2 10*3/uL (0.11-0.8); Monocytes % 9.2 % (1.7-12.7); Neutrophils % 82.1 % (38.7-73.9); Platelet Count 163 T/CUMM (130-400); Red Blood Count 3.13 MC/CUMM (3.8-5.5); Red Cell Distribution Width 19.8 % (9.3-17.3); White Blood Count 13.34 T/CUMM (4-12)
[2022-03-18 02:19] LABS: Anisocytosis Slight; Platelet Estimate Adequate; Target Cells 1+
[2022-03-18 03:40] LABS: Calcium 8.6 MG/DL (8.5-10.1); Osmolality,Calculated 288.4 MOS/KG (273-304); Potassium 4.3 MMOL/L (3.5-5.1)
[2022-03-18] MEDS: DOBUTamine 500 MG/250 ML PREMIX IV SCH (04:41)
[2022-03-18] MEDS: PANTOPRAZOLE 40 MG TABLET PO SCH (08:37)
[2022-03-18] MEDS: ASPIRIN CHEW 81 MG TABLET PO SCH (08:37)
[2022-03-18] MEDS: EZETIMIBE 10 MG TABLET PO SCH (08:37)
[2022-03-18 09:36] LABS: INR 2.3; PT Patient Result 24.1 SECS (10.1-12.1)
[2022-03-18 09:46] LABS: Arterial pH iSTAT 7.553 (7.35-7.45)
[2022-03-18 10:17] LABS: Hyaline Casts,Urine 79 /LPF (0-3); Mucus,Urine Occasional /LPF (Occasional); RBC,Urine 173 /HPF (0-4); Squamous Epithelial Cell,Urine Occasional /HPF (0-10)
[2022-03-18 10:18] LABS: Bilirubin,Urine Moderate mg/dL (Negative); Blood, Urine Large mg/dL (Negative); Glucose,Urine (UA) 100 mg/dL (Negative); Ketones,Urine Negative (Negative); Nitrite,Urine Negative (Negative); Protein,Urine Negative (Negative); Urine Appearance Clear (Clear); Urine Color Orange (Yellow); Urine Specific Gravity 1.015 (1.001-1.035); Urine pH 5.5 (4.5-8.0)
[2022-03-18] MEDS: FUROSEMIDE 40 MG/4 ML VIAL IV SCH ×2 (10:44→16:53)
[2022-03-18] MEDS: DIGOXIN 0.125 MG TABLET PO SCH (12:32)
[2022-03-18] MEDS ORDERED: SODIUM CHLORIDE 0.9% 1,000 ML IV PRN (14:03)
[2022-03-18] MEDS: PHENYLEPHRINE DRIP 40 MG/250 ML PREMIX IV PRN (20:34)
[2022-03-19] MEDS: DOBUTamine 500 MG/250 ML PREMIX IV SCH ×3 (01:46→22:42)
[2022-03-19 04:56] LABS: Basophils % 0.1 % (0.0-0.8); Eosinophils % 0.1 % (0.00-10.9); Hematocrit 23.3 VOL% (42.0-52.0); Hemoglobin 7.8 GM/DL (14.0-18.0); Immature Granulocytes % 0.9 %; Immature Granulocytes Absolute 0.14 #; Lymphocytes # 0.8 10*3/uL (1.4-4.0); Lymphocytes % 5.6 % (21.2-54.2); Mean Corpuscular HGB Conc 33.5 GM/DL (32-36); Mean Corpuscular Volume 81.5 FL (87-102); Mean Platelet Volume 12.2 FL (9.6-12.0); Monocytes % 6.8 % (1.7-12.7); NRBC # 0.03 10*3/uL; Neutrophils % 86.5 % (38.7-73.9); Platelet Count 126 T/CUMM (130-400); Red Blood Count 2.86 MC/CUMM (3.8-5.5); Red Cell Distribution Width 18.7 % (9.3-17.3); White Blood Count 14.89 T/CUMM (4-12)
[2022-03-19 05:15] LABS: Calcium 8.4 MG/DL (8.5-10.1); Potassium 3.9 MMOL/L (3.5-5.1)
[2022-03-19] MEDS: PHENYLEPHRINE DRIP 40 MG/250 ML PREMIX IV PRN ×2 (07:35→17:41)
[2022-03-19] MEDS: INSULIN LISPRO 100 UNIT/ML SUBCUT SCH ×4 (07:36→21:14)
[2022-03-19] MEDS ORDERED: APIXABAN 5 MG TABLET PO SCH (09:00)
[2022-03-19] MEDS: PANTOPRAZOLE 40 MG TABLET PO SCH (09:10)
[2022-03-19] MEDS: MIDODRINE 5 MG TABLET PO SCH ×3 (09:10→21:14)
[2022-03-19] MEDS: DOCUSATE SODIUM 100 MG CAPSULE PO SCH ×2 (09:10→21:14)
[2022-03-19] MEDS: ASPIRIN CHEW 81 MG TABLET PO SCH (09:10)
[2022-03-19] MEDS: SODIUM BICARBONATE 650 MG TABLET PO SCH ×2 (09:10→21:15)
[2022-03-19] MEDS: EZETIMIBE 10 MG TABLET PO SCH (09:10)
[2022-03-19] MEDS: FUROSEMIDE 40 MG/4 ML VIAL IV SCH ×2 (09:10→16:15)
[2022-03-19] MEDS: DIGOXIN 0.125 MG TABLET PO SCH (14:30)
[2022-03-20] MEDS: PHENYLEPHRINE DRIP 40 MG/250 ML PREMIX IV PRN ×3 (03:51→21:55)
[2022-03-20 04:28] LABS: Basophils % 0.1 % (0.0-0.8); Eosinophils % 0.1 % (0.00-10.9); Hematocrit 22.5 VOL% (42.0-52.0); Hemoglobin 7.4 GM/DL (14.0-18.0); Immature Granulocytes % 0.7 %; Immature Granulocytes Absolute 0.11 #; Lymphocytes # 0.7 10*3/uL (1.4-4.0); Lymphocytes % 4.4 % (21.2-54.2); Mean Corpuscular HGB Conc 32.9 GM/DL (32-36); Mean Corpuscular Volume 84.3 FL (87-102); Mean Platelet Volume 12.3 FL (9.6-12.0); Monocytes # 0.8 10*3/uL (0.11-0.8); NRBC # 0.06 10*3/uL; Neutrophils % 89.7 % (38.7-73.9); Platelet Count 134 T/CUMM (130-400); Red Blood Count 2.67 MC/CUMM (3.8-5.5); Red Cell Distribution Width 19.3 % (9.3-17.3); White Blood Count 15.49 T/CUMM (4-12)
[2022-03-20 04:49] LABS: Calcium 8.4 MG/DL (8.5-10.1); Osmolality,Calculated 297.7 MOS/KG (273-304); Potassium 3.5 MMOL/L (3.5-5.1)
[2022-03-20 04:52] LABS: Hypochromia Slight; Lymphocytes 2 % (20-55); Microcytosis Slight; Platelet Estimate Normal; Total Cells Counted 100
[2022-03-20 07:31] LABS: INR 1.4; PT Patient Result 14.9 SECS (10.1-12.1)
[2022-03-20] MEDS: INSULIN LISPRO 100 UNIT/ML SUBCUT SCH ×4 (07:35→21:10)
[2022-03-20] MEDS: FUROSEMIDE 40 MG/4 ML VIAL IV SCH ×2 (08:00→15:40)
[2022-03-20] MEDS: DOCUSATE SODIUM 100 MG CAPSULE PO SCH ×2 (09:00→21:10)
[2022-03-20] MEDS: ASPIRIN CHEW 81 MG TABLET PO SCH (09:00)
[2022-03-20] MEDS: MIDODRINE 5 MG TABLET PO SCH ×3 (09:00→21:11)
[2022-03-20] MEDS: EZETIMIBE 10 MG TABLET PO SCH (09:00)
[2022-03-20] MEDS: SODIUM BICARBONATE 650 MG TABLET PO SCH ×2 (09:00→21:11)
[2022-03-20] MEDS: PANTOPRAZOLE 40 MG TABLET PO SCH (09:00)
[2022-03-20] MEDS: DOBUTamine 500 MG/250 ML PREMIX IV SCH ×2 (10:40→18:15)
[2022-03-20] MEDS: DIGOXIN 0.125 MG TABLET PO SCH (13:20)
[2022-03-20 14:37] LABS: Eosinophils,Pleural Fluid 1 %; Lymphocytes,Pleural Fluid 10 %; Monocytes,Pleural Fluid 2 %; Neutrophils,Pleural Fluid 87 %
[2022-03-20 14:38] LABS: RBC,Pleural Fluid > 100000 T/CUMM
[2022-03-20 14:49] LABS: Glucose,Pleural Fluid 40 MG/DL; Total Protein,Pleural Fluid 3.6 G/DL
[2022-03-21] MEDS: PHENYLEPHRINE DRIP 40 MG/250 ML PREMIX IV PRN ×2 (04:06→11:30)
[2022-03-21] MEDS: DOBUTamine 500 MG/250 ML PREMIX IV SCH ×2 (04:35→14:50)
[2022-03-21 06:11] LABS: Calcium 8.4 MG/DL (8.5-10.1); Osmolality,Calculated 284.3 MOS/KG (273-304); Potassium 3.2 MMOL/L (3.5-5.1)
[2022-03-21 06:23] LABS: Basophils % 0.1 % (0.0-0.8); Eosinophils # 0.1 10*3/uL (0.0-0.87); Hematocrit 24.9 VOL% (42.0-52.0); Hemoglobin 8.1 GM/DL (14.0-18.0); Immature Granulocytes % 0.8 %; Immature Granulocytes Absolute 0.11 #; Lymphocytes # 0.8 10*3/uL (1.4-4.0); Lymphocytes % 5.3 % (21.2-54.2); Mean Corpuscular HGB Conc 32.5 GM/DL (32-36); Mean Corpuscular Volume 86.2 FL (87-102); Mean Platelet Volume 12.5 FL (9.6-12.0); Monocytes # 0.7 10*3/uL (0.11-0.8); Monocytes % 4.5 % (1.7-12.7); NRBC # 0.05 10*3/uL; Neutrophils % 88.3 % (38.7-73.9); Platelet Count 130 T/CUMM (130-400); Red Blood Count 2.89 MC/CUMM (3.8-5.5); Red Cell Distribution Width 19.9 % (9.3-17.3); White Blood Count 14.42 T/CUMM (4-12)
[2022-03-21] MEDS: INSULIN LISPRO 100 UNIT/ML SUBCUT SCH ×4 (07:20→21:27)
[2022-03-21] MEDS: DOCUSATE SODIUM 100 MG CAPSULE PO SCH ×2 (08:20→21:27)
[2022-03-21] MEDS: SODIUM BICARBONATE 650 MG TABLET PO SCH ×2 (08:20→21:28)
[2022-03-21] MEDS: PANTOPRAZOLE 40 MG TABLET PO SCH (08:20)
[2022-03-21] MEDS: EZETIMIBE 10 MG TABLET PO SCH (08:20)
[2022-03-21] MEDS: MIDODRINE 5 MG TABLET PO SCH ×3 (08:20→21:28)
[2022-03-21] MEDS: POTASSIUM CHLORIDE 20 MEQ TABLET PO PRN (08:20)
[2022-03-21] MEDS: ASPIRIN CHEW 81 MG TABLET PO SCH (08:20)
[2022-03-21] MEDS: FUROSEMIDE 40 MG/4 ML VIAL IV SCH ×2 (08:30→16:05)
[2022-03-21] MEDS ORDERED: AMIODARONE INJ 150 MG in DEXTROSE 5% 100 ML IV ONE (09:16)
[2022-03-21] MEDS ORDERED: AMIODARONE INJ 450 MG in DEXTROSE 5% 241 ML IV SCH (09:30)
[2022-03-21] MEDS ORDERED: POTASSIUM CHLORIDE INJ 40 MEQ in SODIUM CHLORIDE 0.9% 250 ML IV ONE (11:00)
[2022-03-21] MEDS: ENOXAPARIN 60 MG/0.6 ML SYRINGE SUBCUT SCH (12:20)
[2022-03-21] MEDS: AMIODARONE INJ 450 MG in DEXTROSE 5% 241 ML IV SCH (16:10)
[2022-03-21] MEDS ORDERED: PHENYLEPHRINE DRIP 40 MG/250 ML PREMIX IV PRN (19:07)
[2022-03-21 20:08] VITALS: BP 79/62
[2022-03-22] MEDS: ENOXAPARIN 60 MG/0.6 ML SYRINGE SUBCUT SCH (00:50)
[2022-03-22 05:13] LABS: Basophils % 0.2 % (0.0-0.8); Eosinophils # 0.1 10*3/uL (0.0-0.87); Eosinophils % 0.5 % (0.00-10.9); Hematocrit 28.3 VOL% (42.0-52.0); Hemoglobin 8.5 GM/DL (14.0-18.0); Immature Granulocytes % 0.8 %; Lymphocytes # 0.8 10*3/uL (1.4-4.0); Lymphocytes % 6.3 % (21.2-54.2); Mean Corpuscular Volume 91.6 FL (87-102); Monocytes # 0.7 10*3/uL (0.11-0.8); Monocytes % 6.1 % (1.7-12.7); NRBC # 0.05 10*3/uL; Neutrophils % 86.1 % (38.7-73.9); Platelet Count 124 T/CUMM (130-400); Red Blood Count 3.09 MC/CUMM (3.8-5.5); Red Cell Distribution Width 20.8 % (9.3-17.3); White Blood Count 12.06 T/CUMM (4-12)
[2022-03-22 05:14] LABS: Calcium 8.3 MG/DL (8.5-10.1); Osmolality,Calculated 285.4 MOS/KG (273-304); Potassium 3.7 MMOL/L (3.5-5.1)
[2022-03-22] MEDS: DOBUTamine 500 MG/250 ML PREMIX IV SCH (05:18)
[2022-03-22 06:23] LABS: Hypochromia 1+; Lymphocytes 7 % (20-55); Total Cells Counted 100
[2022-03-22 06:24] LABS: Anisocytosis 1+; Microcytosis 1+; Platelet Estimate Adequate; Target Cells Few
[2022-03-22] MEDS: AMIODARONE INJ 450 MG in DEXTROSE 5% 241 ML IV SCH (07:41)
[2022-03-22] MEDS: INSULIN LISPRO 100 UNIT/ML SUBCUT SCH (07:51)
[2022-03-22] MEDS: FUROSEMIDE 40 MG/4 ML VIAL IV SCH (07:54)
[2022-03-22] MEDS: ASPIRIN CHEW 81 MG TABLET PO SCH (10:01)
[2022-03-22] MEDS: SODIUM BICARBONATE 650 MG TABLET PO SCH (10:01)
[2022-03-22] MEDS: DOCUSATE SODIUM 100 MG CAPSULE PO SCH (10:01)
[2022-03-22] MEDS: MIDODRINE 5 MG TABLET PO SCH (10:02)
[2022-03-22] MEDS: EZETIMIBE 10 MG TABLET PO SCH (10:02)
[2022-03-22] MEDS: PANTOPRAZOLE 40 MG TABLET PO SCH (10:08)
[2022-03-23] MEDS ORDERED: OMEPRAZOLE ODT 20 MG TABLET PO SCH (09:00)
== END 2022-03-22 10:50 | disposition hospice, inpatient (51) | DRG 291 ==
LOC: N.ED 10:15 → N.EDINP 10:15 → SUATTDRO 12:39 → N.EDINP 14:45 → SUATTDRO 16:30 → N.ICU 16:48 → N.TELEN 03-16 21:47 → N.ICU 03-18 01:11
PROVIDERS: ADMIT Family Medicine; ATTEND Family Medicine

== ENCOUNTER 2022-03-22 10:50 | Inpatient (IN) ==
[2022-03-22] MEDS ORDERED: ALBUTEROL 2.5 MG/3 ML NEB RESP TX PRN (11:35)
[2022-03-22] MEDS ORDERED: ACETAMINOPHEN 325 MG TABLET PO PRN ×2 (11:35→16:21)
[2022-03-22] MEDS ORDERED: guaiFENesin/DM ER 600-30 MG TABLET PO PRN (11:35)
[2022-03-22] MEDS ORDERED: ALBUTEROL/IPRATROPIUM 3 ML NEB RESP TX PRN (16:21)
[2022-03-22] MEDS ORDERED: ONDANSETRON 4 MG/2 ML VIAL IV PRN (16:21)
[2022-03-22] MEDS: INSULIN LISPRO 100 UNIT/ML SUBCUT SCH ×2 (17:00→21:43)
[2022-03-22] MEDS: FUROSEMIDE 20 MG/2 ML VIAL IV SCH (17:16)
[2022-03-22] MEDS: MIDODRINE 5 MG TABLET PO SCH ×2 (17:17→21:43)
[2022-03-22] MEDS: ONDANSETRON 4 MG/2 ML VIAL IV PRN (20:18)
[2022-03-22] MEDS: SODIUM BICARBONATE 650 MG TABLET PO SCH (21:43)
[2022-03-22] MEDS: DOCUSATE SODIUM 100 MG CAPSULE PO SCH (21:43)
[2022-03-22] MEDS: AMIODARONE 200 MG TABLET PO SCH (21:52)
[2022-03-23] MEDS: MORPHINE 2 MG/1 ML SYRINGE IV PRN ×3 (00:40→06:16)
[2022-03-23] MEDS: ONDANSETRON 4 MG/2 ML VIAL IV PRN ×2 (02:21→18:37)
[2022-03-23] MEDS: INSULIN LISPRO 100 UNIT/ML SUBCUT SCH (08:15)
[2022-03-23] MEDS: SODIUM BICARBONATE 650 MG TABLET PO SCH ×2 (09:36→21:41)
[2022-03-23] MEDS: ASPIRIN CHEW 81 MG TABLET PO SCH (09:36)
[2022-03-23] MEDS: MIDODRINE 5 MG TABLET PO SCH ×3 (09:36→21:41)
[2022-03-23] MEDS: AMIODARONE 200 MG TABLET PO SCH (09:36)
[2022-03-23] MEDS: DOCUSATE SODIUM 100 MG CAPSULE PO SCH ×2 (09:36→21:41)
[2022-03-23] MEDS: FUROSEMIDE 20 MG/2 ML VIAL IV SCH (09:37)
[2022-03-24] MEDS: LORazepam 2 MG/1 ML VIAL IV PRN (01:58)
[2022-03-24] MEDS: MORPHINE 2 MG/1 ML SYRINGE IV PRN (06:04)
[2022-03-24] MEDS: ASPIRIN CHEW 81 MG TABLET PO SCH (09:00)
[2022-03-24] MEDS: DOCUSATE SODIUM 100 MG CAPSULE PO SCH ×2 (09:00→20:40)
[2022-03-24] MEDS: MIDODRINE 5 MG TABLET PO SCH ×3 (09:00→20:40)
[2022-03-24] MEDS ORDERED: DIGOXIN 0.125 MG TABLET PO SCH (09:00)
[2022-03-24] MEDS: FUROSEMIDE 40 MG/4 ML VIAL IV SCH (09:05)
[2022-03-24] MEDS: AMIODARONE 200 MG TABLET PO SCH (09:05)
[2022-03-25] MEDS: DOCUSATE SODIUM 100 MG CAPSULE PO SCH ×2 (09:46→21:44)
[2022-03-25] MEDS: AMIODARONE 200 MG TABLET PO SCH (09:46)
[2022-03-25] MEDS: ASPIRIN CHEW 81 MG TABLET PO SCH (09:46)
[2022-03-25] MEDS: MIDODRINE 5 MG TABLET PO SCH ×3 (09:47→21:44)
[2022-03-25] MEDS: FUROSEMIDE 40 MG/4 ML VIAL IV SCH (09:47)
[2022-03-26] MEDS: LORazepam 2 MG/1 ML VIAL IV PRN (00:39)
[2022-03-26] MEDS: MIDODRINE 5 MG TABLET PO SCH ×3 (09:47→21:04)
[2022-03-26] MEDS: ASPIRIN CHEW 81 MG TABLET PO SCH (09:47)
[2022-03-26] MEDS: FUROSEMIDE 40 MG/4 ML VIAL IV SCH (09:47)
[2022-03-26] MEDS: DOCUSATE SODIUM 100 MG CAPSULE PO SCH ×2 (09:47→21:04)
[2022-03-26] MEDS: AMIODARONE 200 MG TABLET PO SCH (09:47)
[2022-03-27 07:12] VITALS: BP 87/63
[2022-03-27] MEDS: MIDODRINE 5 MG TABLET PO SCH (08:42)
[2022-03-27] MEDS: AMIODARONE 200 MG TABLET PO SCH (08:42)
[2022-03-27] MEDS: ASPIRIN CHEW 81 MG TABLET PO SCH (08:42)
[2022-03-27] MEDS: DOCUSATE SODIUM 100 MG CAPSULE PO SCH (08:43)
[2022-03-27] MEDS: FUROSEMIDE 40 MG/4 ML VIAL IV SCH (08:45)
== END 2022-03-27 09:38 | disposition hospice, inpatient (51) | DRG 951 ==
LOC: SUATTDRO 10:50 → N.ADMINP 10:50 → N.3E 15:10
PROVIDERS: ADMIT Family Medicine; ATTEND Emergency Medicine